=== PATIENT | female | born 1960 | race Caucasian/White ===

== ENCOUNTER 2020-02-25 17:37 | Outpatient (CLI) | payer OTHER, SELFPAY ==
[2020-02-25 17:55] LABS: Add Urine Microscopic? YES; Appearance Urine Clear (Clear); Bilirubin Urine Negative (Negative); Blood Urine Negative (Negative); Color Urine Yellow (Yellow); Glucose Urine UA Negative (Negative); Ketones Urine Negative (Negative); Leukocyte Esterase Ur 1+ LEU/UL (NEGATIVE); Mucus Urine Rare /lpf; Nitrate Urine Negative (Negative); Protein Urine Negative (Negative); RBC Urine 0-2 /hpf (0-2); Specific Grav Ur 1.017 (1.001-1.035); Squamous Epithelial Cell Urine Many /hpf (Few); Urobilinogen Urine Negative mg/dL (<2.0)
== END 2020-02-25 17:38 | disposition home or self-care (01) ==
LOC: ANHLAB 17:39
PROVIDERS: Visit Provider Physician Assistant
DX: N39.0 Urinary tract infection, site not specified (principal)
CPT/HCPCS: 81001; 87086; 87088

== ENCOUNTER 2020-03-04 15:11 | Outpatient (CLI) | payer OTHER, SELFPAY ==
--- NOTE | ~2020-03-04 | CT_ITS ---
EXAMINATION: CT abdomen pelvis wo con EXAM DATE: 03/04/2020 15:33 INDICATION: Left-sided abdominal pain. TECHNIQUE: Spiral CT of the abdomen and pelvis was performed without contrast. Axial, coronal and sag ittal images were reviewed. The dose-length product (DLP) for this examination was 1128.35 mGy-cm. The exposure was tailored according to patient size (auto mA exposure control), and iterative reconst ruction (ASIR) was used as additional dose reduction technique. There is no prior study for comparis on. FINDINGS: There are splenic granulomata. There is no nephrolithiasis or hydronephrosis. The uterus is unremarkable. The bladder is unremarkable. The liver, adrenal glands and pancreas are unremarka ble. There are cholecystectomy clips. There is no retroperitoneal or pelvic lymphadenopathy. The appendix is normal. The stomach and small bowel are unremarkable. There is expected amount of c olonic stool. No free intraperitoneal gas. The heart is normal in size. There are no pericardial or pleural effusions. The lung bases are unremarkable. The bones are unremarkable. IMPRESSION: 1. No acute intra-abdominal findings. Reviewed, dictated and finalized at location A.
== END 2020-03-04 15:12 | disposition home or self-care (01) ==
PROVIDERS: Visit Provider Physician Assistant
DX: R10.9 Unspecified abdominal pain (principal)
CPT/HCPCS: 74176

== ENCOUNTER → 2020-10-10 00:24 | Outpatient (CLI) | payer OTHER, SELFPAY ==
[2020-10-10 17:47] LABS: SARS-CoV-2 RNA PCR Negative
== END ==
PROVIDERS: PCP Family Medicine; Visit Provider Internal Medicine Gastroenterology
DX: Z01.812 Encounter for preprocedural laboratory examination (principal); Z20.822 Contact with and (suspected) exposure to COVID-19
CPT/HCPCS: C9803; U0003; U0005

== ENCOUNTER 2020-10-13 00:52 | Day surgery (SDC) | payer OTHER, SELFPAY ==
[2020-10-03 09:36] VITALS: BMI 39.7
[2020-10-13 08:59] VITALS: BP 132/89; PULSE 75; RESP 20; TEMP 37; O2SAT 99
[2020-10-13] MEDS: LACTATED RINGERS 1,000 ML 150 ML IV CONT (09:11)
--- NOTE | 2020-10-13 09:20 | WPDANESEPPF ---
Anes - Initial Pre Proc Eval Procedure: Operation Date: 10/13/20 10:15 Proposed Procedures p Esophagogastroduodenoscopy & Screening Colonoscopy - Deng Ly MD Date/Time: 10/13/20 09:20 Surgeon: Deng Ly MD Pre Op Diagnosis: GERD, Neoplasm Screening Patient Data Age: 60 Gender: F Height: 5 ft 4 in Weight: 105.3 kg Last Vital Signs Temp 98.6 F 10/13/20 08:59 Pulse 75 10/13/20 08:59 Resp 20 10/13/20 08:59 BP 132/89 10/13/20 08:59 Pulse Ox 99 10/13/20 08:59 Allergies Allergy/AdvReac Type Severity Reaction Status Date / Time No Known Allergies Allergy Verified 10/13/20 08:57 Home Medications Medication Instructions Recorded Confirmed Type azelastine-fluticasone 137 mcg-50 1 spray NASAL BID 05/07/20 10/03/20 History mcg/spray nasal spray montelukast 10 mg tablet 10 mg PO DAILY #30 tablet 08/25/20 10/03/20 Rx albuterol sulfate 90 mcg/actuation 1 puff INHALATION Q4H PRN 09/02/20 10/03/20 History aerosol inhaler Lactobacill 46-B.animal-inulin 1 cap PO DAILY 10/03/20 10/03/20 History [Probiotic-10 (with inulin)] calcium carbonate-vitamin D3 2 tablet PO DAILY 10/03/20 10/03/20 History [Calcium with Vitamin D] cholecalciferol (vitamin D3) 100 mcg PO DAILY 10/03/20 10/03/20 History [Vitamin D3] cyanocobalamin (vitamin B-12) 1,000 mcg PO DAILY 10/03/20 10/03/20 History [Vitamin B-12] fexofenadine [Kat] 180 mg PO DAILY 10/03/20 10/03/20 History hydrochlorothiazide 25 mg PO DAILY 10/03/20 10/03/20 History obvifpns-ejj-ovfd-FA-lutein 1 tablet PO DAILY 10/03/20 10/03/20 History [Centrum Silver Women] potassium 99 mg PO DAILY 10/03/20 10/03/20 History rabeprazole 20 mg PO BID 10/03/20 10/03/20 History Patient hx anesthesia problems: none Family hx anesthesia problems: none [facility] Past Medical History Medical History Allergic rhinitis Chronic rhinosinusitis Elevated liver enzymes Erythrocytosis GERD (gastroesophageal reflux disease) History of blood transfusion 2010 History of nephrolithotomy with removal of calculi 02/28 HTN (hypertension) IBS (irritable bowel syndrome) Normal colonoscopy 2005, 2010 Osteoarthritis Seasonal asthma Vaginal delivery 07/06/80, , full term, female, 8#8 09/14/84, , full term, female, 8# Surgical History Surgical History History of carpal tunnel surgery 2005 lt hand History of cholecystectomy 2003 History of endoscopy 2000, 2004 History of sinus surgery 07/26 cauterized sinus, 2001 History of surgical removal of ganglion cyst 1985 right hand Family History Family History Father Diabetes mellitus Hypertension Mother Diabetes mellitus Hypertension Sibling Diabetes mellitus Grandparent History of blood clots grandfather Diabetes mellitus grandmother Other Breast cancer aunt Social History Social History (Updated 09/02/20 @ 14:04 by Debi Caro) Smoking status: Never smoker Alcohol intake: current Drinks per week: 1 Alcohol use details: BEER/WINE Substance use: never Substance use type: does not use Living arrangements: with family Gender identity (if verbalized by the patient): Female Spiritual care concerns: No Anes - Eval Final PreProcedure Day of Procedure 10/13/20 09:20 Patient weight: morbidly obese Heart: regular rate and rhythm Lungs: clear to auscultation Airway: Mallampati scale class II Neurological: alert and oriented Last oral intake: >/= 8 hours ASA classification: III Emergent: no Anesthetic plan: proceed Anesthesia type and monitoring: general GIVS and standard monitoring Informed Consent: The patient's anesthetic plan and its attendant risks and benefits were discussed with the patient/family/POADede Silveira
--- NOTE | 2020-10-13 09:56 | PM.HPGS ---
History of Present Illness History of Present Illness Consent: Risks, benefits, and alternatives have been discussed and questions answered. Patient agrees to proceed with procedure. Chief complaint: GERD, Neoplasm Screening Narrative: Kia Hernández is a 60 year old female with chronic and persistent gastroesophageal reflux disease. 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 She is due for screening colonoscopy [facility] Past Medical History Medical History (Updated 10/13/20 @ 10:02 by Deng Ly MD) Allergic rhinitis Chronic rhinosinusitis Elevated liver enzymes Erythrocytosis GERD (gastroesophageal reflux disease) History of blood transfusion 2010 History of nephrolithotomy with removal of calculi 02/28 HTN (hypertension) IBS (irritable bowel syndrome) Normal colonoscopy 2005, 2010 Osteoarthritis Seasonal asthma Vaginal delivery 07/06/80, , full term, female, 8#8 09/14/84, , full term, female, 8# Surgical History Surgical History History of carpal tunnel surgery 2005 lt hand History of cholecystectomy 2003 History of endoscopy 2004 History of sinus surgery 07/26 cauterized sinus, 2001 History of surgical removal of ganglion cyst 1985 right hand Family History Family History Father Diabetes mellitus Hypertension Mother Diabetes mellitus Hypertension Sibling Diabetes mellitus Grandparent History of blood clots grandfather Diabetes mellitus grandmother Other Breast cancer aunt Social History Social History Smoking status: Never smoker Alcohol intake: current Drinks per week: 1 Alcohol use details: BEER/WINE Substance use: never Substance use type: does not use Living arrangements: with family Gender identity (if verbalized by the patient): Female Spiritual care concerns: No Meds Home Medications and Allergies Home Medications Medication Instructions Recorded Confirmed Type azelastine-fluticasone 137 mcg-50 1 spray NASAL BID 05/07/20 10/03/20 History mcg/spray nasal spray montelukast 10 mg tablet 10 mg PO DAILY #30 tablet 08/25/20 10/03/20 Rx albuterol sulfate 90 mcg/actuation 1 puff INHALATION Q4H PRN 09/02/20 10/03/20 History aerosol inhaler Lactobacill 46-B.animal-inulin 1 cap PO DAILY 10/03/20 10/03/20 History [Probiotic-10 (with inulin)] calcium carbonate-vitamin D3 2 tablet PO DAILY 10/03/20 10/03/20 History [Calcium with Vitamin D] cholecalciferol (vitamin D3) 100 mcg PO DAILY 10/03/20 10/03/20 History [Vitamin D3] cyanocobalamin (vitamin B-12) 1,000 mcg PO DAILY 10/03/20 10/03/20 History [Vitamin B-12] fexofenadine [Kat] 180 mg PO DAILY 10/03/20 10/03/20 History hydrochlorothiazide 25 mg PO DAILY 10/03/20 10/03/20 History nzcbgrkn-kht-wroa-FA-lutein 1 tablet PO DAILY 10/03/20 10/03/20 History [Centrum Silver Women] potassium 99 mg PO DAILY 10/03/20 10/03/20 History rabeprazole 20 mg PO BID 10/03/20 10/03/20 History Allergies Allergy/AdvReac Type Severity Reaction Status Date / Time No Known Allergies Allergy Verified 10/13/20 08:57 Vital Signs Vital Signs - 24 hr 10/13/20 08:59 Temperature 37.0 C Pulse Rate 75 Respiratory Rate 20 Blood Pressure 132/89 Pulse Oximetry 99 Exam Resp: Auscultation: clear to auscultation bilaterally Cardio: Rate: regular rate Rhythm: regular rhythm GI: GI Palp: Yes Soft to palpation and No Tenderness to palpation present (GI) Assessment and Plan Assessment and plan (1) GERD (gastroesophageal reflux disease): Code(s): K21.9 - Gastro-esophageal reflux disease without esophagitis Status: Acute Assessment and Plan: EGD with possible biopsy or dilatation or cautery. (2) Colon c
[2020-10-13 10:44] VITALS: BP 108/62; PULSE 70; RESP 30; O2SAT 100
[2020-10-13 10:54] VITALS: BP 120/73; PULSE 64; RESP 17; O2SAT 99
[2020-10-13 11:04] VITALS: BP 125/76; PULSE 61; RESP 17; O2SAT 99
== END 2020-10-13 11:15 | disposition home or self-care (01) ==
PROVIDERS: PCP Family Medicine; Visit Provider Internal Medicine Gastroenterology
PROC: 0DJ08ZZ Inspection of Upper Intestinal Tract, Via Natural or Artificial Opening Endoscopic (ICD-10-PCS; CPT 43235; principal; 2020-10-13 10:15)
DX: Z12.11 Encounter for screening for malignant neoplasm of colon (principal); K21.9 Gastro-esophageal reflux disease without esophagitis; I10 Essential (primary) hypertension; K58.9 Irritable bowel syndrome, unspecified; M19.90 Unspecified osteoarthritis, unspecified site; E66.01 Morbid (severe) obesity due to excess calories; Z68.39 Body mass index [BMI] 39.0-39.9, adult
CPT/HCPCS: 45378; 43239; 88305; C9803; J2001; J2704; J7120; U0003; U0005

== ENCOUNTER → 2021-04-09 11:08 | Outpatient (CLI) | payer OTHER, SELFPAY ==
--- NOTE | ~2021-04-09 | XR_ITS ---
XR finger 2nd LT min 2V DATE: 04/09/2021 11:31 INDICATION: Stiffness TECHNIQUE: 4 views COMPARISON: None FINDINGS: There is joint space narrowing and spurring at the proximal interphalangeal and to a greate r extent distal interphalangeal joint and small degenerative ossicle at the distal interphalangeal allen int, consistent with osteoarthritis. No fracture, dislocation, periosteal reaction or bone destruction. IMPRESSION: Osteoarthritis Reviewed, dictated and finalized at location A. IMPRESSION: Osteoarthritis
== END ==
PROVIDERS: PCP Family Medicine; Visit Provider Physician Assistant
DX: M19.042 Primary osteoarthritis, left hand (principal)
CPT/HCPCS: 73140

== ENCOUNTER 2021-05-03 10:32 | Emergency (ER) | payer OTHER, SELFPAY ==
[2021-05-03 10:37] VITALS: BP 142/71; PULSE 74; RESP 16; TEMP 36.8; O2SAT 100
--- NOTE | 2021-05-03 10:39 | ED.SKABFB ---
HPI - Skin/Abscess/Foreign Bdy General Chief complaint: Skin/Abscess/Foreign Body Stated complaint: rash Time Seen by Provider: 05/03/21 10:39 Source: patient and RN notes reviewed Mode of arrival: ambulatory Limitations: no limitations History of Present Illness HPI narrative: 60-year-old female presents to the [facility] with complaints of a rash to the bilateral lower arms and right lateral neck. States that she was clearing brush and not sure what was in it. Has been taking Benadryl every 6 hours and applying Benadryl cream with little relief. Denies any new creams or ointments lotions detergents. No new foods MD complaint: rash Related Data Home Medications Medication Instructions Recorded Confirmed azelastine-fluticasone 137 mcg-50 1 spray NASAL BID 05/07/20 05/03/21 mcg/spray nasal spray Centrum Silver Women 1 tablet PO DAILY 10/03/20 05/03/21 Probiotic-10 (with inulin) 1 cap PO DAILY 10/03/20 05/03/21 calcium carbonate-vitamin D3 2 tablet PO DAILY 10/03/20 05/03/21 [Calcium with Vitamin D] cyanocobalamin (vitamin B-12) 1,000 mcg PO DAILY 10/03/20 05/03/21 [Vitamin B-12] fexofenadine 180 mg PO DAILY 10/03/20 05/03/21 acetaminophen [Tylenol Arthritis] 650 mg PO Q12H PRN 05/03/21 05/03/21 glucos sul 9RRg-vkj-qbtno-C-Mn 1 cap PO DAILY 05/03/21 05/03/21 [Glucosamine Chondroitin] hydrochlorothiazide 25 mg PO DAILY 05/03/21 05/03/21 montelukast 10 mg PO DAILY 05/03/21 05/03/21 Allergies Allergy/AdvReac Type Severity Reaction Status Date / Time No Known Allergies Allergy Verified 05/03/21 10:48 Review of Systems Review of Systems: All systems reviewed & are unremarkable except as noted in HPI and below Constitutional: Constitutional: Reports no additional constitutional complaints, Denies chills and Denies fever(s) Eyes: Eyes: Reports no additional eye complaints ENT: Reports system reviewed and no additional complaints, except as documented Cardiovascular: Cardiovascular: Reports no additional cardiovascular complaints Respiratory: Respiratory: Reports no additional respiratory complaints Gastrointestinal: Gastrointestinal: Reports no additional gastrointestinal complaints Musculoskeletal: Musculoskeletal: Reports no additional musculoskeletal complaints Integumentary/Breasts: Skin/Breast: Reports as per HPI and Reports rash (Bilateral lower arms, above the neckline of shirt, right side of neck) Neurologic: Reports system reviewed and no additional complaints, except as documented Psychiatric: Psychiatric: Reports no additional psychiatric complaints Endocrine: Endocrine: Reports no additional endocrine complaints Allergic/Immunologic: Allergic/Immunologic: Reports no additional allergic/immunologic complaints, Denies lip swelling, Denies throat swelling, Denies tongue swelling and Denies wheezing PMFSH Past Medical History Medical History (Updated 05/03/21 @ 10:48 by Mari Wolfe) Allergic rhinitis Chronic rhinosinusitis Elevated liver enzymes Erythrocytosis GERD (gastroesophageal reflux disease) History of blood transfusion 2010 History of nephrolithotomy with removal of calculi 02/28 HTN (hypertension) IBS (irritable bowel syndrome) Normal colonoscopy 2010 Osteoarthritis Seasonal asthma Vaginal delivery 07/06/80, , full term, female, 8#8 09/14/84, , full term, female, 8# Surgical History Surgical History History of carpal tunnel surgery 2005 lt hand History of cholecystectomy 2003 History of endoscopy 2004 History of sinus surgery 07/26 cauterized sinus, 2001 History of surgical removal of ganglion cyst 1985 right hand Family History Family History Father Diabetes mellitus Hypertension Mother Diabetes mellitus Hypertension Sibling Diabetes mellitus Grandparent History of blood clots grandfather Diabetes kylah
== END 2021-05-03 10:50 | disposition home or self-care (01) ==
PROVIDERS: Emergency Provider Nurse Practitioner; PCP Family Medicine
DX: L25.9 Unspecified contact dermatitis, unspecified cause (principal); I10 Essential (primary) hypertension
CPT/HCPCS: 99213; G0463

== ENCOUNTER 2021-10-26 11:22 | Emergency (ER) | payer OTHER, SELFPAY ==
[2021-10-26 11:35] VITALS: BP 137/78; PULSE 86; RESP 20; TEMP 37.2; O2SAT 99
--- NOTE | 2021-10-26 11:51 | ED.URI ---
HPI - URI/Sore Throat General Chief Complaint: Upper Respiratory Infection Stated Complaint: allergies, ear pain, congestion Time Seen by Provider: 10/26/21 11:51 Source: patient, family, RN notes reviewed and old records reviewed Mode of arrival: ambulatory Limitations: no limitations History of Present Illness HPI Narrative: 61-year-old female presents to the [facility] with complaints of seasonal allergies. Patient reports being allergic to ragweed, trees and trees and grass. States she takes zaly-hjf-xageikj products such as Kat, Flonase daily. Has prescriptions for Singulair. Reports taking them daily. Reports sinus congestion and pressure MD elicited complaint: nasal congestion and sinus pain Related Data Home Medications Medication Instructions Recorded Confirmed Centrum Silver Women 1 tablet PO DAILY 10/03/20 10/26/21 Probiotic-10 (with inulin) 1 cap PO DAILY 10/03/20 10/26/21 calcium carbonate-vitamin D3 2 tablet PO DAILY 10/03/20 10/26/21 [Calcium with Vitamin D] glucos sul 3PVo-pmf-zeupy-C-Mn 1 cap PO DAILY 05/03/21 10/26/21 [Glucosamine Chondroitin] biotin 1 mg capsule 1 mg PO DAILY 05/12/21 10/26/21 cholecalciferol (vitamin D3) 25 25 mcg PO DAILY 05/12/21 10/26/21 mcg (1,000 unit) capsule fexofenadine 180 mg tablet 180 mg PO DAILY 05/12/21 10/26/21 fluticasone propionate 50 2 spray INTRANASAL DAILY 05/12/21 10/26/21 mcg/actuation nasal spray,suspension magnesium 200 mg tablet 200 mg PO DAILY 05/12/21 10/26/21 acetaminophen [Tylenol Arthritis] 650 mg PO Q12H 10/26/21 10/26/21 montelukast 10 mg PO DAILY 10/26/21 10/26/21 potassium chloride [K+ Potassium] 20 meq PO DAILY 10/26/21 10/26/21 Allergies Allergy/AdvReac Type Severity Reaction Status Date / Time No Known Allergies Allergy Verified 10/26/21 11:46 Review of Systems Review of Systems: All systems reviewed & are unremarkable except as noted in HPI and below Constitutional: Constitutional: Reports no additional constitutional complaints, Denies chills, Denies fever(s) and Denies headache(s) Eyes: Eyes: Reports no additional eye complaints ENT: Reports as per HPI, Denies vertigo, Denies dizziness, Denies headache(s), Reports nasal congestion and Denies sore throat Comments: Bilateral ear pressure Cardiovascular: Cardiovascular: Reports no additional cardiovascular complaints, Denies chest pain, Denies syncope, Denies rapid heart rate and Denies dyspnea Respiratory: Respiratory: Reports no additional respiratory complaints, Denies cough, Denies dyspnea and Denies wheezing Gastrointestinal: Gastrointestinal: Reports no additional gastrointestinal complaints, Denies abdominal pain, Denies diarrhea, Denies nausea and Denies vomiting Musculoskeletal: Musculoskeletal: Reports no additional musculoskeletal complaints and Denies numbness Integumentary/Breasts: Skin/Breast: Reports system reviewed and no additional complaints, except as docu Neurologic: Reports system reviewed and no additional complaints, except as documented, Denies vertigo, Denies dizziness, Denies syncope, Denies headache(s), Denies focal weakness and Denies numbness Psychiatric: Psychiatric: Reports no additional psychiatric complaints Allergic/Immunologic: Allergic/Immunologic: Reports no additional allergic/immunologic complaints and Denies wheezing PMFSH Past Medical History Medical History Allergic rhinitis Chronic rhinosinusitis Elevated liver enzymes Erythrocytosis GERD (gastroesophageal reflux disease) History of blood transfusion 2011 History of nephrolithotomy with removal of calculi 02/28 HTN (hypertension) IBS (irritable bowel syndrome) Normal colonoscopy 2005, 2010 Osteoarthritis Seasonal asthma Vaginal delivery x2 Surgical History Surgical History History of carpal tunnel surgery 2006 lt hand History of cholecystectomy 2004 Hist
== END 2021-10-26 12:05 | disposition home or self-care (01) ==
PROVIDERS: Emergency Provider Nurse Practitioner; PCP Family Medicine
DX: H65.03 Acute serous otitis media, bilateral (principal); J30.2 Other seasonal allergic rhinitis; K21.9 Gastro-esophageal reflux disease without esophagitis; I10 Essential (primary) hypertension; M19.90 Unspecified osteoarthritis, unspecified site; J45.909 Unspecified asthma, uncomplicated
CPT/HCPCS: 99213; G0463

== ENCOUNTER 2022-07-02 12:26 | Emergency (ER) | payer OTHER, SELFPAY ==
[2022-07-02 12:33] VITALS: BP 141/73; PULSE 91; RESP 18; TEMP 36.7; O2SAT 98
--- NOTE | 2022-07-02 12:50 | ED.URI ---
HPI - URI/Sore Throat General Chief Complaint: Upper Respiratory Infection Stated Complaint: drainage ears clogged dizzy Time Seen by Provider: 07/02/22 12:39 Source: patient Mode of arrival: ambulatory Limitations: no limitations History of Present Illness HPI Narrative: Patient presents today with a one-week history of nasal congestion, postnasal drip, sore throat, cough with her left ear clogging and dizziness since yesterday. States symptoms have been worsening since yesterday. Denies shortness of breath. She has been taking Benadryl, [place] region, using a sinus rinse. History of 3 sinus surgeries. Related Data Home Medications Medication Instructions Recorded Confirmed Lactobacillus no.46-B. 1 cap PO DAILY 10/03/20 07/02/22 animalis-inulin 10 billion cell-100 mg capsule (Probiotic-10 (with inulin)) calcium carbonate 600 mg-vitamin 2 tablet PO DAILY 10/03/20 07/02/22 D3 10 mcg (400 unit) tablet (Calcium with Vitamin D) glucosamine sulf dipot 1 cap PO DAILY 05/03/21 07/02/22 chlr,msm,chond 550 mg-C 30 mg-mirela 1 mg capsule (Glucosamine Chondroitin) cholecalciferol (vitamin D3) 25 25 mcg PO DAILY 05/12/21 07/02/22 mcg (1,000 unit) capsule fluticasone propionate 50 2 spray intranasal DAILY 05/12/21 07/02/22 mcg/actuation nasal spray,suspension magnesium 200 mg tablet 200 mg PO DAILY 05/12/21 07/02/22 potassium chloride 20 mEq oral 20 meq PO DAILY 10/26/21 07/02/22 packet albuterol sulfate 90 mcg/actuation 2 puff inhalation QID 07/02/22 07/02/22 aerosol inhaler (ProAir HFA) Allergies Allergy/AdvReac Type Severity Reaction Status Date / Time No Known Allergies Allergy Verified 07/02/22 12:41 Review of Systems Review of Systems: CONSTITUTIONAL: Denies body aches, fever, chills, or sweats. EYES: Denies visual changes, redness, or discharge. ENT: Denies rhinorrhea. + congestion, postnasal drip, sore throat, left ear clogging CARDIOVASCULAR: Denies chest pain, palpitations, or edema. RESPIRATORY: Denies dyspnea.+ cough GASTROINTESTINAL: Denies abdominal pain, nausea, vomiting, or diarrhea. GENITOURINARY: Denies dysuria or hematuria. SKIN: Denies rash, itching, or wounds. MUSCULOSKELETAL: Denies back pain, joint pain, or myalgia. NEUROLOGIC: Denies headache, numbness, tingling, or weakness.+ dizziness PSYCH: Denies depression or anxiety. [facility] Past Medical History Medical History Allergic rhinitis Chronic rhinosinusitis Elevated liver enzymes Erythrocytosis GERD (gastroesophageal reflux disease) History of blood transfusion 2011 History of nephrolithotomy with removal of calculi 02/28 HTN (hypertension) IBS (irritable bowel syndrome) Normal colonoscopy 2005, 2010 Osteoarthritis Seasonal asthma Vaginal delivery x2 Surgical History Surgical History History of carpal tunnel surgery 2005 lt hand History of cholecystectomy 2003 History of endoscopy 2005, 2011, 2020 History of sinus surgery 06/2012; 07/26, cauterized sinus; 2001; 10/2018 History of surgical removal of ganglion cyst x2, right hand Family History Family History Father Diabetes mellitus Hypertension Mother Diabetes mellitus Hypertension Sibling Diabetes mellitus Grandparent History of blood clots grandfather Diabetes mellitus grandmother Other Breast cancer aunt Social History Social History Social History: Smoking status: Never smoker Second hand tobacco smoke exposure: No Alcohol intake: former Substance use: never Substance use type: does not use Gender identity (if verbalized by the patient): Female Sexual Orientation (if Verbalized by the Patient): Straight or Heterosexual Spiritual care
--- NOTE | 2022-07-02 13:52 | ED.URI ---
HPI - URI/Sore Throat General Chief Complaint: Upper Respiratory Infection Stated Complaint: drainage ears clogged dizzy Time Seen by Provider: 07/02/22 12:39 Source: patient Mode of arrival: ambulatory Limitations: no limitations Related Data Home Medications Medication Instructions Recorded Confirmed Lactobacillus no.46-B. 1 cap PO DAILY 10/03/20 07/02/22 animalis-inulin 10 billion cell-100 mg capsule (Probiotic-10 (with inulin)) calcium carbonate 600 mg-vitamin 2 tablet PO DAILY 10/03/20 07/02/22 D3 10 mcg (400 unit) tablet (Calcium with Vitamin D) glucosamine sulf dipot 1 cap PO DAILY 05/03/21 07/02/22 chlr,msm,chond 550 mg-C 30 mg-mirela 1 mg capsule (Glucosamine Chondroitin) cholecalciferol (vitamin D3) 25 25 mcg PO DAILY 05/12/21 07/02/22 mcg (1,000 unit) capsule fluticasone propionate 50 2 spray intranasal DAILY 05/12/21 07/02/22 mcg/actuation nasal spray,suspension magnesium 200 mg tablet 200 mg PO DAILY 05/12/21 07/02/22 potassium chloride 20 mEq oral 20 meq PO DAILY 10/26/21 07/02/22 packet albuterol sulfate 90 mcg/actuation 2 puff inhalation QID 07/02/22 07/02/22 aerosol inhaler (ProAir HFA) Allergies Allergy/AdvReac Type Severity Reaction Status Date / Time No Known Allergies Allergy Verified 07/02/22 12:41 PMFSH Past Medical History Medical History Allergic rhinitis Chronic rhinosinusitis Elevated liver enzymes Erythrocytosis GERD (gastroesophageal reflux disease) History of blood transfusion 2011 History of nephrolithotomy with removal of calculi 02/28 HTN (hypertension) IBS (irritable bowel syndrome) Normal colonoscopy 2005, 2010 Osteoarthritis Seasonal asthma Vaginal delivery x2 Surgical History Surgical History History of carpal tunnel surgery 2006 lt hand History of cholecystectomy 2004 History of endoscopy 2005, 2011, 2020 History of sinus surgery 06/2012; 07/26, cauterized sinus; 2001; 10/2018 History of surgical removal of ganglion cyst x2, right hand Family History Family History Father Diabetes mellitus Hypertension Mother Diabetes mellitus Hypertension Sibling Diabetes mellitus Grandparent History of blood clots grandfather Diabetes mellitus grandmother Other Breast cancer aunt Social History Social History Social History: Smoking status: Never smoker Second hand tobacco smoke exposure: No Alcohol intake: former Substance use: never Substance use type: does not use Gender identity (if verbalized by the patient): Female Sexual Orientation (if Verbalized by the Patient): Straight or Heterosexual Spiritual care concerns: No Course Vital Signs Vital signs: Vital Signs Temperature 98.1 F 07/02/22 12:33 Pulse Rate 91 07/02/22 12:33 Respiratory Rate 18 07/02/22 12:33 Blood Pressure 141/73 H 07/02/22 12:33 Pulse Oximetry 98 07/02/22 12:33 Oxygen Delivery Room Air 07/02/22 12:33 Temperature 98.1 F 07/02/22 12:33 Pulse Rate 91 07/02/22 12:33 Respiratory Rate 18 07/02/22 12:33 Blood Pressure 141/73 H 07/02/22 12:33 Pulse Oximetry 98 07/02/22 12:33 Oxygen Delivery Room Air 07/02/22 12:33 Discharge Plan Discharge Clinical Impression: Acute bacterial sinusitis, Acute left otitis media Patient Disposition: Home, Self-Care Condition: Stable Instructions: Antibiotic Form, Sinusitis (ED), Ear Infection (GEN) Additional Instructions: Please take the Augmentin as prescribed until gone. Continue the jqwx-zhm-renamli medication you have been taking Advil as well. Follow-up with your doctor next week if symptoms are not improving. Your blood pressure was elevated above 120/80 to
== END 2022-07-02 12:55 | disposition home or self-care (01) ==
PROVIDERS: Emergency Provider Nurse Practitioner; PCP Family Medicine
DX: J01.90 Acute sinusitis, unspecified (principal); H66.92 Otitis media, unspecified, left ear; K21.9 Gastro-esophageal reflux disease without esophagitis; I10 Essential (primary) hypertension; M19.90 Unspecified osteoarthritis, unspecified site
CPT/HCPCS: 99213; G0463

== ENCOUNTER 2022-07-15 09:15 | Outpatient (CLI) | payer OTHER, SELFPAY ==
--- NOTE | ~2022-07-15 | DEXA_ITS ---
Bone Density Report Name: JULIETA PERDOMO Age: 61 Sex: Female Ethnicity: White Date of : 1960 Indication: postmenopausal; screening for osteoporosis; height loss; asthma or emphysema; rheumatoid arthritis; Referring Provider: SLADE KENDALL Study: Bone densitometry was performed. Exam Date: July 15, 2022 Accession number: [id number] Bone Density: Region BMD T-score Z-score Classification AP Spine(L1-L4) 1.026 -0.2 1.2 Normal Femoral Neck (Left) 0.926 0.7 2.0 Normal Total Hip (Left) 1.098 1.3 2.2 Normal Femoral Neck (Right) 0.859 0.1 1.4 Normal Total Hip (Right) 1.047 0.9 1.8 Normal Total Hip Mean 1.072 1.1 2.0 Normal World Health Organization criteria for BMD impression classify patients as: Normal (T-score at or above -1.0), Osteopenia (T-score between -1.0 and -2.5), or Osteoporosis (T-score at or below -2.5). 10-year Fracture Risk: FRAX not reported because: All T-scores for Spine Total, Hip Total, Femoral Neck at or above -1.0 Clinical Information Provided by Patient: Has rheumatoid arthritis Has used the following medications: Vitamin D, Calcium Has the following medical conditions: Asthma or Emphysema Patient maximum height was 64.75 Menopause Age: 55 No regular weight bearing exercise Onset of menses at age 15 Number of children 2 Impression: The patient has normal bone mass. Discussion: BONE DENSITY IS ABOVE THE MINIMUM DESIRABLE LEVEL AT ALL SKELETAL SITES TESTED. This patient?s bone mineral density is above the minimum desirable level (T-score -1.0 or better) at all sites measured. The patient should follow a healthful lifestyle (good nutrition with adequate calcium and vitamin D, and appropriate weight-bearing exercise). Follow-Up: Consider repeating this study in 5 years or sooner if there is some new clinical indication. Reported by: [facility] on 07/15/2022 9:43:00 AM. Reviewed, dictated and finalized at location ADede KIRAN
== END 2022-07-15 09:16 | disposition home or self-care (01) ==
PROVIDERS: PCP Family Medicine; Visit Provider Obstetrics & Gynecology
DX: R29.890 Loss of height (principal)
CPT/HCPCS: 77080

== ENCOUNTER 2023-08-16 10:07 | Outpatient (CLI) | payer OTHER, SELFPAY ==
[2023-08-16 11:57] LABS: Influenza A QL RT-PCR Negative (Negative); Influenza B QL RT-PCR Negative (Negative); RSV RNA, RT-PCR Negative (Negative); SARS-CoV-2 RNA PCR Negative (Negative)
== END 2023-08-16 10:08 | disposition home or self-care (01) ==
LOC: ANHLAB 10:09
PROVIDERS: PCP Family Medicine; Visit Provider Physician Assistant
DX: R05.9 Cough, unspecified (principal); Z20.822 Contact with and (suspected) exposure to COVID-19
CPT/HCPCS: 87637

== ENCOUNTER 2023-10-13 11:55 | Emergency (ER) | payer OTHER, SELFPAY ==
[2023-10-13 12:00] VITALS: BP 131/104; PULSE 80; RESP 20; TEMP 36.5; O2SAT 100
--- NOTE | 2023-10-13 12:38 | ED.URI ---
HPI - URI/Sore Throat General Chief Complaint: Upper Respiratory Infection Stated Complaint: cough/fever/throat/fever Time Seen by Provider: 10/13/23 12:37 Source: patient Mode of arrival: ambulatory Limitations: no limitations History of Present Illness HPI Narrative: 63-year-old female presents to [facility] with complaint of headache, sore throat, cough, congestion and bilateral ear pain x 5 days. Patient endorses that she arrived home from a cruise on Tuesday. Your patient here tonight with Mucinex twice a day, he had felt cold and Sinus, ibuprofen, and cough drops with some relief. Patient denies allergies. The patient endorses history of hypertension, GERD, and uterine ablation. Patient denies any other pertinent past medical history. Patient able to tolerate fluids by mouth. Related Data Home Medications Medication Instructions Recorded Confirmed Lactobacillus no.46-B. 1 cap PO DAILY 10/03/20 10/13/23 animalis-inulin 10 billion cell-100 mg capsule (Probiotic-10 (with inulin)) calcium carbonate 600 mg-vitamin 2 tablet PO DAILY 10/03/20 10/13/23 D3 10 mcg (400 unit) tablet (Calcium with Vitamin D) glucosamine sulf dipot 1 cap PO DAILY 05/03/21 10/13/23 chlr,msm,chond 550 mg-C 30 mg-mirela 1 mg capsule (Glucosamine Chondroitin) cholecalciferol (vitamin D3) 25 25 mcg PO DAILY 05/12/21 10/13/23 mcg (1,000 unit) capsule fluticasone propionate 50 2 spray intranasal DAILY 05/12/21 10/13/23 mcg/actuation nasal spray,suspension albuterol sulfate 90 mcg/actuation 2 puff inhalation QID 07/02/22 10/13/23 aerosol inhaler (ProAir HFA) blntbqsq-mjvn-hmpz 8 mg-folic 400 1 tablet PO DAILY 10/13/23 10/13/23 mcg-K 50 mcg-lutein 300 mcg tablet (Centrum Silver Women) trazodone 50 mg tablet 50 mg PO QHS 10/13/23 10/13/23 Allergies Allergy/AdvReac Type Severity Reaction Status Date / Time No Known Allergies Allergy Verified 10/13/23 12:29 Review of Systems Review of Systems: All systems reviewed & are unremarkable except as noted in HPI and below Constitutional: Constitutional: Reports no additional constitutional complaints and Reports headache(s) Eyes: Eyes: Reports no additional eye complaints ENT: Reports system reviewed and no additional complaints, except as documented, Reports headache(s), Reports nasal congestion and Reports sore throat Cardiovascular: Cardiovascular: Reports no additional cardiovascular complaints, Denies chest pain and Denies dyspnea Respiratory: Respiratory: Reports cough and Denies dyspnea Musculoskeletal: Musculoskeletal: Reports no additional musculoskeletal complaints Neurologic: Reports system reviewed and no additional complaints, except as documented Psychiatric: Psychiatric: Reports no additional psychiatric complaints PMFSH Past Medical History Medical History Allergic rhinitis BMI greater than 40 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 Elevated liver enzymes Erythrocytosis Essential hypertension GERD (gastroesophageal reflux disease) History of blood transfusion 2011 History of nephrolithotomy with removal of calculi 02/28 HTN (hypertension) IBS (irritable bowel syndrome) Insomnia Left knee DJD Normal colonoscopy 2005, 2010 Osteoarthritis Primary osteoarthritis of right knee Seasonal asthma Vaginal delivery x2 Surgical History Surgical History History of carpal tunnel surgery 2005 lt hand History of cholecystectomy 2004 History of endoscopy 2005, 2011, 2020 History of sinus surgery 06/2012; 07/26, cauterized sinus; 2001; 10/2018 History of surgical removal of ganglion cyst x2, right hand Family History Family History Father Diabetes mellitus Hypertension Mother Diabetes mellitus Hypertension Sibling Diabetes mellit
== END 2023-10-13 12:45 | disposition home or self-care (01) ==
PROVIDERS: Nurse Practitioner; Emergency Provider Nurse Practitioner Family; PCP Family Medicine
DX: J06.9 Acute upper respiratory infection, unspecified (principal); Z20.822 Contact with and (suspected) exposure to COVID-19; I10 Essential (primary) hypertension; K21.9 Gastro-esophageal reflux disease without esophagitis; M17.0 Bilateral primary osteoarthritis of knee
CPT/HCPCS: 87081; 87426; 87804; 87880; 99213; G0463

== ENCOUNTER 2023-10-31 09:40 | Outpatient (CLI) | payer OTHER, SELFPAY ==
--- NOTE | ~2023-10-31 | XR_ITS ---
Clinical Indication: Cough PA and lateral views of the chest: Comparison: None Findings: The lungs are clear, without evidence of focal consolidation or pleural effusion. Cardiome diastinal silhouette is within normal limits. Bones and soft tissues are unremarkable. Impression: Normal chest. Reviewed, dictated and finalized at location . Impression: Normal chest.
== END 2023-10-31 09:41 ==
PROVIDERS: PCP Family Medicine; Visit Provider Family Medicine
DX: R05.9 Cough, unspecified (principal)
CPT/HCPCS: 71046

== ENCOUNTER 2023-11-18 10:04 | Outpatient (CLI) | payer OTHER, SELFPAY ==
--- NOTE | 2023-11-18 13:27 | WPDPFTINT ---
PFT Procedure Performed PFT Procedure Performed Spirometry with Pre/Post Bronchodilator Plethysmography (Lung Vol) Diffusing Cap (DLCO) Flow Vol Loop PFT Interpretation This is a pulmonary function test with pre and post-bronchodilator spirometry, plethysmography and diffusing capacity. The test was performed and results interpreted in accordance with the 2019 and 2005 ATS/ERS Task Force guidelines respectively using the Global Lung Function Initiative-2012 reference equations. Patient demonstrated good effort and cooperation. Reproducibility criteria were met. The quality of the pre bronchodilator spirometry maneuver was Grade B and post bronchodilator spirometry maneuver was Grade A. Findings: Spirometry: The contour the inspiratory and expiratory flow tracing are normal. The pre bronchodilator FVC is 3.40 L, 108% predicted. The pre bronchodilator FEV1 is 2.72 L, 109% predicted. The pre bronchodilator FEV1: FVC ratio is 80%. The post bronchodilator FVC is 3.58 L, representing a 5% increase. The post bronchodilator FEV1 is 2.88 L, representing a 6% increase. The post bronchodilator FEV1: FVC ratio was 80%. Plethysmography: The total lung capacity is 6.05 L, 119% predicted. The functional residual capacity is 3.79 L, 132% predicted. The residual volume is 2.58 L, 128% predicted. Diffusing capacity: The diffusing capacity unadjusted for hemoglobin and carboxyhemoglobin is 22.4, 104% predicted. The diffusing capacity adjusted for alveolar volume is 4.67, 105% predicted. Impression: The spirometry is normal without evidence of an obstructive abnormality. There is no significant improvement after inhaling a single dose of albuterol. The lung volumes are normal. The diffusing capacity is normal. There are no prior studies for comparison
== END 2023-11-18 10:05 | disposition home or self-care (01) ==
LOC: ANHPFT 10:05
PROVIDERS: PCP Family Medicine; Visit Provider Physician Assistant Medical
DX: R05.9 Cough, unspecified (principal); R06.02 Shortness of breath
CPT/HCPCS: 94060; 94726; 94729

== ENCOUNTER 2024-03-23 10:26 | Outpatient (CLI) | payer OTHER, SELFPAY ==
[2024-03-23 10:47] LABS: Add Urine Microscopic? NO; Appearance Urine Clear (Clear); Bilirubin Urine Negative (Negative); Blood Urine Negative (Negative); Color Urine Yellow (Yellow); Glucose Urine UA Negative (Negative); Ketones Urine Negative (Negative); Leukocyte Esterase Ur Negative LEU/UL (Negative); Nitrate Urine Negative (Negative); Protein Urine Negative (Negative); Specific Grav Ur 1.018 (1.001-1.035); Urobilinogen Urine 0.2 mg/dL (<2.0)
[2024-03-23 11:10] LABS: Basophils Percent Auto 0.7 % (0.2-1.2); Eosinophils Absolute Auto 0.2 K/mm3 (0-0.3); Hematocrit 37.9 % (37.0-47.0); Hemoglobin 11.6 g/dL (12.0-15.0); Immature Granulocyte Absolute 0.02 K/mm3 (0.00-0.031); Immature Granulocyte Percent A 0.3 % (0-0.5); Lymphocytes Absolute Auto 1.63 K/mm3 (0.9-3.2); Lymphocytes Percent Auto 28.5 % (18.3-44.2); Mean Corpuscular HGB Conc 30.6 g/dl (32-36); Mean Corpuscular Hemoglobin 24.4 pg (26-34); Mean Corpuscular Volume 79.8 fl (80-100); Mean Platelet Volume 9.9 fl (7.4-10.4); Monocytes Absolute Auto 0.5 K/mm3 (0.1-0.6); Monocytes Percent Auto 8.4 % (2.6-8.5); Neutrophils Absolute Auto 3.4 K/mm3 (1.3-6.7); Neutrophils Percent Auto 59.1 % (45.5-73.1); Platelet Count Result 316 k/mm3 (150-375); Red Blood Count 4.75 M/mm3 (4.2-5.4); Red Cell Distribution Width 14.8 % (11.5-14.5); White Blood Count 5.7 K/mm3 (4.5-10.0)
[2024-03-23 11:36] LABS: Anion Gap 10 mmol/L (4-12); Blood Urea Nitrogen 15 mg/dL (7-17); Calcium 9.5 mg/dL (8.4-10.2); Carbon Dioxide 31 mmol/L (22-30); Chloride 99 mmol/L (98-107); Estimated Glomerular Filt Rate > 60; Glucose 105 mg/dL (65-110); Potassium 3.6 mmol/L (3.4-5.0); Sodium 140 mmol/L (137-145)
--- NOTE | 2024-03-23 11:52 | ECG_ITS ---
Test Date: 2024-03-23 12:06:37 Measurements Intervals [place] Rate: 57 P: 25 WI: 165 QRS: -53 QRSD: 129 T: 17 QT: 429 QTc: 418 Interpretive Statements SINUS BRADYCARDIA LEFT ANTERIOR FASCICULAR BLOCK [QRS AXIS <= -45, QR IN I, RS IN II] POSSIBLE LEFT VENTRICULAR HYPERTROPHY [VOLTAGE CRITERIA PLUS LAE OR QRS WIDENING] ABNORMAL ELECTROCARDIOGRAM No previous ECG available for comparison Electronically Signed On 03-23-2024 15:05:43 CDT by Jeremiah Art M.D.
== END 2024-03-23 10:27 | disposition home or self-care (01) ==
LOC: ANHLAB 10:29
PROVIDERS: PCP Family Medicine; Visit Provider Nurse Practitioner Family
DX: R74.8 Abnormal levels of other serum enzymes (principal); R71.8 Other abnormality of red blood cells; R53.83 Other fatigue; I10 Essential (primary) hypertension; R00.1 Bradycardia, unspecified; I44.4 Left anterior fascicular block; R94.31 Abnormal electrocardiogram [ECG] [EKG]
CPT/HCPCS: 36415; 80048; 81003; 85025; 93005

== ENCOUNTER 2024-05-10 11:43 | Outpatient (CLI) | payer OTHER, SELFPAY ==
[2024-05-10 14:13] LABS: Partial Thromboplastin Time 27.5 Seconds (22.3-36.8)
[2024-05-10 14:15] LABS: Urine Cotinine NEGATIVE
[2024-05-10 14:39] LABS: Hemoglobin A1C 5.9 % (<5.7)
[2024-05-10 15:49] LABS: MRSA (PCR) NOT DETECTED (NOT DETECTE)
== END 2024-05-10 11:44 | disposition home or self-care (01) ==
LOC: ANHSURGERY 11:50
PROVIDERS: PCP Family Medicine; Visit Provider Orthopaedic Surgery
DX: Z01.812 Encounter for preprocedural laboratory examination (principal); M17.11 Unilateral primary osteoarthritis, right knee
CPT/HCPCS: 80307; 83036; 85610; 85730; 86850; 86900; 86901; 87641

== ENCOUNTER 2024-05-23 01:45 | Day surgery (SDC) | payer OTHER, SELFPAY ==
[2024-05-10 11:55] VITALS: BMI 39.2
--- NOTE | 2024-05-10 12:24 | PC.NURSE ---
Report to the Outpatient Waiting Room, entrance under the green pavilion located off [facility], at time _8:30 AM on date 05/23/24 . Planned Procedure Time: _10:30 AM .? Time changes happen often and if your time is changed the preop area will call you the afternoon before. - You and your visitor will be asked to self-screen and do not enter if you have any COVID symptoms. Please call surgeon if you need to reschedule. - A mask is optional within the hospital at this time. Patients may have clear liquids (water, carbonated beverages, clear teas, apple juice) until 3 hours prior to surgery( 7:30 AM) with a maximum of 20 ounces. - No food from midnight until time of surgery and no smoking - Infants may have breast milk until 4 hours before surgery, formula 6 hours prior to surgery. - Children will be allowed to drink immediately following surgery.? If applicable, please bring a bottle or sippy cup to assist with drinking. Juice, water, soda, and popsicles are readily available.? For infants on formula, please bring formula the day of surgery.? Pacifiers are allowed. Take only the following medications with a SIP of water on the morning of surgery: __INHALER IF NEEDED DO NOT STOP ANY OF YOUR OTHER PRESCRIPTION MEDICATIONS PRIOR TO SURGERY EXCEPT THE FOLLOWING Medications to discontinue per physician __PT STATES HOLD ALL VITAMINS AND SUPPLEMENTS 7 DAYS PRE OP PER DR SHELDON LAST DOSE __05/15/24 Please no make-up, nail kittitian, hairspray, perfume, deodorant, or body powder the day of surgery.? No jewelry (including any body piercings) or valuables the day of surgery, leave them at home.? Please take a shower or bath the night before, or the morning of, surgery with an antibacterial soap.? Wear comfortable, loose fitting clothing.? Children are encouraged to wear pajamas. - Jewelry must be removed prior to entering the operating room.? Rings and piercings that are not removed may be cut off. - The hospital will not accept responsibility for valuables.? - Please leave all valuables, including medications, at home the day of surgery. If you are going home after surgery, a licensed local company truck driver must drive you home.? - NO public transportation without another adult if you receive anesthesia. - We recommend that an adult stay with you for 24 hours following discharge. - We also recommend that you do not drive, make important decision, drink alcoholic beverages, or take any drugs that were not prescribed by your health care provider for at least 24 hours after your discharge time. For Pediatric surgeries, we recommend two adults accompany the child home. Follow any additional instructions given to you from your surgeon. VERBAL AND WRITTEN instructions given to __PATIENT and asked if any additional questions and then verbalized understanding. Patient advised to call surgeon office or pre surgery nurse liaison [phone] if any additional questions.
[2024-05-10 12:37] VITALS: BP 126/78; PULSE 75; RESP 18; TEMP 37.4; O2SAT 98
--- NOTE | 2024-05-22 17:35 | WPDANESEPPF ---
Anes - Initial Pre Proc Eval Procedure: Operation Date: 05/23/24 10:30 Proposed Procedures p Right Total Knee Arthroplasty - Rios Sam MD Date/Time: 05/22/24 17:35 Surgeon: Rios Sam MD Pre Op Diagnosis: right knee oa Patient Data Age: 63 Gender: F Height: 1.63 m Weight: 103.8 kg Last Vital Signs Temp 37.4 C 05/10/24 12:37 Pulse 75 05/10/24 12:37 Resp 18 05/10/24 12:37 BP 126/78 05/10/24 12:37 Pulse Ox 98 05/10/24 12:37 O2 Del Method Room Air 05/10/24 12:37 Allergies Allergy/AdvReac Type Severity Reaction Status Date / Time No Known Allergies Allergy Verified 05/23/24 09:34 Home Medications Medication Instructions Recorded Confirmed Type Lactobacillus no.46-B. 1 cap PO DAILY 10/03/20 05/23/24 History animalis-inulin 10 billion cell-100 mg capsule (Probiotic-10 (with inulin)) calcium 600 mg (as 2 tablet PO DAILY 10/03/20 05/23/24 History carbonate)-vitamin D3 10 mcg (400 unit) tablet (Calcium with Vitamin D) glucosamine sulf dipot 1 cap PO DAILY 05/03/21 05/23/24 History chlr,msm,chond 550 mg-C 30 mg-mirela 1 mg capsule (Glucosamine Chondroitin) cholecalciferol (vitamin D3) 25 25 mcg PO DAILY 05/12/21 05/23/24 History mcg (1,000 unit) capsule fluticasone propionate 50 2 spray intranasal DAILY 05/12/21 05/23/24 History mcg/actuation nasal spray,suspension meclizine 25 mg chewable tablet 12.5 mg PO TID PRN motion sickness 11/26/21 05/23/24 Rx #30 tabs dbgngrhb-yfmu-hasf 8 mg-folic 400 1 tablet PO DAILY 10/13/23 05/23/24 History mcg-K 50 mcg-lutein 300 mcg tablet (Centrum Silver Women) albuterol sulfate 90 mcg/actuation See Rx Instructions .Route 11/30/23 05/23/24 Rx aerosol inhaler .COMPLEX #8.5 ea montelukast 10 mg tablet 10 mg PO DAILY #90 tabs 02/20/24 05/23/24 Rx hydrochlorothiazide 25 mg tablet 25 mg PO DAILY #90 tabs 02/23/24 05/23/24 Rx trazodone 50 mg tablet See Rx Instructions .Route 02/23/24 05/23/24 Rx .COMPLEX #90 tabs rabeprazole 20 mg tablet,delayed 20 mg PO BID #180 tabs 04/17/24 05/23/24 Rx release terbinafine HCl 250 mg tablet 250 mg PO DAILY #30 tabs 05/08/24 05/23/24 Rx acetaminophen 650 mg 1,300 mg PO Q12H PRN Pain 05/10/24 05/23/24 History tablet,extended release fexofenadine 180 mg tablet 180 mg PO DAILY 05/10/24 05/23/24 History (Kat Allergy) omega-3 fatty acids 1,000 mg PO DAILY 05/10/24 05/23/24 History Patient hx anesthesia problems: none Family hx anesthesia problems: none Results Review: All pre-operative results and documents have been reviewed as part of the pre-operative evaluation. 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 Elevated liver enzymes Erythrocytosis Essential hypertension GERD (gastroesophageal reflux disease) History of blood transfusion 2011 History of nephrolithotomy with removal of calculi 02/28 HTN (hypertension) IBS (irritable bowel syndrome) Insomnia Left knee DJD Normal colonoscopy 2005, 2010 Osteoarthritis Primary osteoarthritis of right knee Seasonal asthma Vaginal delivery x2 Surgical History Surgical History History of carpal tunnel surgery 2005 lt hand History of cholecystectomy 2004 History of endoscopy 2005, 2011, 2020 History of sinus surgery 06/2012; 07/26, cauterized sinus; 2001; 10/2018 History of surgical removal of ganglion cyst x2, right hand Family History Family History Father Diabetes mellitus Hypertension Mother Diabetes mellitus Hypertension Sibling Diabetes mellitus Grandparent History of blood clots grandfather Diabetes mellitus grandmother Other Breast cancer aunt Social His
[2024-05-23] VITALS (15 sets, daily range): BP systolic 114–140; BP diastolic 52–78; PULSE 64–82; RESP 12–20; TEMP 36.1–37.2; O2SAT 86–100
--- NOTE | ~2024-05-23 | XR_ITS ---
EXAMINATION: [id number] DATE: 05/23/2024 13:37 CDT INDICATION: Right total knee arthroplasty TECHNIQUE: 2 views right knee FINDINGS: There is a right total knee arthroplasty in expected position. Subcutaneous gas with fluid and air in the joint and overlying skin malcolm are consistent with recent surgery. No evidence of p eriprosthetic fracture. IMPRESSION: 1. Recent right total knee arthroplasty. Reviewed, dictated and finalized at location B.
--- NOTE | 2024-05-23 07:21 | WPDHPUPDATE1 ---
History and Physical Update Update Date/Time: 05/23/24 07:21 History and Physical has been reviewed, including an updated exam of the patient. There are NO changes in the patient's condition. Risks, benefits, and alternatives have been discussed and questions answered. Patient agrees to proceed with procedure.
[2024-05-23] MEDS: ACETAMINOPHEN 500 MG TABLET 1000 MG PO (08:58)
[2024-05-23] MEDS: TRANEXAMIC ACID 1,000MG/ISO100 1,000 MG/100 ML BAG 200 MG IVPB (09:11)
[2024-05-23] MEDS: LACTATED RINGERS 1,000 ML 30 ML IV CONT ×2 (09:11→13:21)
--- NOTE | 2024-05-23 09:35 | P.PNAN_ITS ---
Anes - Eval Final PreProcedure Day of Procedure 05/23/24 09:35 Patient weight: obese Heart: regular rate and rhythm Lungs: clear to auscultation Airway: Mallampati scale class II Neurological: alert and oriented Last oral intake: >/= 8 hours ASA classification: III Emergent: no Anesthetic plan: proceed Anesthesia type and monitoring: general LMA and standard monitoring Results Review: All pre-operative results and documents have been reviewed as part of the pre- operative evaluation. Informed Consent: The patient's anesthetic plan and its attendant risks and benefits were discussed with the patient/family/POA. Questions were solicited and answers provided to the satisfaction of the patient/family/POA.
--- NOTE | 2024-05-23 10:35 | WPDANESPNB ---
Anes - Peripheral Nerve Block Date/Time: 05/23/24 10:35 I have discussed with the patient/family/POA the placement of a peripheral nerve block for post-operative pain management, including associated risks, benefits, complications, and side effects. Alternative methods of post-operative analgesia were detailed. Questions were solicited and answers provided to the satisfaction of the patient/family/POA. Time-Out: A pre-procedural Time-Out was completed immediately before starting the procedure and confirmed: Patient Identification, Site, Procedure, Patient Position and the Availability of Requisite Equipment. Clinical Indications: Acute post-operative pain management requested by the operative surgeon. Nerve Block Insertion Note Anes-nerve block: adductor canal right Patient position: supine Skin prep: chlorhexidine Needle: 22 gauge, stimulating, insulated echogenic needle. Needle length: 80 mm Technique: ultrasound Injectate: bupivacaine 0.5% with epi 5 mcg/ml (25cc no epi) Observations: tolerated well Complications: none Procedure start time:: 1029 Procedure end time:: 1032
[2024-05-23] MEDS: ceFAZolin 2 GM/D5W 50 ML 2 GM/50 ML BAG IVPB ×2 (10:48→17:04)
[2024-05-23] MEDS: SODIUM CHLORIDE 0.9% IV 37.7 ML, MORPHINE SULFATE INJ (*CRX) 2 MG, ROPivacaine HCL 1% 2... INFILTRATE (11:17)
[2024-05-23] MEDS: TRANEXAMIC ACID 1,000 MG/10 ML AMPUL 1000 MG IV PUSH (12:23)
--- NOTE | 2024-05-23 13:30 | W.PM.PROC2 ---
Procedure Note - Detailed Date of Procedure 05/23/24 Pre-op Diagnosis right knee oa Post-op Diagnosis Same Procedure Performed R TKA Surgeon Rios Sam MD Anesthesia General Description of Procedure THE RIGHT KNEE WAS PREPPED AND DRAPED IN THE STERILE FASHION. THERE WAS A 10 DEGREE FLEXION CONTRACTURE. A MIDLINE SKIN INCISION WAS MADE. A MEDIAL PARAPATELLAR ARTHROTOMY WAS MADE. THE PATELLA WAS EVERTED. THERE WAS TRICOMPARTMENT DJD. THERE WAS MINIMAL PATELLA DJD. AN INTRAMEDULLARY MARY WAS PLACED IN THE FEMUR. A DISTAL FEMORAL CUT WAS MADE IN 5 DEGREES OF VALGUS REMOVING APPROXIMATELY 9 MM OF BONE FROM THE DISTAL FEMUR. THE FEMUR WAS SIZED TO 62.5. A 62.5 FEMORAL CUTTING BLOCK WAS PLACED IN 3 DEGREES OF EXTERNAL ROTATION AND IN ALIGNMENT WITH CHANI'S LINE AND THE TRANSEPICONDYLAR AXIS. ANTERIOR POSTERIOR AND CHAMFER CUTS WERE MADE. THE CUTS WERE EXCELLENT. NEXT AN INTRAMEDULLARY CUTTING GUIDE WAS PLACED IN THE TIBIA. A TRANS TIBIAL CUT WAS MADE ALONG THE LONG AXIS OF THE TIBIA. APPROXIMATELY 10 MM OF BONE WAS REMOVED FROM THE HIGH SIDE OF THE TIBIA. THE TIBIA WAS THEN PLANED TO A SMOOTH SURFACE. POSTERIOR FEMORAL OSTEOPHYTES WERE REMOVED FROM THE FEMORAL CONDYLES. A 67 TIBIAL TRIAL WAS PLACED IN ALIGNMENT WITH THE 1/3 MEDIAL ASPECT OF THE TIBIAL TUBERCLE. THEN A 62.5 FEMORAL TRIAL COMPONENT WAS PLACED. BOTH HAD EXCELLENT FITS. EVENTUALLY A 10 MM CR POLYETHYLENE TRIAL COMPONENT WAS PLACED. THE KNEE WAS TAKEN THROUGH A RANGE OF MOTION. THE KNEE CAME OUT TO FULL EXTENSION. THERE WAS NO ABNORMAL TILT TO THE PATELLA. THERE WAS GOOD A/P AND VARUS/VALGUS STABILITY. THERE WAS NO EXCESSIVE ROLL BACK WITH FLEXION. THE TRIAL COMPONENTS WERE REMOVED. THEN A 62.5 FEMORAL COMPONENT AND 67 TIBIAL COMPONENT WITH A 10 CR POLYETHYLENE COMPONENT WERE CEMENTED INTO PLACE. ONCE THE CEMENT WAS HARD THE KNEE WAS TAKEN THROUGH A ROM AGAIN AND FOUND TO BE STABLE WITH NO PATELLA TILT NO EXCESSIVE ROLL BACK WITH FLEXION AND GOOD STABILITY WITH COMPLETE AND FULL EXTENSION. THE KNEE WAS IRRIGATED WITH STERILE BETADINE AND WATER FOR ABOUT 3 MINUTES. THE BLEEDERS WERE CAUTERIZED. THE ARTHROTOMY WAS REPAIRED WITH NUMBER 1 VICRYL. THE SUB CUTANEOUS LAYER WITH 2-0 VICRYL AND THE SKIN WITH HAYDER. THE WOUND WAS WASHED AND A STERILE DRESSING WAS APPLIED. PATIENT WAS EXTUBATED. Estimated Blood Loss -150.0 Pathology None sent Complications No immediate complications Condition Stable Disposition PACU
[2024-05-23] MEDS: fentaNYL CITRATE INJ (*CRX) 100 MCG/2 ML VIAL 25 MCG IV PUSH ×8 (13:34→14:35)
--- NOTE | 2024-05-23 15:11 | ADMGEN ---
This patient, Kia Hernández, was admitted to 3 [facility] Surg Room 320-01. Patient/family oriented to hospital policies and general routines including ID bracelet, bed and alarms, visiting hours, pain management, procedures, bathroom and other care routines, personal items, smoking policy, room service/diet, and visiting hours. Information on how to activate the Rapid Response Team has been discussed. Patient/Family are encouraged to report perceived risks to care and to ask questions if they do not understand what they are told or what they should do.
[2024-05-23] MEDS: SODIUM CHLORIDE 0.9% IV 1,000 ML 125 ML IV CONT (15:32)
[2024-05-23] MEDS: KETOROLAC 15 MG/ML VIAL (*BKC) IV PUSH (17:04)
[2024-05-23] MEDS: SENNA/DOCUSATE SODIUM TABLET 2 TAB PO (17:05)
[2024-05-23] MEDS: ASPIRIN 325 MG ENTERIC TABLET PO (20:51)
[2024-05-23] MEDS: PANTOPRAZOLE 40 MG TABLET PO (20:51)
[2024-05-23] MEDS: FAMOTIDINE 20 MG TABLET PO (20:51)
[2024-05-24 00:25] VITALS: BP 138/60; PULSE 64; RESP 12; TEMP 36.9; O2SAT 96
[2024-05-24] MEDS: ceFAZolin 2 GM/D5W 50 ML 2 GM/50 ML BAG IVPB ×2 (00:26→08:55)
[2024-05-24] MEDS: KETOROLAC 15 MG/ML VIAL (*BKC) IV PUSH ×3 (00:26→12:25)
[2024-05-24 04:49] VITALS: BP 102/57; PULSE 72; RESP 12; TEMP 36.8; O2SAT 97
[2024-05-24 06:29] LABS: Basophils Percent Auto 0.1 % (0.2-1.2); Hematocrit 29.5 % (37.0-47.0); Immature Granulocyte Absolute 0.05 K/mm3 (0.00-0.031); Immature Granulocyte Percent A 0.5 % (0-0.5); Lymphocytes Percent Auto 10.4 % (18.3-44.2); Mean Corpuscular HGB Conc 30.5 g/dl (32-36); Mean Corpuscular Volume 75.4 fl (80-100); Mean Platelet Volume 9.7 fl (7.4-10.4); Monocytes Absolute Auto 0.6 K/mm3 (0.1-0.6); Monocytes Percent Auto 5.9 % (2.6-8.5); Neutrophils Absolute Auto 8.8 K/mm3 (1.3-6.7); Neutrophils Percent Auto 83.1 % (45.5-73.1); Platelet Count Result 241 k/mm3 (150-375); Red Blood Count 3.91 M/mm3 (4.2-5.4); Red Cell Distribution Width 16.1 % (11.5-14.5); White Blood Count 10.6 K/mm3 (4.5-10.0)
[2024-05-24 06:37] LABS: Anion Gap 4 mmol/L (4-12); Blood Urea Nitrogen 15 mg/dL (7-17); Calcium 8.3 mg/dL (8.4-10.2); Carbon Dioxide 28 mmol/L (22-30); Chloride 105 mmol/L (98-107); Estimated CRCL calculation 68 ml/min; Estimated Glomerular Filt Rate > 60; Glucose 103 mg/dL (65-110); Potassium 3.7 mmol/L (3.4-5.0); Sodium 137 mmol/L (137-145)
[2024-05-24 08:49] VITALS: BP 108/64; PULSE 83; RESP 18; TEMP 35.8; O2SAT 98
[2024-05-24] MEDS: SENNA/DOCUSATE SODIUM TABLET 2 TAB PO (08:55)
[2024-05-24] MEDS: PANTOPRAZOLE 40 MG TABLET PO (08:56)
[2024-05-24] MEDS: hydroCHLOROthiazide 25 MG TABLET PO (08:56)
[2024-05-24] MEDS: MONTELUKAST SODIUM 10 MG TABLET PO (08:56)
[2024-05-24] MEDS: ASPIRIN 325 MG ENTERIC TABLET PO (08:56)
[2024-05-24] MEDS: CHOLECALCIFEROL 1,000 UNITS TABLET 1000 UNITS PO (08:56)
[2024-05-24] MEDS: FAMOTIDINE 20 MG TABLET PO (08:56)
[2024-05-24] MEDS: polyethylene glycoL 3350 17 GM POWD.PACK PO (08:56)
--- NOTE | 2024-05-24 10:36 | PM.PNORT ---
Progress Note: A&P Assessment and Plan (1) S/P total knee arthroplasty: Qualifiers: Laterality: right Qualified Code(s): Z96.651 - Presence of right artificial knee joint Code(s): Z96.659 - Presence of unspecified artificial knee joint Status: Acute Assessment and Plan: POD #1 : Right TKA Continue PT/OT. WBAT. Walker. HIGH FALL RISK. Continue pain control. Ice Knee. Protect skin. DVT prophylaxis with Aspirin. SCDs. Incentive Spirometry Use reviewed. Monitor Dressing. Change prior to discharge. Bowel Regimen. Dispo: Home with Home Health pending progress with PT/OT Plan Reviewed history, exam, radiographs and current labs with attending MD and covering surgeon, Dr. Sam, who agrees with current plan as indicated above. No further recommendations from Dr. Sam at this time. Subjective Subjective Date/Time Seen: 05/24/24 10:36 Post Op day: 1 Interval history: POD #1: Right TKA Patient doing well. Pain very well controlled. Hopeful for d/c home today after performing stair climbing with PT/OT. Review of Systems Review of Systems: All systems reviewed & are unremarkable except as noted in HPI and below Constitutional: Constitutional: Denies fever(s) and Denies headache(s) ENT: Denies headache(s) Cardiovascular: Cardiovascular: Denies chest pain, Denies diaphoresis, Denies palpitations and Denies dyspnea Respiratory: Respiratory: Denies dyspnea Gastrointestinal: Gastrointestinal: Denies abdominal pain, Denies constipation, Denies nausea and Denies vomiting Genitourinary: Genitourinary: Reports nocturia and Denies dysuria Musculoskeletal: Musculoskeletal: Reports arthralgias (Right Knee ) and Reports joint swelling (Right Knee ) Neurologic: Denies headache(s) Endocrine: Endocrine: Denies palpitations Exam Const: General: comfortable and no acute distress Resp: Effort & Inspection: normal respiratory effort Cardio: Rate: regular rate Rhythm: regular rhythm GI: GI Palp: Yes Soft to palpation, No Tenderness to palpation present (GI) and No Guarding due to palpation present (GI) Skin: General skin exam: wounds noted Wounds: wounds noted Other: Incision c/d/i. No surrounding redness/warmth. No hematoma. Mild ecchymosis. No wound dehiscence Neuro: Cognition (Neuro): normal cognition Other: NV intact aside from block. Moves toes. Sensation intact to light touch. +ankle dorsiflexion/plantarflexion. Extrem: Right lower extremity: normal to inspection, knee Details: tenderness (diffuse, mild ) Location: of the patella, swelling (diffuse, consistent with surgical intervention ), abnormal ROM Details: pain with active ROM during, pain with passive ROM during and with range as follows (limited due to recent surgical intervention ); able to extend lower leg actively and ecchymosis (mild ), lower leg (Negative Cindy's Sign ) Details: normal to inspection; no erythema and no tenderness, ankle (+ankle dorsiflexion/plantarflexion ) Details: normal to inspection, no edema and normal ROM; no tenderness, no swelling and no ecchymosis and foot Details: normal capillary refill, normal to inspection, vascular exam Details: dorsalis pedis pulse present and motor-sensory exam Details: light-touch normal; no tenderness Left lower extremity: normal to inspection Psych: Mental Status: mental status grossly normal Objective Data Vital Signs Vital Signs: Vital Signs - 24 hr 05/23/24 13:21 05/23/24 13:50 05/23/24 13:58 Temperature 37.2 C Pulse Rate 82 71 Respiratory Rate 15 16 Blood Pressure 140/70 133/78 Pulse Oximetry 100 100 86 L Oxygen Delivery Simple Face Mask Simple Face Mask Nasal Cannula Oxygen Flow Rate 6 6 2 05/23/24 14:10 05/23/24 14:25 05/23/24 14:40 Temperature 36.8 C Pulse Rate 72 68 73 Respiratory Rate 16 14 14 Blood Pressure 128/60 128/62 116/64 Pulse Oximetry 100 100 100 Oxygen Delivery Nasal Cannula Nasal Cannula Nasal Cannula O
--- NOTE | 2024-05-24 12:26 | PM.DS ---
DS: Admitting Diagnosis Discharge Date 05/24/2024 Admitting Diagnosis Right Knee DJD DS: Discharge Diagnosis Discharge Diagnosis (1) S/P total knee arthroplasty: Qualifiers: Laterality: right Qualified Code(s): Z96.651 - Presence of right artificial knee joint Code(s): Z96.659 - Presence of unspecified artificial knee joint Status: Acute Assessment and Plan: POD #1 : Right TKA Continue PT/OT. WBAT. Walker. HIGH FALL RISK. Continue pain control. Ice Knee. Protect skin. DVT prophylaxis with Aspirin. SCDs. Incentive Spirometry Use reviewed. Monitor Dressing. Change prior to discharge. Bowel Regimen. Dispo: Home with Home Health pending progress with PT/OT Plan Reviewed history, exam, radiographs and current labs with attending MD and covering surgeon, Dr. Sam, who agrees with current plan as indicated above. No further recommendations from Dr. Sam at this time. DS: Summary Hospital Course Reason for hospitalization: Right TKA Hospital Course: 63 year old female admitted s/p Right TKA for postoperative medical management, pain control and mobilization with PT/OT. Patient progressed well with PT/OT. Pain and vitals remained stable throughout. The patient has been cleared to be discharged home with home health at this time. All discharge care instructions reviewed at depth. New medications reviewed. Follow up planned for 3 weeks in the outpatient orthopedic clinic with Dr. Sam. Dr. Sam in agreement with safe discharge at this time. Status at Discharge Functional status at discharge: uses cane/walker Overall status at discharge: patient is progressing back to baseline Time Spent with Patient Time attestation: Total time spent providing and/or coordinating discharge services: Exam Const: General: comfortable and no acute distress Resp: Effort & Inspection: normal respiratory effort Cardio: Rate: regular rate Rhythm: regular rhythm Skin: General skin exam: wounds noted Wounds: wounds noted Other: Incision c/d/i. No surrounding redness/warmth. No hematoma. Mild ecchymosis. No wound dehiscence Neuro: Cognition (Neuro): normal cognition Other: NV intact aside from block. Moves toes. Sensation intact to light touch. +ankle dorsiflexion/plantarflexion. Extrem: Right lower extremity: normal to inspection, knee Details: tenderness (diffuse, mild ) Location: of the patella, swelling (diffuse, consistent with surgical intervention ), abnormal ROM Details: pain with active ROM during, pain with passive ROM during and with range as follows (limited due to recent surgical intervention ); able to extend lower leg actively and ecchymosis (mild ), lower leg (Negative Cindy's Sign ) Details: normal to inspection; no erythema and no tenderness, ankle (+ankle dorsiflexion/plantarflexion ) Details: normal to inspection, no edema and normal ROM; no tenderness, no swelling and no ecchymosis and foot Details: normal capillary refill, normal to inspection, vascular exam Details: dorsalis pedis pulse present and motor-sensory exam Details: light-touch normal; no tenderness Left lower extremity: normal to inspection Psych: Mental Status: mental status grossly normal DS: Data Data Completed and Pending Labs on day of discharge: Labs from last 24 hours 05/24/24 06:12 WBC 10.6 H RBC 3.91 L Hgb 9.0 L Hct 29.5 L MCV 75.4 L MCH 23.0 L MCHC 30.5 L RDW 16.1 H Plt Count 241 MPV 9.7 Immature Gran % (Auto) 0.5 Neut % (Auto) 83.1 H Lymph % (Auto) 10.4 L [place] % (Auto) 5.9 Eos % (Auto) 0.0 Baso % (Auto) 0.1 L Lymph # (Auto) 1.10 [place] # (Auto) 0.6 Eos # (Auto) 0.0 Baso # (Auto) 0.0 Abs Immat Gran (auto) 0.05 H Absolute Neuts (auto) 8.8 H Absolute Nucleated RBC 0.000 Nucleated RBC % 0.0 Sodium 137 Potassium 3.7 Chloride 105 Carbon Dioxide 28 Anion Gap 4 BUN 15 Creatinine 0.90 Estim Creat Clear Calc 68 Estimated GFR > 60 Glucose
[2024-05-24] MEDS: oxyCODONE/ACETAMINOPHEN (*CRX) 5-325 MG TABLET 1 TABLET PO (12:30)
[2024-05-24 12:49] VITALS: BP 108/51; PULSE 94; RESP 20; TEMP 36.4; O2SAT 98
== END 2024-05-24 14:40 | disposition home health service (06) ==
LOC: ANHSURGERY 08:19 → ANH3MEDSUR 14:19
PROVIDERS: PCP Family Medicine; Visit Provider Orthopaedic Surgery
PROC: (CPT 27447; principal; 2024-05-23 10:30)
DX: M17.11 Unilateral primary osteoarthritis, right knee (principal); M25.761 Osteophyte, right knee; G89.18 Other acute postprocedural pain; I10 Essential (primary) hypertension; K21.9 Gastro-esophageal reflux disease without esophagitis; K58.9 Irritable bowel syndrome, unspecified; J32.9 Chronic sinusitis, unspecified; E66.9 Obesity, unspecified; Z68.39 Body mass index [BMI] 39.0-39.9, adult; Z79.51 Long term (current) use of inhaled steroids; Z98.890 Other specified postprocedural states; Z90.49 Acquired absence of other specified parts of digestive tract; Z80.3 Family history of malignant neoplasm of breast
CPT/HCPCS: 64447; 27447; 36415; 73560; 80048; 80307; 83036; 85025; 85610; 85730; 86850; 86900; 86901; 87641; 97110; 97116; 97161; 97165; A9270; C1713; C1776; J0171; J0690; J1100; J1885; J2003; J2250; J2270; J2405; J2704; J2795; J3010; J3370; J7030; J7120

== ENCOUNTER 2024-06-26 14:11 | Outpatient (RCR) | payer OTHER, SELFPAY ==
--- NOTE | 2024-06-26 15:29 | OPREHPOC ---
Outpatient Therapy Plan of Care This is a Multidisciplinary Plan of Care that may contain components documented by all disciplines (PT, OT, and ST.) PT Problem 1 PT Problem #1 Knowledge Deficit PT Goal 1 Goal / Goal Update 1. independent and compliant with HEP Target Visit 6 PT Problem 2 PT Problem #2 Pain PT Goal 1 Goal / Goal Update 1. return to pain free walking and functional activities Target Visit 12 PT Problem 3 PT Problem #3 Impaired Range of Motion PT Goal 1 Goal / Goal Update 1. 0-120 degrees active R knee mobility Target Visit 12 PT Problem 4 PT Problem #4 Impaired Strength PT Goal 1 Goal / Goal Update 1. improve R knee strength to 5/5 2. improve R ankle DF to 5/5 Target Visit 12 PT Problem 5 PT Problem #5 Impaired Functional Mobil PT Goal 1 Goal / Goal Update 1. patient to ambulate with normal gait mechanics and no AD. 2. patient to ambulate up and down steps with reciprocal mechanics with 1 hand rail assist 3. LEFS to display less than 35% functional deficits 4. patient to ambulate 1000ft in 6 minutes without AD. Target Visit 12
--- NOTE | 2024-06-26 15:30 | PTOPEVAL1 ---
Assessment and note entered by JT File, PT Evaluation Information Assessment Status Evaluation Diagnosis R TKA ICD-10 Condition Codes (PT) Z47.89,Z47.1 Onset 05/23/24 Subjective Information patient reports she has TKA of the R knee on 05/23. she reports it was bone on bone prior to surgery. she reports prior to surgery she was surviving on shots. she reports she was not having to use a cane or walker prior to surgery, but still is using both since surgery. she reports she did some home health PT after surgery. she reports she does live alone at home. she reports she has steps to the basement, but she has not used them since surgery. patient reports she did have a CPM after surgery for 3 weeks. she reports she has been compliant with HEP exercises at home since her home health PT ended. Reported Pain Level Pain Score 2: Self Report Assessment PT Clinical Summary mrs. haywood is a 63 yo woman who presents to skilled PT services for evaluation and treatment following R TKA. she presents today with decreased rom, weakness, pain, and abnormal gait mechanics. she is also still using an AD to ambulate, and has not gotten back to ambulating her stairs in the home. she would benefit from continued skilled PT to address her objective/functional deficits and progress towards a return to these objective/ functional activities to improve her quality of life. Plan of Care Interventions Electrical Stimulation,Gait Training,Hot Pack/Cold Pack,Manual Therapy,Neuro Re-education,Patient/ Caregiver Educati,Therapeutic Activities, Therapeutic Exercise PT Services Indicated Yes Treatment Frequency and 2x weekly for 12 visits Duration These treatments will address the objective and functional deficits as defined above. The patient will be advanced safely and appropriately in order for the patient to progress towards his/her prior level of function. Additional exercises will be introduced and as well as a comprehensive home exercise program upon discharge, if needed, ?to ensure carryover of functional gains achieved in the clinic. This treatment plan has been reviewed and agreement upon by the patient.
--- NOTE | 2024-07-31 08:28 | OPREHPOC ---
Outpatient Therapy Plan of Care This is a Multidisciplinary Plan of Care that may contain components documented by all disciplines (PT, OT, and ST.) PT Problem 1 PT Problem #1 Knowledge Deficit PT Goal 1 Goal / Goal Update 1. independent and compliant with HEP Target Visit 6 Progress Met PT Problem 2 PT Problem #2 Pain PT Goal 1 Goal / Goal Update 1. return to pain free walking and functional activities Target Visit 12 Progress Partially Met PT Goal 2 Goal / Goal Update continue PT Problem 3 PT Problem #3 Impaired Range of Motion PT Goal 1 Goal / Goal Update 1. 0-120 degrees active R knee mobility Target Visit 12 Progress Partially Met PT Goal 2 Goal / Goal Update continue PT Problem 4 PT Problem #4 Impaired Strength PT Goal 1 Goal / Goal Update 1. improve R knee strength to 5/5 2. improve R ankle DF to 5/5 Target Visit 12 Progress Partially Met PT Goal 2 Goal / Goal Update continue PT Problem 5 PT Problem #5 Impaired Functional Mobility PT Goal 1 Goal / Goal Update 1. patient to ambulate with normal gait mechanics and no AD. -met 2. patient to ambulate up and down steps with reciprocal mechanics with 1 hand rail assist -met 3. LEFS to display less than 35% functional deficits -not tested 4. patient to ambulate 1000ft in 6 minutes without AD. -met Target Visit 12 Progress Partially Met PT Goal 2 Goal / Goal Update continue
--- NOTE | 2024-07-31 08:28 | PTOPPROG ---
Assessment and note entered by Berta Elaine, PT Evaluation Information Assessment Status Progress Diagnosis R TKA ICD-10 Condition Codes (PT) Encounter for other orthopedic aftercare Z47.89, Aftercare following joint replacement surgery Z47. 1 Onset 05/23/24 Subjective Information Kia Hernández reports that her right knee is getting better overall. She is only using her cane when she is out in public around a lot of people. She is able to take stairs reciprocally for about half the flight of stairs into her basement. She reports pain is no greater than 3/10 and her biggest complaint is stiffness in the right knee. Assessment PT Clinical Summary Kia Hernández has completed 10 skilled PT visits following a right total knee replacement. She is reporting improved mobility and is able to navigate stairs reciprocally for a half a flight. She objectively demonstrates improved right knee AROM demonstrating 0-1_ degrees today. She is also demonstrating improved strength and improved gait . She is progressing toward her goals well. She will benefit from skilled PT for 2 additional visits. Plan of Care Interventions Intermittent Compression Pump,Manual Therapy, Patient/Caregiver Education,Therapeutic Exercise PT Services Indicated Yes Treatment Frequency and Continue skilled PT 2 times per original POC Duration These treatments will address the objective and functional deficits as defined above. The patient will be advanced safely and appropriately in order for the patient to progress towards his/her prior level of function. Additional exercises will be introduced and as well as a comprehensive home exercise program upon discharge, if needed, ?to ensure carryover of functional gains achieved in the clinic. This treatment plan has been reviewed and agreement upon by the patient.
--- NOTE | 2024-07-31 08:29 | PTOPPROG ---
Assessment and note entered by Berta Elaine, PT Evaluation Information Assessment Status Progress Diagnosis R TKA ICD-10 Condition Codes (PT) Encounter for other orthopedic aftercare Z47.89, Aftercare following joint replacement surgery Z47. 1 Onset 05/23/24 Subjective Information Kia Hernández reports that her right knee is getting better overall. She is only using her cane when she is out in public around a lot of people. She is able to take stairs reciprocally for about half the flight of stairs into her basement. She reports pain is no greater than 3/10 and her biggest complaint is stiffness in the right knee. Assessment PT Clinical Summary Kia Hernández has completed 10 skilled PT visits following a right total knee replacement. She is reporting improved mobility and is able to navigate stairs reciprocally for a half a flight. She objectively demonstrates improved right knee AROM demonstrating 0-118 degrees today. She is also demonstrating improved strength and improved gait. She is progressing toward her goals well. She will benefit from skilled PT for 2 additional visits. Plan of Care Interventions Intermittent Compression Pump,Manual Therapy, Patient/Caregiver Education,Therapeutic Exercise PT Services Indicated Yes Treatment Frequency and Continue skilled PT 2 times per original POC Duration These treatments will address the objective and functional deficits as defined above. The patient will be advanced safely and appropriately in order for the patient to progress towards his/her prior level of function. Additional exercises will be introduced and as well as a comprehensive home exercise program upon discharge, if needed, ?to ensure carryover of functional gains achieved in the clinic. This treatment plan has been reviewed and agreement upon by the patient.
--- NOTE | 2024-08-17 08:59 | OPREHPOC ---
Outpatient Therapy Plan of Care This is a Multidisciplinary Plan of Care that may contain components documented by all disciplines (PT, OT, and ST.) PT Problem 1 PT Problem #1 Knowledge Deficit PT Goal 1 Goal / Goal Update 1. independent and compliant with HEP Target Visit 6 Progress Met PT Problem 2 PT Problem #2 Pain PT Goal 1 Goal / Goal Update 1. return to pain free walking and functional activities Target Visit 12 Progress Met PT Goal 2 Goal / Goal Update . PT Problem 3 PT Problem #3 Impaired Range of Motion PT Goal 1 Goal / Goal Update 1. 0-120 degrees active R knee mobility Target Visit 12 Progress Met PT Goal 2 Goal / Goal Update . PT Problem 4 PT Problem #4 Impaired Strength PT Goal 1 Goal / Goal Update 1. improve R knee strength to 5/5 2. improve R ankle DF to 5/5 Target Visit 12 Progress Met PT Goal 2 Goal / Goal Update . PT Problem 5 PT Problem #5 Impaired Functional Mobility PT Goal 1 Goal / Goal Update 1. patient to ambulate with normal gait mechanics and no AD. -met 2. patient to ambulate up and down steps with reciprocal mechanics with 1 hand rail assist -met 3. LEFS to display less than 35% functional deficits -met 4. patient to ambulate 1000ft in 6 minutes without AD. -met Target Visit 12 Progress Met PT Goal 2 Goal / Goal Update .
--- NOTE | 2024-08-17 08:59 | PTOPDC ---
Assessment and note entered by JT File, PT Evaluation Information Assessment Status Discharge Diagnosis R TKA ICD-10 Condition Codes (PT) Encounter for other orthopedic aftercare Z47.89, Aftercare following joint replacement surgery Z47. 1 Onset 05/23/24 Subjective Information patient reports her the new knee feels good overall. she reports she does still take stairs slowly, but overall she is improved. she reports she is using no AD for any ambulation. she returns to the surgeon on 09/24/24 for follow. Reported Pain Level Pain Score 0: Self Report Pain Score 0: Self Report Assessment PT Clinical Summary mrs. haywood is a 63 yo woman who presents to skilled PT for her 12th skilled therapy visit s/p R TKA. she presents today having met all goals for skilled PT. she is ready to DC skilled PT, and will continue with an independent HEP at home. Plan of Care PT Services Indicated Yes
== END 2024-08-17 09:22 | disposition home or self-care (01) ==
LOC: CHSPT 14:11
PROVIDERS: Visit Provider Orthopaedic Surgery
DX: Z47.1 Aftercare following joint replacement surgery (principal); Z96.651 Presence of right artificial knee joint
CPT/HCPCS: 97016; 97110; 97140; 97161; 97750

== ENCOUNTER 2024-08-05 15:13 | Emergency (ER) | payer OTHER, SELFPAY ==
[2024-08-05 15:29] VITALS: BP 110/60; PULSE 76; RESP 20; TEMP 37.1; O2SAT 99
--- NOTE | 2024-08-05 15:35 | ED.URI ---
HPI - URI/Sore Throat General Chief Complaint: Upper Respiratory Infection Stated Complaint: Sore Throat/Congestion History of Present Illness HPI Narrative: Patient presents with sore throat nasal congestion and runny nose. Patient denies any trouble swallowing no fever no body aches. Patient states she has problems with her sinuses and does daily sinus rinses and is taking Coricidin [id number]-[id number] for her symptoms for the past 3 days. No cough no shortness of breath no chest pain. Related Data Home Medications ?Medication ?Instructions ?Recorded ?Confirmed ?Last Taken ?Type Lactobacillus no.46-B. 1 cap PO DAILY 10/03/20 06/21/24 05/19/24 History animalis-inulin 10 billion cell-100 mg capsule (Probiotic-10 (with inulin)) calcium 600 mg (as 2 tablet PO DAILY 10/03/20 06/21/24 05/19/24 History carbonate)-vitamin D3 10 mcg (400 unit) tablet (Calcium with Vitamin D) glucosamine sulf dipot 1 cap PO DAILY 05/03/21 06/21/24 05/19/24 History chlr,msm,chond 550 mg-C 30 mg-mirela 1 mg capsule (Glucosamine Chondroitin) cholecalciferol (vitamin D3) 25 25 mcg PO DAILY 05/12/21 06/21/24 05/19/24 History mcg (1,000 unit) capsule kevwhoxq-prkj-diid 8 mg-folic 400 1 tablet PO DAILY 10/13/23 06/21/24 05/19/24 History mcg-K 50 mcg-lutein 300 mcg tablet (Centrum Silver Women) acetaminophen 650 mg 1,300 mg PO Q12H PRN Pain 05/10/24 06/21/24 05/21/24 History tablet,extended release fexofenadine 180 mg tablet 180 mg PO DAILY 05/10/24 06/21/24 05/22/24 History (Kat Allergy) omega-3 fatty acids 1,000 mg PO DAILY 05/10/24 06/21/24 05/19/24 History Allergies Allergy/AdvReac Type Severity Reaction Status Date / Time No Known Allergies Allergy Verified 07/25/24 11:19 Review of Systems Review of Systems: CONSTITUTIONAL: Denies chills, or sweats. Reports fever and generalized body aches EYES: Denies visual changes, redness, or discharge. ENT: Denies otalgia. Reports nasal congestion runny nose and sore throat CARDIOVASCULAR: Denies chest pain, palpitations, or edema. RESPIRATORY: Denies dyspnea. Reports occasional cough GASTROINTESTINAL: Denies abdominal pain, nausea, vomiting, or diarrhea. GENITOURINARY: Denies dysuria or hematuria. SKIN: Denies rash or itching. MUSCULOSKELETAL: Denies back pain, joint pain, or myalgia. Reports generalized body aches NEUROLOGIC: Denies headache, numbness, or weakness. PSYCHIATRIC: Denies anxiety or depression. [facility] Past Medical History Medical History Insomnia BMI greater than 40 Degenerative joint disease of knee Left knee DJD Seasonal asthma IBS (irritable bowel syndrome) Vaginal delivery x2 Normal colonoscopy 2005, 2010 History of blood transfusion 2011 History of nephrolithotomy with removal of calculi 02/28 Chronic rhinosinusitis Essential hypertension Primary osteoarthritis of right knee Erythrocytosis Elevated liver enzymes Allergic rhinitis Osteoarthritis HTN (hypertension) GERD (gastroesophageal reflux disease) Surgical History Surgical History S/P total knee arthroplasty RT TKA 05/23/24- Dr. Sam History of endoscopy 2005, 2011, 2020 History of surgical removal of ganglion cyst x2, right hand History of cholecystectomy 2004 History of carpal tunnel surgery 2006 lt hand History of sinus surgery 06/2012; 07/26, cauterized sinus; 2001; 10/2018 Family History Family History Father Diabetes mellitus Hypertension Mother Diabetes mellitus Hypertension Sibling Diabetes mellitus Grandparent History of blood clots grandfather Diabetes mellitus grandmother Other Breast cancer aunt Social History Social History Social History: Smoking status: Never smoker Second hand tobacco smoke exposure: No Additional smoking assessment comments: DENIES ANY FORM OF TOBACCO USE Alcohol intake: current Drinks per week: 1 Substance use: never Substance use type: does not use Do You Feel Safe in your Home?: Yes Lack of Transportation: No Lack of Food: Never True Current Housing: I Have Housing Concerned About Future Housing: No Difficulty Paying Gas/Electric Bills: No Difficulty Paying for Meds: No Currently Unemployed: No Education: Associate Degree Difficulty w/ Childcare or Family Care: No Living arrangements: alone Occupation/Education: retired Gender identity (if verbalized by the patient): Female Sexual Orientation (if Verbalized by the Patient): Straight or Heterosexual Spiritual care concerns: No Comments At time of signature, agree with nursing past medical, surgical, social and family history. There is no relevant family history pertinent to the presenting complaint Exam Narrative: GENERAL: Well-appearing, well-nourished, and in no acute distress. HEAD: Normocephalic, atraumatic. EYES: PERRLA and EOMI. ENT: Nares clear, no rhinorrhea or epistaxis. Mucous membranes moist. NECK: Supple. CHEST: Clear to auscultation. No respiratory distress. HEART: Regular rate and rhythm. No murmur heard. Normal peripheral pulses. ABDOMEN: Soft, nontender, nondistended, normal active bowel sounds. EXTREMITIES: Normal range of motion. No edema. SKIN: Warm, dry, no rash. NEURO: No focal deficits. Alert and oriented x3. [place] Coma Scale Eye Opening: Spontaneous 4 [place] Coma Scale Motor: Obeys Commands 6 [place] Coma Scale Verbal: Oriented 5 [place] Coma Scale Total 15 Course Course Level of Care: Express Care Visit Vital Signs Vital signs: Vital Signs Temperature 37.1 C 08/05/24 15:29 Pulse Rate 76 08/05/24 15:29 Respiratory Rate 20 08/05/24 15:29 Blood Pressure 110/60 08/05/24 15:29 Pulse Oximetry 99 08/05/24 15:29 Oxygen Delivery Room Air 08/05/24 15:29 Temperature 37.1 C 08/05/24 15:29 Pulse Rate 76 08/05/24 15:29 Respiratory Rate 20 08/05/24 15:29 Blood Pressure 110/60 08/05/24 15:29 Pulse Oximetry 99 08/05/24 15:29 Oxygen Delivery Room Air 08/05/24 15:29 Discharge Plan Discharge Clinical Impression: Viral infection, Acute sinusitis Patient Disposition: Home, Self-Care Condition: Stable Additional Instructions: congestion - flonase am and pm for chronic sinus congestion or prolonged symptoms of sinusitis (takes several days to work). one to three times a day of irrigation of sinus with saline spray, ocean nasal spray or marty pot. fluids. if you don't have hypertension-afrin nasal spray with a 3 day limit for immediate relief of sinus congestion. for runny nose: do over the counter antihistamine (claritin, benadryl, zyrtec) for sneezing, runny nose. allergies. sudafed or decongestant can also be used, unless you have elevated blood pressure, nursing or . pineapple juice to help thin mucus pain and discomfort: over the counter treatment for pain - tylenol - with a max of 3 grams a day, not to take more than 3-4 days at this dose. discussed aleve - 1-2 am and pm with food. also not to take more than a few days if not improving. patient understands not to take ibuprofen or aleve without food. patient understands ibuprofen max is 4 pills 3 times a day, also not to take this amount for more than a few days if not improving. rest. -If you have any worsening of symptoms or any other concerns please go to the ED immediately. throat pain- gargling with salt water, throat losengers or chloraseptic spray may help with throat pain. if older than 2 years, cough- can try honey for cough if older than one year. mucinex, nyquil, dayquil, robitussin and other otc cold/cough medications can all be used in teenagers and adults with caution. do not mix or use multiple therapies without discussing with your doctor or pharmacy. steam from shower twice daily or cool mist humidifier. pineapple juice to help thin mucus eat yogurt 1-2 times daily or consider probiotics if on antibiotics. -If you have any worsening of symptoms or any other concerns please go to the ED immediately. Patient Language: New Zealander Prescriptions: No Action Glucosamine Chondroitin 550-30-1 mg Capsule 1 cap PO DAILY Centrum Silver Women 8 mg iron-400 mcg-50 mcg Tablet 1 tablet PO DAILY meclizine 25 mg tablet,chewable 12.5 mg PO TID PRN (Reason: motion sickness) Qty: 30 0RF terbinafine HCl 250 mg tablet 250 mg PO DAILY Qty: 30 2RF Patient Comments: WILL START AFTER RTKA cholecalciferol (vitamin D3) 25 mcg (1,000 unit) capsule 25 mcg PO DAILY Patient Comments: actual dose unknown calcium carbonate-vitamin D3 [Calcium with Vitamin D] 600 mg(1,500mg) -400 unit Tablet 2 tablet PO DAILY Probiotic-10 (with inulin) 10 billion cell -100 mg Capsule 1 cap PO DAILY fexofenadine [Kat Allergy] 180 mg Tablet 180 mg PO DAILY acetaminophen 650 mg Tablet Extended Release 1,300 mg PO Q12H PRN (Reason: Pain) omega-3 fatty acids Capsule 1,000 mg PO DAILY aspirin 325 mg Tablet,Delayed Release (Dr/Ec) 325 mg PO Q12HR 28 Days Qty: 56 0RF albuterol sulfate 90 mcg/actuation HFA aerosol inhaler See Rx Instructions .ROUTE .COMPLEX Qty: 8.5 2RF Dose Instruction: INHALE 1 PUFF BY MOUTH EVERY 4 HOURS NEEDED FOR SHORTNESS OF BREATH Rx Instructions: INHALE 1 PUFF BY MOUTH EVERY 4 HOURS NEEDED FOR SHORTNESS OF BREATH montelukast 10 mg tablet 10 mg PO DAILY Qty: 90 2RF hydrochlorothiazide 25 mg tablet 25 mg PO DAILY Qty: 90 2RF trazodone 50 mg tablet See Rx Instructions .ROUTE .COMPLEX Qty: 90 2RF Dose Instruction: 1 TABLET ORALLY EVERY DAY AT BEDTIME NEEDED FOR INSOMNIA Rx Instructions: 1 TABLET ORALLY EVERY DAY AT BEDTIME NEEDED FOR INSOMNIA rabeprazole 20 mg tablet,delayed release (DR/EC) 20 mg PO BID Qty: 180 2RF Rx Instructions: TAKE ONE TABLET BY MOUTH TWICE A DAY oxycodone-acetaminophen [Percocet] 5-325 mg tablet 1 tablet PO Q8H PRN (Reason: pain) Qty: 40 0RF Follow-up/Referrals: Alejandro Lema MD [Primary Care Provider] -
[2024-08-05 15:39] LABS: EDSTREPNEGPOS1 Negative (Negative)
--- OUTSIDE RECORDS SUMMARY | 2024-08-12 23:43 | XMS_ITS | Clinical Summary ---
Author Organization [facility] Care Team Providers Care Procedures Rn Name Role Phone Gallito Edwards MD Primary Care Provider [phone] Allergies No known active allergies Medications fluticasone 50 MCG/ACT NA SUSP 1-2 Sprays by Nasal route daily. Use in each nostril as directed. Active RABEprazole (ACIPHEX) 20 MG PO TBEC Take by mouth. Active diphenhydrAMINE (BENADRYL) 25 MG PO TABS Take by mouth. Active fexofenadine (TRACI ALLERGY) 60 MG PO TABS Take by mouth. 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 Not on file Not on file Not on file Last Filed Vital Signs Vital Sign Reading Time Taken Comments Blood Pressure 130/86 03/16/2017 8:36 AM CDT Pulse 88 03/16/2017 8:36 AM CDT Temperature - - Respiratory Rate 18 03/16/2017 8:36 AM CDT Oxygen Saturation 97% 03/16/2017 8:36 AM CDT Inhaled Oxygen Concentration - - Weight 98 kg (216 lb) 03/16/2017 8:36 AM CDT Height 162.6 cm (5' 4 ) 03/16/2017 8:36 AM CDT Body Mass Index 37.08 03/16/2017 8:36 AM CDT Plan of Treatment Health Maintenance Due Date Last Done Comments Hepatitis C Virus (HCV) Screening 1962 TdaP Immunization 1962 Pap Smear 1983 Cervical Cancer Screening (CCS) 1992 HPV/Cotest 1992 Colonoscopy 2007 Colorectal Cancer Screening 2007 Cologuard 2012 Immunochemical Fecal Occult Blood 2012 Mammogram 2012 Zoster Immunization (1 of 2) 2012 SARS-COV-2 Immunization ( season) 2023 Influenza Immunization ([place] Ended) 2024 Hepatitis B Immunization Aged Out No longer eligible based on patient's age to complete this topic Meningococcal Immunization (ACWY) Aged Out No longer eligible based on patient's age to complete this topic Pneumococcal Immunization Combined Aged Out No longer eligible based on patient's age to complete this topic Rotavirus Immunization Aged Out No lo nger eligible based on patient's age to complete this topic Care Teams Procedures Rn Relationship Specialty Start Date End Date Gallito Edwards MD [address] [place] [address] PCP - General Internal Medicine 09/29/15
--- OUTSIDE RECORDS SUMMARY | 2024-08-12 23:44 | XMS_ITS | Encounter Summary ---
Author Organization [facility] Healthcare Address [address] [place] [address] Care Team Providers Care Hotel Services Sales Representative Name Role Phone Alejandro Lema MD Primary Care Provider Encounter Details Date Type Department Care Team (Latest Contact Info) Description 07/22/2021 10:22 AM THREAD WEAVER - 07/22/2021 11:59 PM THREAD WEAVER Hospital Encounter [facility] [address] [place] [id number] Discharge Disposition: Discharge to home or self care Social History Tobacco Use Types Packs/Day Years Used Date Smoking Tobacco: Never Alcohol Use Standard Drinks/Week Comments Yes 0 (1 standard drink = 0.6 oz pur e alcohol) Comments No Sex and Gender Information Value Date Recorded Sex Assigned at Not on file Legal Sex Female 12:25 AM THREAD WEAVER Gender Identity Not on file Sexual Orientation Not on file documented as of this encounter Medications at Time of Discharge b complex vitamins (B COMPLEX-VITAMIN B12) tablet once daily 0 12/06/2011 diclofenac sodium (VOLTAREN) 1 % gel apply (2G) by topical route 4 times every day to bilateral knees as needed. 1 Tube 5 02/26/2016 dicyclomine (BENTYL) 10 mg capsule TAKE ONE CAPSULE BY MOUTH FOUR TIMES A DAY NEEDED 60 1 09/08/2012 fexofenadine (TRACI) 180 mg tablet take 1 tablet (180MG) by ORAL route every day 60 1 06/16/2010 hydroCHLOROthiaz wing (HYDRODIURIL) 25 mg tablet take 1 tablet by mouth once daily 30 0 09/16/2014 montelukast (SINGULAIR) 10 mg tablet 05/26/2021 vimxczug-ynlg-pi n-folic acid (ONE DAILY FOR WOMEN) 18-0.4 mg tablet once dailyt 0 12/06/[address] (ACIPHEX) 20 mg EC tablet take 1 tablet by mouth two times a day 60 tablet 04/04/2017 traMADol (ULTRAM) 50 mg tablet take 1 tablet by ORAL route every 4 - 6 hours as needed 0 0 10/24/2014 amoxicillin (amoxicillin) 500 mg tablet/capsule take 1 capsule by oral route every 12 hours 30 1 12/27/2016 3 ciprofloxacin (CIPRO) 250 mg tablet take 1 tablet by oral route every 12 hours 0 10/08/2016 3 hydroCHLOROthiaz wing (HYDRODIURIL) 25 mg tablet take 1 tablet by mouth once daily 30 0 09/16/2014 3 hydroCHLOROthiaz wing (HYDRODIURIL) 25 mg tablet TAKE ONE TABLET BY MOUTH ONE TIME DAILY 30 tablet 05/17/2017 2 predniSONE (DELTASONE) 20 mg tablet take 1 tablet by ORAL route 2 times every day 0 0 10/24/2014 3 documented as of this encounter Discharge Disposition Disposition Code Departure Means Destination Discharge to home or self care documented in this encounter Plan of Treatment Not on file documented as of this encounter Procedures Procedure Name Priority Date/Time Associated Diagnosis Comments BREAST IMAGING OUTSIDE CONSULT Routine 07/22/2021 10:22 AM THREAD WEAVER documented in this encounter Results * Breast Imaging Outside Consult (07/22/2021 10:22 AM THREAD WEAVER) Anatomical Region Laterality Modality Breast N/A Mammography 07/22/2021 10:5 3 AM THREAD WEAVER Impressions 07/22/2021 11:04 AM THREAD WEAVER 1. ??No suspicious mammographic findings within the right breast. 2. ??Well-circumscribed oval 5 mm mass in the left outer breast 3 o'clock position anterior depth. ??This may represent either a lymph node or possibly a cyst, however recommend a repeat diagnostic left breast ultrasound for further evaluation. RECOMMENDATION: Additional imaging - ultrasound evaluation. NOTE: The findings, conclusions and recommendations within this report do not replace the initial findings, conclusions and recommendations made at the facility where the study was performed based upon the imaging and clinical condition at that time. ??Review of the prior report and correlation with the clinical history are necessary. The provided images may or may not represent the [place] source data set and thus may contain changes which may lower the sensitivity of the second opinion interpretation. Dictated by: Teddy Cohn The radiology attending physician has personally reviewed this study, and had reviewed and/or edited this written report and agrees with it. Electronically signed by: Lily Galaviz M.D. Narrative 07/22/2021 11:04 AM THREAD WEAVER EXAMINATION: REVIEW AND INTERPRETATION OF OUTSIDE IMAGING FACILITY PERFORMING OUTSIDE IMAGING: [facility] EXAM(S) REVIEWED: 1. ??BILATERAL SCREENING MAMMOGRAM WITH TOMOSYNTHESIS, 8 images, 05/04/2021 2. ??LEFT UNILATERAL DIAGNOSTIC MAMMOGRAM WITH TOMOSYNTHESIS, 6 images, 06/02/2021 DATE OF INTERPRETATION: 07/22/2021 PHYSICIAN REQUESTING REVIEW: Dyana Elliott NP, who is seeing the patient in the Breast Surgery Clinic. HISTORY: 60-year-old female patient with screening detected focal asymmetry in the left inner breast at anterior depth at approximately 3:00 there are screening mammogram dated 05/04/2021. ??Subsequent diagnostic evaluation by report demonstrates a likely complicated cyst in the left breast for which the patient was given a BI-RADS 3 designation. ??Patient presents for further evaluation. COMPARISON: Multiple prior screening mammograms, most recently 04/29/2020 BREAST PARENCHYMAL COMPOSITION: There are scattered areas of fibroglandular density. FINDINGS: Screening mammogram 05/04/2021: There are no suspicious mammographic findings within the right breast. ??There is a focal asymmetry in the left breast at 3 o'clock position anterior depth. Diagnostic mammogram 06/02/2021: There is a well-circumscribed, oval 5 mm mass within the left outer breast at the 3 o'clock position anterior depth. By report, this corresponds to a well-circumscribed 5 x 4 x 2 mm oval, circumscribed lesion within the left breast 3 o'clock position without internal vascularity. Procedure Note Lily Galaviz MD - 07/22/2021 EXAMINATION: REVIEW AND INTERPRETATION OF OUTSIDE IMAGING FACILITY PERFORMING OUTSIDE IMAGING: [facility] EXAM(S) REVIEWED: 1. BILATERAL SCREENING MAMMOGRAM WITH TOMOSYNTHESIS, 8 images, 05/04/2021 2. LEFT UNILATERAL DIAGNOSTIC MAMMOGRAM WITH TOMOSYNTHESIS, 6 images, 06/02/2021 DATE OF INTERPRETATION: 07/22/2021 PHYSICIAN REQUESTING REVIEW: Dyana Elliott NP, who is seeing the patient in the Breast Surgery Clinic. HISTORY: 60-year-old female patient with screening detected focal asymmetry in the left inner breast at anterior depth at approximately 3:00 there are screening mammogram dated 05/04/2021. Subsequent diagnostic evaluation by report demonstrates a likely complicated cyst in the left breast for which the patient was given a BI-RADS 3 designation. Patient presents for further evaluation. COMPARISON: Multiple prior screening mammograms, most recently 04/29/2020 BREAST PARENCHYMAL COMPOSITION: There are scattered areas of fibroglandular density. FINDINGS: Screening mammogram 05/04/2021: There are no suspicious mammographic findings within the right breast. There is a focal asymmetry in the left breast at 3 o'clock position anterior depth. Diagnostic mammogram 06/02/2021: There is a well-circumscribed, oval 5 mm mass within the left outer breast at the 3 o'clock position anterior depth. By report, this corresponds to a well-circumscribed 5 x 4 x 2 mm oval, circumscribed lesion within the left breast 3 o'clock position without internal vascularity. IMPRESSION: 1. No suspicious mammographic findings within the right breast. 2. Well-circumscribed oval 5 mm mass in the left outer breast 3 o'clock position anterior depth. This may represent either a lymph node or possibly a cyst, however recommend a repeat diagnostic left breast ultrasound for further evaluation. RECOMMENDATION: Additional imaging - ultrasound evaluation. NOTE: The findings, conclusions and recommendations within this report do not replace the initial findings, conclusions and recommendations made at the facility where the study was performed based upon the imaging and clinical condition at that time. Review of the prior report and correlation with the clinical history are necessary. The provided images may or may not represent the [place] source data set and thus may contain changes which may lower the sensitivity of the second opinion interpretation. Dictated by: Teddy Cohn The radiology attending physician has personally reviewed this study, and had reviewed and/or edited this written report and agrees with it. Electronically signed by: Lily Galaviz M.D. Dyana Elliott CORE DRILL OPERATOR IMG MAMMO PROCEDURES Fin al Result documented in this encounter Visit Diagnoses Not on filedocumented in this encounter Care Teams Hotel Services Sales Representative Relationship Specialty Start Date End Date Alejandro Lema MD [address] [facility] [address] [facility] [address] [place] [address] PCP - General 10/19/17 01/19/22 documented as of this encounter
--- OUTSIDE RECORDS SUMMARY | 2024-08-12 23:44 | XMS_ITS | Encounter Summary ---
Author Organization [facility] Healthcare Address [address] [place] [address] Care Team Providers Care Background Check Coordinator Name Role Phone Gallito Edwards Primary Care Provider Unavailabl e Encounter Details Date Type Department Care Team (Late st Contact Info) Description 04/14/2017 8:35 AM CDT - 04/14/2017 11:59 PM CDT Hospital Encounter [facility] OP INTERIM Pb León MD [address] [facility] [address] [address] Discharge Disposition: Discharge to home or self care Social History Tobacco Use Types Packs/Day Years Used Date Smoking Tobacco: Never Alcohol Use Standard Drinks/Week Comments Yes 0 (1 standard drink = 0.6 oz pur e alcohol) Comments Unknown Sex and Gender Information Value Date Recorded Sex Assigned at Not on file 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 Gender Identity Not on file Sexual Orientation [...] by mouth once daily 30 0 09/16/2014 yfdxrniw-qiun-vi n-folic acid (ONE DAILY FOR WOMEN) 18-0.4 [...] 1 tablet by mouth once daily 30 tablet 03/21/2017 7 predniSONE (DELTASONE) 20 mg tablet take 1 tablet by ORAL route 2 times every day 0 0 10/24/2014 3 documented as of this encounter Discharge Disposition Disposition Code Departure Means Destination Discharge to home or self care documented in this encounter Plan of Treatment Not on file documented as of this encounter Procedures Procedure Name Priority Date/Time Associated Diagnosis Comments US KIDNEY COMPLETE Routine 04/14/2017 2: 18 PM CDT XR ABDOMEN AP 1V Routine 04/14/2017 1:57 PM CDT documented in this encounter Results * US Kidney Complete (04/14/2017 2:18 PM CDT) Anatomical Region Laterality Modality Kidney N/A Ultrasound 04/14/2017 2:18 PM CDT Narrative 04/14/2017 2:18 PM CDT US Kidney(s) [id number] ??Acc#: ??[id number] DATE OF EXAM: ??Apr 14 2017 ?? US Kidney(s) 22242 HISTORY: URETERAL STONE. ??Status post left ureteral calculus extraction. COMPARISON: None available. FINDINGS: The right and left kidneys measure 11.9 and 10.1 cm in long axis, respectively. ??There is normal cortical thickness and echogenicity with no evidence of mass or hydronephrosis. The urinary bladder is normal. IMPRESSION: ??NORMAL RENAL ULTRASOUND Electronically signed by: Jose De Leon M.D. Interpreting Physician: ??DR JV ABDULLAHI M.D. ??Read on: ??Apr 14 2017 10:21A Transcribed by: ??PSC ??On: Apr 14 2017 10:19A Approved Electronically by: ??BRADLY Boykin, DR CARIAS ??on: ??Apr 14 2017 10:19A Ordering DR: DR PB LEÓN Attending DR: DR PB LEÓN Attending: ??DR PB LEÓN Requesting: ??DR PB LEÓN Requesting Fax: ??[phone] Attending Fax: ??[phone] Attending ID: ??[id number] Requesting ID: ??[id number] Report To 1 ID: ??[id number] Report To 1 Name: ??DR PB LEÓN Report To 1 FAX: ??[phone] NextGen Order #: ?? Procedure Note Miscellaneous, Not In File / Provider, MD Alban - 04/22/2017 US Kidney(s) 65915 Acc#: [id number] DATE OF EXAM: Apr 14 2017 Kidney(s) 20855 HISTORY: URETERAL STONE. Status post left ureteral calculus extraction. COMPARISON: None available. FINDINGS: The right and left kidneys measure 11.9 and 10.1 cm in long axis, respectively. There is normal cortical thickness and echogenicity with no evidence of mass or hydronephrosis. The urinary bladder is normal. IMPRESSION: NORMAL RENAL ULTRASOUND Electronically signed by: Jose De Leon M.D. Interpreting Physician: DR JV ABDULLAHI M.D. Read on: Apr 14 2017 10:21A Transcribed by: PSC On: Apr 14 2017 10:19A Approved Electronically by: DR JV ABDULLAHI M.D. on: Apr 14 2017 10:19A Ordering DR: DR PB LEÓN Attending DR: DR PB LEÓN Attending: DR PB LEÓN Requesting: DR PB LEÓN Requesting Attending Attending ID: [id number] Requesting ID: [id number] Report To 1 ID: [id number] Report To 1 Name: DR PB LEÓN Report To 1 FAX: [phone] NextGen Order #: us Pb León MD IMG US PROCEDURES Maria Eugenia l Result * XR Abdomen AP 1V (04/14/2017 1:57 PM CDT) Anatomical Region Laterality Modality Body N/A Radiographic Kourtney ging 04/14/2017 1:57 PM CDT Narrative 04/14/2017 1:57 PM CDT XR KUB ?[id number] ??Acc#: ??[id number] DATE OF EXAM: ??Apr 14 2017 ?? XR KUB ?[id number] HISTORY: URETERAL STONE. ??Ureteral stone extraction. ??Follow-up exam. COMPARISON: 03/02/2017 FINDINGS: 1 views of the abdomen demonstrates a normal bowel gas pattern. ??The previously documented distal left ureteral calculus is no longer present. ??Pelvic phleboliths are present which are unchanged. ??No new calcifications are present. IMPRESSION:H ??NNORMAL BOWEL GAS PATTERN. Electronically signed by: Jose De Leon M.D. Interpreting Physician: ??DR JV ABDULLAHI M.D. ??Read on: ??Apr 14 2017 ?? 9:06A Transcribed by: ??PSC ??On: Apr 14 2017 ??9:04A Approved Electronically by: ??BRADLY Boykin, DR CARIAS ??on: ??Apr 14 2017 ?? 9:04A Ordering DR: DR PB LEÓN Attending DR: DR PB LEÓN Attending: ??DR PB LEÓN Requesting: ??DR PB LEÓN Requesting Fax: ??[phone] Attending Fax: ??[phone] Attending ID: ??[id number] Requesting ID: ??[id number] Report To 1 ID: ??[id number] Report To 1 Name: ??DR PB LEÓN Report To 1 FAX: ??[phone] NextGen Order #: ?? Procedure Note Miscellaneous, Not In File / Provider, MD Alban - 04/16/2017 XR KUB [id number] Acc#: [id number] DATE OF EXAM: Apr 14 2017 XR KUB 18659 HISTORY: URETERAL STONE. Ureteral stone extraction. Follow-up exam. COMPARISON: 03/02/2017 FINDINGS: 1 views of the abdomen demonstrates a normal bowel gas pattern. The previously documented distal left ureteral calculus is no longer present. Pelvic phleboliths are present which are unchanged. No new calcifications are present. IMPRESSION:H NNORMAL BOWEL GAS PATTERN. Electronically signed by: Jose De Leon M.D. Interpreting Physician: DR JV ABDULLAHI M.D. Read on: Apr 14 2017 9:06A Transcribed by: [facility] On: Apr 14 2017 9:04A Approved Electronically by: BRADLY Boykin, DR CARIAS on: Apr 14 2017 9:04A Ordering DR: DR PB LEÓN Attending DR: DR PB LEÓN Attending: DR PB LEÓN Requesting: DR PB LEÓN Requesting Attending Attending ID: [id number] Requesting ID: [id number] Report To 1 ID: [id number] Report To 1 Name: DR PB LEÓN Report To 1 FAX: [phone] NextGen Order #: Pb León MD IMG XR PROCEDURES Maria Eugenia l Result documented in this encounter Visit Diagnoses Not on filedocumented in this encounter Care Teams Background Check Coordinator Relationship Specialty Start Date End Date Gallito Edwards PCP - General 11/12/16 10/18/17 documented as of this encounter
--- OUTSIDE RECORDS SUMMARY | 2024-08-12 23:44 | XMS_ITS | Encounter Summary ---
Author Organization [facility] Address [address] [place] [address] Phone Care Team Providers Care Rail Assembler Name Role Phone Alejandro Lema MD Primary Care Provider Encounter Details Date Type Department Care Team (Late st Contact Info) Description 06/23/2021 Telephone [facility] 5th [place] [address] [place] [address] Cindy Schwab RMA Social History Tobacco Use Types Packs/Day Years Used Date Smoking Tobacco: Never Alcohol Use Standard Drinks/Week Comments Yes 0 (1 standard drink = 0.6 oz pur e alcohol) Comments No Sex and Gender Information Value Date Recorded Sex Assigned at Not on file 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 Gender Identity Not on file Sexual Orientation Not on file documented as of this encounter Miscellaneous Notes * Telephone Encounter - Cindy Schwab RMA - 06/23/2021 12:49 PM FINE GRADER We received a referral on the pt and I called to get her registered and lmom GRADER documented in this encounter Plan of Treatment Not on file documented as of this encounter Visit Diagnoses Not on filedocumented in this encounter Care Teams Rail Assembler Relationship Specialty Start Date End Date Alejandro Lema MD [address] [facility] [address] [place] [address] PCP - General 10/19/17 01/19/22 documented as of this encounter
--- OUTSIDE RECORDS SUMMARY | 2024-08-12 23:44 | XMS_ITS | Encounter Summary ---
Author Organization [facility] Healthcare Address [address] [place] [address] Care Team Providers Care Sales Ambassador Name Role Phone Gallito Edwards Primary Care Provider Unavailmadelin e Encounter Details Date Type Department Care Team (Latest Contact Info) Description 02/18/2017 10:07 AM CDT - 02/18/2017 11:59 PM T Hospital Encounter [facility] OP INTERIM [phone] Yrn Mosley MD [address] [place] [address] Nilsa Wise NP [address] [facility] [address] [place] [address] Discharge Disposition: Discharge to home or self care Social History Tobacco Use Types Packs/Day Years Used Date Smoking Tobacco: Never Alcohol Use Standard Drinks/Week Comments Yes 0 (1 standard drink = 0.6 oz pur e alcohol) Comments Unknown Sex and Gender Information Value Date Recorded Sex Assigned at Not on file 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 Gender Identity Not on file Sexual Orientation [...] by mouth once daily 30 0 09/16/2014 fyhyhvph-begf-oz n-folic acid (ONE DAILY FOR WOMEN) 18-0.4 mg tablet once dailyt 0 12/06/2011 traMADol (ULTRAM) 50 mg tablet take 1 [...] tablet by mouth once daily 30 tablet 02/18/2017 7 predniSONE (DELTASONE) 20 mg tablet take 1 tablet by ORAL route 2 times every day 0 0 10/24/[address] (ACIPHEX) 20 mg EC tablet TAKE ONE TABLET BY MOUTH TWO TIMES A DAY 60 tablet 02/18/2017 7 documented as of this encounter Discharge Disposition Disposition Code Departure Means Destination Discharge to home or self care documented in this encounter Plan of Treatment Not on file documented as of this encounter Procedures Procedure Name Priority Date/Time Associated Diagnosis Comments APTT Routine 02/18/2017 10:23 AM CDT PROTIME-INR Routine 02/18/2017 10:23 AM CDT EGFR Routine 02/18/2017 10:23 AM CDT DIFFERENTIAL AUTO Routine 02/18/2017 10: 23 AM CDT CBC WITH AUTO DIFFERENTIAL Routine 02/18/2017 10:23 AM CDT HCG, BLOOD, QUANTITATIVE Routine 02/18/2017 10:23 AM CDT TSH Routine 02/18/2017 10:23 AM CDT HEMOGLOBIN A1C Routine 02/18/2017 10:23 AM CDT LIPID PANEL Routine 02/18/2017 10:23 AM CDT COMPREHENSIVE METABOLIC PANEL Routine 02/18/2017 10:23 AM CDT DISCHARGE LABORATORY CUMULATIVE REPORT 02/18/2017 12:00 AM CDT documented in this encounter Results * aPTT (02/18/2017 10:23 AM CDT) aPTT 29.3 24.0 - 36.1 sec ELISSA STANLEY Comment: Interpretive Data Heparin Therapeutic Range aPTT: ??60 - 100 seconds. Current interpretive data was last revised on 2014. Blood specimen (specimen) 02/18/2017 10:23 AM CDT 02/18/2017 12:14 PM CDT us Nilsa Wise HELIARC WELDER LAB BLOOD ORDERABLES Final Result Performing Organization Address City/State/[facility] Co de Phone Number [facility] [address] [facility]. Department of Laboratories [place], [place] [id number] * Protime-INR (02/18/2017 10:23 AM CDT) PT 13.0 11.5 - 14.0 sec ELISSA STANLEY INR 1.0 0.9 - 1.1 ELISSA STANLEY Comment: Interpretive Data ORTHOPEDIC Total Hip and Knee Arthroplasty ?1.8 to 2.6 Hip Fracture ? 1.8 to 2.6 CARDIOLOGY Atrial Fibrillation ?2.0 to 3.0 Cardiomyopathy ? 2.0 to 3.0 Myocardial Infarction ?2.0 to 3.0 Bioprosthetic Heart Valve ?2.0 to 3.0 Mechanical Valve Replacement ? 2.[address] [place] Mechanical Aortic Valve ? 2.0 to 3.0 TREATMENT OF VENOUS THRMBOSIS Deep Vein Thrombosis ? 2.0 to 3.0 Pulmonary Embolism ? 2.0 to 3.0 Current interpretive data was last revised on 2014. Blood specimen (specimen) 02/18/2017 10:23 AM CDT 02/18/2017 12:14 PM CDT Nilsa Wise NP LAB BLOOD ORDERABLES Final Result Performing Organization Address [facility] de Phone Number [facility] [address] [address] [facility] [place] [address] * Hemoglobin A1c (02/18/2017 10:23 AM CDT) Hgb A1C 5.7 4.0 - 6.0 % ELISSA STANLEY Comment:Testing performed by : [facility], [facility] [place]., [address] Blood specimen (specimen) 02/18/2017 10:23 AM CDT 02/18/2017 1:34 PM CDT Nilsa Wise NP LAB BLOOD ORDERABLES Final Result Performing Organization Address [facility] de Phone Number [facility] [address] [address] [employer] [address] [facility] [email or web address] [place], [place] [id number] * eGFR (02/18/2017 10:23 AM CDT) eGFR >60 mL/min/1.7 3 m2 ELISSA STANLEY Comment: Interpretive Data Reference Interval Normal ?>/= 90 mL/min/1.73m2 Mildly decreased* ? 60 - 89 mL/min/1.73m2 Mildly to moderately decreased ?45 - 59 mL/min/1.73m2 Moderately to severely decreased ??30 - 44 mL/min/1.73m2 Severely decreased ?15 - 29 mL/min/1.73m2 Kidney Failure ?< 15 ??mL/min/1.73m2 *Relative to young adult level If -Citizen Of The [place] multiply value by 1.16. Estimated glomerular filtration rate is determined by the CKD-EPI equation recommended by the National Kidney Foundation (KDIGO 2012 Clinical Practice Guideline for the Evaluation and Management of Chronic Kidney Disease. Kidney Intnl Suppl Aug 2012;3:1). The CKD-EPI equation should not be used for patients with unstable renal function and has not been validated in children and those over 70. Current interpretive data was last reviewed 2016. Blood specimen (specimen) 02/18/2017 10:23 AM CDT 02/18/2017 12:16 PM CDT us Nilsa Wise NP LAB BLOOD ORDERABLES Final Result ELISSA [facility] [address] [facility]. Department of [email or web address] [address] * Lipid panel (02/18/2017 10:23 AM CDT) Cholesterol 181 30 - 200 mg/dL ELISSA STANLEY Comment: Interpretive Data Desirable: ?<200 mg/dL Borderline high: ??200-239 mg/dL High: ? >240 mg/dL Literature Reference: National Cholesterol Education Program (NCEP) Expert Panel on Detection, Evaluation, and Treatment of High Blood Cholesterol in Adults (Adult Treatment Panel III). ?? Circulation 2004; 110:227. Current interpretive data was last reviewed on 05/14/2015. Triglycerides 91 0 - 150 mg/dL ELISSA STANLEY Comment: Interpretive Data. Desirable: ? <150 mg/dL Borderline High: ??150 - 199 mg/dL High: ?>200 mg/dL Literature Reference: See Cholesterol interpretive data Current interpretive data last reviewed on 05/14/15. HDL 57 40 - 60 mg/dL ELISSA STANLEY Comment: Interpretive Data. < 40 mg/dL - Low, A major risk factor for heart disease. > 60 mg/dL - High, ??Considered protective of heart disease. Literature Reference: See Cholesterol interpretive data Current interpretive data last reviewed on 05/14/2015. LDL, calculated 106 10 - 129 mg/dL ELISSA STANLEY Comment: Interpretive Data. Optimal: ? < 100 mg/dL Near Optimal: ?100 - 129 mg/dL Borderline High: ?? 130 - 159 mg/dL High: ?> 160 mg/dL Literature Reference: See Cholesterol interpretive data . Current interpretive data was last reviewed on 05/14/2015. Blood specimen (specimen) 02/18/2017 10:23 AM CDT 02/18/2017 12:16 PM CDT us Nilsa Wise NP LAB BLOOD ORDERABLES Final Result [facility]CT[facility] [address] [facility]. Department of [email or web address] [address] * Comprehensive metabolic panel (02/18/2017 10:23 AM CDT) Sodium 141 135 - 145 mmol/L [facility] Potassium, pl 3.5 3.3 - 4.9 mmol/L [facility] CO2 27 20 - 32 mmol/L [facility] BUN 20 8 - 25 mg/dL [facility] Glucose 85 70 - 199 mg/dL [facility] Comment: Interpretive data. Glucose is assumed to be non-fasting. Fasting Glucose reference ranges are: ?? 0 days-1 month = 40-100mg/dL ?? 1 month-150 years = 70-99mg/dL Current interpretive data last reviewed 2015 Creatinine 0.8 0.6 - 1.1 mg/dL [facility] Calcium 9.8 8.5 - 10.3 mg/dL [facility] Chloride 99 97 - 110 mmol/L [facility] Albumin 4.7 3.5 - 5.0 g/dL [facility] AST 25 10 - 45 Units/L [facility] ALT 20 7 - 45 Units/L [facility] Alk phos 97 40 - 130 Units/L [facility] Bilirubin, total 0.3 0.1 - 1.2 mg/dL [facility] Protein, pl 8.0 6.6 - 8.5 g/dL [facility] Anion gap 15.0 2.0 - 15.0 mmol/L [facility] Blood specimen (specimen) 02/18/2017 10:23 AM CDT 02/18/2017 12:16 PM CDT Nilsa Wise NP LAB BLOOD ORDERABLES Final Result Performing Organization Address [facility] Co de Phone Number [facility] [address] [facility] Department [place] [address] * TSH (02/18/2017 10:23 AM CDT) Thyroid Stimulating Hormone 1.59 0.30 - 4.20 mcUnits/mL [facility] Blood specimen (specimen) 02/18/2017 10:23 AM CDT 02/18/2017 12:16 PM CDT Nilsa Wise NP LAB BLOOD ORDERABLES Edited Result - Final ELISSA STANLEY [address] [facility] [place] [address] * hCG, blood, quantitative (02/18/2017 10:23 AM CDT) hCG, quant <5 IUnits/L ELISSA STANLEY Comment: Interpretive data Reference values: Males: <5.0 IUnits/L Females pre-menopausal non-: <5.0 IUnits/L Females post-menopausal: <=8.1 IUnits/L Females Weeks Gestation with Approximate hCG (IUnits/L): 3-4 weeks: ?9-130 4-5 weeks: ?75-2,600 5-6 weeks: ?850-20,800 6-7 weeks: ?4,000-100,200 7-12 weeks: ?? 11,500-289,000 12-16 weeks: ??18,300-137,000 16-29 weeks: ??1,400-53,000 29-41 weeks: ??940-60,000 Current Interpretive Data last reviewed on 05/14/15. Blood specimen (specimen) 02/18/2017 10:23 AM CDT 02/18/2017 12:16 PM CDT Nilsa Wise HELIARC WELDER LAB BLOOD ORDERABLES Edited Result - Final Performing Organization Address [facility] Co de Phone Number ELISSA STANLEY [address] [facility] Department of [email or web address] [address] * Differential, auto (02/18/2017 10:23 AM CDT) Neutrophil pct 67.3 % [facility] Imm gran pct 0.2 % [facility] Lymphocyte pct 21.7 % [facility] Monocyte pct 5.9 % [facility] Eosinophil pct 4.5 % [facility] Basophil pct 0.4 % [facility] Neutrophil abs 3.42 1.70 - 6.50 K/cumm [facility] Imm gran abs 0.01 0.00 - 0.10 K/cumm [facility] Lymphocyte abs 1.10 0.80 - 3.30 K/cumm [facility] Monocyte abs 0.30 0.20 - 0.80 K/cumm [facility] Eosinophil abs 0.23 0.00 - 0.50 K/cumm [facility] Basophil abs 0.02 0.00 - 0.10 K/cumm [facility] Blood specimen (specimen) 02/18/2017 10:23 AM CDT 02/18/2017 12:16 PM CDT us Nilsa Wise NP LAB BLOOD ORDERABLES Final Result ELISSA SUBRAMANIAN [address] [facility]. Department [place] [address] * (ABNORMAL) CBC with auto differential (02/18/2017 10:23 AM CDT) WBC 5.08 3.80 - 9.90 K/cumm [facility] RBC 5.36(H) 3.90 - 5.20 M/cumm [facility] Hgb 13.1 11.9 - 15.5 g/dL [facility] Hct 41.8 35.6 - 45.5 % [facility] MCV 78.0(L) 81.3 - 96.4 fL [facility] MCH 24.4(L) 27.1 - 33.3 pg [facility] MCHC 31.3(L) 32.3 - 35.7 g/dL [facility] RDW CV 15.9(H) 11.1 - 14.9 % [facility] RDW SD 45.1 35.7 - 48.1 fL [facility] Plt 261 150 - 440 K/cumm [facility] MPV 10.4 9.1 - 12.3 fL [facility] NRBC 0.0 0.0 - 0.2 % [facility] NRBC abs 0.00 0.00 - 0.01 K/cumm [facility] Blood specimen (specimen) 02/18/2017 10:23 AM CDT 02/18/2017 12:16 PM CDT us Nilsa Wise NP LAB BLOOD ORDERABLES Final Result ELISSA [facility] [address] [facility]. Department [place] [address] * DISCHARGE LABORATORY CUMULATIVE REPORT (02/18/2017 12:00 AM CDT) Narrative 02/18/2017 12:00 AM CDT Ordered by an unspecified provider. us Historical Provider LAB BLOOD ORDERABLES Maria Eugenia l Result documented in this encounter Visit Diagnoses Not on filedocumented in this encounter Care Teams Sales Ambassador Relationship Specialty Start Date End Date Gallito Edwards PCP - General 11/12/16 10/18/17 documented as of this encounter
--- OUTSIDE RECORDS SUMMARY | 2024-08-12 23:44 | XMS_ITS | Encounter Summary ---
Author Organization [facility] Address [address] [place] [address] Phone Care Team Providers Care Coding Compliance Specialist Name Role Phone Heath Montano MD Unavailable [phone] Heath Montano MD Unavailable [phone] Heath Montnao MD Primary Care Provider [phone] Encounter Details Date Type Department Care Team (Late st Contact Info) Description 07/16/2024 Telephone [facility] Surgery [address] [facility] [address] [place] [address] Roseanne Foster, CHRIS [address] [facility] [address] [place], [place] [id number] Social History Tobacco Use Types Packs/Day Years Used Date Smoking Tobacco: Never Alcohol Use Standard Drinks/Week Comments Yes 0 (1 standard drink = 0.6 oz pur e alcohol) Comments No Sex and Gender Information Value Date Recorded Sex Assigned at Not on file 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 Reason for call?: Patient needs appointment, mamm and US rescheduled. Who is the caller: Patient What is the best number for them to contact for a call back: [phone] HBOARD STUFFER documented in this encounter Plan of Treatment Not on file documented as of this encounter Visit Diagnoses Not on filedocumented in this encounter Care Teams Coding Compliance Specialist Relationship Specialty Start Date End Date Heath Montano MD [address] [facility] [address] [place] [address] PCP - General Obstetrics and Gynecology 07/12/23 Heath Montano MD [address] [facility] [address] [address] Referring Physician Obstetrics and Gynecology 01/20/22 Heath Montano MD [address] [facility] [address] [address] Referring Physician Obstetrics and Gynecology 05/17/22 documented as of this encounter
--- OUTSIDE RECORDS SUMMARY | 2024-08-12 23:44 | XMS_ITS | Encounter Summary ---
Author Organization [facility] Healthcare Address [address] [place] [address] Care Team Providers Care Animal Health Technician Name Role Phone Gallito Edwards Primary Care Provider Unavailabl e Encounter Details Date Type Department Care Team (Latest Contact Info) Description 03/01/2017 9:54 AM CDT - 03/02/2017 5:30 PM CDT Hospital Encounter [facility] [address] [place] [address] Darlin Casiano MD 1 [facility] [address] [address] Discharge Disposition: Discharge to home or self care Social History Tobacco Use Types Packs/Day Years Used Date Smoking Tobacco: Never Alcohol Use Standard Drinks/Week Comments Yes 0 (1 standard drink = 0.6 oz pur e alcohol) Comments Unknown Sex and Gender Information Value Date Recorded Sex Assigned at Not on file Legal Sex Female 12:25 AM [employer] Gender Identity Not on file Sexual Orientation Not on file documented as of this encounter Last Filed Vital Signs Vital Sign Reading Time Taken Comments Blood Pressure 110/64 03/02/2017 3:00 PM CDT Pulse 61 03/02/2017 3:00 PM CDT Temperature - - Respiratory Rate - - Oxygen Saturation - - Inhaled Oxygen Concentration - - Weight 99.3 kg (218 lb 14.7 oz) 03/01/2017 1:56 PM CDT Height 162.6 cm (5' 4.02 ) 03/01/2017 1:56 PM CD T Body Mass Index 37.56 03/01/2017 1:56 PM CDT documented in this encounter Medications at Time of Discharge b complex vitamins (B COMPLEX-VITAMIN B12) tablet once daily 0 12/06/2011 diclofenac sodium (VOLTAREN) 1 % gel apply (2G) by topical route 4 times every day to bilateral knees as needed. 1 Tube 5 02/26/2016 dicyclomine (BENTYL) 10 mg capsule TAKE ONE CAPSULE BY MOUTH FOUR TIMES A DAY NEEDED 60 1 09/08/2012 fexofenadine (KAT) 180 mg tablet take 1 tablet (180MG) by ORAL route every day 60 1 06/16/2010 hydroCHLOROthiaz wing (HYDRODIURIL) 25 mg tablet take 1 tablet by mouth once daily 30 0 09/16/2014 nitrzoxp-orxd-vn n-folic acid (ONE DAILY FOR WOMEN) 18-0.4 [...] or self care documented in this encounter H&P Notes * Miscellaneous, Not In File - 03/01/2017 5:00 AM CDT HISTORY AND PHYSICAL Patient: KIA HERNÁNDEZ Account: [id number] Room No: G643-01 : 1960 Patient Type: [facility] Attend.: Darlin Casiano M.D. Admit Date: 03/01/2017 Dict.: Nataly Villa M.D. Disch. Date: 03/02/2017 SHORT-STAY SUMMARY PRIMARY CARE PHYSICIAN Dr. Gallito Edwards CHIEF COMPLAINT This is a very pleasant 56-year-old female who presented to hospital emergency room with severe abdominal pain going on for 1 day. HISTORY OF PRESENT ILLNESS Patient presented to our ED yesterday at 10:00 with severe abdominal pain localized left abdominal area, intensity of 10/10, sharp, annoying, radiating to the whole left side of the abdomen. Alleviate symptoms: Pain medication. Associated symptoms: Some nausea without emesis. OTHER REVIEW OF SYSTEMS Denies having any neurological focal weakness, paresthesias, double vision, headache, acute skin changes. Denies any shortness of breath, cough, sputum, chest pain, palpitation. Denies any dysuria or hematuria. Denies any endocrine changes. No constitutional changes. PAST MEDICAL HISTORY 1. Hypertension. 2. GERD. 3. Chronic sinus allergies. 4. Status post cholecystectomy. SOCIAL HISTORY Patient is not a smoker. Denies any alcohol intake. She works for [employer]. FAMILY HISTORY Mother had gallstone when she was young. ALLERGIES None. MEDICATION 1. AcipHex daily. 2. Aleve p.r.n. 3. Kat 2 times a day. 4. Flonase inhalation 2 times a day. 5. Mucinex 2 times a day p.r.n. 6. Gardiner' Colon 1 capsule daily. 7. Biotin daily. 8. Vitamin B12 500 mcg daily. 9. Hydrochlorothiazide 25 mg daily. 10. Viactiv Calcium with vitamin D daily. 11. Women's Vitafusion daily. PHYSICAL EXAMINATION Patient is back from her procedure. She had a cystoscopy and stent placement in left ureter. She is feeling much better, had minimum pain. She tolerated her diet. Blood pressure 110/64, pulse 61, respiration 18, temperature 36.7, oxygen saturation 98% on room air. She does not have significant pallor, icterus, or petechia. Oral mucosa is moist. No neck vein elevation. Chest S1, S2 regular, 2/6 systolic murmur at the base and right 2nd intercostal space. Lungs are clear to auscultation bilaterally. Abdomen is soft, nontender. Bowel sounds are positive. Extremities no edema. Pulses are present. Neuro examination nonfocal. Abdominal examination is benign. Abdomen is soft. Left flank pain is minimum on deep palpation. ASSESSMENT AND PLAN 1. Renal colic. This is secondary to left-sided stone. Imaging yesterday with abdominal and pelvic CT showing obstructive uropathy on the left with 5.5 mm calculus at the left ureterovesical junction and also there was chest x-ray done showing no active disease. KUB this morning showing left urinary tract stone extraction. Procedure: Cystoscopy and stone extraction with left ureteral stent placement per Dr. Caro. Consult: Dr. Caro, Urology. 2. Hypertension. Patient's blood pressure is actually low. This is related to pain medications and anesthesia. Will continue her home medication. 3. Patient is admitted as an observation. ADMISSION DIAGNOSES 1. Renal colic. 2. Obstructing left ureteral stone. 3. Status post cystoscopy and stone extraction and stent placement in left ureter. 4. Hypertension. ESTIMATED LENGTH OF STAY To be less than 2 midnights. Patient is being discharged home now after procedure. Recommendations will be see Dr. Caro in a week in the office. Continue ciprofloxacin for 3 days and also Percocet 5/325 mg p.o. every 4-6 hours for pain. All these instructions given. Prescription provided by Dr. Caro and no changes will be of her home medications. She will continue all of them. Electronically Authenticated and Edited by: Nataly Villa MD On 03/03/2017 08:16 AM CDT Ashutosh Reich/libia TD: 03/02/2017 18:02 CC: Gallito Edwards MD documented in this encounter Consult Notes * Miscellaneous, Not In File - 03/02/2017 5:00 AM CDT CONSULTATION REPORT Patient: KIA HERNÁNDEZ Service Date: 03/02/2017 Account: [id number] Room No: G643-01 : 1960 Patient Type: SDS Attend.: Darlin Casiano M.D. Admit Date: 03/01/2017 Consult: Pb Caro M.D. Disch. Date: 03/02/2017 CONSULTING PHYSICIAN Pb Caro MD REASON FOR CONSULTATION Left ureteral stone and severe flank pain. REFERRING DOCTOR Dr. Darlin Casiano. HISTORY OF PRESENT ILLNESS Ms. Hernández is a pleasant 56-year-old female who has no prior history of stones. She developed sudden onset of left flank pain associated with chills, nausea, vomiting. No fevers. No gross hematuria, dysuria, or voiding complaints. She presented to emergency room. Pain could not be controlled, and she was admitted. A CT scan showed a 5.5 mm left distal ureteral stone essentially at the UVJ with proximal hydronephrosis. No other stones seen. I did not see any solid-appearing renal masses. I personally reviewed the images and report of the CT stone study. She has not seen the stone pass. Overall her pain is now controlled with pain medication. PAST MEDICAL HISTORY GERD, allergic rhinitis, hypertension, irritable bowel syndrome. PAST SURGICAL HISTORY Sinus surgery, carpal tunnel release. SOCIAL HISTORY No smoking, alcohol abuse, or drug abuse. HOME MEDICATIONS 1. AcipHex. 2. Aleve. 3. Kat. 4. Biotin. 5. Vitamin B12. 6. Flonase. 7. Hydrochlorothiazide. 8. Mucinex. 9. Tripsidea. 10. Viactiv. 11. Calcium plus D. 12. Woman's Vitafusion. ALLERGIES No known drug allergies. FAMILY HISTORY Mother with stones. REVIEW OF SYSTEMS No fevers, current chills, vision changes, heat or cold intolerance, chest pain, shortness of breath, edema, cough. No current vomiting, no diarrhea or constipation. No voiding complaints, gross hematuria, dysuria. No rashes, headaches, weakness. No muscle weakness. She does have left flank pain, left abdominal pain, nausea. PHYSICAL EXAM Vitals: Temperature 99, pulse 67, respirations 20, blood pressure 116/76, satting 100% on room air. General: No acute distress. Head: Atraumatic, normocephalic. HEENT: No scleral icterus. Mucous membranes moist. Neck: Supple. Cardiovascular: Regular rate and rhythm. Pulmonary: Nonlabored breathing. Abdomen: Soft, nontender, nondistended. No flank pain. Skin: No rashes. Lower Extremities: No edema bilaterally. Extremities: Moves all. Neurological: Awake, oriented x3. Psychiatric: Normal mood, affect. [facility] Creatinine 0.89, white blood cell count 5.7, hemoglobin 10.5. CT abdomen and pelvis with IV contrast. I personally reviewed the images and report, findings per HPI. ASSESSMENT AND PLAN Ms. Hernández is a pleasant 56-year-old female who has no prior history of stones who has a symptomatic left UVJ stone. She has not seen this pass. Currently comfortable. We did discuss treatment with her, risks, and benefits. Plan for ureteroscopy to treat her left stone or insure that it has passed. The treatment, alternatives, risks, and benefits were discussed. Questions answered to satisfaction. Informed consent obtained. We will plan to take in the near future. Thank you for involving me in the care of this pleasant patient. Electronically Authenticated by: Pb Caro MD On 03/07/2017 07:54 AM CDT Pb Caro M.D. [facility] TD: 03/02/2017 22:50 documented in this encounter Miscellaneous Notes * Op Note - Provider, MD Alban - 03/02/2017 12:00 AM CDT OPERATIVE REPORT Patient: KIA HERNÁNDEZ Service Date: 03/02/2017 Account: [id number] Room No: G643-01 : 1960 Patient Type: SDS Attend.: Darlin Casiano M.D. Admit Date: 03/01/2017 Surg.: Pb Caro M.D. Disch. Date: 03/02/2017 SURGEON Pb Gordo, M.D. PREOPERATIVE DIAGNOSIS Left ureteral stone. POSTOPERATIVE DIAGNOSIS No stone found. PROCEDURE Cystoscopy left ureteroscopy with semi-rigid scope. ANESTHESIA General. COMPLICATIONS None. ESTIMATED BLOOD LOSS Less than 5 mL. SPECIMEN None. INDICATIONS Ms. Hernández is a pleasant female patient who is admitted with intractable pain. The pain was eventually was able to be controlled with pain medicine however she has not seen a stone pass and displaced in her urine. After discussion of treatment, including risks and benefits, she has agreed to the above-mentioned procedure. Informed consent obtained. Questions answered to satisfaction. Patient amenable to proceed as planned. DESCRIPTION OF PROCEDURE Patient was brought back to the operating theater and placed in supine position. SCDs were put in place. She was given preoperative antibiotics and general anesthesia commenced. She was placed in dorsal lithotomy position, prepped and draped in a standard fashion. Timeout was performed. The left ureteral orifice was then noted and cannulated with a Sensor wire. The distal ureter was dilated coaxial dilator and I introduced the semi-rigid ureteroscope alongside the Sensor wire and went all the way to the ureteropelvic junction. There was no stone seen. There was an area in the distal ureter that appeared to be slightly inflamed consistent with a previous stone. I decided to not leave a ureteral stent. The wire was removed. The procedure was complete. The patient was awakened from anesthesia and transferred to recovery in stable condition. PLAN She is going to be discharged, provided a script for Percocet and 3 days of antibiotic. She will follow up as an outpatient in 6 weeks with a renal ultrasound and KUB. Thank you for involving me in the care of this pleasant patient. Electronically Authenticated by: Pb Caro MD On 03/07/2017 07:54 AM CDT Pb Caro M.D. [facility]/libia TD: 03/03/2017 06:11 documented in this encounter Plan of Treatment Not on file documented as of this encounter Procedures Procedure Name Priority Date/Time Associated Diagnosis Comments XR ABDOMEN AP 1V Routine 03/02/2017 7:31 PM CDT EGFR Routine 03/02/2017 5:54 AM CDT DIFFERENTIAL AUTO Routine 03/02/2017 5:5 4 AM CDT CBC WITH AUTO DIFFERENTIAL Routine 03/02/2017 5:54 AM CDT MANUAL DIFFERENTIAL Routine 03/02/2017 5 :54 AM CDT RENAL FUNCTION PANEL Routine 03/02/2017 5:54 AM CDT DISCHARGE LABORATORY CUMULATIVE REPORT 03/02/2017 12:[address] ABDOMEN PELVIS W CONTRAST Routine 03/01/2017 5:07 PM CDT XR CHEST PA LATERAL 2 VIEWS Routine 03/01/2017 4:05 PM CDT URINALYSIS AND REFLEX TO MICROSCOPIC AND CULTURE STAT 03/01/2017 11:54 AM CDT EGFR STAT 03/01/2017 10:40 AM CDT DIFFERENTIAL AUTO STAT 03/01/2017 10: 40 AM CDT CBC WITH AUTO DIFFERENTIAL STAT 03/01/2017 10:40 AM CDT MAGNESIUM STAT 03/01/2017 10:40 AM CDT LIPASE STAT 03/01/2017 10:40 AM CDT AMYLASE STAT 03/01/2017 10:40 AM CDT COMPREHENSIVE METABOLIC PANEL STAT 03/01/2017 10:40 AM CDT documented in this encounter Results * XR Abdomen AP 1V (03/02/2017 7:31 PM CDT) Anatomical Region Laterality Modality Body N/A Radiographic Kourtney ging 03/02/2017 7:31 PM CDT Narrative 03/02/2017 7:31 PM CDT XR KUB ?[id number] ??Acc#: ??[id number] DATE OF EXAM: ??Mar 02 2017 ?? XR KUB ?[id number] HISTORY: CYSTO. ??Left renal calculus. ??Recently passed stone. COMPARISON: None available. FINDINGS: 10 fluoroscopic spot images are submitted from the operating room. ??This demonstrates placement of guidewire and stone extraction of the left renal system. ??No additional findings are noted. ??No obvious calcifications are demonstrated on the submitted radiographs. 16 seconds fluoroscopy time was recorded. IMPRESSION:H ??NLEFT URINARY TRACT STONE EXTRACTION. Electronically signed by: Jose De Leon M.D. Interpreting Physician: ??DR JV ABDULLAHI M.D. ??Read on: ??Mar 02 2017 ?? 3:01P Transcribed by: ??PSC ??On: Mar 02 2017 ??2:59P Approved Electronically by: ??BRADLY Boykin, DR CARIAS ??on: ??Mar 02 2017 ?? 2:59P Ordering DR: DR PB CARO Attending DR: DR DARLIN CASIANO Attending: ??DR DARLIN CASIANO Requesting: ??DR PB CARO Requesting Fax: ??[phone] Attending Fax: ??-- Attending ID: ??[id number] Requesting ID: ??[id number] Report To 1 ID: ??[id number] Report To 1 Name: ??DR DARLIN CASIANO Report To 1 FAX: ??-- NextGen Order #: ?? Procedure Note Miscellaneous, Not In File / Provider, MD Alban - 03/02/2017 XR KUB [id number] Acc#: [id number] DATE OF EXAM: Mar 02 2017 XR KUB [id number] HISTORY: CYSTO. Left renal calculus. Recently passed stone. COMPARISON: None available. FINDINGS: 10 fluoroscopic spot images are submitted from the operating room. This demonstrates placement of guidewire and stone extraction of the left renal system. No additional findings are noted. No obvious calcifications are demonstrated on the submitted radiographs. 16 seconds fluoroscopy time was recorded. IMPRESSION:H NLEFT URINARY TRACT STONE EXTRACTION. Electronically signed by: Jose De Leon M.D. Interpreting Physician: DR JV ABDULLAHI M.D. Read on: Mar 02 2017 3:01P Transcribed by: [facility] On: Mar 02 2017 2:59P Approved Electronically by: BRADLY Boykin, DR CARIAS on: Mar 02 2017 2:59P Ordering DR: DR PB CARO Attending DR: DR DARLIN CASIANO Attending: DR DARLIN CASIANO Requesting: DR PB CARO Requesting Attending Fax: -- Attending ID: [id number] Requesting ID: [id number] Report To 1 ID: [id number] Report To 1 Name: DR DARLIN CASIANO Report To 1 FAX: -- NextGen Order #: Pb Caro MD IMG XR PROCEDURES Maria Eugenia l Result * (ABNORMAL) Manual Differential (03/02/2017 5:54 AM CDT) Platelet estimate Confirming Auto [facility] Anisocytosis 1+(A) [facility] RBC morphology Present(A) [facility] Blood specimen (specimen) 03/02/2017 5:54 AM CDT 03/02/2017 6:00 AM CDT Jesús Kong MD LAB BLOOD ORDERABLES Final Result [facility] ([place] 1 [facility] Department [place] [address] * (ABNORMAL) CBC with auto differential (03/02/2017 5:54 AM CDT) WBC 5.87 3.80 - 9.80 K/cumm [facility] ([place]) RBC 4.17 3.90 - 5.00 M/cumm [facility] Hgb 10.5(L) 12.1 - 15.1 g/dL [facility] Hct 32.2(L) 36.1 - 44.3 % [facility] MCV 77.2(L) 80.0 - 100.0 fL [facility] MCH 25.2(L) 26.7 - 33.7 pg [facility]) MCHC 32.6(L) 32.7 - 36.0 g/dL [facility]) RDW CV 15.5(H) 11.5 - 14.6 % [facility] Plt 196 140 - 440 K/cumm [facility] MPV 9.8 8.0 - 12.0 fL [facility] NRBC 0.0 0.0 - 0.0 % [facility] ([place] NRBC abs 0.00 0.00 - 0.00 K/cumm [facility]) Blood specimen (specimen) 03/02/2017 5:54 AM CDT 03/02/2017 6:00 AM CDT us Jesús Kong MD LAB BLOOD ORDERABLES Edited Result - Final [facility] 1 [facility] Department [place] [address] * Differential, auto (03/02/2017 5:54 AM CDT) Neutrophil pct 62.8 44.0 - 80.0 % [facility] Imm gran pct 0.3 0.0 - 1.0 % [facility] Lymphocyte pct 26.9 13.0 - 44.0 % [facility] Monocyte pct 8.0 2.0 - 11.0 % [facility] Eosinophil pct 1.5 0.0 - 6.0 % [facility] Basophil pct 0.5 0.0 - 3.0 % [facility] Neutrophil abs 3.68 1.60 - 7.00 K/cumm [facility] Imm gran abs 0.02 0.00 - 0.20 K/cumm [facility] Lymphocyte abs 1.58 0.50 - 4.30 K/cumm [facility] Monocyte abs 0.47 0.10 - 1.00 K/cumm [facility] Eosinophil abs 0.09 0.00 - 0.60 K/cumm [facility] Basophil abs 0.03 0.00 - 0.30 K/cumm [facility] Blood specimen (specimen) 03/02/2017 5:54 AM CDT 03/02/2017 6:00 AM CDT us Jesús Kong MD LAB BLOOD ORDERABLES Final Result [facility] ([place] 1 [facility] Department [place] [address] * eGFR (03/02/2017 5:54 AM CDT) eGFR >60 mL/min/1.7 3 m2 [facility] Comment: Interpretive Data Reference Interval Normal ?>/= 90 mL/min/1.73m2 Mildly decreased* ? 60 - 89 mL/min/1.73m2 Mildly to moderately decreased ?45 - 59 mL/min/1.73m2 Moderately to severely decreased ??30 - 44 mL/min/1.73m2 Severely decreased ?15 - 29 mL/min/1.73m2 Kidney Failure ?< 15 ??mL/min/1.73m2 *Relative to young adult level If -Hong Konger multiply value by 1.16. Estimated glomerular filtration [...] was last reviewed 2016. Blood specimen (specimen) 03/02/2017 5:54 AM CDT 03/02/2017 6:00 AM CDT us Jesús Kong MD LAB BLOOD ORDERABLES Final Result [facility] ([place] 1 [facility] Department [place] [address] * (ABNORMAL) Renal function panel (03/02/2017 5:54 AM CDT) Sodium 142 135 - 145 mmol/L [facility] Potassium 3.7 3.5 - 5.1 mmol/L [facility] Chloride 107 97 - 110 mmol/L [facility]) CO2 25 22 - 32 mmol/L [facility] Anion gap 10 8 - 16 mmol/L [facility]) Glucose 110 70 - 199 mg/dL [facility]) Comment: Interpretive Data Note:The glucose is assumed non fasting Fastin-99 mg/dL Random: ??70-199 mg/dL Either a fasting glucose > 126 mg/dL or a random glucose > 200 mg/dL plus symptoms is diagnostic of diabetes when confirmed on another day. Fasting values > 100 mg/dL but < 125 mg/dL are diagnostic of impaired fasting glucose. Current interpretive data was last revised on 2014. BUN 15.5 8.0 - 25.0 mg/dL [facility] Creatinine 0.89 0.60 - 1.10 mg/dL [facility] BUN/creat ratio 17 10 - 20 [facility] Calcium 8.3(L) 8.6 - 10.2 mg/dL [facility] ([place]) Phosphorus, pl 3.6 2.5 - 4.5 mg/dL [facility]) Albumin 3.1(L) 3.6 - 5.0 g/dL [facility]) Blood specimen (specimen) 03/02/2017 5:54 AM CDT 03/02/2017 6:00 AM CDT Jesús Kong MD LAB BLOOD ORDERABLES Final Result [facility] ([place] 1 [facility] Department [place] [address] * DISCHARGE LABORATORY CUMULATIVE REPORT (03/02/2017 12:00 AM CDT) Narrative 03/02/2017 12:00 AM CDT Ordered by an unspecified provider. Alban Provider LAB BLOOD ORDERABLES Maria Eugenia l Result * CT Abdomen Pelvis W Contrast (03/01/2017 5:07 PM CDT) Anatomical Region Laterality Modality Body N/A Computed Tomogra phy 03/01/2017 5:07 PM CDT Narrative 03/01/2017 5:[address] Abd/Pel W ?[id number] ??Acc#: ??[id number] DATE OF EXAM: ??Mar 01 2017 ?? ADDENDUM #1 CT Abd/Pel W ?[id number] HISTORY: Abdominal Pain. ??Left lower quadrant pain. TECHNIQUE: Helical CT scan of the abdomen and pelvis obtained following intravenous administration of contrast. ??100 ml of Optiray 320. ??Images from lung bases to the ischial tuberosities. ??No oral contrast as requested. COMPARISON: 08/05/2011. FINDINGS: 5.5 mm calculus at the left ureterovesical junction. Prominent dilatation left renal pelvis, and moderate dilatation of infundibular calyces. ??Mild left perinephric fluid and some perinephric stranding. ??Mild left ureteral dilatation. ??A few small and very small hypodense foci within the liver, indeterminate nature due to size, most commonly representing cyst. ??Similar prior study. Prior cholecystectomy. ??No pancreatic mass identified. ??No adrenal mass is evident. ??Calcifications within the spleen represent granulomata. ??Spleen size upper range of normal. ??No small bowel dilatation identified. ??Evaluation of the gastrointestinal tract is limited without oral contrast. ??Nodular focus within the myometrium suggesting fibroid, measuring 14 mm. ??This is at the anterolateral aspect superiorly on the left. ??Small umbilical hernia containing only adipose tissue. ??Small hiatal hernia. ??Underdistention of the transverse and descending to sigmoid colon. ??Change of colitis difficult to exclude. IMPRESSION: 1. ??OBSTRUCTIVE UROPATHY ON THE LEFT, WITH 5.5 MM CALCULUS AT THE LEFT URETEROVESICAL JUNCTION. 2. ??SMALL AND VERY SMALL HYPODENSE FOCI WITHIN THE LIVER, TOO SMALL TO CHARACTERIZE, LIKELY SMALL CYSTS. 3. ??PRIOR CHOLECYSTECTOMY. 4. ??EVIDENCE OF UTERINE FIBROID. Electronically signed by: Brigitte Jessica M.D Edited by: Patricia Reeder ORIGINAL REPORT - ADDENDUM ABOVE CT Abd/Pel W ?[id number] HISTORY: Abdominal Pain. ??Left lower quadrant pain. TECHNIQUE: Helical CT scan down pelvis obtained following intravenous menstruation contrast. ??100 mg of Optiray 320. ??Images from lung bases to the ischial tuberosities. ??No oral contrast as requested. COMPARISON: 08/05/2011. FINDINGS: 5.5 mm calculus at the left ureterovesical junction. Prominent dilatation left renal pelvis, and moderate dilatation of infundibular calyces. ??Mild left perinephric fluid and some perinephric stranding. ??Mild left ureteral dilatation. ??A few small and very small hypodense foci within the liver, indeterminate nature due to size, most commonly representing cyst. ??Similar prior study. Prior cholecystectomy. ??No pancreatic mass identified. ??No adrenal mass is evident. ??Calcifications within spleen represent granulomata. Spleen size upper range of normal. ??No small bowel dilatation identified. ??Evaluation the gastrointestinal tract is limited without oral contrast. ??Nodular focus within the myometrium suggesting fibroid, measuring 14 mm. ??This is at the anterolateral aspect superiorly on the left. ??Small umbilical hernia containing only adipose tissue. ??Small hiatal hernia. ??Underdistention of the transverse and descending to sigmoid colon. ??Change of colitis difficult to exclude. IMPRESSION: 1. ??OBSTRUCTIVE UROPATHY ON THE LEFT, WITH 5.5 MM CALCULUS AT THE LEFT URETEROVESICAL JUNCTION. 2. ??SMALL AND VERY SMALL HYPODENSE FOCI WITHIN THE LIVER, TOO SMALL TO CHARACTERIZE, LIKELY SMALL CYST. 3. ??PRIOR CHOLECYSTECTOMY. 4. ??EVIDENCE OF UTERINE FIBROID. Electronically signed by: Brigitte Jessica M.D Interpreting Physician: ??BRIGITTE JESSICA M.D. ??Read on: ??Mar 01 2017 12:23P Transcribed by: ??PSC ??On: Mar 02 2017 ??6:41P Approved Electronically by: ??ARACELY Boykin, BRIGITTE ??on: ??Mar 02 2017 ??6:41P Ordering DR: DR JESÚS KONG Attending DR: DR DARLIN CASIANO Attending: ??DR DARLIN CASIANO Requesting: ??DR JESÚS KONG Requesting Fax: ??-- Attending Fax: ??-- Attending ID: ??[id number] Requesting ID: ??[id number] Report To 1 ID: ??[id number] Report To 1 Name: ??DR DARLIN CASIANO Report To 1 FAX: ??-- NextGen Order #: ?? Procedure Note Miscellaneous, Not In File / Provider, MD Alban - 03/04/2017 CT Abd/Pel W [id number] Acc#: [id number] DATE OF EXAM: Mar 01 2017 ADDENDUM #1 CT Abd/Pel W [id number] HISTORY: Abdominal Pain. Left lower quadrant pain. TECHNIQUE: Helical CT scan of the abdomen and pelvis obtained following intravenous administration of contrast. 100 ml of Optiray 320. Images from lung bases to the ischial tuberosities. No oral contrast as requested. COMPARISON: 08/05/2011. FINDINGS: 5.5 mm calculus at the left ureterovesical junction. Prominent dilatation left renal pelvis, and moderate dilatation of infundibular calyces. Mild left perinephric fluid and some perinephric stranding. Mild left ureteral dilatation. A few small and very small hypodense foci within the liver, indeterminate nature due to size, most commonly representing cyst. Similar prior study. Prior cholecystectomy. No pancreatic mass identified. No adrenal mass is evident. Calcifications within the spleen represent granulomata. Spleen size upper range of normal. No small bowel dilatation identified. Evaluation of the gastrointestinal tract is limited without oral contrast. Nodular focus within the myometrium suggesting fibroid, measuring 14 mm. This is at the anterolateral aspect superiorly on the left. Small umbilical hernia containing only adipose tissue. Small hiatal hernia. Underdistention of the transverse and descending to sigmoid colon. Change of colitis difficult to exclude. IMPRESSION: 1. OBSTRUCTIVE UROPATHY ON THE LEFT, WITH 5.5 MM CALCULUS AT THE LEFT URETEROVESICAL JUNCTION. 2. SMALL AND VERY SMALL HYPODENSE FOCI WITHIN THE LIVER, TOO SMALL TO CHARACTERIZE, LIKELY SMALL CYSTS. 3. PRIOR CHOLECYSTECTOMY. 4. EVIDENCE OF UTERINE FIBROID. Electronically signed by: Brigitte Jessica M.D Edited by: Patricia Reeder ORIGINAL REPORT - ADDENDUM ABOVE CT Abd/Pel W 82050 HISTORY: Abdominal Pain. Left lower quadrant pain. TECHNIQUE: Helical CT scan down pelvis obtained following intravenous menstruation contrast. 100 mg of Optiray 320. Images from lung bases to the ischial tuberosities. No oral contrast as requested. COMPARISON: 08/05/2011. FINDINGS: 5.5 mm calculus at the left ureterovesical junction. Prominent dilatation left renal pelvis, and moderate dilatation of infundibular calyces. Mild left perinephric fluid and some perinephric stranding. Mild left ureteral dilatation. A few small and very small hypodense foci within the liver, indeterminate nature due to size, most commonly representing cyst. Similar prior study. Prior cholecystectomy. No pancreatic mass identified. No adrenal mass is evident. Calcifications within spleen represent granulomata. Spleen size upper range of normal. No small bowel dilatation identified. Evaluation the gastrointestinal tract is limited without oral contrast. Nodular focus within the myometrium suggesting fibroid, measuring 14 mm. This is at the anterolateral aspect superiorly on the left. Small umbilical hernia containing only adipose tissue. Small hiatal hernia. Underdistention of the transverse and descending to sigmoid colon. Change of colitis difficult to exclude. IMPRESSION: 1. OBSTRUCTIVE UROPATHY ON THE LEFT, WITH 5.5 MM CALCULUS AT THE LEFT URETEROVESICAL JUNCTION. 2. SMALL AND VERY SMALL HYPODENSE FOCI WITHIN THE LIVER, TOO SMALL TO CHARACTERIZE, LIKELY SMALL CYST. 3. PRIOR CHOLECYSTECTOMY. 4. EVIDENCE OF UTERINE FIBROID. Electronically signed by: Brigitte Jessica M.D Interpreting Physician: BRIGITTE JESSICA M.D. Read on: Mar 01 2017 12:23P Transcribed by: PSC On: Mar 02 2017 6:41P Approved Electronically by: BRIGITTE JESSICA M.D. on: Mar 02 2017 6:41P Ordering DR: DR JESÚS KONG Attending DR: DR DARLIN CASIANO Attending: DR DARLIN CASIANO Requesting: DR JESÚS KONG Requesting Fax: -- Attending Fax: -- Attending ID: [id number] Requesting ID: [id number] Report To 1 ID: [id number] Report To 1 Name: DR DARLIN CASIANO Report To 1 FAX: -- NextGen Order #: Jesús Kong MD IMG CT PROCEDURES Final Res ult * XR Chest Pa Lateral 2 Views (03/01/2017 4:05 PM CDT) Anatomical Region Laterality Modality Body, Chest N/A Radiographic Kourtney ging 03/01/2017 4:05 PM CDT Narrative 03/01/2017 4:05 PM CDT XR Chest 2 Views ?[id number] ??Acc#: ??[id number] DATE OF EXAM: ??Mar 01 2017 ?? EXAM: Chest; PA and lateral HISTORY: Pain. COMPARISON: 08/29/2014 FINDINGS: The lungs, pleura, cardiomediastinal silhouette, and bony thorax are normal. IMPRESSION: No acute cardiopulmonary process. Electronically signed by: Noemi Angel M.D. Interpreting Physician: ??NOEMI ANGEL M.D. ??Read on: ??Mar 01 2017 11:05A Transcribed by: ??PSC ??On: Mar 01 2017 11:03A Approved Electronically by: ??NOEMI ANGEL M.D. ??on: ??Mar 01 2017 11:03A Ordering DR: DR JESÚS KONG Attending DR: DR JESÚS KONG Attending: ??DR JESÚS KONG Requesting: ??DR JESÚS KONG Requesting Fax: ??-- Attending Fax: ??-- Attending ID: ??[id number] Requesting ID: ??[id number] Report To 1 ID: ??[id number] Report To 1 Name: ??DR JESÚS KONG Report To 1 FAX: ??-- NextGen Order #: ?? Procedure Note Miscellaneous, Not In File / Provider, Alban, - 03/01/2017 XR Chest 2 Views [id number] Acc#: [id number] DATE OF EXAM: Mar 01 2017 EXAM: Chest; PA and lateral HISTORY: Pain. COMPARISON: 08/29/2014 FINDINGS: The lungs, pleura, cardiomediastinal silhouette, and bony thorax are normal. IMPRESSION: No acute cardiopulmonary process. Electronically signed by: Noemi Angel M.D. Interpreting Physician: NOEMI ANGEL M.D. Read on: Mar 01 2017 11:05A Transcribed by: [facility] On: Mar 01 2017 11:03A Approved Electronically by: NOEMI AGNEL M.D. on: Mar 01 2017 11:03A Ordering DR: DR JESÚS KONG Attending DR: DR JESÚS KONG Attending: DR JESÚS KONG Requesting: DR JESÚS KONG Requesting Fax: -- Attending Fax: -- Attending ID: [id number] Requesting ID: [id number] Report To 1 ID: [id number] Report To 1 Name: DR JESÚS KONG Report To 1 FAX: -- NextGen Order #: Jesús Kong MD IMG XR PROCEDURES Final Res ult * (ABNORMAL) Urinalysis reflex to microscopic and culture (03/01/2017 11:54 AM CDT) Color, ur Yellow Yellow [facility] Clarity, ur Cloudy(A) Clear [facility] ([place]) Specific gravity, ur 1.013 1.003 - 1.030 [facility] Comment:Normal Ranges: 1.003 -1.030 pH, ur 7.5 4.5 - 8.0 [facility] Comment:Normal ranges: 4.5-8 .0 Protein, ur ql Negative Negative mg/dL [facility] ([place]) Glucose, ur ql Negative Negative mg/dL [facility] ([place]) Ketones, ur Trace(A) Negative [facility] ([place]) Bilirubin, ur Negative Negative [facility] ([place]) Blood, ur Negative Negative [facility] ([place]) Urobilinogen, ur 0.2 0.2 - 1.0 EhrUnit/dL [facility] ([place]) Comment:Normal Ranges: 0.2-1 .0 EU/dL Nitrites, ur Negative Negative [facility] ([place]) Leukocyte esterase, ur Negative Negative [facility] ([place]) Urine 03/01/2017 11:5 4 AM CDT 03/01/2017 11:57 AM CDT Jesús Kong MD LAB MICROBIOLOGY - GENERAL ORDERABLES Final Result [facility] Department [place] [address] * eGFR (03/01/2017 10:40 AM CDT) eGFR 59 mL/min/1.7 3 m2 [facility] Comment: Interpretive Data Reference Interval Normal ?>/= 90 mL/min/1.73m2 Mildly decreased* ? 60 - 89 mL/min/1.73m2 Mildly to moderately decreased ?45 - 59 mL/min/1.73m2 Moderately to severely decreased ??30 - 44 mL/min/1.73m2 Severely decreased ?15 - 29 mL/min/1.73m2 Kidney Failure ?< 15 ??mL/min/1.73m2 *Relative to young adult level If -[place]ong Konger multiply value by 1.16. Estimated glomerular filtration [...] was last reviewed 2016. Blood specimen (specimen) 03/01/2017 10:40 AM CDT 03/01/2017 10:47 AM CDT us Jesús Kong MD LAB BLOOD ORDERABLES Final Result [facility] ([place] 1 [facility] Department [place] [address] * (ABNORMAL) Comprehensive metabolic panel (03/01/2017 10:40 AM CDT) Sodium 139 135 - 145 mmol/L [facility] Potassium 3.8 3.5 - 5.1 mmol/L [facility] Chloride 99 97 - 110 mmol/L [facility] CO2 28 22 - 32 mmol/L [facility] Anion gap 12 8 - 16 mmol/L [facility]) Glucose 115 70 - 199 mg/dL [facility] Comment: Interpretive Data Note:The glucose is assumed non fasting Fastin-99 mg/dL Random: ??70-199 mg/dL Either a fasting glucose > 126 mg/dL or a random glucose > 200 mg/dL plus symptoms is diagnostic of diabetes when confirmed on another day. Fasting values > 100 mg/dL but < 125 mg/dL are diagnostic of impaired fasting glucose. Current interpretive data was last revised on 2014. BUN 24.4 8.0 - 25.0 mg/dL [facility] Creatinine 1.07 0.60 - 1.10 mg/dL [facility] ([place]) BUN/creat ratio 23(H) 10 - 20 [facility] Calcium 9.4 8.6 - 10.2 mg/dL [facility] Protein, sr 7.3 6.0 - 8.4 g/dL [facility]) Albumin 4.0 3.6 - 5.0 g/dL [facility]) Alk phos 88 40 - 130 Units/L [facility]) ALT 16 5 - 45 Units/L [facility]) AST 22 10 - 40 Units/L [facility]) Bilirubin, total 0.3 <=1.2 mg/dL [facility]) Blood specimen (specimen) 03/01/2017 10:40 AM CDT 03/01/2017 10:47 AM CDT Jesús Kong MD LAB BLOOD ORDERABLES Final Result [facility] ([place] [place] [address] * Magnesium (03/01/2017 10:40 AM CDT) Magnesium 1.9 1.6 - 2.4 mg/dL [facility]) Blood specimen (specimen) 03/01/2017 10:40 AM CDT 03/01/2017 10:47 AM CDT Jesús Kong MD LAB BLOOD ORDERABLES Final Result Performing Organization Address [facility]/ZIP Co de Phone Number [facility] [place] [address] * Lipase (03/01/2017 10:40 AM CDT) Lipase 25 10 - 70 Units/L [facility]) Blood specimen (specimen) 03/01/2017 10:40 AM CDT 03/01/2017 10:47 AM CDT Jesús Kong MD LAB BLOOD ORDERABLES Final Result Performing Organization Address City/[facility]/ZIP Co de Phone Number [facility] 1 [facility] [place] [address] * Amylase (03/01/2017 10:40 AM CDT) Amylase 43 30 - 100 Units/L [facility]) Blood specimen (specimen) 03/01/2017 10:40 AM CDT 03/01/2017 10:47 AM CDT Jesús Kong MD LAB BLOOD ORDERABLES Final Result [facility] 1 [facility] Department [place] [address] * (ABNORMAL) Differential, auto (03/01/2017 10:40 AM CDT) Neutrophil pct 81.1(H) 44.0 - 80.0 % [facility]) Imm gran pct 0.3 0.0 - 1.0 % [facility]) Lymphocyte pct 11.1(L) 13.0 - 44.0 % [facility]) Monocyte pct 5.9 2.0 - 11.0 % [facility] Eosinophil pct 1.3 0.0 - 6.0 % [facility] Basophil pct 0.3 0.0 - 3.0 % [facility] Neutrophil abs 7.03(H) 1.60 - 7.00 K/cumm [facility]) Imm gran abs 0.03 0.00 - 0.20 K/cumm [facility]) Lymphocyte abs 0.96 0.50 - 4.30 K/cumm [facility]) Monocyte abs 0.51 0.10 - 1.00 K/cumm [facility]) Eosinophil abs 0.11 0.00 - 0.60 K/cumm [facility]) Basophil abs 0.03 0.00 - 0.30 K/cumm [facility]) Blood specimen (specimen) 03/01/2017 10:40 AM CDT 03/01/2017 10:47 AM CDT us Jesús Kong MD LAB BLOOD ORDERABLES Final Result [facility] 1 [facility] [place] [address] * (ABNORMAL) CBC with auto differential (03/01/2017 10:40 AM CDT) WBC 8.67 3.80 - 9.80 K/cumm [facility]) RBC 4.86 3.90 - 5.00 M/cumm [facility]) Hgb 12.2 12.1 - 15.1 g/dL [facility]) Hct 37.2 36.1 - 44.3 % [facility]) MCV 76.5(L) 80.0 - 100.0 fL [facility]) MCH 25.1(L) 26.7 - 33.7 pg [facility]) MCHC 32.8 32.7 - 36.0 g/dL [facility]) RDW CV 15.3(H) 11.5 - 14.6 % [facility] Plt 245 140 - 440 K/cumm [facility] MPV 9.7 8.0 - 12.0 fL [facility] NRBC 0.0 0.0 - 0.0 % [facility] NRBC abs 0.00 0.00 - 0.00 K/cumm [facility]) Blood specimen (specimen) 03/01/2017 10:40 AM CDT 03/01/2017 10:47 AM CDT us Jesús Kong MD LAB BLOOD ORDERABLES Final Result [facility] [place] [address] documented in this encounter Visit Diagnoses Not on filedocumented in this encounter Care Teams Animal Health Technician Relationship Specialty Start Date End Date Gallito Edwards PCP - General 11/12/16 10/18/17 documented as of this encounter
--- OUTSIDE RECORDS SUMMARY | 2024-08-12 23:44 | XMS_ITS | Encounter Summary ---
Author Organization [facility] Healthcare Address [address] [place] [address] Care Team Providers Care Business Test Analyst Name Role Phone Heath Montano MD Unavailable [phone] Heath Montano MD Unavailable [phone] Heath Montano MD Primary Care Provider [phone] Reason for Referral * Diagnostic Imaging (Routine) - Closed Specialty Diagnoses / Procedures Referred By Garett bain Referred To Contact Diagnoses Abnormal mammogram Procedures Diagnostic Mammogram Bilateral W Dyana Garcia NP Phone: tel: fax: [address] [phone] Referral ID Status Reason Start Date Expiration Date Visits Re quested Visits Authorized [id number] Closed 05/24/2022 06/23/2023 1 1 S PICKER Reason for Visit * Diagnostic Imaging (Routine) - Closed Specialty Diagnoses / Procedures Referred By Garett bain Referred To Contact Diagnoses Abnormal mammogram Procedures Diagnostic Mammogram Bilateral W Dyana Garcia NP Phone: tel: fax: [address] [phone] Referral ID Status Reason Start Date Expiration Date Visits Re quested Visits Authorized [id number] Closed 05/24/2022 06/23/2023 1 1 Encounter Details Date Type Department Care Team (Latest Contact Info) Description 07/12/2023 7:53 AM PARTS PICKER - 07/12/2023 11:59 PM PARTS PICKER Hospital Encounter [facility] [address] [place] [address] Abnormal mammogram Discharge Disposition: Discharge to home or self care Social History Tobacco Use Types Packs/Day Years Used Date Smoking Tobacco: Never Alcohol Use Standard Drinks/Week Comments Yes 0 (1 standard drink = 0.6 oz pur e alcohol) Comments No Sex and Gender Information Value Date Recorded Sex Assigned at Not on file Legal Sex Female 12:25 AM PARTS PICKER Gender Identity Not on file Sexual Orientation [...] 09/16/2014 montelukast (SINGULAIR) 10 mg tablet 05/26/2021 zuubcrzn-[id number] n-folic acid (ONE DAILY FOR WOMEN) 18-0.4 mg tablet once dailyt 0 12/06/[address] (ACIPHEX) 20 mg EC tablet take 1 tablet by mouth two times a day 60 tablet 04/04/2017 traMADol (ULTRAM) 50 mg tablet take 1 tablet by ORAL route every 4 - 6 hours as needed 0 0 10/24/2014 documented as of this encounter Discharge Disposition Disposition Code Departure Means Destination Discharge to home or self care documented in this encounter Plan of Treatment Not on file documented as of this encounter Procedures Procedure Name Priority Date/Time Associated Diagnosis Comments DIAGNOSTIC MAMMOGRAM BILATERAL W JULEE Schedule Routine, Read Routine (OP Routine) 07/12/2023 8:41 AM PARTS PICKER Abnormal mammogram documented in this encounter Results * Diagnostic Mammogram Bilateral W Julee (07/12/2023 8:41 AM PARTS PICKER) Anatomical Region Laterality Modality Breast Bilateral Mammography 07/12/2023 9:25 AM PARTS PICKER Impressions 07/12/2023 10:15 AM PARTS PICKER No significant interval change in a probably benign cystic left breast mass. ??No new suspicious mammographic findings in either breast. OVERALL FINAL ASSESSMENT: BI-RADS Category 3: Probably Benign. RECOMMENDATION: Recommend follow-up diagnostic breast imaging in 12 months with left breast ultrasound and bilateral annual mammogram. Dictated by: Corwin Wyatt MD The radiology attending physician has personally reviewed this study, and had reviewed and/or edited this written report and agrees with it. Electronically signed by: Lily Galaviz M.D. Narrative 07/12/2023 10:15 AM PARTS PICKER EXAMINATION: BILATERAL DIGITAL DIAGNOSTIC MAMMOGRAM INCLUDING CAD AND BILATERAL DIGITAL BREAST TOMOSYNTHESIS; LEFT BREAST SONOGRAM HISTORY: 62-year-old woman presenting for 18 month category 3 follow-up of a left breast cystic mass and annual screening examination. COMPARISON: Diagnostic mammogram 05/17/2022, left breast ultrasound 05/17/2022 and 01/20/2022 TECHNIQUE: ?? Full field digital mammographic views of BOTH breasts were performed, including computer aided detection (CAD) and BILATERAL digital breast tomosynthesis (DBT). ??Directed ultrasound evaluation of the LEFT breast was performed. BREAST PARENCHYMAL COMPOSITION: The breasts are almost entirely fatty. MAMMOGRAM FINDINGS: No significant interval change in an oval, circumscribed low-density mass in the anterior left breast at the 3 o'clock position. ??No new or suspicious abnormality in either breast. ?? SONOGRAM FINDINGS: Targeted sonographic evaluation of the left breast was performed at the 3 o'clock position 4 cm from the nipple. ??No significant interval change in an oval, anechoic, circumscribed mass measuring 0.6 x 0.3 x 0.5 cm. ?? Procedure Note Lily Galaviz MD - 07/12/2023 EXAMINATION: BILATERAL DIGITAL DIAGNOSTIC MAMMOGRAM INCLUDING CAD AND BILATERAL DIGITAL BREAST TOMOSYNTHESIS; LEFT BREAST SONOGRAM HISTORY: 62-year-old woman presenting for 18 month category 3 follow-up of a left breast cystic mass and annual screening examination. COMPARISON: Diagnostic mammogram 05/17/2022, left breast ultrasound 05/17/2022 and 01/20/2022 TECHNIQUE: Full field digital mammographic views of BOTH breasts were performed, including computer aided detection (CAD) and BILATERAL digital breast tomosynthesis (DBT). Directed ultrasound evaluation of the LEFT breast was performed. BREAST PARENCHYMAL COMPOSITION: The breasts are almost entirely fatty. MAMMOGRAM FINDINGS: No significant interval change in an oval, circumscribed low-density mass in the anterior left breast at the 3 o'clock position. No new or suspicious abnormality in either breast. SONOGRAM FINDINGS: Targeted sonographic evaluation of the left breast was performed at the 3 o'clock position 4 cm from the nipple. No significant interval change in an oval, anechoic, circumscribed mass measuring 0.6 x 0.3 x 0.5 cm. IMPRESSION: No significant interval change in a probably benign cystic left breast mass. No new suspicious mammographic findings in either breast. OVERALL FINAL ASSESSMENT: BI-RADS Category 3: Probably Benign. RECOMMENDATION: Recommend follow-up diagnostic breast imaging in 12 months with left breast ultrasound and bilateral annual mammogram. Dictated by: Corwin Wyatt MD The radiology attending physician has personally reviewed this study, and had reviewed and/or edited this written report and agrees with it. Electronically signed by: Lily Galaviz M.D. Dyana Elliott PAPER [employer] MACHINE TENDER IMG MAMMO PROCEDURES Fin al Result documented in this encounter Visit Diagnoses Diagnosis Abnormal mammogram Abnormal mammogram, unspecified documented in this encounter Care Teams Business Test Analyst Relationship Specialty Start Date End Date Heath Montano MD [address] [place] [address] PCP - General Obstetrics and Gynecology 07/12/23 Heath Montano MD [address] [place] [address] Referring Physician Obstetrics and Gynecology 01/20/22 Heath Montano MD [address] [facility] [address] [address] Referring Physician Obstetrics and Gynecology 05/17/22 documented as of this encounter
--- OUTSIDE RECORDS SUMMARY | 2024-08-12 23:44 | XMS_ITS | Encounter Summary ---
Author Organization [facility] Address [address] [place] [address] Phone Care Team Providers Care Sculpture Conservator Name Role Phone Alejandro Lema MD Primary Care Provider Heath Montano MD Unavailable Reason for Referral * Diagnostic Imaging (Routine) - Closed Specialty Diagnoses / Procedures Referred By Contac t Referred To Contact Diagnoses Abnormal mammogram Procedures Diagnostic Mammogram Bilateral W Delio Dyana Elliott NP Phone: tel: fax: [address] [phone] Referral ID Status Reason Start Date Expiration Date Visits Re quested Visits Authorized [id number] Closed 01/20/2022 02/19/2023 1 1 Encounter Details Date Type Department Care Team (Late st Contact Info) Description 01/20/2022 Orders Only [facility] Surgery [address] [facility] 5th [place] [address] [place] [address] Dyana Elliott NP [address] [place] [address] Abnormal mammogram (Primary Dx) Social History Tobacco Use Types Packs/Day Years Used Date Smoking Tobacco: Never Alcohol Use Standard Drinks/Week Comments Yes 0 (1 standard drink = 0.6 oz pur e alcohol) Comments No Sex and Gender Information Value Date Recorded Sex Assigned at Not on file Legal Sex Female 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 ??Bilateral annual mammogram and left breast ultrasound are recommended in 12 months. OVERALL FINAL ASSESSMENT: BI-RADS Category 3: Probably Benign. RECOMMENDATION: Recommend follow-up diagnostic breast imaging in ??12 months with bilateral mammograms and left breast ultrasound. Dictated by: Pantera Galaviz The radiology attending physician has personally reviewed this study, and had reviewed and/or edited this written report and agrees with it. Electronically signed by: LOLITA WASHINGTON MD Narrative 05/17/2022 1:31 PM CDT EXAMINATION: BILATERAL DIGITAL DIAGNOSTIC MAMMOGRAM INCLUDING CAD AND BILATERAL DIGITAL BREAST TOMOSYNTHESIS; LEFT BREAST SONOGRAM HISTORY: 61-year-old woman presenting for annual screening examination and six-month category 3 follow-up of a left breast cystic mass. COMPARISON: Multiple prior exams most recently dated 01/20/2022. TECHNIQUE: ?? Full field digital mammographic views of BOTH breasts were performed, including computer aided detection (CAD) and BILATERAL digital breast tomosynthesis (DBT). ??Directed ultrasound evaluation of the LEFT breast was performed. BREAST PARENCHYMAL COMPOSITION: There are scattered areas of fibroglandular density. MAMMOGRAM FINDINGS: Oval circumscribed low-density mass in the anterior left breast at 3:00 is unchanged. ??No new or suspicious abnormality in either breast. ?? SONOGRAM FINDINGS: Targeted sonographic evaluation of the left breast was performed at 3:00, 4 cm from the nipple. ??There is an unchanged oval anechoic circumscribed mass measuring 6 mm x 3 mm x 5 mm, not significantly changed since the prior exam. ??Scattered adjacent mildly ectatic ducts are noted. Procedure Note Lolita Washington MD - 05/17/2022 EXAMINATION: BILATERAL DIGITAL DIAGNOSTIC MAMMOGRAM INCLUDING CAD AND BILATERAL DIGITAL BREAST TOMOSYNTHESIS; LEFT BREAST SONOGRAM HISTORY: 61-year-old woman presenting for annual screening examination and six-month category 3 follow-up of a left breast cystic mass. COMPARISON: Multiple prior exams most recently dated 01/20/2022. TECHNIQUE: Full field digital mammographic views of BOTH breasts were performed, including computer aided detection (CAD) and BILATERAL digital breast tomosynthesis (DBT). Directed ultrasound evaluation of the LEFT breast was performed. BREAST PARENCHYMAL COMPOSITION: There are scattered areas of fibroglandular density. MAMMOGRAM FINDINGS: Oval circumscribed low-density mass in the anterior left breast at 3:00 is unchanged. No new or suspicious abnormality in either breast. SONOGRAM FINDINGS: Targeted sonographic evaluation of the left breast was performed at 3:00, 4 cm from the nipple. There is an unchanged oval anechoic circumscribed mass measuring 6 mm x 3 mm x 5 mm, not significantly changed since the prior exam. Scattered adjacent mildly ectatic ducts are noted. IMPRESSION: Unchanged probably benign cystic left breast mass. Bilateral annual mammogram and left breast ultrasound are recommended in 12 months. OVERALL FINAL ASSESSMENT: BI-RADS Category 3: Probably Benign. RECOMMENDATION: Recommend follow-up diagnostic breast imaging in 12 months with bilateral mammograms and left breast ultrasound. Dictated by: Pantera Galaviz The radiology attending physician has personally reviewed this study, and had reviewed and/or edited this written report and agrees with it. Electronically signed by: LOLITA WASHINGTON MD Dyana Elliott CONTENT CREATION MANAGER IMG MAMMO PROCEDURES Fin al Result documented in this encounter Visit Diagnoses Diagnosis Abnormal mammogram- Primary Abnormal mammogram, unspecified Abnormal mammogram Abnormal mammogram, unspecified documented in this encounter Care Teams Sculpture Conservator Relationship Specialty Start Date End Date Alejandro Lema MD [address] [address] PCP - General Family Medicine 01/20/22 07/11/23 Heath Montano MD [address] [facility] [address] [place] [address] Referring Physician Obstetrics and Gynecology 01/20/22 documented as of this encounter
--- OUTSIDE RECORDS SUMMARY | 2024-08-12 23:44 | XMS_ITS | Encounter Summary ---
Author Organization [facility] Address [address] [place] [address] Care Team Providers Care Link Cutter Name Role Phone Alejandro Lema MD Primary Care Provider Heath Montano MD Unavailable [phone] Heath Montano MD Unavailable [phone] Reason for Referral * Diagnostic Imaging (Routine) - Closed Specialty Diagnoses / Procedures Referred By Garett bain Referred To Contact Diagnoses Abnormal mammogram Procedures Diagnostic Mammogram Bilateral W Dyana Garcia NP Phone: tel: fax: [address] [phone] Referral ID Status Reason Start Date Expiration Date Visits Re quested Visits Authorized [id number] Closed 01/20/2022 02/19/2023 1 1 Reason for Visit * Diagnostic Imaging (Routine) - Closed Specialty Diagnoses / Procedures Referred By Garett bain Referred To Contact Diagnoses Abnormal mammogram Procedures Diagnostic Mammogram Bilateral W Dyana Garcia NP Phone: tel: fax: [address] [phone] Referral ID Status Reason Start Date Expiration Date Visits Re quested Visits Authorized [id number] Closed 01/20/2022 02/19/2023 1 1 Encounter Details Date Type Department Care Team (Latest Contact Info) Description 05/17/2022 9:58 AM CDT - 05/17/2022 11:59 PM CDT Hospital Encounter [facility] [address] [place] [address] Abnormal mammogram Discharge Disposition: Discharge to home or self care Social History Tobacco Use Types Packs/Day Years Used Date Smoking Tobacco: Never Alcohol Use Standard Drinks/Week Comments Yes 0 (1 standard drink = 0.6 oz pur e alcohol) Comments No Sex and Gender Information Value Date Recorded Sex Assigned at Not on file 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 Gender Identity Not on file Sexual Orientation [...] 09/16/2014 montelukast (SINGULAIR) 10 mg tablet 05/26/2021 azyyzkii-qzlb-kx n-folic acid (ONE DAILY FOR WOMEN) 18-0.4 [...] mouth once daily 30 0 09/16/2014 3 predniSONE (DELTASONE) 20 mg tablet take 1 [...] JULEE Schedule Routine, Read Routine (OP Routine) 05/17/2022 10:22 AM CDT Abnormal mammogram documented in this encounter Results * Diagnostic Mammogram Bilateral W Julee (05/17/2022 10:22 AM CDT) Anatomical Region Laterality [...] signed by: LOLITA WASHINGTON MD Dyana Elliott NP IMG MAMMO PROCEDURES Fin al Result documented in this encounter Visit Diagnoses Diagnosis Abnormal mammogram Abnormal mammogram, unspecified documented in this encounter Care Teams Link Cutter Relationship Specialty Start Date End Date Alejandro Lema MD [address] [place] [address] PCP - General Family Medicine 01/20/22 07/11/23 Heath Montano MD [address] [place] [address] Referring Physician Obstetrics and Gynecology 01/20/22 Heath Montano MD [address] [place] [address] Referring Physician Obstetrics and Gynecology 05/17/22 documented as of this encounter
--- OUTSIDE RECORDS SUMMARY | 2024-08-12 23:44 | XMS_ITS | Encounter Summary ---
Author Organization [facility] Address [address] [place] [address] Care Team Providers Care Materials Tech Name Role Phone Alejandro Lema MD Primary Care Provider Reason for Referral * Diagnostic Imaging (Routine) - Closed Specialty Diagnoses / Procedures Referred By Garett bain Referred To Contact Diagnoses Inconclusive mammogram Procedures US Breast Left Limited Bindu Fernandes MD Phone: tel: fax: [address] [phone] Referral ID Status Reason Start Date Expiration Date Visits Re quested Visits Authorized [id number] Closed 05/04/2021 06/03/2022 1 1 Reason for Visit * Diagnostic Imaging (Routine) - Closed Specialty Diagnoses / Procedures Referred By Garett bain Referred To Contact Diagnoses Inconclusive mammogram Procedures US Breast Left Limited Bindu Fernandes MD Phone: tel: fax: [address] [phone] Referral ID Status Reason Start Date Expiration Date Visits Re quested Visits Authorized [id number] Closed 05/04/2021 06/03/2022 1 1 Encounter Details Date Type Department Care Team (Latest Contact Info) Description 06/02/2021 9:50 AM CDT - 06/02/2021 11:59 PM CDT Hospital Encounter [facility] [address] [place] [id number] Bindu Fernandes MD [address] [place] [address] Inconclusive mammogram Discharge Disposition: Discharge to home or self care Social History Tobacco Use Types Packs/Day Years Used Date Smoking Tobacco: Never Alcohol Use Standard Drinks/Week Comments Yes 0 (1 standard drink = 0.6 oz pur e alcohol) Comments No Sex and Gender Information Value Date Recorded Sex Assigned at Not on file 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 Gender Identity Not on file Sexual Orientation [...] 09/16/2014 montelukast (SINGULAIR) 10 mg tablet 05/26/2021 thtivtno-rwco-bg n-folic acid (ONE DAILY FOR WOMEN) 18-0.4 [...] Name Priority Date/Time Associated Diagnosis Comments US BREAST LEFT LIMITED Schedule Routine, Read Routine (OP Routine) 06/02/2021 11:19 AM CDT Inconclusive mammogram documented in this encounter Results * US Breast Left Limited (06/02/2021 11:19 AM CDT) Anatomical Region Laterality Modality Breast Left Ultrasound 06/02/2021 11:3 5 AM CDT Impressions 06/02/2021 11:35 AM CDT The 5 mm mass at the 3 o'clock position in the left breast likely represents a complicated cyst and is probably benign. ??A 6 month follow-up diagnostic left mammogram and ultrasound is recommended to assess for stability. BI-RADS: 3 - Probably benign. I discussed the findings and impression with the patient at the time of the examination. Electronically signed by: Kurt Marques M.D. Narrative 06/02/2021 11:35 AM CDT EXAMINATION: DIAGNOSTIC MAMMOGRAM LEFT W JULEE, US BREAST LEFT LIMITED ORDERING HEALTHCARE PROVIDER: BINDU FERNANDES HISTORY: 60-year-old female recalled from screening mammography for a focal asymmetry in the left breast. COMPARISON: ??Mammography from 05/04/2021, 04/29/2020, 11/20/2018, 11/15/2017, and 11/09/2016. TECHNIQUE: Spot compression CC, spot compression MLO, and ML views of the left breast were obtained with digital technique using breast tomosynthesis with C view. Computer aided detection was utilized. Multiple ultrasound images of the left breast were obtained. FINDINGS: MAMMOGRAPHIC FINDINGS DENSITY: There are scattered fibroglandular elements in the left breast. BREASTS: There is a 5 mm oval, circumscribed, low density mass in the left breast at the 3 o'clock position, anterior depth, corresponding to the focal asymmetry described on screening mammography. ??There are no other suspicious findings in the left breast. ULTRASOUND FINDINGS Targeted ultrasound of the left breast at the 3 o'clock position, 4 cm from the nipple demonstrates a 0.5 x 0.4 x 0.2 cm oval, circumscribed, hypoechoic mass with a parallel orientation, posterior acoustic enhancement, a single thin internal septation, and no evidence of internal blood flow on color Doppler imaging. ??This corresponds to the mass described on mammography. us Bindu Fernandes MD IMG MAMMO PROCEDURES Fin al Result documented in this encounter Visit Diagnoses Diagnosis Inconclusive mammogram documented in this encounter Care Teams Materials Tech Relationship Specialty Start Date End Date Alejandro Lema MD [address] [address] PCP - General 10/19/17 01/19/22 documented as of this encounter
--- OUTSIDE RECORDS SUMMARY | 2024-08-12 23:44 | XMS_ITS | Encounter Summary ---
Author Organization [facility] Healthcare Address [address] [place] [address] Care Team Providers Care Certified Surgical Tech/First Assistant Name Role Phone Gallito Edwards Primary Care Provider Unavailabl e Encounter Details Date Type Department Care Team (Late st Contact Info) Description 03/01/2017 9:29 AM CDT - 03/01/2017 11:59 PM CDT Emergency [facility] Emergency Department [address] [place] [address] Discharge Disposition: Discharge to home or self care Social History Tobacco Use Types Packs/Day Years Used Date Smoking Tobacco: Never Alcohol Use Standard Drinks/Week Comments Yes 0 (1 standard drink = 0.6 oz pur e alcohol) Comments Unknown Sex and Gender Information Value Date Recorded Sex Assigned at Not on file 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
--- OUTSIDE RECORDS SUMMARY | 2024-08-12 23:44 | XMS_ITS | Encounter Summary ---
Author Organization [facility] Healthcare Address [address] [place] [address] Care Team Providers Care Dress Designer Name Role Phone Alejandro Lema MD Primary Care Provider Reason for Referral * Diagnostic Imaging (Routine) - Closed Specialty Diagnoses / Procedures Referred By Garett bain Referred To Contact Diagnoses Inconclusive mammogram Procedures Diagnostic Mammogram Left W Bindu Medina MD Phone: tel: fax: [address] [phone] Referral ID Status Reason Start Date Expiration Date Visits Re quested Visits Authorized [id number] Closed 05/04/2021 06/03/2022 1 1 Reason for Visit * Diagnostic Imaging (Routine) - Closed Specialty Diagnoses / Procedures Referred By Garett bain Referred To Contact Diagnoses Inconclusive mammogram Procedures Diagnostic Mammogram Left W Bindu Medina MD Phone: tel: fax: [address] [phone] Referral ID Status Reason Start Date Expiration Date Visits Re quested Visits Authorized [id number] Closed 05/04/2021 06/03/2022 1 1 Encounter Details Date Type Department Care Team (Latest Contact Info) Description 06/02/2021 9:50 AM CDT - 06/02/2021 11:59 PM CDT Hospital Encounter [facility] [address] [place] [address] Bindu Fernandes MD [address] [place] [id number] Inconclusive mammogram Discharge Disposition: Discharge to home or self care Social History Tobacco Use Types Packs/Day Years Used Date Smoking Tobacco: Never Alcohol Use Standard Drinks/Week Comments Yes 0 (1 standard drink = 0.6 oz pur e alcohol) Comments No Sex and Gender Information Value Date Recorded Sex Assigned at Not on file 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 Gender Identity Not on file Sexual Orientation [...] 09/16/2014 montelukast (SINGULAIR) 10 mg tablet 05/26/2021 jlfbmywc-ugth-re n-folic acid (ONE DAILY FOR WOMEN) 18-0.4 [...] Priority Date/Time Associated Diagnosis Comments DIAGNOSTIC MAMMOGRAM LEFT W DELIO Schedule Routine, Read Routine (OP Routine) 06/02/2021 10:35 AM CDT Inconclusive mammogram documented in this encounter Results * Diagnostic Mammogram Left W Delio (06/02/2021 10:35 AM CDT) Anatomical Region Laterality Modality Breast Left Mammography 06/02/2021 11:3 5 AM CDT Impressions 06/02/2021 [...] AM CDT EXAMINATION: DIAGNOSTIC MAMMOGRAM LEFT W DELIO, US BREAST LEFT LIMITED ORDERING HEALTHCARE PROVIDER: [...] mammogram documented in this encounter Care Teams Dress Designer Relationship Specialty Start Date End Date Alejandro Lema MD [address] [address] PCP - General 10/19/17 01/19/22 documented as of this encounter
--- OUTSIDE RECORDS SUMMARY | 2024-08-12 23:44 | XMS_ITS | Encounter Summary ---
Author Organization [facility] Address [address] [place] [address] Phone Care Team Providers Care Insulation Sprayer Name Role Phone Heath Montano MD Unavailable [phone] Heath Montano MD Unavailable [phone] Heath Montano MD Primary Care Provider [phone] Reason for Referral * Diagnostic Imaging (Routine) - Authorized Specialty Diagnoses / Procedures Referred By Garett bain Referred To Contact Diagnoses Abnormal mammogram Procedures US Breast Left Limited Dyana Elliott NP Phone: tel: fax: [address] [phone] Referral ID Status Reason Start Date Expiration Date V isits Requested Visits Authorized [id number] Authorized 07/12/2023 08/10/2024 1 1 S BLOCK BENDER * Diagnostic Imaging (Routine) - Authorized Specialty Diagnoses / Procedures Referred By Garett bain Referred To Contact Diagnoses Abnormal mammogram Procedures Diagnostic Mammogram Bilateral W Delio Dyana Elliott NP Phone: tel: fax: [address] [phone] Referral ID Status Reason Start Date Expiration Date V isits Requested Visits Authorized [id number] Authorized 07/12/2023 08/10/2024 1 1 S BLOCK BENDER Encounter Details Date Type Department Care Team (Late st Contact Info) Description 07/12/2023 Orders Only [facility] Surgery [address] [facility] 5th [place] [address] [place] [address] Dyana Elliott NP [address] [place] [address] Abnormal mammogram (Primary Dx) Social History Tobacco Use Types Packs/Day Years Used Date Smoking Tobacco: Never Alcohol Use Standard Drinks/Week Comments Yes 0 (1 standard drink = 0.6 oz pur e alcohol) Comments No Sex and Gender Information Value Date Recorded Sex Assigned at Not on file Legal Sex Female 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 Gender Identity Not on file Sexual Orientation Not on file documented as of this encounter Plan of Treatment Scheduled Orders Name Type Priority Associated Diagnoses Orde r Schedule Diagnostic Mammogram Bilateral W Delio Imaging Schedule Routine, Read Routine (OP Routine) Abnormal mammogram Expected: 07/12/2023, Expires: 01/09/2025 Breast Left Limited Imaging Schedule Routine, Read Routine (OP Routine) Abnormal mammogram Expected: 07/12/2023, Expires: 01/09/2025 documented as of this encounter Visit Diagnoses Diagnosis Abnormal mammogram- Primary Abnormal mammogram, unspecified documented in this encounter Care Teams Insulation Sprayer Relationship Specialty Start Date End Date Heath Montano MD [address] [place] [address] PCP - General Obstetrics and Gynecology 07/12/23 Heath Montano MD [address] [place] [address] Referring Physician Obstetrics and Gynecology 01/20/22 Heath Montano MD [address] [address] Referring Physician Obstetrics and Gynecology 05/17/22 documented as of this encounter
--- OUTSIDE RECORDS SUMMARY | 2024-08-12 23:44 | XMS_ITS | Encounter Summary ---
Author Organization [facility] Healthcare Address [address] [place] [address] Care Team Providers Care Head Of Merchandise Buying Name Role Phone Alejandro Lema MD Primary Care Provider Reason for Referral * Diagnostic Imaging (Routine) - Closed Specialty Diagnoses / Procedures Referred By Garett bain Referred To Contact Diagnoses Encounter for screening mammogram for malignant neoplasm of breast Procedures Screening Mammogram Bilateral W Ita Butts NP Phone: tel: fax: [address] [phone] Referral ID Status Reason Start Date Expiration Date Visits Re quested Visits Authorized [id number] Closed 11/10/2018 05/21/2020 1 1 Reason for Visit * Diagnostic Imaging (Routine) - Closed Specialty Diagnoses / Procedures Referred By Garett bain Referred To Contact Diagnoses Encounter for screening mammogram for malignant neoplasm of breast Procedures Screening Mammogram Bilateral W Ita Butts NP Phone: tel: fax: [address] [phone] Referral ID Status Reason Start Date Expiration Date Visits Re quested Visits Authorized [id number] Closed 11/10/2018 05/21/2020 1 1 Encounter Details Date Type Department Care Team (Latest Contact Info) Description 11/20/2018 4:56 PM CDT - 11/20/2018 11:59 PM CDT Hospital Encounter [facility] [address] [place] [address] Bindu Delaney MD [address] [place] [address] Ita Mcgill, SPECIAL PROGRAMS DIRECTOR [address] [place] [address] Encounter for screening mammogram for malignant neoplasm of breast Discharge Disposition: Discharge to home or self care Social History Tobacco Use Types Packs/Day Years Used Date Smoking Tobacco: Never Alcohol Use Standard Drinks/Week Comments Yes 0 (1 standard drink = 0.6 oz pur e alcohol) Comments No Sex and Gender Information Value Date Recorded Sex Assigned at Not on file 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 Gender Identity Not on file Sexual Orientation Not on file documented as of this encounter Last Filed Vital Signs Vital Sign Reading Time Taken Comments Blood Pressure - - Pulse - - Temperature - - Respiratory Rate - - Oxygen Saturation - - Inhaled Oxygen Concentration - - Weight 98.9 kg (218 lb) 11/20/2018 5:00 PM CDT Height 162.6 cm (5' 4 ) 11/20/2018 5:00 PM CDT Body Mass Index 37.42 11/20/2018 5:00 PM CDT documented in this encounter Medications [...] by mouth once daily 30 0 09/16/2014 ymrthhrb-idid-ys n-folic acid (ONE DAILY FOR WOMEN) 18-0.4 [...] Procedure Name Priority Date/Time Associated Diagnosis Comments SCREENING MAMMOGRAM BILATERAL W DELIO Schedule Routine, Read Routine (OP Routine) 11/20/2018 5:04 PM CDT Encounter for screening mammogram for malignant neoplasm of breast documented in this encounter Results * Screening Mammogram Bilateral W Delio (11/20/2018 5:04 PM CDT) Anatomical Region Laterality Modality Breast Bilateral Mammography 11/21/2018 7:25 AM CDT Impressions 11/21/2018 7:27 AM CDT 1. ??BENIGN FINDINGS. 2. ??ANNUAL FOLLOW-UP RECOMMENDED. BI-RADS 2 Electronically signed by: Jose G Baugh 11/21/2018 7:27 AM CDT SCREENING MAMMOGRAM BILATERAL W DELIO HISTORY: Encounter for screening mammogram for malignant neoplasm of breast. TECHNIQUE: 2 views of each breast were obtained with bilateral breast tomosynthesis. COMPARISON: 11/15/2017. FINDINGS: Scattered parenchymal densities bilaterally. No suspicious mass or calcification is seen to suggest mammographic evidence of malignancy. ??2 nodular opacities upper outer right breast, as previously. Digital technology was employed plus computer aided detection software (R2) was utilized in interpretation of these images. ??This facility utilizes a reminder system to notify patient's of yearly mammograms. Ita Mcgill NP IMG MAMMO PROCEDURES Final Res ult documented in this encounter Visit Diagnoses Diagnosis Encounter for screening mammogram for malignant neoplasm of breast documented in this encounter Care Teams Head Of Merchandise Buying Relationship Specialty Start Date End Date Alejandro Lema MD [address] [facility] [address] [place] [address] PCP - General 10/19/17 01/19/22 documented as of this encounter
--- OUTSIDE RECORDS SUMMARY | 2024-08-12 23:44 | XMS_ITS | Encounter Summary ---
Author Organization [facility] Address [address] [place] [address] Phone Care Team Providers Care Coordinator Volunteer Services Name Role Phone Alejandro Lema MD Primary Care Provider Heath Montano MD Unavailable [phone] Reason for Visit * Consultation (Routine) - Closed Specialty Diagnoses / Procedures Referred By Garett bain Referred To Contact Surgery / Breast Surgery Diagnoses Abnormal mammogram Bindu Delaney MD Phone: tel: fax: [facility] (All Locations) Referral ID Status Reason Start Date Expiration Date V isits Requested Visits Authorized [id number] Closed Specialty Services Required 06/16/2021 07/16/2022 3 3 Encounter Details Date Type Department Care Team (Late st Contact Info) Description 01/20/2022 9:15 AM CDT Office Visit [facility] Surgery [address] [facility] Advanced Medicine 5th [place] [address] [place] [id number] Dyana Elliott, MARKETING OPERATIONS MANAGER [address] [place] [address] Abnormal mammogram (Primary Dx) Social History Tobacco Use Types Packs/Day Years Used Date Smoking Tobacco: Never Alcohol Use Standard Drinks/Week Comments Yes 0 (1 standard drink = 0.6 oz pur e alcohol) Comments No Sex and Gender Information Value Date Recorded Sex Assigned at Not on file Legal Sex Female 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 VISUAL Gender Identity Not on file Sexual Orientation Not on file documented as of this encounter Last Filed Vital Signs Vital Sign Reading Time Taken Comments Blood Pressure - - Pulse - - Temperature - - Respiratory Rate - - Oxygen Saturation - - Inhaled Oxygen Concentration - - Weight 104.3 kg (230 lb) 01/20/2022 9:02 AM CDT Height 162.6 cm (5' 4 ) 01/20/2022 9:02 AM CDT Body Mass Index 39.48 01/20/2022 9:02 AM CDT documented in this encounter Progress Notes * Dyana Elliott, CHRIS - 01/20/2022 9:15 AM CDT NAME: Kia Hernández : 1960 DATE: 01/20/2022 REFERRING MD: Bindu Delaney MD CHIEF COMPLAINT: Follow-up left abnormal mammogram. HISTORY OF PRESENT ILLNESS: Kia Hernández is a 61 y.o. woman who I initially saw in July 2021 for evaluation of her left abnormal mammogram. The patient was undergoing her routine mammogram when she was alerted to an abnormality. She underwent additional imaging [facility] with repeat left breast diagnostic imaging 6 months later. She presented for a second opinion regarding this. Our radiologist reviewed her imaging and we performed some additional imaging at her visit. She was again assigned a BI-RADS category three, probably benign, with recommendation for short interval follow-up six months later. The area of concern in the leftbreast was felt to most likely represent an intramammary lymph node verses a cluster of cysts. She returns today for this follow-up. The patient states that she herself had not noticed any abnormal masses in either breast. She denies any change in the appearance of her breasts or the skin of her breasts. She denies bilateral nipple discharge. She has no other systemic complaints and otherwise feels well today. Past Medical History: Diagnosis Date ??? HX OTHER MEDICAL 1995 cyst on wrist ??? HX OTHER MEDICAL 2001 cyst on wrist ??? HX OTHER MEDICAL 2004 sinus surgery ??? HX OTHER MEDICAL 2010 sinus surgery ??? HX OTHER MEDICAL diziness; Outcome: improved ??? HX OTHER MEDICAL elbow pain ??? Sinusitis sinusitis; Comments: gave augmentin 875 and nasal douche and will see in two weeks; Outcome: improved Past Surgical History: Procedure Laterality Date ??? CARPAL TUNNEL RELEASE 2007 Carpal tunnel release ??? CHOLECYSTECTOMY 2000 Cholecystectomy HOME MEDICATIONS : amoxicillin (amoxicillin) 500 mg tablet/capsule b complex vitamins (B COMPLEX-VITAMIN B12) tablet ciprofloxacin (CIPRO) 250 mg tablet diclofenac sodium (VOLTAREN) 1 % gel dicyclomine (BENTYL) 10 mg capsule fexofenadine (TRACI) 180 mg tablet hydroCHLOROthiazide (HYDRODIURIL) 25 mg tablet hydroCHLOROthiazide (HYDRODIURIL) 25 mg tablet montelukast (SINGULAIR) 10 mg tablet zxvthtaa-htwx-vji-folic acid (ONE DAILY FOR WOMEN) 18-0.4 mg tablet predniSONE (DELTASONE) [address] (ACIPHEX) 20 mg EC tablet traMADol (ULTRAM) 50 mg tablet No Known Allergies Social History Socioeconomic History ??? Marital status: Spouse name: Not on file ??? Number of children: Not on file ??? Years of education: Not on file ??? Highest education level: Not on file Occupational History ??? Not on file Tobacco Use ??? Smoking status: Never Smoker ??? Smokeless tobacco: Not on file Substance and Sexual Activity ??? Alcohol use: Yes ??? Drug use: Not on file ??? Sexual activity: Not on file Other Topics Concern ??? Not on file Social History Narrative ??? Not on file Social Determinants of Health Financial Resource Strain: Not on file Food Insecurity: Not on file Transportation Needs: Not on file Physical Activity: Not on file Stress: Not on file Social Connections: Not on file Intimate Partner Violence: Not on file Housing Stability: Not on file Family History Problem Relation Age of Onset ??? Other Mother Alive and well; /hyperthyrodism; ??? Other Father Alive and well; ??? Diabetes Father Diabetes mellitus; ??? Hypertension Father Hypertension; ??? COPD Other Family history of copd; ??? Allergies Other Family history of Allergies; ??? Breast cancer Father's Sister The patient's review of systems were reviewed as per the chart today and no other findings were noted. The patient's past medical history, social history, and family history are listed on their questionnaire and has been reviewed and can be found in the chart. PHYSICAL EXAMINATION: GENERAL: She is a well-developed, well-nourished woman in no acute distress. HEENT: Within normal limits. NECK: Neck is supple without lymphadenopathy or thyromegaly. LUNGS: Clear. HEART: Regular. ABDOMEN: Soft without organomegaly. EXTREMITIES: Warm without edema. NEUROLOGICAL: She is alert and oriented x 3. BREAST EXAMINATION: Bilateral breast examination reveals normal ptotic breasts bilaterally. Both breasts are without any dominant masses, skin changes, nipple discharge, or axillary adenopathy. IMAGING: Today she underwent a left breast ultrasound which I personally reviewed. She is given a BI-RADS category 3, probably benign: EXAMINATION: LEFT BREAST ULTRASOUND ?? HISTORY: The patient is a 61-year-old female here for six-month follow-up evaluation of a probably benign cystic appearing mass in the LEFT breast identified on outside mammogram dated 06/02/2021. She has no current breast complaints. ?? COMPARISON: Left breast ultrasound on 06/02/2021 and 07/22/2021. Multiple prior mammograms, most recently an outside mammogram on 06/02/2021 and dating back to 11/15/2017. ?? TECHNIQUE: Directed ultrasound evaluation of the LEFT breast was performed. ?? ULTRASOUND FINDINGS: Targeted high-resolution sonography was performed in the LEFT breast, centered in the 3 o'clock position. In 3 o'clock position, 4 cm from the nipple, a 4 x 4 x 3 mm hypoechoic circumscribed mass that may represent a cluster of microcysts is reidentified. This remains probably benign. No suspicious solid mass or distortion is seen. ?? IMPRESSION: Stable probably benign cystic mass in the LEFT breast, likely a cluster of microcysts. ?? OVERALL FINAL ASSESSMENT: BI-RADS Category 3: Probably Benign. ?? RECOMMENDATION: Recommend follow-up diagnostic breast imaging in 3 months when the patient is due for BILATERAL diagnostic mammography and targeted LEFT breast ultrasound. ?? Electronically signed by: Latisha Kelly M.D. IMPRESSION/RECOMMENDATION: Kia Hernández is a 61 y.o. woman who presents today for follow up of a category 3 finding in the left breast. I reviewed the clinical and imaging findings with her today. I reassured her that based on my clinical examination and review of her diagnostic imaging, there are no abnormalities that require biopsy at this time. The area of concern in the left breast is very likely benign, and could represent a cluster of cysts. I would recommend that she return in for a repeat left breast ultrasound, at which time she will be due for bilateral mammograms.I encouraged her to resume breast self examinations on a monthly basis and alert me of any changes.I answered all of her questions thoroughly and she does seem pleased with this plan of approach. I encouraged her to contact me in the interim if any new questions or concerns arise. Dyana Elliott NP Portions of this note were dictated using [employer] Direct speech recognition software. Please excuse any capacity planning manager errors. documented in this encounter Plan of Treatment Not on file documented as of this encounter Visit Diagnoses Diagnosis Abnormal mammogram- Primary Abnormal mammogram, unspecified documented in this encounter Discontinued Medications Medication Sig Discontinue Reason Start Date End Da te hydroCHLOROthiazide (HYDRODIURIL) 25 mg tablet TAKE ONE TABLET BY MOUTH ONE TIME DAILY 05/17/2017 01/20/2022 documented as of this encounter Care Teams Coordinator Volunteer Services Relationship Specialty Start Date End Date Alejandro Lema MD [address] [facility] [address] [place] [address] PCP - General Family Medicine 01/20/22 07/11/23 Heath Montano MD [address] [facility] [address] [place] [address] Referring Physician Obstetrics and Gynecology 01/20/22 documented as of this encounter
--- OUTSIDE RECORDS SUMMARY | 2024-08-12 23:44 | XMS_ITS | Encounter Summary ---
Author Organization [facility] Healthcare Address [address] [place] [address] Care Team Providers Care Director Case Name Role Phone Alejandro Lema MD Primary Care Provider Reason for Visit * Diagnostic Imaging (Routine) - Closed Specialty Diagnoses / Procedures Referred By Contac t Referred To Contact Diagnoses Encounter for screening mammogram for malignant neoplasm of breast Procedures Screening Mammogram Bilateral W Delio Screening Mammogram Bilateral W Delio Screening Mammogram, Self [address] [address] Referral ID Status Reason Start Date Expiration Date Visits Re quested Visits Authorized [id number] Closed 12/27/2019 07/07/2021 1 1 Encounter Details Date Type Department Care Team (Latest Contact Info) Description 04/29/2020 3:07 PM CDT - 04/29/2020 11:59 PM CDT Hospital Encounter [facility] [address] [place] [id number] Screening Mammogram, Self Bindu Delaney MD [address] [place] [id number] Encounter for screening mammogram for malignant neoplasm [...] on file Legal Sex Female 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 Gender Identity Not on file Sexual Orientation Not on file documented as of this encounter Last Filed Vital Signs Vital Sign Reading Time Taken Comments Blood Pressure - - Pulse - - Temperature - - Respiratory Rate - - Oxygen Saturation - - Inhaled Oxygen Concentration - - Weight 99.8 kg (220 lb) 04/29/2020 3:28 PM CDT Height 163.8 cm (5' 4.5 ) 04/29/2020 3:28 PM CDT Body Mass Index 37.18 04/29/2020 3:28 PM CDT documented in this encounter Medications [...] by mouth once daily 30 0 09/16/2014 xaqavucn-javb-md n-folic acid (ONE DAILY FOR WOMEN) 18-0.4 [...] Associated Diagnosis Comments SCREENING MAMMOGRAM BILATERAL W DEILO Schedule Routine, Read Routine (OP Routine) 04/29/2020 3:36 PM CDT Encounter for screening mammogram for malignant neoplasm of breast documented in this encounter Results * Screening Mammogram Bilateral W Delio (04/29/2020 3:36 PM CDT) Anatomical Region Laterality Modality Breast Bilateral Mammography 04/30/2020 2:12 PM CDT Impressions 04/30/2020 2:18 PM CDT There is no mammographic evidence of malignancy. A 1 year screening mammogram is recommended. BI-RADS: 1 - Negative. The patient will be entered into a reminder system with a target due date of 1 year for her next mammogram. Electronically signed by: Kurt Marques M.D. Narrative 04/30/2020 2:18 PM CDT EXAMINATION: SCREENING MAMMOGRAM BILATERAL W DELIO ORDERING HEALTHCARE PROVIDER: SELF SCREENING MAMMOGRAM HISTORY: Routine screening mammography. COMPARISON: ??11/20/2018, 11/15/2017, 11/09/2016, 11/03/2015. TECHNIQUE: CC and MLO views of the bilateral breasts were obtained with digital technique using breast tomosynthesis with C view. Computer aided detection was utilized. FINDINGS: DENSITY: There are scattered fibroglandular elements in the bilateral breasts. BREASTS: There are no suspicious masses, suspicious calcifications, or other suspicious findings in either breast. There has been no suspicious interval change. us Self Screening Mammogram IMG MAMMO PROCEDURES Fi nal Result documented in this encounter Visit Diagnoses Diagnosis Encounter for screening mammogram for malignant neoplasm of breast documented in this encounter Care Teams Director Case Relationship Specialty Start Date End Date Alejandro Lema MD [address] [facility] [address] [place] [address] PCP - General 10/19/17 01/19/22 documented as of this encounter
--- OUTSIDE RECORDS SUMMARY | 2024-08-12 23:44 | XMS_ITS | Encounter Summary ---
Author Organization [facility] Address [address] [place] [address] Phone Care Team Providers Care Boat Canvas Maker Installer Name Role Phone Alejandro Lema MD Primary Care Provider Reason for Visit * Reason Comments Initial Consult * Consultation (Routine) - Closed Specialty Diagnoses / Procedures Referred By Garett bain Referred To Contact Surgery / Breast Surgery Diagnoses Abnormal mammogram Bindu Delaney MD Phone: tel: fax: [facility] (All Locations) Referral ID Status Reason Start Date Expiration Date V isits Requested Visits Authorized [id number] Closed Specialty Services Required 06/16/2021 07/16/2022 3 3 Encounter Details Date Type Department Care Team (Late st Contact Info) Description 07/22/2021 9:00 AM TELEPHONE EXCHANGE OPERATOR Office Visit [facility] Surgery [address] [facility] 5th [place] [address] [place] [address] Dyana Elliott NP [address] [place] [address] Abnormal mammogram Social History Tobacco Use Types Packs/Day Years Used Date Smoking Tobacco: Never Alcohol Use Standard Drinks/Week Comments Yes 0 (1 standard drink = 0.6 oz pur e alcohol) Comments No Sex and Gender Information Value Date Recorded Sex Assigned at Not on file Legal Sex Female 12:25 AM TELEPHONE EXCHANGE OPERATOR Gender Identity Not on file Sexual Orientation Not on file documented as of this encounter Last Filed Vital Signs Vital Sign Reading Time Taken Comments Blood Pressure - - Pulse - - Temperature - - Respiratory Rate - - Oxygen Saturation - - Inhaled Oxygen Concentration - - Weight 104.3 kg (230 lb) 07/22/2021 8:45 AM TELEPHONE EXCHANGE OPERATOR Height 162.6 cm (5' 4 ) 07/22/2021 8:45 AM TELEPHONE EXCHANGE OPERATOR Body Mass Index 39.48 07/22/2021 8:45 AM TELEPHONE EXCHANGE OPERATOR documented in this encounter Progress Notes * Dyana Elliott, SENIOR PRICING ANALYST - 07/22/2021 9:00 AM CST NAME: Allen Hernández : 1960 DATE: 07/22/2021 REFERRING MD: Bindu Delaney MD CHIEF COMPLAINT: Evaluation of left abnormal mammogram. HISTORY OF PRESENT ILLNESS: Allen Hernández is a 60 y.o. woman referred by Bindu Delaney MD who requested that I evaluate her for her left abnormal mammogram. The patient states that she was undergoing her routine mammogram when she was alerted to an abnormality. She underwent additional imaging and ultimately was recommended to undergo short interval follow-up with repeat left breast diagnostic imaging 6 months later. She presents today for a second opinion regarding this. The patient states that she herself had not noticed any abnormal masses in either breast. She denies any change inthe appearance of her breasts or the skin of her breasts. She denies bilateral nipple discharge. She has no other systemic complaints and otherwise feels well today. This is a pleasant 60 y.o. woman who underwent menarche at 16 years of age. She has been twice resulting in 2 children the first at age 19. She did breastfeed her children. She underwent natural menopause at age 55. She has not taken hormone replacement therapy. She did use oral contraception for approximately 4 years in the past. She has not undergone any breast surgeries or breast biopsies. Her family history is significant in that she has 2 paternal aunts who were diagnosed with breast cancer. Past Medical History: Diagnosis Date ??? HX [...] mg tablet montelukast (SINGULAIR) 10 mg tablet ffrcvfnd-xswy-ose-folic acid (ONE DAILY FOR WOMEN) 18-0.4 mg [...] changes, nipple discharge, or axillary adenopathy. IMAGING: I personally reviewed the patient's breast imaging. On 05/04/2021 the patient underwent a bilateral screening mammogram at [facility]. There were no suspicious abnormalities in the right breast. The left breast was notable for a focal asymmetry at the 3 o'clock position, anterior depth. Left diagnostic imaging was recommended. On 06/02/2021 she underwent a left diagnostic mammogram and a left breast ultrasound which was given a BI-RADS category 3, probably benign. This was due to a 5 mm mass at 3 o'clock position which likely represents a complicated cyst and is probably benign. Short interval follow-up with repeat left diagnostic imaging 6 months later was recommended. ?? A formal [facility] Radiology consult was performed with the following review and interpretation of the patient's outside imaging: EXAMINATION: REVIEW AND INTERPRETATION OF OUTSIDE IMAGING ?? FACILITY PERFORMING OUTSIDE IMAGING: [facility] ?? EXAM(S) REVIEWED: 1. BILATERAL SCREENING MAMMOGRAM WITH TOMOSYNTHESIS, 8 images, 05/04/2021 2. LEFT UNILATERAL DIAGNOSTIC MAMMOGRAM WITH TOMOSYNTHESIS, 6 images, 06/02/2021 ?? DATE OF INTERPRETATION: 07/22/2021 ?? PHYSICIAN REQUESTING REVIEW: Dyana Elliott NP, who is seeing the patient in the Breast Surgery Clinic. ?? HISTORY: 60-year-old female patient with screening detected focal asymmetry in the left inner breast at anterior depth at approximately 3:00 there are screening mammogram dated 05/04/2021. Subsequent diagnostic evaluation by report demonstrates a likely complicated cyst in the left breast for which the patient was given a BI-RADS 3 designation. Patient presents for further evaluation. ?? COMPARISON: Multiple prior screening mammograms, most recently 04/29/2020 ?? BREAST PARENCHYMAL COMPOSITION: There are scattered areas of fibroglandular density. ?? FINDINGS: ?? Screening mammogram 05/04/2021: There are no suspicious mammographic findings within the right breast. There is a focal asymmetry in the left breast at 3 o'clock position anterior depth. ?? Diagnostic mammogram 06/02/2021: There is a well-circumscribed, oval 5 mm mass within the left outer breast at the 3 o'clock position anterior depth. ?? By report, this corresponds to a well-circumscribed [...] diagnostic left breast ultrasound for further evaluation. ?? RECOMMENDATION: Additional imaging - ultrasound evaluation. ?? NOTE: The findings, conclusions and recommendations within this report do not replace the initial findings, conclusions and recommendations made at the facility where the study was performed based upon the imaging and clinical condition at that time. Review of the prior report and correlation with the clinical history are necessary. The provided images may or may not represent the [place] source data set and thus may contain changes which may lower the sensitivity of the second opinion interpretation. ? Dictated by: Teddy Cohn ?? The radiology attending physician has personally reviewed this study, and had reviewed and/or edited this written report and agrees with it. ?? Electronically signed by: Lily Galaviz M.D. Today the patient underwent a left breast ultrasound, which I personally reviewed. She was assigneda BI-RADS category 3, probably benign: EXAMINATION: LEFT BREAST ULTRASOUND ?? HISTORY: 60-year-old with question left outer breast mass from outside imaging was given a BI-RADS 3 examination. Repeat sonogram was recommended. ?? COMPARISON: Outside hospital sonogram 06/02/2021, mammogram 06/02/2021, 05/04/2020, 04/29/2020 ?? TECHNIQUE: Directed ultrasound evaluation of the LEFT breast was performed. ?? ULTRASOUND FINDINGS: In the LEFT breast at 3 o'clock position, 4 cm from the nipple, there is an oval, microlobulated hypoechoic mass that measures 5 x 4 x 3 mm. This could represent a cluster of cysts or intramammary lymph node. This correlates with the mammographic abnormality and is probably benign. IMPRESSION: LEFT breast 3 o'clock position oval probably benign mass, could represent an intramammary lymph node or a cluster of cysts. Recommend follow-up left breast ultrasound in 6 months. ?? OVERALL FINAL ASSESSMENT: BI-RADS Category 3: Probably Benign. ?? RECOMMENDATION: Recommend follow-up diagnostic breast imaging in 6 months with LEFT breast sonogram. ?? Dictated by: Darnell Sutherland M.D. ?? The radiology attending physician has personally reviewed this study, and had reviewed and/or edited this written report and agrees with it. ?? Electronically signed by: Lily Galaviz M.D. IMPRESSION/RECOMMENDATION: Allen Hernández is a 60 y.o. woman who presents today for a consultation regarding her left abnormal mammogram. I reviewed the clinical and imaging findings with her today. I reassured her that based on my clinical examination and review of her diagnostic imaging, there are no abnormalities that require biopsy at this time. The area of concern in the left breast is very likely benign, and could represent an intramammary lymph node or a cluster of cysts. I would recommendthat she return in 6 months for a repeat left breast ultrasound. I encouraged her to resume breast self examinations on a monthly basis and alert me of any changes. I answered all of her questions tho roughly and she does seem pleased with this plan of approach. I encouraged her to contact me in theinterim if any new questions or concerns arise. Dyana Elliott NP Portions of this note were dictated using Bright[employer] Direct speech recognition software. Please excuse any computing systems mechanic errors. PHONE EXCHANGE OPERATOR documented in this encounter Plan of Treatment Not on file documented as of this encounter Visit Diagnoses Diagnosis Abnormal mammogram Abnormal mammogram, unspecified documented in this encounter Historical Medications * This list may reflect changes made after this encounter. Medication Sig Dispense Quantity Refills Last Filled Start D ate End Date montelukast (SINGULAIR) 10 mg tablet 05/26/2021 added in this encounter Orders Outpatient Referral Count Last Ordered Date Fir st Ordered Date AMB REFERRAL TO SURGICAL ONCOLOGY 1 021 documented in this encounter Care Teams Boat Canvas Maker Installer Relationship Specialty Start Date End Date Alejandro Lema MD [address] [place] [address] PCP - General 10/19/17 01/19/22 documented as of this encounter
--- OUTSIDE RECORDS SUMMARY | 2024-08-12 23:44 | XMS_ITS | Encounter Summary ---
Author Organization [facility] Healthcare Address [address] [place] [address] Care Team Providers Care Consolidator Name Role Phone Gallito Edwards Primary Care Provider Unavailabl e Encounter Details Date Type Department Care Team (Latest Contact Info) Description 02/18/2017 10:38 AM CDT - 02/18/2017 11:59 PM T Hospital Encounter [facility] OP INTERIM [phone] Victor Manuel Stacy MD [address] [facility] [address] [place] [address] Discharge Disposition: Discharge to home or self care Social History Tobacco Use Types Packs/Day Years Used Date Smoking Tobacco: Never Alcohol Use Standard Drinks/Week Comments Yes 0 (1 standard drink = 0.6 oz pur e alcohol) Comments Unknown Sex and Gender Information Value Date Recorded Sex Assigned at Not on file Legal Sex Female 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
--- OUTSIDE RECORDS SUMMARY | 2024-08-12 23:44 | XMS_ITS | Encounter Summary ---
Author Organization [facility] Healthcare Address [address] [place] [address] Care Team Providers Care Cashier Receptionist Name Role Phone Gallito Edwards Primary Care Provider Unavailabl e Encounter Details Date Type Department Care Team (Latest Contact Info) Description 11/09/2016 4:09 PM CDT - 11/09/2016 11:59 PM CDT Hospital Encounter [facility] OP INTERIM Bindu Fernandes MD [address] [facility] [address] [place] [address] Discharge Disposition: Discharge to home or self care Social History Tobacco Use Types Packs/Day Years Used Date Smoking Tobacco: Never Alcohol Use Standard Drinks/Week Comments Yes 0 (1 standard drink = 0.6 oz pur e alcohol) Comments Unknown Sex and Gender Information Value Date Recorded Sex Assigned at Not on file 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 Gender Identity Not on file Sexual Orientation [...] by mouth once daily 30 0 09/16/2014 nctvpyul-esit-xy n-folic acid (ONE DAILY FOR WOMEN) 18-0.4 mg tablet once dailyt 0 12/06/2011 traMADol (ULTRAM) 50 mg tablet take 1 tablet by ORAL route every 4 - 6 hours as needed 0 0 10/24/2014 cephalexin (KEFLEX) 250 mg capsule take 1 capsule (250MG) by ORAL route 4 times every day 40 0 06/02/2012 7 ciprofloxacin (CIPRO) 250 mg tablet take 1 [...] BY MOUTH TWO TIMES A DAY 60 1 06/16/2010 7 documented as of this encounter Discharge Disposition Disposition Code Departure Means Destination Discharge to home or self care documented in this encounter Plan of Treatment Not on file documented as of this encounter Procedures Procedure Name Priority Date/Time Associated Diagnosis Comments DIAGNOSTIC MAMMOGRAM BILATERAL W DELIO Routine 11/09/2016 9:27 PM CDT documented in this encounter Results * Diagnostic Mammogram Bilateral W Delio (11/09/2016 9:27 PM CDT) Anatomical Region Laterality Modality Breast Bilateral Mammography 11/09/2016 9:27 PM CDT Narrative 11/09/2016 9:27 PM CDT MR SCREENING MAMM W DELIO BI ??Acc#: ??[id number] DATE OF EXAM: ??Nov 09 2016 Performed by: [place] CLINICAL HISTORY: Routine screening, no current complaints. RESULT: Four view screening mammogram is compared to a prior exam dated 11/03/15. There has been no interval change. ??The breasts are composed of scattered fibroglandular densities. ??There are no new masses or suspicious microcalcifications. ??Tomographic images demonstrate no additional findings. Digital technology was employed plus computer-aided detection software (R2) was utilized in interpretation of these images. ??This facility utilizes a reminder system to notify patients of yearly mammograms. IMPRESSION: BI-RADS CATEGORY 1 - NEGATIVE EXAM. ??RECOMMEND ROUTINE FOLLOW-UP. Interpreting Physician: ??DR JV ABDULLAHI M.D. ??Read on: ??Nov 10 2016 7:47A Transcribed by: ??mrr ??On: Nov 10 2016 11:31A Approved Electronically by: ??BRADLY Boykin, DR CARIAS ??on: ??Nov 10 2016 3:18P Attending: ??BINDU FERNANDES Requesting: ??SELF, REFERRAL Requesting Fax: ??-- Attending Fax: ??-- Attending ID: ??[id number] Requesting ID: ??[id number] Report To 1 ID: ??[id number] Report To 1 Name: ??BINDU FERNANDES Report To 1 FAX: ??-- NextGen Order #: ?? Procedure Note Miscellaneous, Notinfile / Provider, MD Alban - 01/05/2017 MR SCREENING MAMM W DELIO BI Acc#: [id number] DATE OF EXAM: Nov 09 2016 Performed by: [place] CLINICAL HISTORY: Routine screening, no current complaints. RESULT: Four view screening mammogram is compared to a prior exam dated 11/03/15.There has been no interval change. The breasts are composed of scatteredfibroglandular densities. There are no new masses or suspiciousmicrocalcifications. Tomographic images demonstrate no additionalfindings. Digital technology was employed plus computer-aided detectionsoftware (R2) was utilized in interpretation of these images. [facility] system to notify patients of yearlymammograms. IMPRESSION: BI-RADS CATEGORY 1 - NEGATIVE EXAM. RECOMMEND ROUTINE FOLLOW-UP. Interpreting Physician: DR JV ABDULLAHI M.D. Read on: Nov 10 20167:[id number] Transcribed by: mrr On: Nov 10 2016 11:31A Approved Electronically by: BRADLY Boykin, DR CARIAS on: Nov 10 20163:[id number] Attending: BINDU FERNANDES Requesting: SELF, REFERRAL Requesting Fax: -- Attending Fax: -- Attending ID: [id number] Requesting ID: [id number] Report To 1 ID: [id number] Report To 1 Name: BINDU FERNANDES Report To 1 FAX: -- NextGen Order #: us Not In File Miscellaneous IMG MAMMO PROCEDURES F inal Result documented in this encounter Visit Diagnoses Not on filedocumented in this encounter Care Teams Cashier Receptionist Relationship Specialty Start Date End Date Gallito Edwards PCP - General 10/01/16 11/11/16 documented as of this encounter
--- OUTSIDE RECORDS SUMMARY | 2024-08-12 23:44 | XMS_ITS | Encounter Summary ---
Author Organization [facility] Address [address] [place] [address] Care Team Providers Care Credit Clerk Name Role Phone Gallito Edwards Primary Care Provider Alejandro Damon MD Primary Care Provider Encounter Details Date Type Department Care Team (Late st Contact Info) Description 04/21/2017 Orders Only [facility] [facility] Information Management [address] [place] [address] Scanning, Provider Social History Tobacco Use Types Packs/Day Years Used Date Smoking Tobacco: Never Alcohol Use Standard Drinks/Week Comments Yes 0 (1 standard drink = 0.6 oz pur e alcohol) Comments Unknown Sex and Gender Information Value Date Recorded Sex Assigned at Not on file 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 Gender Identity Not on file Sexual Orientation Not on file documented as of this encounter Plan of Treatment Not on file documented as of this encounter Procedures Procedure Name Priority Date/Time Associated Diagnosis Comments SCAN - RADIOLOGY/IMAGING 04/21/2017 9:23 AM CDT documented in this encounter Results * SCAN - RADIOLOGY/IMAGING (04/21/2017 9:23 AM CDT) Anatomical Region Laterality Modality Other us Provider Scanning Final Result documented in this encounter Visit Diagnoses Not on filedocumented in this encounter Care Teams Credit Clerk Relationship Specialty Start Date End Date Gallito Edwards PCP - General 11/12/16 10/18/17 Alejandro Lema MD [address] [place] [address] PCP - General 10/19/17 01/19/22 documented as of this encounter
--- OUTSIDE RECORDS SUMMARY | 2024-08-12 23:44 | XMS_ITS | Encounter Summary ---
Author Organization [facility] Healthcare Address [address] [place] [address] Care Team Providers Care Fusion Analyst Name Role Phone Alejandro Lema MD Primary Care Provider Reason for Referral * Diagnostic Imaging (Routine) - Closed Specialty Diagnoses / Procedures Referred By Danielac taya Referred To Contact Radiology Diagnoses Acute recurrent pansinusitis Procedures CT Sinus WO Contrast Rodolfo Sheikh MD Phone: tel: fax: [address] [phone] Referral ID Status Reason Start Date Expiration Date Visits Re quested Visits Authorized [id number] Closed 10/04/2018 04/14/2020 1 1 ESS SAFETY MANAGEMENT ENGINEER Reason for Visit * Diagnostic Imaging (Routine) - Closed Specialty Diagnoses / Procedures Referred By Contac taya Referred To Contact Radiology Diagnoses Acute recurrent pansinusitis Procedures CT Sinus WO Contrast Rodolfo Sheikh MD Phone: tel: fax: [address] [phone] Referral ID Status Reason Start Date Expiration Date Visits Re quested Visits Authorized [id number] Closed 10/04/2018 04/14/2020 1 1 Encounter Details Date Type Department Care Team (Latest Contact Info) Description 10/09/2018 5:28 PM PROCESS SAFETY MANAGEMENT ENGINEER - 10/09/2018 11:59 PM PROCESS SAFETY MANAGEMENT ENGINEER Hospital Encounter [facility] [address] [place] [id number] Rodolfo Sheikh MD [address] [place] [address] Acute recurrent pansinusitis Discharge Disposition: Discharge to home or self care Social History Tobacco Use Types Packs/Day Years Used Date Smoking Tobacco: Never Alcohol Use Standard Drinks/Week Comments Yes 0 (1 standard drink = 0.6 oz pur e alcohol) Comments No Sex and Gender Information Value Date Recorded Sex Assigned at Not on file Legal Sex Female 12:25 AM PROCESS SAFETY MANAGEMENT ENGINEER Gender Identity Not on file Sexual Orientation [...] by mouth once daily 30 0 09/16/2014 kjeriymf-gjtx-vv n-folic acid (ONE DAILY FOR WOMEN) 18-0.4 [...] Procedure Name Priority Date/Time Associated Diagnosis Comments CT SINUS WO CONTRAST Schedule Routine, Read Routine (OP Routine) 10/09/2018 5:44 PM PROCESS SAFETY MANAGEMENT ENGINEER Acute recurrent pansinusitis documented in this encounter Results * CT Sinus WO Contrast (10/09/2018 5:44 PM PROCESS SAFETY MANAGEMENT ENGINEER) Anatomical Region Laterality Modality Head and Neck N/A Computed Tomogra phy 10/09/2018 5:49 PM PROCESS SAFETY MANAGEMENT ENGINEER Impressions 10/09/2018 5:50 PM PROCESS SAFETY MANAGEMENT ENGINEER 1. ??PRIOR LEFT MAXILLARY ANTRECTOMY. 2. ??MINIMAL DEPENDENT DISEASE WITHIN THE RIGHT MAXILLARY SINUS. Electronically signed by: Jose De Leon M.D. Narrative 10/09/2018 5:50 PM PROCESS SAFETY MANAGEMENT ENGINEER CT SINUS WO CONTRAST HISTORY: Acute recurrent pansinusitis. CORRELATE IMAGIN08/10/2012 TECHNIQUE: Helically acquired axial images were obtained through the paranasal sinuses and displayed using coronal reformations. FINDINGS: The patient is status post left maxillary antrectomy. ??Mild dependent debris or mucosal retention polyp is seen in the anterior right maxillary sinus. ??The right ostiomeatal unit is patent. ??The nasal septum is midline. ??The osseous structures appear normal. Procedure Note Jose De Leon MD - 10/09/2018 CT SINUS WO CONTRAST HISTORY: Acute recurrent pansinusitis. CORRELATE IMAGIN08/10/2012 TECHNIQUE: Helically acquired axial images were obtained through the paranasal sinuses and displayed using coronal reformations. FINDINGS: The patient is status post left maxillary antrectomy. Mild dependent debris or mucosal retention polyp is seen in the anterior right maxillary sinus. The right ostiomeatal unit is patent. The nasal septum is midline. The osseous structures appear normal. IMPRESSION: 1. PRIOR LEFT MAXILLARY ANTRECTOMY. 2. MINIMAL DEPENDENT DISEASE WITHIN THE RIGHT MAXILLARY SINUS. Electronically signed by: Jose De Leon M.D. Rodolfo Sheikh MD IMG CT PROCEDURES Final R esult documented in this encounter Visit Diagnoses Diagnosis Acute recurrent pansinusitis documented in this encounter Care Teams Fusion Analyst Relationship Specialty Start Date End Date Alejandro Lema MD [address] [facility] [address] [place] [address] PCP - General 10/19/17 01/19/22 documented as of this encounter
--- OUTSIDE RECORDS SUMMARY | 2024-08-12 23:44 | XMS_ITS | Referral Summary ---
Author Organization [facility] Address [address] [place] [address] Care Team Providers Care Legal Billing Specialist Name Role Phone Heath Montano MD Unavailable [phone] Heath Montano MD Unavailable [phone] Heath Montano MD Primary Care Provider [phone] Encounters Date Type Department Care Team Description 07/16/2024 Telephone [facility] Floor [address] [place] [address] Roseanne Foster NP from Last 3 Months Allergies No known active allergies Medications fexofenadine (TRACI) 180 mg tablet take 1 tablet (180MG) by ORAL route every day 60 1 0 Active b complex vitamins (B COMPLEX-VITAMIN B12) tablet once daily 0 2 Active hrnpvmti-rkdh-o in-folic acid (ONE DAILY FOR WOMEN) 18-0.4 mg tablet once dailyt 0 2 Active traMADol (ULTRAM) 50 mg tablet take 1 tablet by ORAL route every 4 - 6 hours as needed 0 0 5 Active dicyclomine (BENTYL) 10 mg capsule TAKE ONE CAPSULE BY MOUTH FOUR TIMES A DAY NEEDED 60 1 3 Active diclofenac sodium (VOLTAREN) 1 % gel apply (2G) by topical route 4 times every day to bilateral knees as needed. 1 Tube 5 6 Active hydroCHLOROthia zide (HYDRODIURIL) 25 mg tablet take 1 tablet by mouth once daily [address] (ACIPHEX) 20 mg EC tablet take 1 tablet by mouth two times a day 60 tablet 7 Active montelukast (SINGULAIR) 10 mg tablet Active Active Problems Problem Noted Date Diagnosed Date Abnormal mammogram 07/22/2021 Obesity with body mass index 30 or greater 02/18 Immunizations Name Administration Dates Next Due Influenza, Quadrivalent, Spl it, Intramuscular 05/13/2016 Influenza, Split 05/27/2010 Influenza, Trivalent, IM (MDV) 05/29/2014,2011,05/18/2011 ZOSTER LIVE 04/18/2013 Social History Tobacco Use Types Packs/Day Years Used Date Smoking Tobacco: Never Tobacco Cessation:Counseling Given: Not Answered Alcohol Use Standard Drinks/Week Comments Yes 0 (1 standard drink = 0.6 oz pur e alcohol) Comments No Sex and Gender Information Value Date Recorded Sex Assigned at Not on file Legal Sex 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 Gender Identity Not on file Sexual Orientation Not on file Last Filed Vital Signs Vital Sign Reading Time Taken Comments Blood Pressure 110/64 03/02/2017 3:00 PM CDT Pulse 61 03/02/2017 3:00 PM CDT Temperature - - Respiratory Rate - - Oxygen Saturation 99% 02/18/2017 8:03 AM CDT Inhaled Oxygen Concentration - - Weight 104.3 kg (230 lb) 07/12/2023 7:34 AM CLINICAL PHARMACIST Height 162.6 cm (5' 4 ) 07/12/2023 7:34 AM CLINICAL PHARMACIST Body Mass Index 39.48 07/12/2023 7:34 AM CLINICAL PHARMACIST Plan of Treatment Not on file Procedures Procedure Name Priority Date/Time Associated Diagnosis Comments DIAGNOSTIC MAMMOGRAM BILATERAL W DELIO Schedule Routine, Read Routine (OP Routine) 07/12/2023 8:41 AM CLINICAL PHARMACIST Abnormal mammogram COLONOSCOPY 08/06/2011 12:00 AM CLINICAL PHARMACIST from Last 3 Months or Most Recently Relevant to Health Maintenance Results * Diagnostic Mammogram Bilateral W Delio (07/12/2023 8:41 AM CLINICAL PHARMACIST) Anatomical Region Laterality Modality Breast Bilateral Mammography 07/12/2023 9:25 AM CLINICAL PHARMACIST Impressions 07/12/2023 10:15 AM CLINICAL PHARMACIST No significant interval change in a probably [...] Lily Galaviz M.D. Narrative 07/12/2023 10:15 AM CLINICAL PHARMACIST EXAMINATION: BILATERAL DIGITAL DIAGNOSTIC MAMMOGRAM INCLUDING CAD [...] signed by: Lily Galaviz M.D. Dyana Elliott NP IMG MAMMO PROCEDURES Fin al Result * COLONOSCOPY (08/06/2011 12:00 AM CLINICAL PHARMACIST) Anatomical Region Laterality Modality Other Narrative 08/06/2011 12:00 AM CLINICAL PHARMACIST Ordered by an unspecified provider. Procedure Note Provider, MD Alban - 08/06/2011 12:00 AM CST PROCEDURE REPORT Patient: KIA HERNÁNDEZ Account: [id number] Room No: [id number] : 1960 Patient Type: IP Attend.: Nataly Villa M.D. Admit Date: 08/05/2011 Dict.: Ha Dent M.D. Disch. Date: NAME OF PROCEDURE: Colonoscopy HISTORY A 50-year-old female with unexplained anemia. PHYSICAL EXAMINATION Well developed female, lungs are clear. Cardiovascular exam wasunremarkable. PROCEDURE Colonoscopy was performed with the TechnoVax video endoscope. On digital,no abnormalities were palpable. We inserted the endoscope and advanced it tothe cecum. We entered the terminal ileum. We carefully searched thecolonic mucosa. The prep as adequate. I could find no evidence of inflammationor neoplasia anywhere through the length of the bowel. The patient toleratedthe procedure without difficulty. POSTOPERATIVE DIAGNOSIS Normal colon and terminal ileum. Ha Dent M.D. /carmen TD: 08/06/2011 10:30 Authenticated by Ha Dent MD On 08/10/2011 09:08:36 AM us Historical Provider MD ENDOSCOPY PROCEDURES Maria Eugenia l Result from Last 3 Months or Most Recently Relevant to Health Maintenance Insurance [employer] [facility] CHOICE PLUS [employer] OPEN ACCESS CIGNA CIGNA IBEW Member Subscriber Plan / Payer (Ef fective 2017-Present) Name:Kia Hernández Relation to Subscriber:Self Name:Kia Hernández Payer ID:[id number] ([facility]) Group ID:[id number] Type:CIGNA HMO/PPO Address: [address] [place] [address] CIGNA Care Teams Legal Billing Specialist Relationship Specialty Start Date End Date Heath Montano MD [address] [place] [address] PCP - General Obstetrics and Gynecology 07/12/23 Heath Montano MD [address] [place] [address] Referring Physician Obstetrics and Gynecology 01/20/22 Heath Montano MD [address] [place] [address] Referring Physician Obstetrics and Gynecology 05/17/22
--- OUTSIDE RECORDS SUMMARY | 2024-08-12 23:44 | XMS_ITS | Encounter Summary ---
Author Organization [facility] Healthcare Address [address] [place] [address] Care Team Providers Care Singing Telegram Performer Name Role Phone Alejandro Lema MD Primary Care Provider Heath Montano MD Unavailable [phone] Heath Montano MD Unavailable [phone] Reason for Visit * Diagnostic Imaging (Routine) - Closed Specialty Diagnoses / Procedures Referred By Garett bain Referred To Contact Diagnoses Abnormal mammogram Procedures US Breast Left Limited US Breast Left Complete Dyana Elliott NP Phone: tel: fax: [address] [address] Referral ID Status Reason Start Date Expiration Date Visits Re quested Visits Authorized [id number] Closed 01/20/2022 02/19/2023 1 1 Encounter Details Date Type Department Care Team (Latest Contact Info) Description 05/17/2022 9:58 AM CDT - 05/17/2022 11:59 PM CDT Hospital [facility] [address] [place] [address] Abnormal mammogram Discharge Disposition: Discharge to home or self care Social History Tobacco Use Types Packs/Day Years Used Date Smoking Tobacco: Never Alcohol Use Standard Drinks/Week Comments Yes 0 (1 standard drink = 0.6 oz pur e alcohol) Comments No Sex and Gender Information Value Date Recorded Sex Assigned at Not on file 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 Gender Identity Not on file Sexual Orientation [...] 09/16/2014 montelukast (SINGULAIR) 10 mg tablet 05/26/2021 oyitksuj-ewkc-hy n-folic acid (ONE DAILY FOR WOMEN) 18-0.4 [...] LIMITED Schedule Routine, Read Routine (OP Routine) 05/17/2022 11:40 AM CDT Abnormal mammogram documented in this encounter Results * US Breast Left Limited (05/17/2022 11:40 AM CDT) Anatomical Region Laterality Modality Breast Left Ultrasound 05/17/2022 1:12 PM CDT Impressions 05/17/2022 1:31 [...] signed by: LOLITA WASHINGTON MD Dyana Elliott SANITARY [place] MACHINE TENDER IMG MAMMO PROCEDURES Fin al Result documented in this encounter Visit Diagnoses Diagnosis Abnormal mammogram Abnormal mammogram, unspecified documented in this encounter Care Teams Singing Telegram Performer Relationship Specialty Start Date End Date Alejandro Lema MD [address] [facility] [address] [address] PCP - General Family Medicine 01/20/22 07/11/23 Heath Montano MD [address] [facility] [address] [place] [address] Referring Physician Obstetrics and Gynecology 01/20/22 Heath Montano MD [address] [facility] [address] [address] Referring Physician Obstetrics and Gynecology 05/17/22 documented as of this encounter
--- OUTSIDE RECORDS SUMMARY | 2024-08-12 23:44 | XMS_ITS | Clinical Summary ---
Author Organization [facility] Address [address] [place] [address] Care Team Providers Care Merchant Patroller Name Role Phone Heath Montano MD Unavailable [phone] Heath Montano MD Unavailable [phone] Heath Montano MD Primary Care Provider [phone] Allergies No known active allergies Medications fexofenadine (TRACI) 180 mg tablet take 1 tablet (180MG) by ORAL route every day 60 1 0 Active b complex vitamins (B COMPLEX-VITAMIN B12) tablet once daily 0 2 Active sttptpvu-gfyu-b in-folic acid (ONE DAILY FOR WOMEN) 18-0.4 [...] 7 Active montelukast (SINGULAIR) 10 mg tablet 1 Active Active Problems Problem Noted Date Diagnosed Date Abnormal mammogram 07/22/2021 Obesity with body mass index 30 or greater 02/18 Encounters Date Type Department Care Team Description 07/16/2024 Telephone [facility] Floor [address] [place] [address] Roseanne Foster NP from Last 3 Months Immunizations Name Administration Dates Next Due Influenza, Quadrivalent, Spl it, Intramuscular 05/13/2016 Influenza, Split 05/27/2010 Influenza, Trivalent, IM (MDV) 05/29/2014,2011,05/18/2011 ZOSTER LIVE 04/18/2013 Surgical History Surgery Date Site/Laterality Comments CHOLECYSTECTOMY 08/15/1999 - 08/14/2000 Cholecystectomy CARPAL TUNNEL RELEASE 08/15/2006 - 08/14/2007 Carpal tunnel release Medical History Medical History Date Comments Hx Other Medical 1995 cyst on wrist Hx Other Medical 2001 cyst on wrist Hx Other Medical 2004 sinus surgery Hx Other Medical 2010 sinus surgery Sinusitis sinusitis; Comme nts: gave augmentin 875 and nasal douche and will see in two weeks; Outcome: improved Hx Other Medical diziness; Outco me: improved Hx Other Medical elbow pain Family History Medical History Relation Name Comments Diabetes Father Diabetes mellit us; Hypertension Father Hypertension; Other Father Alive and well; Breast cancer Father's Sister Other Mother Alive and well; /hyperthyrodism; COPD Other 1 Family history of copd; Allergies Other 2 Family history of Allergies; Relation Name Status Comments Father Alive Father's Sister Mother Alive Other 1 Other 2 Social History Tobacco Use Types Packs/Day Years Used Date Smoking Tobacco: Never Tobacco Cessation:Counseling Given: Not Answered Alcohol Use Standard Drinks/Week Comments Yes 0 (1 standard drink = 0.6 oz pur e alcohol) Comments No Sex and Gender Information Value Date Recorded Sex Assigned at Not on file Legal Sex Female 12:25 AM SHOP TECHNICIAN Gender Identity Not on file Sexual Orientation Not on file Obstetrics History Para Term AB IAB SAB Ectopic Multiple Livin g Live Births 2 2 2 Date Outcome GA Total Labor Labor/2nd/3rd Weight Sex Type Anes PTL Leilani A1 A5 Name Clin Term Term Last Filed Vital Signs Vital Sign Reading Time Taken Comments Blood Pressure 110/64 03/02/2017 3:00 PM CDT Pulse 61 03/02/2017 3:00 PM CDT Temperature - - Respiratory Rate - - Oxygen Saturation 99% 02/18/2017 8:03 AM CDT Inhaled Oxygen Concentration - - Weight 104.3 kg (230 lb) 07/12/2023 7:34 AM SHOP TECHNICIAN Height 162.6 cm (5' 4 ) 07/12/2023 7:34 AM SHOP TECHNICIAN Body Mass Index 39.48 07/12/2023 7:34 AM SHOP TECHNICIAN Plan of Treatment Health Maintenance Due Date Last Done Comments Cervical Cancer Screening 1960 Depression Screening 1960 Hepatitis C Screening 1960 DTaP/Tdap/Td Vaccine (1 - Tdap) 1973 Hepatitis B Screening 1980 Regular Well Visit/Exam 18-64 1980 Zoster Vaccine (2 of 3) 02/07/2018 12/13/2017, 04/18 Colon Cancer Screening-Colonoscopy 08/06/2021 08/06/2011 Influenza Vaccine (#1) 2024 6, 05/29/2014, 05/15/2012, Additional history exists Breast Cancer Screening-Mammogram 07/12/2024 07/12/2023, 05/17/2022, 05/04/2021, Additional history exists Colon Cancer Screening-CT Colonography Discontinued 08/06/2011 Colon Cancer Screening-DNA Stool Discontinued 08/06/2011 Colon Cancer Screening-FIT Discontinued 08/06/2011 Colon Cancer Screening-Sigmoidoscopy Discontinued 08/06/2011 Pneumococcal vaccine <65 Aged Out No longer eligible based on patient's age to complete this topic Procedures Procedure Name Priority Date/Time Associated Diagnosis Comments DIAGNOSTIC MAMMOGRAM BILATERAL W DELIO Schedule Routine, Read Routine (OP Routine) 07/12/2023 8:41 AM SHOP TECHNICIAN Abnormal mammogram COLONOSCOPY 08/06/2011 12:00 AM SHOP TECHNICIAN from Last 3 Months or Most Recently Relevant to Health Maintenance Results * Diagnostic Mammogram Bilateral W Delio (07/12/2023 8:41 AM SHOP TECHNICIAN) Anatomical Region Laterality Modality Breast Bilateral Mammography 07/12/2023 9:25 AM SHOP TECHNICIAN Impressions 07/12/2023 10:15 AM SHOP TECHNICIAN No significant interval change in a probably [...] Lily Galaviz M.D. Narrative 07/12/2023 10:15 AM SHOP TECHNICIAN EXAMINATION: BILATERAL DIGITAL DIAGNOSTIC MAMMOGRAM INCLUDING CAD [...] it. Electronically signed by: Lily Galaviz M.D. us Dyana Elliott NP IMG MAMMO PROCEDURES Fin al Result * COLONOSCOPY (08/06/2011 12:00 AM SHOP TECHNICIAN) Anatomical Region Laterality Modality Other Narrative 08/06/2011 12:00 AM SHOP TECHNICIAN Ordered by an unspecified provider. Procedure Note Provider, MD Alban - 08/06/2011 12:00 AM CST PROCEDURE REPORT Patient: KIA HERNÁNDEZ Account: [id number] Room No: G603-01 : 1960 Patient Type: IP Attend.: Nataly Villa M.D. Admit Date: 08/05/2011 Dict.: Ha Dent M.D. Disch. Date: NAME OF PROCEDURE: Colonoscopy HISTORY A 50-year-old female with unexplained anemia. PHYSICAL EXAMINATION Well developed female, lungs are clear. Cardiovascular exam wasunremarkable. PROCEDURE Colonoscopy was performed with the Yu Rong video endoscope. On digital,no abnormalities were palpable. We inserted the endoscope and advanced it tothe cecum. We entered the terminal ileum. We carefully searched thecolonic mucosa. The prep as adequate. I could find no evidence of inflammationor neoplasia anywhere through the length of the bowel. The patient toleratedthe procedure without difficulty. POSTOPERATIVE DIAGNOSIS Normal colon and terminal ileum. Ha Dent M.D. Lo TD: 08/06/2011 10:30 Authenticated by Ha Dent MD On 08/10/2011 09:08:36 AM us Historical Provider ENDOSCOPY PROCEDURES Maria Eugenia l Result from Last 3 Months or Most Recently Relevant to Health Maintenance [facility] C[facility]NA CIGNA IBEW Member Subscriber Plan / Payer (Ef fective 2017-Present) Name:Kia Hernández Relation to Subscriber:Self Name:Kia Hernández Payer ID:[id number] ([facility]) Group ID:[id number] Type:CIGNA HMO/PPO Address: [address] [place] [address] [employer]IG[employer] Care Teams Merchant Patroller Relationship Specialty Start Date End Date Heath Montano MD [address] [facility] [address] [facility] [address] [place], [place] [id number] PCP - General Obstetrics and Gynecology 07/12/23 Heath Montano MD [address] [facility] [address] [address] Referring Physician Obstetrics and Gynecology 01/20/22 Heath Montano MD [address] [facility] [address] [address] Referring Physician Obstetrics and Gynecology 05/17/22
--- OUTSIDE RECORDS SUMMARY | 2024-08-12 23:44 | XMS_ITS | Encounter Summary ---
Author Organization [facility] Healthcare Address [address] [place] [address] Care Team Providers Care Structural Iron Erector Name Role Phone Alejandro Lema MD Primary Care Provider Reason for Referral * Diagnostic Imaging (Routine) - Closed Specialty Diagnoses / Procedures Referred By Garett bain Referred To Contact Diagnoses Abnormal mammogram Procedures US Breast Left Limited Dyana Elliott NP Phone: tel: fax: [address] [address] Referral ID Status Reason Start Date Expiration Date Visits Re quested Visits Authorized [id number] Closed 06/24/2021 07/24/2022 1 1 ACE MINER Reason for Visit * Diagnostic Imaging (Routine) - Closed Specialty Diagnoses / Procedures Referred By Garett bain Referred To Contact Diagnoses Abnormal mammogram Procedures US Breast Left Limited Dyana Elliott NP Phone: tel: fax: [address] [address] Referral ID Status Reason Start Date Expiration Date Visits Re quested Visits Authorized [id number] Closed 06/24/2021 07/24/2022 1 1 Encounter Details Date Type Department Care Team (Late st Contact Info) Description 07/22/2021 10:00 AM SURFACE MINER - 07/22/2021 10:21 AM SURFACE MINER Hospital Encounter [facility] [address] [place] [address] Dyana Elliott NP [address] [place] [address] Abnormal mammogram Discharge Disposition: Discharge to home or self care Social History Tobacco Use Types Packs/Day Years Used Date Smoking Tobacco: Never Alcohol Use Standard Drinks/Week Comments Yes 0 (1 standard drink = 0.6 oz pur e alcohol) Comments No Sex and Gender Information Value Date Recorded Sex Assigned at Not on file Legal Sex Female 12:25 AM SURFACE MINER Gender Identity Not on file Sexual Orientation [...] 09/16/2014 montelukast (SINGULAIR) 10 mg tablet 05/26/2021 wuqkyzoi-hkxg-tm n-folic acid (ONE DAILY FOR WOMEN) 18-0.4 [...] LIMITED Schedule Routine, Read Routine (OP Routine) 07/22/2021 11:35 AM SURFACE MINER Abnormal mammogram documented in this encounter Results * US Breast Left Limited (07/22/2021 11:35 AM SURFACE MINER) Anatomical Region Laterality Modality Breast Left Ultrasound 07/22/2021 11:5 3 AM SURFACE MINER Impressions 07/22/2021 12:17 PM SURFACE MINER LEFT breast 3 o'clock position oval probably benign mass, could represent an intramammary lymph node or a cluster of cysts. Recommend follow-up left breast ultrasound in 6 months. OVERALL FINAL ASSESSMENT: BI-RADS Category 3: Probably Benign. RECOMMENDATION: Recommend follow-up diagnostic breast imaging in 6 months with LEFT breast sonogram. ?? Dictated by: Darnell Sutherland M.D. The radiology attending physician has personally reviewed this study, and had reviewed and/or edited this written report and agrees with it. Electronically signed by: Lily Galaviz M.D. Narrative 07/22/2021 12:17 PM SURFACE MINER EXAMINATION: LEFT BREAST ULTRASOUND HISTORY: 60-year-old with question left outer breast mass from outside imaging was given a BI-RADS 3 examination. ??Repeat sonogram was recommended. COMPARISON: Outside hospital sonogram 06/02/2021, mammogram 06/02/2021, 05/04/2020, 04/29/2020 TECHNIQUE: Directed ultrasound evaluation of the LEFT breast was performed. ULTRASOUND FINDINGS: In the LEFT breast at 3 o'clock position, 4 cm from the nipple, there is an oval, microlobulated hypoechoic mass that measures 5 x 4 x 3 mm. ??This could represent a cluster of cysts or intramammary lymph node. ??This correlates with the mammographic abnormality and is probably benign. ?? Procedure Note Lily Galaviz MD - 07/22/2021 EXAMINATION: LEFT BREAST ULTRASOUND HISTORY: 60-year-old with question left outer breast mass from outside imaging was given a BI-RADS 3 examination. Repeat sonogram was recommended. COMPARISON: Outside hospital sonogram 06/02/2021, mammogram 06/02/2021, 05/04/2020, 04/29/2020 TECHNIQUE: Directed ultrasound evaluation of the LEFT breast was performed. ULTRASOUND FINDINGS: In the LEFT breast at [...] follow-up left breast ultrasound in 6 months. OVERALL FINAL ASSESSMENT: BI-RADS Category 3: Probably Benign. RECOMMENDATION: Recommend follow-up diagnostic breast imaging in 6 months with LEFT breast sonogram. Dictated by: Darnell Sutherland M.D. The radiology attending physician has personally reviewed this study, and had reviewed and/or edited this written report and agrees with it. Electronically signed by: Lily Galaviz M.D. Dyana Elliott NP IMG MAMMO PROCEDURES Fin al Result documented in this encounter Visit Diagnoses Diagnosis Abnormal mammogram Abnormal mammogram, unspecified documented in this encounter Care Teams Structural Iron Erector Relationship Specialty Start Date End Date Alejandro Lema MD [address] [facility] [address] [place] [address] PCP - General 10/19/17 01/19/22 documented as of this encounter
--- OUTSIDE RECORDS SUMMARY | 2024-08-12 23:44 | XMS_ITS | Encounter Summary ---
Author Organization [facility] Healthcare Address [address] [place] [address] Care Team Providers Care Yard Coupler Name Role Phone Heath Montano MD Unavailable [phone] Heath Montano MD Unavailable [phone] Heath Montano MD Primary Care Provider [phone] Reason for Referral * Diagnostic Imaging (Routine) - Closed Specialty Diagnoses / Procedures Referred By Garett bain Referred To Contact Diagnoses Abnormal mammogram Procedures US Breast Left Limited Dyana Elliott NP Phone: tel: fax: [address] [address] Referral ID Status Reason Start Date Expiration Date Visits Re quested Visits Authorized [id number] Closed 05/24/2022 06/23/2023 1 1 ASOUND TECH Reason for Visit * Diagnostic Imaging (Routine) - Closed Specialty Diagnoses / Procedures Referred By Garett bain Referred To Contact Diagnoses Abnormal mammogram Procedures US Breast Left Limited Dyana Elliott NP Phone: tel: fax: [address] [address] Referral ID Status Reason Start Date Expiration Date Visits Re quested Visits Authorized [id number] Closed 05/24/2022 06/23/2023 1 1 Encounter Details Date Type Department Care Team (Latest Contact Info) Description 07/12/2023 7:53 AM ULTRASOUND TECH - 07/12/2023 11:59 PM ULTRASOUND TECH Hospital Encounter [facility] [address] [place] [address] Abnormal mammogram Discharge Disposition: Discharge to home or self care Social History Tobacco Use Types Packs/Day Years Used Date Smoking Tobacco: Never Alcohol Use Standard Drinks/Week Comments Yes 0 (1 standard drink = 0.6 oz pur e alcohol) Comments No Sex and Gender Information Value Date Recorded Sex Assigned at Not on file Legal Sex Female 12:25 AM ULTRASOUND TECH Gender Identity Not on file Sexual Orientation [...] 09/16/2014 montelukast (SINGULAIR) 10 mg tablet 05/26/2021 dpnqslol-uykv-og n-folic acid (ONE DAILY FOR WOMEN) 18-0.4 [...] LIMITED Schedule Routine, Read Routine (OP Routine) 07/12/2023 9:11 AM ULTRASOUND TECH Abnormal mammogram documented in this encounter Results * US Breast Left Limited (07/12/2023 9:11 AM ULTRASOUND TECH) Anatomical Region Laterality Modality Breast Left Ultrasound 07/12/2023 9:25 AM ULTRASOUND TECH Impressions 07/12/2023 10:15 AM ULTRASOUND TECH No significant interval change in a probably [...] Lily Galaviz M.D. Narrative 07/12/2023 10:15 AM ULTRASOUND TECH EXAMINATION: BILATERAL DIGITAL DIAGNOSTIC MAMMOGRAM INCLUDING CAD [...] unspecified documented in this encounter Care Teams Yard Coupler Relationship Specialty Start Date End Date Heath Montano MD [address] [address] PCP - General Obstetrics and Gynecology 07/12/23 Heath Montano MD [address] [address] Referring Physician Obstetrics and Gynecology 01/20/22 Heath Mnotano MD [address] [facility] [address] [address] Referring Physician Obstetrics and Gynecology 05/17/22 documented as of this encounter
--- OUTSIDE RECORDS SUMMARY | 2024-08-12 23:44 | XMS_ITS | Encounter Summary ---
Author Organization [facility] Healthcare Address [address] [place] [address] Care Team Providers Care Senior Graduate Advisor Name Role Phone Alejandro Lema MD Primary Care Provider Encounter Details Date Type Department Care Team (Latest Contact Info) Description 11/15/2017 4:08 PM CDT - 11/15/2017 11:59 PM CDT Hospital Encounter [facility] [address] [place] [address] Bindu Delaney MD [address] [place] [id number] Encounter for screening mammogram for malignant [...] on file Legal Sex Female 12:25 AM SUPERINTENDENT OF SCHOOLS Gender Identity Not on file Sexual Orientation [...] by mouth once daily 30 0 09/16/2014 lefhggqu-bjmg-ih n-folic acid (ONE DAILY FOR WOMEN) 18-0.4 [...] DELIO Schedule Routine, Read Routine (OP Routine) 11/15/2017 4:37 PM CDT Encounter for screening mammogram for malignant neoplasm of breast documented in this encounter Results * Screening Mammogram Bilateral W Delio (11/15/2017 4:37 PM CDT) Anatomical Region Laterality Modality Breast Bilateral Mammography Impressions 11/16/2017 7:26 AM CDT 1. ??BENIGN FINDINGS. 2. ??ANNUAL FOLLOW-UP RECOMMENDED. BI-RADS 2 Electronically signed by: Jose G Baugh 11/16/2017 7:26 AM CDT SCREENING MAMMOGRAM BILATERAL W DELIO HISTORY: Encounter for screening mammogram for malignant neoplasm of breast. TECHNIQUE: 2 views of each breast were obtained with bilateral breast tomosynthesis. COMPARISON: 11/01/2016. FINDINGS: Scattered parenchymal densities bilaterally. ??2 small nodular opacities at the posterior aspect the upper outer right breast likely represent intramammary lymph nodes. ??These are unchanged from previously. No suspicious mass or calcification is seen to suggest mammographic evidence of malignancy. Digital technology was employed plus computer aided detection software (R2) was utilized in interpretation of these images. ??This facility utilizes a reminder system to notify patient's of yearly mammograms. us Bindu Delaney MD IMG MAMMO PROCEDURES Fin al Result documented in this encounter Visit Diagnoses Diagnosis Encounter for screening mammogram for malignant neoplasm of breast documented in this encounter Care Teams Senior Graduate Advisor Relationship Specialty Start Date End Date Alejandro Lema MD [address] [facility] [address] [place] [address] PCP - General 10/19/17 01/19/22 documented as of this encounter
--- OUTSIDE RECORDS SUMMARY | 2024-08-12 23:44 | XMS_ITS | Encounter Summary ---
Author Organization [facility] Address [address] [place] [address] Phone Care Team Providers Care Workers Compensation Adjuster Name Role Phone Alejandro Lema MD Primary Care Provider Alejandro Lema MD Primary Care Provider Heath Montano MD Unavailable [phone] Encounter Details Date Type Department Care Team (Late st Contact Info) Description 01/19/2022 Orders Only [facility] Surgery [address] [facility] Advanced Medicine 5th [place] [address] [place] [address] Dyana Elliott NP [address] [place], [place] [id number] Abnormal mammogram (Primary Dx) Social History Tobacco Use Types Packs/Day Years Used Date Smoking Tobacco: Never Alcohol Use Standard Drinks/Week Comments Yes 0 (1 standard drink = 0.6 oz pur e alcohol) Comments No Sex and Gender Information Value Date Recorded Sex Assigned at Not on file Legal Sex Female 12:25 AM DIRECTOR OF MARKETING OPERATIONS Gender Identity Not on file Sexual Orientation Not on file documented as of this encounter Plan of Treatment Not on file documented as of this encounter Visit Diagnoses Diagnosis Abnormal mammogram- Primary Abnormal mammogram, unspecified documented in this encounter Care Teams Workers Compensation Adjuster Relationship Specialty Start Date End Date Alejandro Lema MD [address] [place] [address] PCP - General 10/19/17 01/19/22 Alejandro Lema MD [address] [place] [address] PCP - General Family Medicine 01/20/22 07/11/23 Heath Montano MD [address] [facility] [address] [place] [address] Referring Physician Obstetrics and Gynecology 01/20/22 documented as of this encounter
--- OUTSIDE RECORDS SUMMARY | 2024-08-12 23:44 | XMS_ITS | Encounter Summary ---
Author Organization [facility] Address [address] [place] [address] Phone Care Team Providers Care People Manager Name Role Phone Heath Montano MD Unavailable [phone] Heath Montano MD Unavailable [phone] Heath Montano MD Primary Care Provider [phone] Reason for Visit * Reason Comments Follow-up Encounter Details Date Type Department Care Team (Late st Contact Info) Description 07/12/2023 7:45 AM BUCCARO Office Visit [facility] Surgery [address] [facility] 5th [place] [address] [place] [id number] Dyana Elliott, CHRIS [address] [place] [address] Abnormal mammogram (Primary Dx) Social History Tobacco Use Types Packs/Day Years Used Date Smoking Tobacco: Never Tobacco Cessation:Counseling Given: Not Answered Alcohol Use Standard Drinks/Week Comments Yes 0 (1 standard drink = 0.6 oz pur e alcohol) Comments No Sex and Gender Information Value Date Recorded Sex Assigned at Not on file Legal Sex Female 12:25 AM BUCCARO Gender Identity Not on file Sexual Orientation Not on file documented as of this encounter Last Filed Vital Signs Vital Sign Reading Time Taken Comments Blood Pressure - - Pulse - - Temperature - - Respiratory Rate - - Oxygen Saturation - - Inhaled Oxygen Concentration - - Weight 104.3 kg (230 lb) 07/12/2023 7:34 AM BUCCARO Height 162.6 cm (5' 4 ) 07/12/2023 7:34 AM BUCCARO Body Mass Index 39.48 07/12/2023 7:34 AM BUCCARO documented in this encounter Progress Notes * Dyana Elliott NP - 07/12/2023 7:45 AM CST NAME: Allen Hernández : 1960 DATE: 07/12/2023 REFERRING MD: Bindu Delaney MD CHIEF COMPLAINT: Follow-up left abnormal mammogram. HISTORY OF PRESENT ILLNESS: Allen Hernández is a 62 y.o. woman who I initially saw in July 2021 for evaluation of her left abnormal mammogram. The patient was undergoing her routine mammogram whenshe was alerted to an abnormality. She underwent additional imaging and ultimately was recommended to undergo short interval follow-up with repeat left breast diagnostic imaging 6 months later. She presented for a second opinion regarding this. Our radiologist reviewed her imaging and we performed some additional imaging at her visit. She was again assigned a BI-RADS category three, probably benign, and has continued short interval follow up for a likely cluster of microcysts in the left breastwhich have remained stable. She presents today for follow up and states that she has been well since last seen in our office. She denies any palpable masses in either breast. She denies any change tothe appearance of her breasts or the skin of her breasts. She denies nipple discharge bilaterally. She has no other systemic complaints and reports that she is feeling well today. Please note that her past medical history, surgical history, medications, allergies, review of systems, family history, and social history were all reviewed with her again today. Past Medical History: Diagnosis Date HX OTHER MEDICAL 1995 cyst on wrist HX OTHER MEDICAL 2001 cyst on wrist HX OTHER MEDICAL 2004 sinus surgery HX OTHER MEDICAL 2010 sinus surgery HX OTHER MEDICAL diziness; Outcome: improved HX OTHER MEDICAL elbow pain Sinusitis sinusitis; Comments: gave augmentin 875 and nasal douche and will see in two weeks; Outcome: improved Past Surgical History: Procedure Laterality Date CARPAL TUNNEL RELEASE 2007 Carpal tunnel release CHOLECYSTECTOMY 1999 Cholecystectomy HOME MEDICATIONS : b complex vitamins (B COMPLEX-VITAMIN B12) tablet diclofenac sodium (VOLTAREN) 1 % gel dicyclomine (BENTYL) 10 mg capsule fexofenadine (TRACI) 180 mg tablet hydroCHLOROthiazide (HYDRODIURIL) 25 mg tablet montelukast (SINGULAIR) 10 mg tablet vejqhxdd-kvai-hoh-folic acid (ONE DAILY FOR WOMEN) 18-0.[address] (ACIPHEX) 20 mg EC tablet traMADol (ULTRAM) 50 mg tablet amoxicillin (amoxicillin) 500 mg tablet/capsule ciprofloxacin (CIPRO) 250 mg tablet hydroCHLOROthiazide (HYDRODIURIL) 25 mg tablet predniSONE (DELTASONE) 20 mg tablet No Known Allergies Social History Socioeconomic History Marital status: Spouse name: Not on file Number of children: Not on file Years of education: Not on file Highest education level: Not on file Occupational History Not on file Tobacco Use Smoking status: Never Smoker Smokeless tobacco: Not on file Substance and Sexual Activity Alcohol use: Yes Drug use: Not on file Sexual activity: Not on file Other Topics Concern Not on file Social History Narrative Not on file Social Determinants of Health Financial Resource Strain: Not on file Food Insecurity: Not on file Transportation Needs: Not on file Physical Activity: Not on file Stress: Not on file Social Connections: Not on file Intimate Partner Violence: Not on file Housing Stability: Not on file Family History Problem Relation Age of Onset Other Mother Alive and well; /hyperthyrodism; Other Father Alive and well; Diabetes Father Diabetes mellitus; Hypertension Father Hypertension; COPD Other Family history of copd; Allergies Other Family history of Allergies; Breast cancer Father's Sister REVIEW OF SYSTEMS: Please see HPI. PHYSICAL EXAMINATION: GENERAL: She is a well-developed, well-nourished woman in no acute distress. HEENT: Within normal limits. NECK: Neck is supple without lymphadenopathy or thyromegaly. LUNGS: Non-labored. HEART: Regular. ABDOMEN: Soft without organomegaly. EXTREMITIES: Warm without edema. NEUROLOGICAL: She is alert and oriented x 3. BREAST EXAMINATION: Bilateral breast examination reveals normal ptotic breasts bilaterally. Both breasts are without any dominant masses, skin changes, nipple discharge, or axillary adenopathy. IMAGING: Today she underwent a bilateral diagnostic mammogram and left breast ultrasound which I personally reviewed. She is given BI-RADS category 3, probably benign: EXAMINATION: BILATERAL DIGITAL DIAGNOSTIC MAMMOGRAM INCLUDING CAD [...] it. Electronically signed by: Lily Galaviz M.D. IMPRESSION/RECOMMENDATION: Allen Hernández is a 62 y.o. woman who presents today for follow up for acategory 3 finding in the left breast. I reassured her that based upon her clinical examination andreview of today's diagnostic imaging, there are no abnormalities that require biopsy or further intervention at this time. The cystic mass in the left breast has remained stable. I would recommend that she return in 12 months for repeat clinical examination, bilateral diagnostic mammogram, and leftbreast ultrasound. Encouraged her resume self examinations on a monthly basis and alert me of any changes or concerns in the interim. I answered her questions today and she is in agreement with the plan. I encouraged her to contact me if any new questions or concerns arise. Dyana Elliott NP Portions of this note were dictated using M*Modal Fluency Direct speech recognition software. Please excuse any bellows charger assembler errors. ARO documented in this encounter Plan of Treatment Not on file documented as of this encounter Visit Diagnoses Diagnosis Abnormal mammogram- Primary Abnormal mammogram, unspecified documented in this encounter Discontinued Medications Medication Sig Discontinue Reason Start Date End Da te amoxicillin (amoxicillin) 500 mg tablet/capsule take 1 capsule by oral route every 12 hours 12/27/2016 07/12/2023 predniSONE (DELTASONE) 20 mg tablet take 1 tablet by ORAL route 2 times every day 10/24/2014 07/12/2023 ciprofloxacin (CIPRO) 250 mg tablet take 1 tablet by oral route every 12 hours 10/08/2016 07/12/2023 hydroCHLOROthiazide (HYDRODIURIL) 25 mg tablet take 1 tablet by mouth once daily 09/16/2014 07/12/2023 documented as of this encounter Care Teams People Manager Relationship Specialty Start Date End Date Heath Montano MD [address] [facility] [address] [address] PCP - General Obstetrics and Gynecology 07/12/23 Heath Montano MD [address] [facility] [address] [address] Referring Physician Obstetrics and Gynecology 01/20/22 Heath Montano MD [address] [facility] [address] [address] Referring Physician Obstetrics and Gynecology 05/17/22 documented as of this encounter
--- OUTSIDE RECORDS SUMMARY | 2024-08-12 23:44 | XMS_ITS | Encounter Summary ---
Author Organization [facility] Address [address] [place] [address] Phone Care Team Providers Care Touch Up Painter Hand Name Role Phone Alejandro Lema MD Primary Care Provider Encounter Details Date Type Department Care Team (Late st Contact Info) Description 07/22/2021 Orders Only [facility] Surgery [address] [facility] Advanced Medicine 5th [place] [address] [place] [address] Dyana Elliott MANUFACTURING TECHNOLOGY ANALYST [address] [place] [address] Social History Tobacco Use Types Packs/Day Years Used Date Smoking Tobacco: Never Alcohol Use Standard Drinks/Week Comments Yes 0 (1 standard drink = 0.6 oz pur e alcohol) Comments No Sex and Gender Information Value Date Recorded Sex Assigned at Not on file Legal Sex Female 12:25 AM STILL RUNNER Gender Identity Not on file Sexual Orientation Not on file documented as of this encounter Plan of Treatment Not on file documented as of this encounter Results * Breast Imaging Outside Consult (07/22/2021 10:22 AM STILL RUNNER) Anatomical Region Laterality Modality Breast N/A Mammography 07/22/2021 10:5 3 AM STILL RUNNER Impressions 07/22/2021 11:04 AM STILL RUNNER 1. ??No suspicious mammographic findings within the [...] images may or may not represent the [place] source data set and thus may contain changes which may lower the sensitivity of the second opinion interpretation. Dictated by: Teddy Cohn The radiology attending physician has personally reviewed this study, and had reviewed and/or edited this written report and agrees with it. Electronically signed by: Lily Galaviz M.D. Narrative 07/22/2021 11:04 AM STILL RUNNER EXAMINATION: REVIEW AND INTERPRETATION OF OUTSIDE IMAGING FACILITY PERFORMING OUTSIDE IMAGING: [facility] EXAM(S) REVIEWED: 1. ??BILATERAL SCREENING MAMMOGRAM [...] OF OUTSIDE IMAGING FACILITY PERFORMING OUTSIDE IMAGING: [facility] EXAM(S) REVIEWED: 1. BILATERAL SCREENING MAMMOGRAM [...] images may or may not represent the [place] source data set and thus may contain changes which may lower the sensitivity of the second opinion interpretation. Dictated by: Teddy Cohn The radiology attending physician has personally reviewed this study, and had reviewed and/or edited this written report and agrees with it. Electronically signed by: Lily Galaviz M.D. Dyana Elliott MANUFACTURING TECHNOLOGY ANALYST IMG MAMMO PROCEDURES Fin al Result documented in this encounter Visit Diagnoses Not on filedocumented in this encounter Care Teams Touch Up Painter Hand Relationship Specialty Start Date End Date Alejandro Lema MD [address] [facility] [address] [place] [address] PCP - General 10/19/17 01/19/22 documented as of this encounter
--- OUTSIDE RECORDS SUMMARY | 2024-08-12 23:44 | XMS_ITS | Encounter Summary ---
Author Organization [facility] Address [address] [place] [address] Phone Care Team Providers Care Master Fisher Name Role Phone Alejandro Lema MD Primary Care Provider Heath Montano MD Unavailable [phone] Heath Montano MD Unavailable [phone] Encounter Details Date Type Department Care Team (Late st Contact Info) Description 05/30/2023 Telephone [facility] Surgery [address] [facility] Advanced Medicine 5th [place] [address] [place] [address] Velma Velazco Social History Tobacco Use Types Packs/Day Years Used Date Smoking Tobacco: Never Alcohol Use Standard Drinks/Week Comments Yes 0 (1 standard drink = 0.6 oz pur e alcohol) Comments No Sex and Gender Information Value Date Recorded Sex Assigned at Not on file Legal Sex Female 12:25 AM MECHATRONICS TECHNICIAN Gender Identity Not on file Sexual Orientation Not on file documented as of this encounter Miscellaneous Notes * Telephone Encounter - Velma Velazco - 05/30/2023 8:25 AM CDT Patient called the hub to reschedule her appt due she's not feeling well documented in this encounter Plan of Treatment Not on file documented as of this encounter Visit Diagnoses Not on filedocumented in this encounter Care Teams Master Fisher Relationship Specialty Start Date End Date Alejandro Lema MD [address] [place] [address] PCP - General Family Medicine 01/20/22 07/11/23 Heath Montano MD [address] [place] [address] Referring Physician Obstetrics and Gynecology 01/20/22 Heath Montano MD [address] [place] [address] Referring Physician Obstetrics and Gynecology 05/17/22 documented as of this encounter
--- OUTSIDE RECORDS SUMMARY | 2024-08-12 23:44 | XMS_ITS | Encounter Summary ---
Author Organization [facility] Address [address] [place] [address] Phone Care Team Providers Care Coal Briquette Machine Operator Name Role Phone Alejandro Lema MD Primary Care Provider Heath Montano MD Unavailable [phone] Heath Montano MD Unavailable [phone] Reason for Referral * Diagnostic Imaging (Routine) - Closed Specialty Diagnoses / Procedures Referred By Garett bain Referred To Contact Diagnoses Abnormal mammogram Procedures US Breast Left Limited Dyana Elliott NP Phone: tel: fax: [address] [address] Referral ID Status Reason Start Date Expiration Date Visits Re quested Visits Authorized [id number] Closed 05/24/2022 06/23/2023 1 1 * Diagnostic Imaging (Routine) - Closed Specialty Diagnoses / Procedures Referred By Garett bain Referred To Contact Diagnoses Abnormal mammogram Procedures Diagnostic Mammogram Bilateral W Delio Dyana Elliott NP Phone: tel: fax: [address] [address] Referral ID Status Reason Start Date Expiration Date Visits Re quested Visits Authorized [id number] Closed 05/24/2022 06/23/2023 1 1 Encounter Details Date Type Department Care Team (Late st Contact Info) Description 05/24/2022 Orders Only [facility] Surgery [address] [facility] 5th [place] [address] [place] [address] Dyana Elliott NP [address] [place] [address] Abnormal mammogram (Primary Dx) Social History Tobacco Use Types Packs/Day Years Used Date Smoking Tobacco: Never Alcohol Use Standard Drinks/Week Comments Yes 0 (1 standard drink = 0.6 oz pur e alcohol) Comments No Sex and Gender Information Value Date Recorded Sex Assigned at Not on file Legal Sex Female 12:25 AM CONTOUR BAND SAW OPERATOR VERTICAL Gender Identity Not on file Sexual Orientation Not on file documented as of this encounter Plan of Treatment Not on file documented as of this encounter Results * US Breast Left Limited (07/12/2023 9:11 AM CONTOUR BAND SAW OPERATOR VERTICAL) Anatomical Region Laterality Modality Breast Left Ultrasound 07/12/2023 9:25 AM CONTOUR BAND SAW OPERATOR VERTICAL Impressions 07/12/2023 10:15 AM CONTOUR BAND SAW OPERATOR VERTICAL No significant interval change in a probably [...] agrees with it. Electronically signed by: Lily aGlaviz M.D. Narrative 07/12/2023 10:15 AM CONTOUR BAND SAW OPERATOR VERTICAL EXAMINATION: BILATERAL DIGITAL DIAGNOSTIC MAMMOGRAM INCLUDING CAD [...] by: Lily Galaviz M.D. us Dyana Elliott CORRUGATOR IMG MAMMO PROCEDURES Fin al Result * Diagnostic Mammogram Bilateral W Delio (07/12/2023 8:41 AM CONTOUR BAND SAW OPERATOR VERTICAL) Anatomical Region Laterality Modality Breast Bilateral Mammography 07/12/2023 9:25 AM CONTOUR BAND SAW OPERATOR VERTICAL Impressions 07/12/2023 10:15 AM CONTOUR BAND SAW OPERATOR VERTICAL No significant interval change in a probably [...] Lily Galaviz M.D. Narrative 07/12/2023 10:15 AM CONTOUR BAND SAW OPERATOR VERTICAL EXAMINATION: BILATERAL DIGITAL DIAGNOSTIC MAMMOGRAM INCLUDING CAD [...] mammogram, unspecified Abnormal mammogram Abnormal mammogram, unspecified Abnormal mammogram Abnormal mammogram, unspecified documented in this encounter Care Teams Coal Briquette Machine Operator Relationship Specialty Start Date End Date Alejandro Lema MD [address] [place] [address] PCP - General Family Medicine 01/20/22 07/11/23 Heath Montano MD [address] [place] [address] Referring Physician Obstetrics and Gynecology 01/20/22 Heath Montano MD [address] [place] [address] Referring Physician Obstetrics and Gynecology 05/17/22 documented as of this encounter
--- OUTSIDE RECORDS SUMMARY | 2024-08-12 23:44 | XMS_ITS | Encounter Summary ---
Author Organization [facility] Healthcare Address [address] [place] [address] Care Team Providers Care Milieu Counselor Name Role Phone Alejandro Lema MD Primary Care Provider Reason for Referral * Diagnostic Imaging (Routine) - Closed Specialty Diagnoses / Procedures Referred By Garett bain Referred To Contact Diagnoses Encounter for screening mammogram for malignant neoplasm of breast Procedures Screening Mammogram Bilateral W Delio Screening Mammogram, Self Bindu Delaney MD Phone: tel: fax: Referral ID Status Reason Start Date Expiration Date Visits Re quested Visits Authorized [id number] Closed 04/21/2021 05/21/2022 1 1 Reason for Visit * Diagnostic Imaging (Routine) - Closed Specialty Diagnoses / Procedures Referred By Garett bain Referred To Contact Diagnoses Encounter for screening mammogram for malignant neoplasm of breast Procedures Screening Mammogram Bilateral W Delio Screening Mammogram, Self Bindu Delaney MD Phone: tel: fax: Referral ID Status Reason Start Date Expiration Date Visits Re quested Visits Authorized [id number] Closed 04/21/2021 05/21/2022 1 1 Encounter Details Date Type Department Care Team (Latest Contact Info) Description 05/04/2021 10:43 AM CDT - 05/04/2021 11:59 PM CDT Hospital Encounter [facility] [address] [place] [address] Screening Mammogram, Self Fadi Prince MD [address] [facility] [place] [place] [address] Bindu Delaney MD [address] [place] [address] Encounter for screening mammogram for malignant neoplasm [...] on file Legal Sex Female 12:25 AM CUSTOMER SUPPORT ADVISOR Gender Identity Not on file Sexual Orientation Not on file documented as of this encounter Last Filed Vital Signs Vital Sign Reading Time Taken Comments Blood Pressure - - Pulse - - Temperature - - Respiratory Rate - - Oxygen Saturation - - Inhaled Oxygen Concentration - - Weight 102.1 kg (225 lb) 05/04/2021 10:51 AM CDT Height 162.6 cm (5' 4 ) 05/04/2021 10:51 AM CDT Body Mass Index 38.62 05/04/2021 10:51 AM CDT documented in this encounter Medications at [...] by mouth once daily 30 0 09/16/2014 rauzcnnq-epmm-ew n-folic acid (ONE DAILY FOR WOMEN) 18-0.4 [...] DELIO Schedule Routine, Read Routine (OP Routine) 05/04/2021 10:57 AM CDT Encounter for screening mammogram for malignant neoplasm of breast documented in this encounter Results * (ABNORMAL) Screening Mammogram Bilateral W Delio (05/04/2021 10:57 AM CDT) Anatomical Region Laterality Modality Breast Bilateral Mammography 05/04/2021 11:3 4 AM CDT Impressions 05/04/2021 11:34 AM CDT 1. ??Indeterminate focal asymmetry in the left breast. ??Further evaluation with diagnostic left mammography and possible diagnostic left breast ultrasound is recommended. 2. ??No mammographic evidence of malignancy in the right breast. Routine screening mammography of the right breast is recommended in 1 year. BI-RADS: 0 - Additional imaging evaluation is necessary. Electronically signed by: Kurt Marques M.D. Narrative 05/04/2021 11:34 AM CDT EXAMINATION: SCREENING MAMMOGRAM BILATERAL W DELIO ORDERING HEALTHCARE PROVIDER: SELF SCREENING MAMMOGRAM HISTORY: Routine screening mammography. COMPARISON: ??04/29/2020, 11/20/2018, 11/15/2017, 11/09/2016. TECHNIQUE: CC and MLO views of the bilateral breasts were obtained with digital technique using breast tomosynthesis with C view. Computer aided detection was utilized. FINDINGS: DENSITY: There are scattered fibroglandular elements in the bilateral breasts. BREASTS: There is a focal asymmetry in the left breast at the approximate 3 o'clock position, anterior depth. ??There are no other suspicious findings in either breast. us Self Screening Mammogram IMG MAMMO PROCEDURES Fi nal Result documented in this encounter Visit Diagnoses Diagnosis Encounter for screening mammogram for malignant neoplasm of breast documented in this encounter Care Teams Milieu Counselor Relationship Specialty Start Date End Date Alejandro Lema MD [address] [facility] [address] [place] [address] PCP - General 10/19/17 01/19/22 documented as of this encounter
--- OUTSIDE RECORDS SUMMARY | 2024-08-12 23:44 | XMS_ITS | Encounter Summary ---
Author Organization [facility] Address [address] [place] [address] Phone Care Team Providers Care Analytical Engineer Name Role Phone Alejandro Lema MD Primary Care Provider Reason for Referral * Diagnostic Imaging (Routine) - Closed Specialty Diagnoses / Procedures Referred By Garett bain Referred To Contact Diagnoses Abnormal mammogram Procedures US Breast Left Limited Dyana Elliott NP Phone: tel: fax: [address] [phone] Referral ID Status Reason Start Date Expiration Date Visits Re quested Visits Authorized [id number] Closed 06/24/2021 07/24/2022 1 1 ING MACHINE OPERATOR Encounter Details Date Type Department Care Team (Late st Contact Info) Description 06/24/2021 Orders Only [facility] Surgery [address] [facility] 5th [place] [address] [place] [address] Dyana Elliott NP [address] [place] [address] Abnormal mammogram (Primary Dx) Social History Tobacco Use Types Packs/Day Years Used Date Smoking Tobacco: Never Alcohol Use Standard Drinks/Week Comments Yes 0 (1 standard drink = 0.6 oz pur e alcohol) Comments No Sex and Gender Information Value Date Recorded Sex Assigned at Not on file Legal Sex Female 12:25 AM FOAMING MACHINE OPERATOR Gender Identity Not on file Sexual Orientation Not on file documented as of this encounter Plan of Treatment Not on file documented as of this encounter Results * US Breast Left Limited (07/22/2021 11:35 AM FOAMING MACHINE OPERATOR) Anatomical Region Laterality Modality Breast Left Ultrasound 07/22/2021 11:5 3 AM FOAMING MACHINE OPERATOR Impressions 07/22/2021 12:17 PM FOAMING MACHINE OPERATOR LEFT breast 3 o'clock position oval probably [...] Lily Galaviz M.D. Narrative 07/22/2021 12:17 PM FOAMING MACHINE OPERATOR EXAMINATION: LEFT BREAST ULTRASOUND HISTORY: 60-year-old with [...] signed by: Lily Galaviz M.D. Dyana Elliott SENIOR SOFTWARE ARCHITECT IMG MAMMO PROCEDURES Fin al Result documented in this encounter Visit Diagnoses Diagnosis Abnormal mammogram- Primary Abnormal mammogram, unspecified Abnormal mammogram Abnormal mammogram, unspecified documented in this encounter Care Teams Analytical Engineer Relationship Specialty Start Date End Date Alejandro Lema MD [address] [address] PCP - General 10/19/17 01/19/22 documented as of this encounter
--- OUTSIDE RECORDS SUMMARY | 2024-08-12 23:44 | XMS_ITS | Encounter Summary ---
Author Organization [facility] Healthcare Address [address] [place] [address] Care Team Providers Care Bandage Maker Name Role Phone Alejandro Lema MD Primary Care Provider Heath Montano MD Unavailable [phone] Reason for Visit * Diagnostic Imaging (Routine) - Closed Specialty Diagnoses / Procedures Referred By Garett bain Referred To Contact Diagnoses Abnormal mammogram Procedures US Breast Left Limited US Breast Left Complete Dyana Elliott NP Phone: tel: fax: [address] [address] Referral ID Status Reason Start Date Expiration Date Visits Re quested Visits Authorized [id number] Closed 01/19/2022 02/18/2023 1 1 Encounter Details Date Type Department Care Team (Latest Contact Info) Description 01/20/2022 9:21 AM CDT - 01/20/2022 11:59 PM CDT Hospital Encounter [facility] [address] [place] [address] Abnormal mammogram Discharge Disposition: Discharge to home or self care Social History Tobacco Use Types Packs/Day Years Used Date Smoking Tobacco: Never Alcohol Use Standard Drinks/Week Comments Yes 0 (1 standard drink = 0.6 oz pur e alcohol) Comments No Sex and Gender Information Value Date Recorded Sex Assigned at Not on file 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 OVERALL FINAL ASSESSMENT: BI-RADS Category 3: Probably Benign. RECOMMENDATION: Recommend follow-up diagnostic breast imaging in ??3 months when the patient is due for BILATERAL diagnostic mammography and targeted LEFT breast ultrasound. Electronically signed by: Latisha Kelly M.D. Narrative 01/20/2022 10:02 AM CDT EXAMINATION: LEFT BREAST ULTRASOUND HISTORY: The patient is a 61-year-old female here for six-month follow-up evaluation of a probably benign cystic appearing mass in the LEFT breast identified on outside mammogram dated 06/02/2021. She has no current breast complaints. COMPARISON: Left breast ultrasound on 06/02/2021 and 07/22/2021. Multiple prior mammograms, most recently an outside mammogram on 06/02/2021 and dating back to 11/15/2017. TECHNIQUE: Directed ultrasound evaluation of the LEFT breast was performed. ULTRASOUND FINDINGS: Targeted high-resolution sonography was performed in the LEFT breast, centered in the 3 o'clock position. ??In 3 o'clock position, 4 cm from the nipple, a 4 x 4 x 3 mm hypoechoic circumscribed mass that may represent a cluster of microcysts is reidentified. ??This remains probably benign. ??No suspicious solid mass or distortion is seen. Procedure Note Latisha Kelly MD - 01/20/2022 EXAMINATION: LEFT BREAST ULTRASOUND HISTORY: The patient is a 61-year-old female here for six-month follow-up evaluation of a probably benign cystic appearing mass in the LEFT breast identified on outside mammogram dated 06/02/2021. She has no current breast complaints. COMPARISON: Left breast ultrasound on 06/02/2021 and 07/22/2021. Multiple prior mammograms, most recently an outside mammogram on 06/02/2021 and dating back to 11/15/2017. TECHNIQUE: Directed ultrasound evaluation of the LEFT breast was performed. ULTRASOUND FINDINGS: Targeted high-resolution sonography was performed in the LEFT breast, centered in the 3 o'clock position. In 3 o'clock position, 4 cm from the nipple, a 4 x 4 x 3 mm hypoechoic circumscribed mass that may represent a cluster of microcysts is reidentified. This remains probably benign. No suspicious solid mass or distortion is seen. IMPRESSION: Stable probably benign cystic mass in the LEFT breast, likely a cluster of microcysts. OVERALL FINAL ASSESSMENT: BI-RADS Category 3: Probably Benign. RECOMMENDATION: Recommend follow-up diagnostic breast imaging in 3 months when the patient is due for BILATERAL diagnostic mammography and targeted LEFT breast ultrasound. Electronically signed by: Latisha Kelly M.D. us Dyana Elliott DAIRY FEED SALES CONSULTANT IMG MAMMO PROCEDURES Fin al Result documented in this encounter Visit Diagnoses Diagnosis Abnormal mammogram Abnormal mammogram, unspecified documented in this encounter Care Teams Bandage Maker Relationship Specialty Start Date End Date Alejandro Lema MD [address] [place] [address] PCP - General Family Medicine 01/20/22 07/11/23 Heath Montano MD [address] [place] [address] Referring Physician Obstetrics and Gynecology 01/20/22 documented as of this encounter
--- OUTSIDE RECORDS SUMMARY | 2024-08-12 23:45 | XMS_ITS | Encounter Summary ---
Author Organization [facility] Healthcare Address [address] [place] [address] Care Team Providers Care Cutting Supervisor Name Role Phone Unavailable Primary Care Provider Unavailabl e Encounter Details Date Type Department Care Team (Late st Contact Info) Description 11/24/2006 12:01 AM CDT - 11/24/2006 11:59 PM CDT Hospital Encounter [facility] Jeremiah Smith MD [address] [place] [address] [facility] [address] [place] [address] Social History Tobacco Use Types Packs/Day Years Used Date Smoking Tobacco: Never Assessed Comments Unknown Sex and Gender Information Value Date Recorded Sex Assigned at Not on file 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
--- OUTSIDE RECORDS SUMMARY | 2024-08-12 23:45 | XMS_ITS | Encounter Summary ---
Author Organization [facility] Healthcare Address [address] [place] [address] Care Team Providers Care Harpooner Name Role Phone Gallito Edwards Primary Care Provider Unavailabl e Encounter Details Date Type Department Care Team (Late st Contact Info) Description 06/24/2010 12:01 AM CIVIL PREPAREDNESS OFFICER - 06/24/2010 11:59 PM CIVIL PREPAREDNESS OFFICER Hospital Encounter [facility] Bindu Delaney MD [address] [address] Other screening mammogram Social History Tobacco Use Types Packs/Day Years Used Date Smoking Tobacco: Never Assessed Comments Unknown Sex and Gender Information Value Date Recorded Sex Assigned at Not on file 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 Gender Identity Not on file Sexual Orientation Not on file documented as of this encounter Medications at Time of Discharge fexofenadine (TRACI) 180 mg tablet take 1 tablet (180MG) by ORAL route every day 60 1 06/16/[address] (ACIPHEX) 20 mg EC tablet TAKE ONE TABLET BY MOUTH TWO TIMES A DAY 60 1 06/16/2010 02/17/2017 documented as of this encounter Plan of Treatment Not on file documented as of this encounter Visit Diagnoses Diagnosis Other screening mammogram documented in this encounter Care Teams Harpooner Relationship Specialty Start Date End Date Gallito Edwards PCP - General 06/16/10 02/16/16 documented as of this encounter
--- OUTSIDE RECORDS SUMMARY | 2024-08-12 23:45 | XMS_ITS | Encounter Summary ---
Author Organization [facility] Healthcare Address [address] [place] [address] Care Team Providers Care Pace Analyst Name Role Phone Gallito Edwards Primary Care Provider Unavailabl e Encounter Details Date Type Department Care Team (Latest Contact Info) Description 08/05/2011 8:30 AM HEAD OF QUALITY - 08/06/2011 4:30 PM HEAD OF QUALITY Hospital Encounter [facility] Nataly Peñaloza MD [address] [place] [address] [address] Acute posthemorrhagic anemia; Chest pain; Shortness of breath; Benign neoplasm of stomach; Esophageal reflux Social History Tobacco Use Types Packs/Day Years Used Date Smoking Tobacco: Never Assessed Comments Unknown Sex and Gender Information Value Date Recorded Sex Assigned at Not on file Legal Sex Female 12:25 AM HEAD OF QUALITY Gender Identity Not on file Sexual Orientation Not on file documented as of this encounter Medications at Time of Discharge fexofenadine (TRACI) 180 mg tablet take 1 tablet (180MG) by ORAL route every day 60 1 06/16/[address] (ACIPHEX) 20 mg EC tablet TAKE ONE TABLET BY MOUTH TWO TIMES A DAY 60 1 06/16/2010 02/17/2017 documented as of this encounter Procedure Notes * ProviderAlban MD - 08/06/2011 12:00 AM CSTAssociated Order(s): COLONOSCOPY PROCEDURE REPORT Patient: JULIETA HERNÁNDEZDede Account: [id number] Room No: G603-01 : 1960 Patient Type: IP Attend.: Nataly Villa M.D. Admit Date: 08/05/2011 Dict.: Ha Dent M.D. Disch. Date: NAME OF PROCEDURE: Colonoscopy HISTORY A 50-year-old female with unexplained anemia. PHYSICAL EXAMINATION Well developed female, lungs are clear. Cardiovascular exam was unremarkable. PROCEDURE Colonoscopy was performed with the Brndstr video endoscope. On digital, no abnormalities were palpable. We inserted the endoscope and advanced it to the cecum. We entered the terminal ileum. We carefully searched the colonic mucosa. The prep as adequate. I could find no evidence of inflammation or neoplasia anywhere through the length of the bowel. The patient tolerated the procedure without difficulty. POSTOPERATIVE DIAGNOSIS Normal colon and terminal ileum. Ashutosh Sears TD: 08/06/2011 10:30 Authenticated by Ha Dent MD On 08/10/2011 09:08:36 AM documented in this encounter Plan of Treatment Not on file documented as of this encounter Procedures Procedure Name Priority Date/Time Associated Diagnosis Comments COLONOSCOPY 08/06/2011 12:00 AM HEAD OF QUALITY documented in this encounter Results * COLONOSCOPY (08/06/2011 12:00 AM HEAD OF QUALITY) Anatomical Region Laterality Modality Other Narrative 08/06/2011 12:00 AM HEAD OF QUALITY Ordered by an unspecified provider. Procedure Note Provider, MD Alban - 08/06/2011 12:00 AM CST PROCEDURE REPORT Patient: JULIETA HERNÁNDEZ Account: [id number] Room No: G603-01 : 1960 Patient Type: IP Attend.: Nataly Villa M.D. Admit Date: 08/05/2011 Dict.: Ha Dent M.D. Disch. Date: NAME OF PROCEDURE: Colonoscopy HISTORY A 50-year-old female with unexplained anemia. PHYSICAL EXAMINATION Well developed female, lungs are clear. Cardiovascular exam wasunremarkable. PROCEDURE Colonoscopy was performed with the Fujinon video endoscope. On digital,no abnormalities were palpable. [...] Provider ENDOSCOPY PROCEDURES Maria Eugenia l Result documented in this encounter Visit Diagnoses Diagnosis Acute posthemorrhagic anemia Chest pain Unspecified chest pain Shortness of breath Benign neoplasm of stomach Esophageal reflux documented in this encounter Care Teams Pace Analyst Relationship Specialty Start Date End Date Gallito Edwards PCP - General 06/16/10 02/16/16 documented as of this encounter
--- OUTSIDE RECORDS SUMMARY | 2024-08-12 23:45 | XMS_ITS | Encounter Summary ---
Author Organization [facility] Healthcare Address [address] [place] [address] Care Team Providers Care Licensed Therapist Name Role Phone Gallito Yusuf Primary Care Provider Unavailabl e Encounter Details Date Type Department Care Team (Late st Contact Info) Description 11/03/2015 4:18 PM CDT - 11/03/2015 11:59 PM CDT Hospital Encounter [facility] Bindu Fernandes MD [address] [facility] [address] [place] [address] Encounter for screening mammogram for malignant neoplasm of breast Social History Tobacco Use Types Packs/Day Years Used Date Smoking Tobacco: Never Alcohol Use Standard Drinks/Week Comments Yes 0 (1 standard drink = 0.6 oz pur e alcohol) Comments Unknown Sex and Gender Information Value Date Recorded Sex Assigned at Not on file 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 Gender Identity Not on file Sexual Orientation Not on file documented as of this encounter Medications at Time of Discharge b complex vitamins (B COMPLEX-VITAMIN B12) tablet once daily 0 12/06/2011 dicyclomine (BENTYL) 10 mg capsule TAKE ONE CAPSULE BY MOUTH FOUR TIMES A DAY NEEDED 60 1 09/08/2012 fexofenadine (TRACI) 180 mg tablet take 1 tablet (180MG) by ORAL route every day 60 1 06/16/2010 hydroCHLOROthiazi de (HYDRODIURIL) 25 mg tablet take 1 tablet by mouth once daily 30 0 09/16/2014 bmqafzbu-thgq-mbv -folic acid (ONE DAILY FOR WOMEN) 18-0.4 mg tablet once dailyt 0 12/06/2011 traMADol (ULTRAM) 50 mg tablet take 1 tablet by ORAL route every 4 - 6 hours as needed 0 0 10/24/2014 cephalexin (KEFLEX) 250 mg capsule take 1 capsule (250MG) by ORAL route 4 times every day 40 0 06/02/2012 01/19/2017 hydroCHLOROthiazi de (HYDRODIURIL) 25 mg tablet take 1 tablet by mouth once daily 30 0 09/16/2014 07/12/2023 predniSONE (DELTASONE) 20 mg tablet take 1 tablet by ORAL route 2 times every day 0 0 10/24/2014 07/12/[address] (ACIPHEX) 20 mg EC tablet TAKE ONE TABLET BY MOUTH TWO TIMES A DAY 60 1 06/16/2010 02/17/2017 documented as of this encounter Plan of Treatment Not on file documented as of this encounter Procedures Procedure Name Priority Date/Time Associated Diagnosis Comments DIAGNOSTIC MAMMOGRAM BILATERAL W JULEE Routine 11/03/2015 4:42 PM CDT documented in this encounter Results * DIAGNOSTIC MAMMOGRAM BILATERAL W JULEE (11/03/2015 4:42 PM CDT) Anatomical Region Laterality Modality Breast Bilateral Mammography 11/03/2015 4:42 PM CDT Narrative 11/04/2015 11:31 AM CDT CC: DR Macario YUSUF SCREENING MAMM W JULEE BI ??Acc#: ??[id number] DATE OF EXAM: ??Nov 03 2015 CLINICAL HISTORY: Breast cancer screening. Performed by: poppy RESULT: A screening mammogram with tomosynthesis was performed and compared with prior studies from 10/28/14 and 09/17/13. ?? The breast tissue is composed of scattered fibroglandular densities. ??Nodular densities in both breasts remain stable. No new dominant mass, architectural distortion, or suspicious calcifications are seen. Digital technology was employed plus computer-aided detection software (R2) was utilized in interpretation of these images. ??This facility utilizes a reminder system to notify patients of yearly mammograms. IMPRESSION: 1. ??NO SUSPICIOUS FINDINGS TO INDICATE MALIGNANCY. BI-RADS CATEGORY 2 - BENIGN FINDINGS Interpreting Physician: ??NOEMI ANGEL M.D. ??Read on: ??Nov 04 2015 6:53A Transcribed by: ??jael ??On: Nov 04 2015 11:06A Approved Electronically by: ??NOEMI ANGEL M.D. ??on: ??Nov 04 2015 11:31A Attending: ??BINDU FERNANDES Requesting: ??HERMINIA TONG Requesting Fax: ??[phone] Attending Fax: ??-- Attending ID: ??[id number] Requesting ID: ??[id number] Report To 1 ID: ??[id number] Report To 1 Name: ??BINDU FERNANDES Report To 1 FAX: ??-- NextGen Order #: Procedure Note Provider, MD Alban - 12/08/2016 CC: DR Macario YUSUF SCREENING MAMM W JULEE BI Acc#: [id number] DATE OF EXAM: Nov 03 2015 CLINICAL HISTORY: Breast cancer screening. Performed by: poppy RESULT: A screening mammogram with tomosynthesis was performed and compared withprior studies from 10/28/14 and 09/17/13. The breast tissue is composed ofscattered fibroglandular densities. Nodular densities in both breastsremain stable. No new dominant mass, architectural distortion, orsuspicious calcifications are seen. Digital technology was employed pluscomputer-aided detection software (R2) was utilized in interpretation ofthese images. This facility utilizes a reminder system to notify patientsof yearly mammograms. IMPRESSION: 1. NO SUSPICIOUS FINDINGS TO INDICATE MALIGNANCY. BI-RADS CATEGORY 2 -BENIGN FINDINGS Interpreting Physician: NOEMI ANGEL M.D. Read on: Nov 04 20156:53A Transcribed by: justen On: Nov 04 2015 11:06A Approved Electronically by: NOEMI ANGEL M.D. on: Nov 04 201511:31A Attending: BINDU FERNANDES Requesting: HERMINIA TONG Requesting Attending Fax: -- Attending ID: [id number] Requesting ID: [id number] Report To 1 ID: [id number] Report To 1 Name: BINDU FERNANDES Report To 1 FAX: -- NextGen Order #: us Historical Provider MD [facility] MAMMO PROCEDURES Maria Eugenia l Result documented in this encounter Visit Diagnoses Diagnosis Encounter for screening mammogram for malignant neoplasm of breast documented in this encounter Care Teams Licensed Therapist Relationship Specialty Start Date End Date Gallito Yusuf PCP - General 06/16/10 02/16/16 documented as of this encounter
--- OUTSIDE RECORDS SUMMARY | 2024-08-12 23:45 | XMS_ITS | Encounter Summary ---
Author Organization [facility] Healthcare Address [address] [place] [address] Care Team Providers Care Professional Services Manager Name Role Phone Gallito Edwards Primary Care Provider Unavailabl e Encounter Details Date Type Department Care Team (Late st Contact Info) Description 10/21/2013 4:13 PM CDT - 10/21/2013 7:05 PM CDT Hospital Encounter [facility] Jesús Kong MD [address] [facility] [address] [place] [address] Chronic sinusitis; Essential hypertension Social History Tobacco Use Types Packs/Day Years Used Date Smoking Tobacco: Never Assessed Comments Unknown Sex and Gender Information Value Date Recorded Sex Assigned at Not on file Legal Sex Female 12:25 AM ARMHOLE BASTER HAND Gender Identity Not on file Sexual Orientation [...] ORAL route every day 60 1 06/16/2010 semohikt-sfhq-usx -folic acid (ONE DAILY FOR WOMEN) 18-0.4 mg tablet once dailyt 0 12/06/2011 cephalexin (KEFLEX) 250 mg capsule take 1 capsule (250MG) by ORAL route 4 times every day 40 0 06/02/2012 01/19/[address] (ACIPHEX) 20 mg EC tablet TAKE ONE TABLET BY MOUTH TWO TIMES A DAY 60 1 06/16/2010 02/17/2017 documented as of this encounter Plan of Treatment Not on file documented as of this encounter Procedures Procedure Name Priority Date/Time Associated Diagnosis Comments CT HEAD WO CONTRAST Routine 10/21/2013 5 :26 PM CDT URINALYSIS Routine 10/21/2013 5:15 PM CDT SERUM COMPREHENSIVE METABOLIC PANEL Routine 10/21/2013 5:07 PM CDT SERUM CHORIONIC GONADOTROPIN (HCG) IDENTIFICATION Routine 10/21/2013 5:07 PM CDT BLOOD WBC CELL MORPHOLOGIC EXAM, AUTO Routine 10/21/2013 5:07 PM CDT BLOOD ERYTHROCYTE SEDIMENTATION RATE (ESR) Routine 10/21/2013 5:07 PM CDT BLOOD CELL COUNT (CBC) Routine 4 5:07 PM CDT ELECTROCARDIOGRAPHY (ECG) 10/21/2013 DISCHARGE LABORATORY CUMULATIVE REPORT Routine 10/21/2013 12:00 AM ARMHOLE BASTER HAND documented in this encounter Results * CT Head WO Contrast (10/21/2013 5:26 PM CDT) Anatomical Region Laterality Modality Head and Neck N/A Computed Tomogra phy 10/21/2013 5:26 PM CDT Narrative 10/22/2013 5:[address] [place] ?[id number] ??Acc#: ??[id number] DATE OF EXAM: ??Oct ??2013 CLINICAL HISTORY: Headache. ??High blood pressure. ??History of sinus surgery. RESULT: Contiguous noncontrast axial scans were obtained from base of skull to vertex. ??Comparison is made to exam on 25 March 2009. Ventricles, basal cisterns and cortical sulci are normal. [place] and white matter density are normal. ??No mass, hemorrhage, edema or midline shift is seen. ??No abnormal intraaxial or extraaxial fluid collection is identified. ??Arteriosclerotic internal carotid artery calcification is present bilaterally at the base of the skull. ??Calvarium and base of skull appear intact. ??Mastoid air cells are well developed and aerated bilaterally. ??Post surgical defect is present in medial wall of left maxillary sinus. ??Bilateral maxillary and ethmoid sinus mucosal thickening is again seen. ??There is a small air-fluid level in the left maxillary sinus. IMPRESSION: 1. CEREBROVASCULAR ARTERIOSCLEROSIS. 2. NO INTRACRANIAL ABNORMALITY OTHERWISE SEEN. 3. BILATERAL MAXILLARY AND ETHMOID SINUS INFLAMMATORY CHANGES TO INCLUDE A SMALL AIR-FLUID LEVEL IN LEFT MAXILLARY SINUS. ??POST SURGICAL DEFECT MEDIAL WALL LEFT MAXILLARY SINUS. Report called to Dr. Kong in Emergency Department on 21 October 2013 at 1735 hours. Interpreting Physician: ??DR GABRIELLA KOENIG M.D. ??Read on: ??Oct ??2013 10:29P Transcribed by: ??VLR ??On: Oct 22 2013 10:04A Approved Electronically by: ??LIBERTY Boykin, DR QUIROZ ??on: ??Oct 22 2013 5:39P Ordering DR: DR JESÚS KONG Attending DR: DR JESÚS KONG Procedure Note Provider, MD Alban - 12/08/[place] [id number] Acc#: [id number] DATE OF EXAM: Oct 21 2013 CLINICAL HISTORY: Headache. High blood pressure. History of sinus surgery. RESULT: Contiguous noncontrast axial scans were obtained from base of skull tovertex. Comparison is made to exam on 25 March 2009. Ventricles, basalcisterns and cortical sulci are normal. [place] and white matter density arenormal. No mass, hemorrhage, edema or midline shift is seen. No abnormalintraaxial or extraaxial fluid collection is identified. Arterioscleroticinternal carotid artery calcification is present bilaterally at the baseof the skull. Calvarium and base of skull appear intact. Mastoid aircells are well developed and aerated bilaterally. Post surgical defect ispresent in medial wall of left maxillary sinus. Bilateral maxillary andethmoid sinus mucosal thickening is again seen. There is a smallair-fluid level in the left maxillary sinus. IMPRESSION: 1. CEREBROVASCULAR ARTERIOSCLEROSIS. 2. NO INTRACRANIAL ABNORMALITY OTHERWISE SEEN. 3. BILATERAL MAXILLARY AND ETHMOID SINUS INFLAMMATORY CHANGES TO INCLUDE ASMALL AIR-FLUID LEVEL IN LEFT MAXILLARY SINUS. POST SURGICAL DEFECTMEDIAL WALL LEFT MAXILLARY SINUS. [facility] at 1735 hours. Interpreting Physician: DR GABRIELLA KOENIG M.D. Read on: Oct 21 201310:29P Transcribed by: VLR On: Oct 22 2013 10:04A Approved Electronically by: LIBERTY Boykin, DR QUIROZ on: Oct 22 20135:39P Ordering DR: DR JESÚS KONG Attending DR: DR JESÚS KONG Historical Provider MD IMG CT PROCEDURES Final R esult * Urinalysis (10/21/2013 5:15 PM CDT) Color, ur YELLOW YELLOW HISTORICAL RESULTS Clarity, ur CLEAR CLEAR HISTORIC AL RESULTS Specific gravity, ur 1.017 1.000 - 1.030 gu HISTORICAL RESULTS Leukocyte esterase, ur Negative NEGATIVE HISTORICAL RESULTS Nitrites, ur Negative NEGATIVE HISTORI ALL RESULTS pH, ur 5.5 6.0 HISTORICAL RESULTS Protein, ur Negative NEGATIVE HISTORIC AL RESULTS Glucose, ur Negative NEGATIVE HISTORIC AL RESULTS Ketones, ur Negative NEGATIVE HISTORIC AL RESULTS Urobilinogen, quant, ur 0.2 0.2 - 1.0 mg/dl HISTORICAL RESULTS Bilirubin, ur Negative NEGATIVE HISTOR ICAL RESULTS U Blood Negative NEGATIVE HISTORICAL RESULTS Urine 10/21/2013 5:15 PM CDT Jesús Kong MD LAB BLOOD ORDERABLES Final Result Performing Organization Address City/[facility] de Phone Number HISTORICAL RESULTS * Blood erythrocyte sedimentation rate (ESR) (10/21/2013 5:07 PM CDT) Erythrocyte sedimentation rate 19.0 0.0 - 30.0 mm/hr HISTORICAL RESULTS Blood specimen (specimen) 10/21/2013 5:07 PM CDT Jesús Kong MD LAB BLOOD ORDERABLES Final Result Performing Organization Address City/[facility] Co de Phone Number HISTORICAL RESULTS * Serum chorionic gonadotropin (HCG) identification (10/21/2013 5:07 PM CDT) Pathologist [facility] HCG, qual Negative NEGATIVE HISTORICAL RESULTS Serum 10/21/2013 5:07 PM CDT Jesús Kong MD LAB BLOOD ORDERABLES Final Result Performing Organization Address [facility] Co de Phone Number HISTORICAL RESULTS * Blood cell count (CBC) (10/21/2013 5:07 PM CDT) Pathologist [facility] WBC 7.5 4.0 - 10.5 K/cumm HISTORICAL RESULTS RBC 5.13 4.20 - 5.40 M/cumm HISTORICAL RESULTS Hgb 13.6 12.0 - 16.0 g/dl HISTORICAL RESULTS Hct 41.0 37.0 - 47.0 % HISTORICAL RESULTS MCV 79.9 77.0 - 97.0 fl HISTORICAL RESULTS MCH 26.5 23.0 - 34.0 pg HISTORICAL RESULTS MCHC 33.2 32.0 - 36.0 g/dl HISTORICAL RESULTS Rdw 13.6 11.5 - 14.5 % HISTORICAL RESULTS Platelets 265 150 - 450 K/cumm HISTORICAL RESULTS MPV 9.8 7.4 - 10.4 fl HISTORICAL RESULTS Blood specimen (specimen) 10/21/2013 5:07 PM CDT Jesús Kong MD LAB BLOOD ORDERABLES Final Result Performing Organization Address City/[facility] de Phone Number HISTORICAL RESULTS * (ABNORMAL) Blood WBC cell morphologic exam, auto (10/21/2013 5:07 PM CDT) Pathologist [facility] Lymphocytes 16.5(L) 25.0 - 33.0 % HISTORICAL RESULTS Monos 7.3 1.0 - 13.0 % HISTORICAL RESULTS Neutrophils 74.2(H) 54.0 - 69.0 % HISTORICAL RESULTS Eosinophils 1.5 0.0 - 10.0 % HISTORICAL RESULTS Basophils 0.4 0.0 - 1.0 % HISTORICAL RESULTS Immature granulocytes 0.1 0.0 - 1.0 % HISTORICAL RESULTS Lymphocytes, abs 1.2 1.2 - 3.4 K/cumm HISTORICAL RESULTS Monocytes, absolute 0.6(L) 1.1 - 1.9 K/cumm HISTORICAL RESULTS Neutrophils, abs 5.6 1.4 - 6.5 K/cumm HISTORICAL RESULTS Eosinophils, abs 0.1 0.0 - 0.7 cells/cum m HISTORICAL RESULTS Basophils, abs 0.0 0.0 - 0.2 K/cumm HISTORICAL RESULTS Immature granulocyte, abs 0.0 0.0 - 0.0 K/cumm HISTORICAL RESULTS Blood specimen (specimen) 10/21/2013 5:07 PM CDT Jesús Kong MD LAB BLOOD ORDERABLES Final Result HISTORICAL RESULTS * (ABNORMAL) Serum comprehensive metabolic panel (10/21/2013 5:07 PM CDT) BUN 16.0 6.0 - 23.0 mg/dl HISTORICAL RESULTS Sodium 135 134 - 143 mmol/L HISTORICAL RESULTS Potassium, sr 3.8 3.4 - 5.0 mmol/L HISTORICAL RESULTS Comment:HEMOLYSIS PRESENT PO TASSIUM MAY BE AFFECTED Chloride 103 99 - 108 mmol/L HISTORICAL RESULTS CO2 27 23 - 32 mmol/L HISTORICAL RESULTS Glucose 103 70 - 199 mg/dl HISTORICAL RESULTS Comment: Note:The glucose is assumed non fasting Fastin-99 mg/dl Random: 70-199 mg/dl Either a fasting glucose > 126 mg/dL or a random glucose > 200 mg/dL plus symptoms is diagnostic of diabetes when confirmed on another day. Fasting values > 100 mg/dl but < 125 mg/dL are diagnostic of impaired fasting glucose. New reference ranges implemented 06/25/2013. Creatinine 0.92 0.60 - 1.30 mg/dl HISTORICAL RESULTS Comment: eGFR:68 ml/min/1.73sq.m if non -Bahamian. eGFR: >70 ml/min/1.73sq.m if -Bahamian. AVE GFR for 50-59 yr. age group: ??93 ml/min/1.73sq.m Calculated using MDRD Equation BUN/creat ratio 17 10 - 20 HIST ORICAL RESULTS A. gap 9 7 - 14 mmol/L HISTORICAL RESULTS Protein, sr 7.6 6.4 - 8.0 g/dl HISTORICAL RESULTS Alb 3.4 3.3 - 4.5 g/dl HISTORICAL RESULTS Alb/glob ratio 0.8(L) 1.1 - 1.8 HISTO RICAL RESULTS Calcium 8.8 8.6 - 9.8 mg/dl HISTORICAL RESULTS Bilirubin 0.2 0.0 - 1.1 mg/dl HISTORICAL RESULTS Alk phos 129(H) 44 - 125 Units/L HISTORICAL RESULTS AST 21 5 - 40 Units/L HISTORICAL RESULTS Comment: HEMOLYSIS PRESENT AST(SGOT) MAY BE FALSELY ELEVATED AST ??- NOTE REFERENCE RANGE CHANGE ALT 25 15 - 70 Units/L HISTORICAL RESULTS Serum 10/21/2013 5:07 PM CDT Jesús Kong MD LAB BLOOD ORDERABLES Final Result HISTORICAL RESULTS * Discharge Laboratory Cumulative Report (10/21/2013 12:00 AM ARMHOLE BASTER HAND) 10/21/2013 Narrative HISTORICAL RESULTS - 10/22/2013 12:26 AM CDT Patient No: [id number] ? [facility] Patient Name: KIA PERDOMO ?[facility] Healthcare Age: 53 YRS ?: 1960 ?Sex:F ?[address] )[phone] ?? Adm Dt: 10/21/2013 ?[place], [place] ??[address] Created: 10/22/2013 ??0026 ?? Pt. Type: E ? Discharge Dt: 10/21/2013 ? Pathologists: Marisabel Denny MD Admit DrDede Attend Dr: JESÚS KONG MD ? BLOOD CELL COUNTS ?Collection Date: ?10/21/13 ?Collection Time: ?1707 ? Ref Range: ?? Units: [4.00-10.50] /CMM ? WBC X 10^3 ?7.50 [4.20-5.40] ??/CMM ? RBC X 10^6 ?5.13 [12.0-16.0] ??G/DL ? HGB ? 13.6 [37.0-47.0] ??% ?HCT ? 41.0 [77.0-97.0] ??FL ? MCV ? 79.9 [23.0-34.0] ??PG ? MCH ? 26.5 [32.0-36.0] ??% ?MCHC ?33.2 [11.5-14.5] ??% ?RDW ? 13.6 [150-450] ?? /CMM ? PLT X 10^3 ? 265 ?BLOOD CELL DIFFERENTIAL ?Collection Date: ?10/21/13 ?Collection Time: ?1707 ? Ref Range: ?? Units: [54.0-69.0] ??% ?NEUTROPHILS ? 74.2 H [25.0-33.0] ??% ?LYMPHOCYTES ? 16.5 L [1.0-13.0] ??% ?MONOCYTES ?7.3 [0.0-10.0] ??% ?EOSINOPHILS ?1.5 [0.0-1.0] ?? % ?BASOPHILS ?0.4 ? /CMM ? A LYMPHOCYTE ? 1.2 [0.0-1.0] ?? % ?IMM GRAN % ? 0.1 [0.00-0.02] ??/CMM ? A IMM GRAN ?0.01 [1.1-1.9] ?? /CMM ? A MONOCYTE ? 0.6 L [1.4-6.5] ?? /CMM ? A NEUTROPHIL ? 5.6 [0.0-0.7] ?? /CMM ? A EOSINOPHIL ? 0.1 [0.0-0.2] ?? /CMM ? A BASOPHIL ? 0.0 Footnotes and Symbols: L = Low, H = High ?? CONTINUED ?Page: ?? 1 Patient No: [id number] ? [facility] Patient Name: KIA PERDOMO ?[facility] Healthcare Age: 53 YRS ?: 1960 ?Sex:F ?[address] )[phone] ?? Adm Dt: 10/21/2013 ?[place], [place] ??[address] Created: 10/22/2013 ??0026 ?? Pt. Type: E ? Discharge Dt: 10/21/2013 ? Pathologists: Marisabel Denny MD Admit Attend Dr: JESÚS KONG MD ?SPECIAL HEMATOLOGY ?Collection Date: ?10/21/13 ?Collection Time: ?1707 ? Ref Range: ?? Units: ?? [0-30] ?MM/HR ?SED RATE ?19 ? GENERAL CHEMISTRY ?Collection Date: ?10/21/13 ?Collection Time: ?1707 ? Ref Range: ?? Units: [134-143] ?? MMOL/L ? SODIUM ? 135 [3.4-5.0] ?? MMOL/L ? POTASSIUM ?3.8 f ?10/21/13 1707 HEMOLYSIS PRESENT POTASSIUM MAY BE AFFECTED FOOTNOTE ADDED ON ?? 10/21/13 ?? AT 1744 BY 999 [99.0-108.0] MMOL/L ? CHLORIDE ? 103.0 [23.0-32.0] ??MMOL/L ? TOTAL CO2 ? 26.9 ?? [7-14] ?MMOL/L ? ANION GAP ?9 ??[70-199] ?? MG/DL ?GLUCOSE ?103 f [6.4-8.0] ?? G/DL ? TOTAL PROTEIN ?7.6 [3.3-4.5] ?? G/DL ? ALBUMIN ?3.4 [1.1-1.8] ?A/G RATIO ?0.8 L [8.6-9.8] ?? MG/DL ?CALCIUM ?8.8 [0.0-1.1] ?? MG/DL ?BILI TOTAL ? 0.2 Footnotes and Symbols: L = Low, f = Footnote GLUCOSE (07/17/13 -- Current) Note:The glucose is assumed non fasting Fastin-99 mg/dl Random: 70-199 mg/dl Either a fasting glucose > 126 mg/dL or a random glucose > 200 mg/dL plus symptoms is diagnostic of diabetes when confirmed on another day. Fasting values > 100 mg/dl but < 125 mg/dL are diagnostic of impaired fasting glucose. New reference ranges implemented 06/25/2013. ?? CONTINUED ?Page: ?? 2 Patient No: [id number] ? [facility] Patient Name: KIA PERDOMO ?[facility] Age: 53 YRS ?: 1960 ?Sex:F ?[address] )[phone] ?? Adm Dt: 10/21/2013 ?[place], [place] ??[address] Created: 10/22/2013 ??0026 ?? Pt. Type: E ? Discharge Dt: 10/21/2013 ? Pathologists: Marisabel Denny MD Admit Attend Dr: JESÚS KONG MD ? GENERAL CHEMISTRY ?Collection Date: ?10/21/13 ?Collection Time: ?1707 ? Ref Range: ?? Units: ??[44-125] ?? U/L ?ALK PHOS ? 129 H ?? [5-40] ?U/L ?AST(SGOT) ? 21 f ?10/21/13 1707 HEMOLYSIS PRESENT AST(SGOT) MAY BE FALSELY ELEVATED FOOTNOTE ADDED ON ?? 10/21/13 ?? AT 1744 BY 999 ??[15-70] ?U/L ?ALT(SGPT) ? 25 f [6.0-23.0] ??MG/DL ?BUN ? 16.0 ??[10-20] ? B/C RATIO ? 17 [0.60-1.30] ??MG/DL ?CREATININE ?0.92 f ?10/21/13 1707 eGFR:68 ml/min/1.73sq.m if non -Bahamian. eGFR: >70 ml/min/1.73sq.m if -Bahamian. AVE GFR for 50-59 yr. age group: ??93 ml/min/1.73sq.m Calculated using MDRD Equation FOOTNOTE ADDED ON ?? 10/21/13 ?? AT 1744 BY 999 Footnotes and Symbols: H = High, f = Footnote AST(SGOT) (01/24/13 -- Current) AST ??- NOTE REFERENCE RANGE CHANGE ALT(SGPT) (03/06/13 -- Current) ?? CONTINUED ?Page: ?? 3 Patient No: [id number] ? [facility] Patient Name: KIA PERDOMO ?[facility] Healthcare Age: 53 YRS ?: 1960 ?Sex:F ?[address] )[phone] ?? Adm Dt: 10/21/2013 ?[place], [place] ??[address] Created: 10/22/2013 ??0026 ?? Pt. Type: E ? Discharge Dt: 10/21/2013 ? Pathologists: Marisabel Denny MD Admit Attend Dr: JESÚS KONG MD ? HORMONES ?Collection Date: ?10/21/13 ?Collection Time: ?1707 ? Ref Range: ?? Units: [NEGATIVE] ?HCG QUALITATIVE ? NEGATIVE ?URINALYSIS ?Collection Date: ?10/21/13 ?Collection Time: ?1715 ? Ref Range: ?? Units: [YELLOW] ? U COLOR ? YELLOW ??[CLEAR] ? U APPEARANCE ? CLEAR [1.000-1.030] ? U SPEC GRAVITY ? 1.017 [NEGATIVE] ?U LEUKO ESTRASE ? NEGATIVE [NEGATIVE] ?U NITRITE ? NEGATIVE ?? [6.0] ?U PH ? 5.5 [NEGATIVE] ?U PROTEIN ? NEGATIVE [NEGATIVE] ?U GLUCOSE ? NEGATIVE [NEGATIVE] ?U KETONES ? NEGATIVE [0.2- 1.0] ?UROBILINOGEN ? 0.2 [NEGATIVE] ?U BILIRUBIN ? NEGATIVE [NEGATIVE] ?U BLOOD ? NEGATIVE ?? END OF CHART ? Page: ?? 4 us Historical Provider LAB BLOOD ORDERABLES Maria Eugenia l Result HISTORICAL RESULTS * ELECTROCARDIOGRAPHY (ECG) (10/21/2013) Narrative 10/21/2013 Ordered by an unspecified provider. us Historical Provider MD ECG ORDERABLES Final Res ult documented in this encounter Visit Diagnoses Diagnosis Chronic sinusitis Unspecified sinusitis (chronic) Essential hypertension Unspecified essential hypertension documented in this encounter Care Teams Professional Services Manager Relationship Specialty Start Date End Date Gallito Edwards PCP - General 06/16/10 02/16/16 documented as of this encounter
--- OUTSIDE RECORDS SUMMARY | 2024-08-12 23:45 | XMS_ITS | Encounter Summary ---
Author Organization [facility] Healthcare Address [address] [place] [address] Care Team Providers Care Manager Relocation Name Role Phone Gallito Edwards Primary Care Provider Unavailabl e Encounter Details Date Type Department Care Team (Late st Contact Info) Description 07/15/2011 10:45 AM SKEIN YARD DRIER - 07/15/2011 11:59 PM SKEIN YARD DRIER Hospital Encounter [facility] Bindu Jimenez MD [address] [address] Social History Tobacco Use Types Packs/Day Years Used Date Smoking Tobacco: Never Assessed Comments Unknown Sex and Gender Information Value Date Recorded Sex Assigned at Not on file Legal Sex Female 12:25 AM SKEIN YARD DRIER Gender Identity Not on file Sexual Orientation [...] on filedocumented in this encounter Care Teams Manager Relocation Relationship Specialty Start Date End Date Gallito Edwards PCP - General 06/16/10 02/16/16 documented as of this encounter
--- OUTSIDE RECORDS SUMMARY | 2024-08-12 23:45 | XMS_ITS | Encounter Summary ---
Author Organization [facility] Healthcare Address [address] [place] [address] Care Team Providers Care Concrete Hopper Operator Name Role Phone Gallito Edwards Primary Care Provider Unavailabl e Encounter Details Date Type Department Care Team (Late st Contact Info) Description 10/01/2016 4:14 PM INSOLE ROUNDER - 10/01/2016 11:59 PM INSOLE ROUNDER Hospital Encounter [facility] OP INTERIM Aleks Xiong MD [address] [place] [address] DR DE [place] ROSA [address] [address] Discharge Disposition: Discharge to home or self care Social History Tobacco Use Types Packs/Day Years Used Date Smoking Tobacco: Never Alcohol Use Standard Drinks/Week Comments Yes 0 (1 standard drink = 0.6 oz pur e alcohol) Comments Unknown Sex and Gender Information Value Date Recorded Sex Assigned at Not on file Legal Sex Female 12:25 AM INSOLE ROUNDER Gender Identity Not on file Sexual Orientation [...] by mouth once daily 30 0 09/16/2014 pcaxoghv-dsdk-kw n-folic acid (ONE DAILY FOR WOMEN) 18-0.4 mg tablet once dailyt 0 12/06/2011 traMADol (ULTRAM) 50 mg tablet take 1 tablet by ORAL route every 4 - 6 hours as needed 0 0 10/24/2014 cephalexin (KEFLEX) 250 mg capsule take 1 capsule (250MG) by ORAL route 4 times every day 40 0 06/02/2012 7 hydroCHLOROthiaz wing (HYDRODIURIL) 25 mg tablet take [...] on filedocumented in this encounter Care Teams Concrete Hopper Operator Relationship Specialty Start Date End Date Gallito Edwards PCP - General 10/01/16 11/11/16 documented as of this encounter
--- OUTSIDE RECORDS SUMMARY | 2024-08-12 23:45 | XMS_ITS | Encounter Summary ---
Author Organization [facility] Healthcare Address [address] [place] [address] Care Team Providers Care Digital Advertising Analyst Name Role Phone Unavailable Primary Care Provider Unavailabl e Encounter Details Date Type Department Care Team (Late st Contact Info) Description 12/14/2007 10:15 AM CDT - 12/14/2007 2:34 PM CDT Hospital Encounter [facility] [place] [address] Social History Tobacco Use Types Packs/Day Years Used Date Smoking Tobacco: Never Assessed Comments Unknown Sex and Gender Information Value Date Recorded Sex Assigned at Not on file Legal Sex Female 12:25 AM HOME APPLIANCES MECHANIC Gender Identity Not on file Sexual Orientation Not on file documented as of this encounter Plan of Treatment Not on file documented as of this encounter Visit Diagnoses Not on filedocumented in this encounter
--- OUTSIDE RECORDS SUMMARY | 2024-08-12 23:45 | XMS_ITS | Encounter Summary ---
Author Organization [facility] Healthcare Address [address] [place] [address] Care Team Providers Care Data Management Specialist Name Role Phone Gallito Edwards Primary Care Provider Unavailabl e Encounter Details Date Type Department Care Team (Late st Contact Info) Description 02/06/2016 2:32 PM CDT - 02/06/2016 4:14 PM CDT Hospital Encounter [facility] Jose Enrique Luis MD [address] [facility] [address] [place] [address] Chronic sinusitis; Essential (primary) hypertension; Gastro-esophageal reflux disease without esophagitis; Other terminal manager (current) drug therapy; 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 Social History Tobacco Use Types Packs/Day Years Used Date Smoking Tobacco: Never Alcohol Use Standard Drinks/Week Comments Yes 0 (1 standard drink = 0.6 oz pur e alcohol) Comments Unknown Sex and Gender Information Value Date Recorded Sex Assigned at Not on file 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 Gender Identity Not on file Sexual [...] by mouth once daily 30 0 09/16/2014 [id number]-idcf-jdi -folic acid (ONE DAILY FOR WOMEN) 18-0.4 [...] Diagnosis Comments CT HEAD WO CONTRAST Routine 02/06/2016 3 :22 PM CDT SERUM ESTIMATED GLOMERULAR FILTRATION RATE Routine 02/06/2016 3:07 PM CDT PLASMA BASIC METABOLIC PANEL Routine 02/06/2016 3:07 PM CDT BLOOD CELL COUNT (CBC) Routine 6 3:07 PM CDT BLOOD CELL MORPHOLOGIC EXAM Routine 02/06/2016 3:07 PM CDT ELECTROCARDIOGRAPHY (ECG) 02/06/2016 DISCHARGE LABORATORY CUMULATIVE REPORT 02/06/2016 documented in this encounter Results * CT Head WO Contrast (02/06/2016 3:22 PM CDT) Anatomical Region Laterality Modality Head and Neck N/A Computed Tomogra phy 02/06/2016 3:22 PM CDT Narrative 02/09/2016 7:[address] [place] ?[id number] ??Acc#: ??[id number] DATE OF EXAM: ??Feb 06 2016 CLINICAL HISTORY: Dizziness. RESULT: Axial images of the head were obtained from the skull base to the vertex without contrast. Comparison to the prior study of 10/21/13 is made. No acute intracranial mass effect, hemorrhage or hydrocephalus is seen. The ventricles are normal in size and are symmetric. No midline shift or extraaxial fluid collections are noted. The posterior fossa contents are unremarkable. The bony calvarium is intact. An air fluid level is seen in the right maxillary sinus. The remaining visualized paranasal sinuses and mastoid air cells are not opacified. A surgical defect in the left medial maxillary sinus wall is also noted. IMPRESSION: 1. ??NO ACUTE INTRACRANIAL PROCESS. 2. ??RIGHT MAXILLARY SINUS DISEASE AND EVIDENCE OF LEFT MAXILLARY SINUS SURGERY. RESULTS REPORTED TO DR. BRYANT IN THE ER AT 1525 HOURS ON 02/06/16. Interpreting Physician: ??NOEMI ANGEL M.D. ??Read on: ??Feb 06 2016 5:20P Transcribed by: ??TXD ??On: Feb 06 2016 ??5:20P Approved Electronically by: ??NOEMI ANGEL M.D. ??on: ??Feb 09 2016 7:57A Attending: ??JOSE ENRIQUE BRYANT Requesting: ??JOSE ENRIQUE BRYANT Requesting Fax: ??-- Attending Fax: ??[phone] Attending ID: ??[id number] Requesting ID: ??[id number] Report To 1 ID: ??[id number] Report To 1 Name: ??JSOE ENRIQUE BRYANT Report To 1 FAX: ??-- NextGen Order #: Procedure Note Provider, MD Alban - 12/08/[place] [id number] Acc#: [id number] DATE OF EXAM: Feb 06 2016 CLINICAL HISTORY: Dizziness. RESULT: Axial images of the head were obtained from the skull base to the vertexwithout contrast. Comparison to the prior study of 10/21/13 is made. Noacute intracranial mass effect, hemorrhage or hydrocephalus is seen. Theventricles are normal in size and are symmetric. No midline shift orextraaxial fluid collections are noted. The posterior fossa contents areunremarkable. The bony calvarium is intact. An air fluid level is seen inthe right maxillary sinus. The remaining visualized paranasal sinuses andmastoid air cells are not opacified. A surgical defect in the left medialmaxillary sinus wall is also noted. IMPRESSION: 1. NO ACUTE INTRACRANIAL PROCESS. 2. RIGHT MAXILLARY SINUS DISEASE AND EVIDENCE OF LEFT MAXILLARY SINUSSURGERY. RESULTS REPORTED TO DR. BRYANT IN THE ER AT 1525 HOURS ON02/06/16. Interpreting Physician: NOEMI ANGEL M.D. Read on: Feb 06 [id number] Transcribed by: AMRIT On: Feb 06 2016 5:20P Approved Electronically by: NOEMI ANGEL M.D. on: Feb 09 20167:[id number] Attending: JOSE ENRIQUE BRYANT Requesting: JOSE ENRIQUE BRYANT Requesting Fax: -- Attending Attending ID: [id number] Requesting ID: [id number] Report To 1 ID: [id number] Report To 1 Name: JOSE ENRIQUE BRYANT Report To 1 FAX: -- NextGen Order #: us Historical Provider MD [facility] CT PROCEDURES Final R esult * (ABNORMAL) Plasma basic metabolic panel (02/06/2016 3:07 PM CDT) Sodium 140 135 - 145 mmol/L HISTORICAL RESULTS K, pl 3.5 3.5 - 5.1 mmol/L HISTORICAL RESULTS Chloride 100 97 - 110 mmol/L HISTORICAL RESULTS CO2 29 22 - 32 mmol/L HISTORICAL RESULTS A. gap 14 8 - 16 mmol/L HISTORICAL RESULTS Glucose 82 70 - 199 mg/dl HISTORICAL RESULTS Comment: Interpretive Data Note:The glucose is assumed non fasting Fastin-99 mg/dL Random: ??70-199 mg/dL Either a fasting glucose > 126 mg/dL or a random glucose > 200 mg/dL plus symptoms is diagnostic of diabetes when confirmed on another day. Fasting values > 100 mg/dL but < 125 mg/dL are diagnostic of impaired fasting glucose. Current interpretive data was last revised on 2014. BUN 18.6 8.0 - 25.0 mg/dl HISTORICAL RESULTS Creatinine 0.85 0.60 - 1.10 mg/dl HISTORICAL RESULTS Calcium 9.3 8.6 - 10.2 mg/dl HISTORICAL RESULTS BUN/creat ratio 22(H) 10 - 20 HIST ORICAL RESULTS Plasma 02/06/2016 3:07 PM CDT Result [facility] Historical Provider LAB BLOOD ORDERABLES Maria Eugenia troy Result Performing Organization Address [facility] de Phone Number HISTORICAL RESULTS * (ABNORMAL) Blood cell count (CBC) (02/06/2016 3:07 PM CDT) WBC 7.7 3.8 - 9.8 K/cumm HISTORICAL RESULTS RBC 4.61 3.90 - 5.00 M/cumm HISTORICAL RESULTS Hgb 11.7(L) 12.1 - 15.1 g/dl HISTORICAL RESULTS Hct 36.9 36.1 - 44.3 % HISTORICAL RESULTS MCV 80.0 80.0 - 100.0 fl HISTORICAL RESULTS MCH 25.4(L) 26.7 - 33.7 pg HISTORICAL RESULTS MCHC 31.7(L) 32.7 - 36.0 g/dl HISTORICAL RESULTS Rdw 15.0(H) 11.5 - 14.6 % HISTORICAL RESULTS Platelets 258 140 - 440 K/cumm HISTORICAL RESULTS MPV 9.6 8.0 - 12.0 fl HISTORICAL RESULTS NRBC 0.0 0.0 - 0.0 % HISTORIC AL RESULTS NRBC, abs 0.00 0.00 - 0.00 K/cumm HISTORICAL RESULTS Blood specimen (specimen) 02/06/2016 3:07 PM CDT Result [facility] Historical Provider LAB BLOOD ORDERABLES Maria Eugenia simmons Result Performing Organization Address [facility] de Phone Number HISTORICAL RESULTS * Blood cell morphologic exam (02/06/2016 3:07 PM CDT) Neutrophils 71.8 44.0 - 80.0 % HISTORICAL RESULTS Immature granulocytes 0.3 0.0 - 1.0 % HISTORICAL RESULTS Lymphocytes 19.0 13.0 - 44.0 % HISTORICAL RESULTS Monos 6.9 2.0 - 11.0 % HISTORICAL RESULTS Eosinophils 1.6 0.0 - 6.0 % HISTORICAL RESULTS Basophils 0.4 0.0 - 3.0 % HISTORICAL RESULTS Neutrophils, abs 5.5 1.6 - 7.0 K/cumm HISTORICAL RESULTS Immature granulocyte, abs 0.0 0.0 - 0.2 K/cumm HISTORICAL RESULTS Lymphocytes, abs 1.5 0.5 - 4.3 K/cumm HISTORICAL RESULTS Monocytes, absolute 0.5 0.1 - 1.0 K/cumm HISTORICAL RESULTS Eosinophils, abs 0.1 0.0 - 0.6 K/cumm HISTORICAL RESULTS Basophils, abs 0.0 0.0 - 0.3 K/cumm HISTORICAL RESULTS Blood specimen (specimen) 02/06/2016 3:07 PM CDT Historical Provider LAB BLOOD ORDERABLES Maria Eugenia l Result Performing Organization Address [facility] de Phone Number HISTORICAL RESULTS * Serum estimated glomerular filtration rate (02/06/2016 3:07 PM CDT) eGFR >60 ml/min/1.7 3 m2 HISTORICAL RESULTS Comment: Interpretation of Estimated GFR (eGFR): Normal ?>/= 60 mL/min/1.73m2 Possible Chronic Kidney Disease ??15 - 59 mL/min/1.73m2 Possible Kidney Failure ?< 15 ??mL/min/1.73m2 If -French multiply value by 1.16. ??Estimated glomerular filtration rate is determined by the CKD-EPI equation recommended by the National Kidney Foundation (KDIGO 2012 Clinical Practice Guideline for the Evaluation and Management of Chronic Kidney Disease. ??Kidney Intnl Suppl Aug 2012;3:1). ??The CKD-EPI equation should not be used in acute renal failure or acute kidney injury and is not valid in children. Serum 02/06/2016 3:07 PM CDT Historical Provider LAB BLOOD ORDERABLES Maria Eugenia l Result Performing Organization Address [facility] Co de Phone Number HISTORICAL RESULTS * DISCHARGE LABORATORY CUMULATIVE REPORT (02/06/2016) Narrative 02/06/2016 Ordered by an unspecified provider. us Historical Provider LAB BLOOD ORDERABLES Maria Eugenia l Result * ELECTROCARDIOGRAPHY (ECG) (02/06/2016) Narrative 02/06/2016 Ordered by an unspecified provider. 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
--- OUTSIDE RECORDS SUMMARY | 2024-08-12 23:45 | XMS_ITS | Encounter Summary ---
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
--- OUTSIDE RECORDS SUMMARY | 2024-08-12 23:45 | XMS_ITS | Encounter Summary ---
Author Organization [facility] Healthcare Address [address] [place] [address] Care Team Providers Care Oyster Shucker Name Role Phone Gallito Edwards Primary Care Provider Unavailabl e Encounter Details Date Type Department Care Team (Late st Contact Info) Description 08/20/2011 3:42 PM BILINGUAL MEDICAL ASSISTANT - 01/14/2012 11:59 PM CDT Hospital Encounter [facility] Gallito Edwards Iron deficiency anemia; Benign neoplasm of stomach Social History Tobacco Use Types Packs/Day Years Used Date Smoking Tobacco: Never Assessed Comments Unknown Sex and Gender Information Value Date Recorded Sex Assigned at Not on file 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 Gender Identity Not on file Sexual Orientation Not on file documented as of this encounter Medications at Time of Discharge b complex vitamins (B COMPLEX-VITAMIN B12) tablet once daily 0 12/06/2011 fexofenadine (TRACI) 180 mg tablet take 1 tablet (180MG) by ORAL route every day 60 1 06/16/2010 knlrjaxb-qorq-kat -folic acid (ONE DAILY FOR WOMEN) 18-0.4 mg tablet once dailyt 0 12/06/[address] (ACIPHEX) 20 mg EC tablet TAKE ONE TABLET BY MOUTH TWO TIMES A DAY 60 1 06/16/2010 02/17/2017 documented as of this encounter Plan of Treatment Not on file documented as of this encounter Visit Diagnoses Diagnosis Iron deficiency anemia Unspecified iron deficiency anemia Benign neoplasm of stomach documented in this encounter Care Teams Oyster Shucker Relationship Specialty Start Date End Date Gallito Edwards PCP - General 06/16/10 02/16/16 documented as of this encounter
--- OUTSIDE RECORDS SUMMARY | 2024-08-12 23:45 | XMS_ITS | Encounter Summary ---
Author Organization [facility] Healthcare Address [address] [place] [address] Care Team Providers Care Diesel Engine Erector Name Role Phone Unavailable Primary Care Provider Unavailabl e Encounter Details Date Type Department Care Team (Late st Contact Info) Description 12/02/2006 2:47 PM CDT - 12/02/2006 5:00 PM CDT Hospital Encounter [facility] Mehdi Lozano MD [address] [place] [address] Gallito Edwards Social History Tobacco Use Types Packs/Day Years Used Date Smoking Tobacco: Never Assessed Comments Unknown Sex and Gender Information Value Date Recorded Sex Assigned at Not on file 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
--- OUTSIDE RECORDS SUMMARY | 2024-08-12 23:45 | XMS_ITS | Encounter Summary ---
Author Organization [facility] Healthcare Address [address] [place] [address] Care Team Providers Care Rand Cementer Name Role Phone Gallito Edwards Primary Care Provider Unavailabl e Encounter Details Date Type Department Care Team (Late st Contact Info) Description 06/16/2011 10:14 AM CDT - 06/16/2011 11:59 PM CDT Hospital Encounter [facility] Darrin Spangler Chronic rhinitis; Chronic sinusitis; Other diseases of nasal cavity and sinuses Social History Tobacco Use Types Packs/Day Years Used Date Smoking Tobacco: Never Assessed Comments Unknown Sex and Gender Information Value Date Recorded Sex Assigned at Not on file 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
--- OUTSIDE RECORDS SUMMARY | 2024-08-12 23:45 | XMS_ITS | Encounter Summary ---
Author Organization [facility] Healthcare Address [address] [place] [address] Care Team Providers Care Power Generation Plant Operator Name Role Phone Gallito Edwards Primary Care Provider Unavailabl e Encounter Details Date Type Department Care Team (Late st Contact Info) Description 08/29/2014 6:21 PM WRITING CENTER DIRECTOR - 08/29/2014 8:30 PM WRITING CENTER DIRECTOR Hospital Encounter [facility] Brigitte Pinedo MD [address] [place] [address] [id number] Chest pain; Irritable colon; Esophageal reflux; Iron deficiency anemia Social History Tobacco Use Types Packs/Day Years Used Date Smoking Tobacco: Never Assessed Comments Unknown Sex and Gender Information Value Date Recorded Sex Assigned at Not on file Legal Sex Female 12:25 AM WRITING CENTER DIRECTOR Gender Identity Not on file [...] ORAL route every day 60 1 06/16/2010 [id number] -folic acid (ONE DAILY FOR WOMEN) 18-0.4 [...] Procedure Name Priority Date/Time Associated Diagnosis Comments URINALYSIS Routine 08/29/2014 7:15 PM WRITING CENTER DIRECTOR SERUM THYROID-STIMULATING HORMONE (TSH) Routine 08/29/2014 6:54 PM WRITING CENTER DIRECTOR SERUM COMPREHENSIVE METABOLIC PANEL Routine 08/29/2014 6:54 PM WRITING CENTER DIRECTOR PLASMA PROTHROMBIN TIME (PT) Routine 08/29/2014 6:54 PM WRITING CENTER DIRECTOR PLASMA PARTIAL THROMBOPLASTIN TIME (PTT) Routine 08/29/2014 6:54 PM WRITING CENTER DIRECTOR BLOOD WBC CELL MORPHOLOGIC EXAM, AUTO Routine 08/29/2014 6:54 PM WRITING CENTER DIRECTOR BLOOD CELL COUNT (CBC) Routine 5 6:54 PM WRITING CENTER DIRECTOR XR CHEST PORTABLE Routine 08/29/2014 6:5 3 PM WRITING CENTER DIRECTOR SERUM TROPONIN I Routine 08/29/2014 12:5 4 PM WRITING CENTER DIRECTOR BLOOD D-DIMER Routine 08/29/2014 12:54 PM WRITING CENTER DIRECTOR ELECTROCARDIOGRAPHY (ECG) 08/29/2014 DISCHARGE LABORATORY CUMULATIVE REPORT Routine 08/29/2014 12:00 AM WRITING CENTER DIRECTOR documented in this encounter Results * Urinalysis (08/29/2014 7:15 PM WRITING CENTER DIRECTOR) Color, ur YELLOW YELLOW HISTORICAL RESULTS Clarity, ur CLEAR CLEAR HISTORIC AL RESULTS Specific gravity, ur 1.006 1.003 - 1.030 gu HISTORICAL RESULTS Leukocyte esterase, ur Negative NEGATIVE HISTORICAL RESULTS Nitrites, ur Negative NEGATIVE HISTORI ALL RESULTS pH, ur 6.5 6.0 HISTORICAL RESULTS Protein, ur Negative NEGATIVE HISTORIC AL RESULTS Glucose, ur Negative NEGATIVE HISTORIC AL RESULTS Ketones, ur Negative NEGATIVE HISTORIC AL RESULTS Urobilinogen, quant, ur 0.2 0.2 - 1.0 mg/dl HISTORICAL RESULTS Bilirubin, ur Negative NEGATIVE HISTOR ICAL RESULTS U Blood Negative NEGATIVE HISTORICAL RESULTS Urine 08/29/2014 7:15 PM WRITING CENTER DIRECTOR Result [facility] Brigitte Moreno MD LAB BLOOD ORDERABLES Final Result Performing Organization Address [facility] de Phone Number HISTORICAL RESULTS * Serum thyroid-stimulating hormone (TSH) (08/29/2014 6:54 PM WRITING CENTER DIRECTOR) TSH 2.92 0.35 - 4.80 mcIUnits/ml HISTORICAL RESULTS Serum 08/29/2014 6:54 PM WRITING CENTER DIRECTOR Brigitte Moreno MD LAB BLOOD ORDERABLES Final Result Performing Organization Address [facility] de Phone Number HISTORICAL RESULTS * Plasma partial thromboplastin time (PTT) (08/29/2014 6:54 PM WRITING CENTER DIRECTOR) APTT 29.0 -<36. seconds HISTOR ICAL RESULTS Plasma 08/29/2014 6:54 PM WRITING CENTER DIRECTOR Result [facility] Brigitte Moreno MD LAB BLOOD ORDERABLES Final Result Performing Organization Address [facility] de Phone Number HISTORICAL RESULTS * Plasma prothrombin time (PT) (08/29/2014 6:54 PM WRITING CENTER DIRECTOR) Prothrombin time (PT) 11.8 10.9 - 14.8 seconds HISTORICAL RESULTS INR 0.90 HISTORICAL RESULTS Comment: RECOMMENDED RANGES FOR PROTIME INR: NOTE: THE INR HAS BEEN VALIDATED ONLY FOR PATIENTS ON STABLE ORAL ?ANTICOAGULANT THERAPY. ?2.0 - 3.0 ??PROPHYLAXIS OF VENOUS THROMBOSIS (HIGH RISK SURGERY) ?2.0 - 3.0 ??TREATMENT OF VENOUS THROMBOSIS ?2.0 - 3.0 ??TREATMENT OF PULMONARY EMBOLISM ?2.0 - 3.0 ??PREVENTION OF SYSTEMIC EMBOLISM ? TISSUE HEART VALVES ? AMI (TO PREVENT SYSTEMIC EMBOLISM)* ? VALVULAR HEART DISEASE ? ATRIAL FIBRILLATION ?2.5 - 3.5 ??MECHANICAL PROSTHETIC VALVES (HIGH RISK) ?2.0 - 3.0 ??BILEAFLET MECHANICAL VALVE IN AORTIC POSITION *If oral anticoagulant therapy is elected to prevent recurrent myocardial infarction, an INR of 2.5 to 3.5 is recommended, consistent with Food and Drug Administration recommendations. Plasma 08/29/2014 6:54 PM WRITING CENTER DIRECTOR Brigitte Moreno MD LAB BLOOD ORDERABLES Final Result Performing Organization Address City/State/[facility] Co de Phone Number HISTORICAL RESULTS * (ABNORMAL) Blood cell count (CBC) (08/29/2014 6:54 PM WRITING CENTER DIRECTOR) WBC 8.2 4.0 - 10.5 K/cumm HISTORICAL RESULTS RBC 4.90 4.20 - 5.40 M/cumm HISTORICAL RESULTS Hgb 12.5 12.0 - 16.0 g/dl HISTORICAL RESULTS Hct 38.3 37.0 - 47.0 % HISTORICAL RESULTS MCV 78.2 77.0 - 97.0 fl HISTORICAL RESULTS MCH 25.5 23.0 - 34.0 pg HISTORICAL RESULTS MCHC 32.6 32.0 - 36.0 g/dl HISTORICAL RESULTS Rdw 14.8(H) 11.5 - 14.5 % HISTORICAL RESULTS Platelets 275 150 - 400 K/cumm HISTORICAL RESULTS MPV 9.7 7.4 - 10.4 fl HISTORICAL RESULTS Blood specimen (specimen) 08/29/2014 6:54 PM WRITING CENTER DIRECTOR Brigitte Moreno MD LAB BLOOD ORDERABLES Final Result HISTORICAL RESULTS * (ABNORMAL) Blood WBC cell morphologic exam, auto (08/29/2014 6:54 PM WRITING CENTER DIRECTOR) Pathologist [facility] Lymphocytes 15.0(L) 25.0 - 33.0 % HISTORICAL RESULTS Monos 7.2 0.0 - 13.0 % HISTORICAL RESULTS Neutrophils 77.0(H) 54.0 - 69.0 % HISTORICAL RESULTS Eosinophils 0.5 0.0 - 10.0 % HISTORICAL RESULTS Basophils 0.2 0.0 - 1.0 % HISTORICAL RESULTS Immature granulocytes 0.1 0.0 - 1.0 % HISTORICAL RESULTS Lymphocytes, abs 1.2 1.2 - 3.4 K/cumm HISTORICAL RESULTS Monocytes, absolute 0.6(L) 1.1 - 1.9 K/cumm HISTORICAL RESULTS Neutrophils, abs 6.4 1.4 - 6.5 K/cumm HISTORICAL RESULTS Eosinophils, abs 0.0 0.0 - 0.7 cells/cum m HISTORICAL RESULTS Basophils, abs 0.0 0.0 - 0.2 K/cumm HISTORICAL RESULTS Immature granulocyte, abs 0.0 0.0 - 0.0 K/cumm HISTORICAL RESULTS Blood specimen (specimen) 08/29/2014 6:54 PM WRITING CENTER DIRECTOR Brigitte Moreno MD LAB BLOOD ORDERABLES Final Result HISTORICAL RESULTS * (ABNORMAL) Serum comprehensive metabolic panel (08/29/2014 6:54 PM WRITING CENTER DIRECTOR) Pathologist [facility] BUN 18.0 6.0 - 23.0 mg/dl HISTORICAL RESULTS Sodium 136 134 - 143 mmol/L HISTORICAL RESULTS Potassium, sr 3.7 3.4 - 5.0 mmol/L HISTORICAL RESULTS Chloride 103 99 - 108 mmol/L HISTORICAL [...] glucose. New reference ranges implemented 06/25/2013. Creatinine 1.03 0.60 - 1.30 mg/dl HISTORICAL RESULTS Comment: eGFR:60 ml/min/1.73sq.m if non -Citizen Of [place]. eGFR: >70 ml/min/1.73sq.m if -Citizen Of [place]. AVE GFR for 50-59 yr. age group: ??93 ml/min/1.73sq.m Calculated using MDRD Equation BUN/creat ratio 17 10 - 20 HIST ORICAL RESULTS A. gap 10 7 - 14 mmol/L HISTORICAL RESULTS Protein, sr 7.7 6.4 - 8.0 g/dl HISTORICAL RESULTS Alb 3.5 3.3 - 4.5 g/dl HISTORICAL RESULTS Alb/glob ratio 0.8(L) 1.1 - 1.8 HISTO RICAL RESULTS Calcium 9.0 8.6 - 9.8 mg/dl HISTORICAL RESULTS Bilirubin 0.3 0.0 - 1.1 mg/dl HISTORICAL RESULTS Alk phos 140(H) 44 - 125 Units/L HISTORICAL RESULTS AST 21 5 - 40 Units/L HISTORICAL RESULTS ALT 26 15 - 70 Units/L HISTORICAL RESULTS Serum 08/29/2014 6:54 PM WRITING CENTER DIRECTOR us Brigitte Moreno MD LAB BLOOD ORDERABLES Final Result HISTORICAL RESULTS * XR CHEST PORTABLE (08/29/2014 6:53 PM WRITING CENTER DIRECTOR) Anatomical Region Laterality Modality Body N/A Radiographic Kourtney ging 08/29/2014 6:53 PM WRITING CENTER DIRECTOR Narrative 08/30/2014 4:37 PM WRITING CENTER DIRECTOR XR Chest Portable ? [id number] ??Acc#: ??[id number] DATE OF EXAM: ??Aug 29 2014 CLINICAL HISTORY: Chest pain, shortness of breath and chest tightness. RESULT: PORTABLE CHEST (29 AUGUST 2014, 1850 HOURS) Erect AP portable chest is compared to PA and lateral chest on 04 August 2011. Heart size is near upper limits of normal for technique. ??Pulmonary vascularity is normal. ??Small calcified granuloma is present in the aorticopulmonic window region and another at the left hilum; old. ??No other mass, infiltrate or pleural effusion is seen. ??product safety consultant wires overlie the chest. ??Bony structures appear normal. IMPRESSION: 1. MINIMAL OLD GRANULOMATOUS DISEASE. 2. NO ACTIVE DISEASE SEEN. 3. ALLOWING FOR TECHNICAL DIFFERENCE, NO SIGNIFICANT CHANGE COMPARED TO 04 AUGUST 2011. Interpreting Physician: ??DR GABRIELLA KOENIG M.D. ??Read on: ??Aug 29 2014 10:50P Transcribed by: ??mrr ??On: Aug 30 2014 ??9:22A Approved Electronically by: ??LIBERTY Boykin, DR QUIROZ ??on: ??Aug 30 2014 4:36P Attending: ??DR BRIGITTE MORENO Requesting: ??DR BRIGITTE MORENO Requesting Fax: ??-- Attending Fax: ??-- Attending ID: ??[id number] Requesting ID: ??[id number] Report To 1 ID: ??[id number] Report To 1 Name: ??DR BRIGITTE MORENO Report To 1 FAX: ??-- NextGen Order #: Procedure Note Provider, MD Alban - 12/08/2016 XR Chest Portable [id number] Acc#: [id number] DATE OF EXAM: Aug 29 2014 CLINICAL HISTORY: Chest pain, shortness of breath and chest tightness. RESULT: PORTABLE CHEST (29 AUGUST 2014, 1850 HOURS) Erect AP portable chest iscompared to PA and lateral chest on 04 August 2011. Heart size is nearupper limits of normal for technique. Pulmonary vascularity is normal.Small calcified granuloma is present in the aorticopulmonic window regionand another at the left hilum; old. No other mass, infiltrate or pleuraleffusion is seen. product safety consultant wires overlie the chest. Bonystructures appear normal. IMPRESSION: 1. MINIMAL OLD GRANULOMATOUS DISEASE. 2. NO ACTIVE DISEASE SEEN. 3. ALLOWING FOR TECHNICAL DIFFERENCE, NO SIGNIFICANT CHANGE COMPARED TO 2010. Interpreting Physician: DR GABRIELLA KOENIG M.D. Read on: Aug 29 201410:50P Transcribed by: mrr On: Aug 30 2014 9:22A Approved Electronically by: DR GABRIELLA KOENIG M.D. on: Aug 30 20144:36P Attending: DR BRIGITTE MORENO Requesting: DR BRIGITTE MORENO Requesting Fax: -- Attending Fax: -- Attending ID: [id number] Requesting ID: [id number] Report To 1 ID: [id number] Report To 1 Name: DR BRIGITTE MORENO Report To 1 FAX: -- NextGen Order #: Historical Provider [id number] XR PROCEDURES Final R esult * (ABNORMAL) Blood D-dimer (08/29/2014 12:54 PM WRITING CENTER DIRECTOR) Pathologist [facility] D-dimer 0.53(H) 0.00 - 0.50 mcg/ml HISTORICAL RESULTS Blood specimen (specimen) 08/29/2014 12:54 PM WRITING CENTER DIRECTOR Narrative HISTORICAL RESULTS - 08/29/2014 1:15 PM WRITING CENTER DIRECTOR Units of Measure = ug/ml FEU The D-Dimer result should not be used as the sole indicator to rule in or exclude a diagnosis of Pulmonary Embolism or Deep Vein Thrombosis. Brigitte Moreno MD LAB BLOOD ORDERABLES Final Result Performing Organization Address City/State/[facility] Co de Phone Number HISTORICAL RESULTS * Serum troponin I (08/29/2014 12:54 PM WRITING CENTER DIRECTOR) [facility] Troponin I <0.04 0.00 - 0.10 ng/ml HISTORICAL RESULTS Serum 08/29/2014 12:5 4 PM WRITING CENTER DIRECTOR Narrative HISTORICAL RESULTS - 08/29/2014 1:38 PM WRITING CENTER DIRECTOR NEGATIVE: ??0.00 - 0.10 NG/ML INDETERMINATE: ??0.11 - 0.50 NG/ML POSITIVE: ??GREATER THAN 0.50 NG/ML Brigitte Moreno MD LAB BLOOD ORDERABLES Final Result HISTORICAL RESULTS * Discharge Laboratory Cumulative Report (08/29/2014 12:00 AM WRITING CENTER DIRECTOR) 08/29/2014 Narrative HISTORICAL RESULTS - 08/30/2014 12:38 AM WRITING CENTER DIRECTOR Patient No: [id number] ? [facility] Patient Name: KIA HERNÁNDEZ ?[facility] Age: 53 YRS ?: 1960 ?Sex:F ?[address] )[id number] ?? Adm Dt: 08/29/2014 ?[place], [place] ??[address] Created: 08/30/2014 ??0038 ?? Pt. Type: E ? Discharge Dt: 08/29/2014 ? Pathologists: Marisabel Denny MD Admit Attend Dr: BRIGITTE MORENO MD ? BLOOD CELL COUNTS ?Collection Date: ?01/15/15 ?Collection Time: ?1854 ? Ref Range: ?? Units: [4.00-10.50] /CMM ? WBC X 10^3 ?8.25 [4.20-5.40] ??/CMM ? RBC X 10^6 ?4.90 [12.0-16.0] ??G/DL ? HGB ? 12.5 [37.0-47.0] ??% ?HCT ? 38.3 [77.0-97.0] ??FL ? MCV ? 78.2 [23.0-34.0] ??PG ? MCH ? 25.5 [32.0-36.0] ??% ?MCHC ?32.6 [11.5-14.5] ??% ?RDW ? 14.8 H [150-400] ?? /CMM ? PLT X 10^3 ? 275 ?BLOOD CELL DIFFERENTIAL ?Collection Date: ?08/29/14 ?Collection Time: ?1854 ? Ref Range: ?? Units: [54.0-69.0] ??% ?NEUTROPHILS ? 77.0 H [25.0-33.0] ??% ?LYMPHOCYTES ? 15.0 L [0.0-13.0] ??% ?MONOCYTES ?7.2 [0.0-10.0] ??% ?EOSINOPHILS ?0.5 [0.0-1.0] ?? % ?BASOPHILS ?0.2 ? /CMM ? A LYMPHOCYTE ? 1.2 [0.0-1.0] ?? % ?IMM GRAN % ? 0.1 [0.00-0.02] ??/CMM ? A IMM GRAN ?0.01 [1.1-1.9] ?? /CMM ? A MONOCYTE ? 0.6 L [1.4-6.5] ?? /CMM ? A NEUTROPHIL ? 6.4 [0.0-0.7] ?? /CMM ? A EOSINOPHIL ? 0.0 [0.0-0.2] ?? /CMM ? A BASOPHIL ? 0.0 Footnotes and Symbols: L = Low, H = High ?? CONTINUED ?Page: ?? 1 Patient No: [id number] ? [facility] Patient Name: KIA HERNÁNDEZ ?[facility] Age: 53 YRS ?: 1960 ?Sex:F ?[address] )[phone] ?? Adm Dt: 08/29/2014 ?[place], [place] ??[address] Created: 08/30/2014 ??0038 ?? Pt. Type: E ? Discharge Dt: 08/29/2014 ? Pathologists: Marisabel Denny MD Admit Attend Dr: BRIGITTE MORENO MD ? GENERAL CHEMISTRY ?Collection Date: ?/15/15 ?Collection Time: ?1854 ? Ref Range: ?? Units: [134-143] ?? MMOL/L ? SODIUM ? 136 [3.4-5.0] ?? MMOL/L ? POTASSIUM ?3.7 [99.0-108.0] MMOL/L ? CHLORIDE ? 103.0 [23.0-32.0] ??MMOL/L ? TOTAL CO2 ? 26.7 ?? [7-14] ?MMOL/L ? ANION GAP ? 10 ??[70-199] ?? MG/DL ?GLUCOSE ?103 f [6.4-8.0] ?? G/DL ? TOTAL PROTEIN ?7.7 [3.3-4.5] ?? G/DL ? ALBUMIN ?3.5 [1.1-1.8] ?A/G RATIO ?0.8 L [8.6-9.8] ?? MG/DL ?CALCIUM ?9.0 [0.0-1.1] ?? MG/DL ?BILI TOTAL ? 0.3 ??[44-125] ?? U/L ?ALK PHOS ? 140 H ?? [5-40] ?U/L ?AST(SGOT) ? 21 f ??[15-70] ?U/L ?ALT(SGPT) ? 26 f [6.0-23.0] ??MG/DL ?BUN ? 18.0 ??[10-20] ? B/C RATIO ? 17 Footnotes and Symbols: L = Low, H = High, f = Footnote GLUCOSE (07/17/13 -- Current) Note:The glucose is assumed non fasting Fastin-99 mg/dl Random: 70-199 mg/dl Either a fasting glucose > 126 mg/dL or a random glucose > 200 mg/dL plus symptoms is diagnostic of diabetes when confirmed on another day. Fasting values > 100 mg/dl but < 125 mg/dL are diagnostic of impaired fasting glucose. New reference ranges implemented 06/25/2013. AST(SGOT) (12/27/13 -- Current) ALT(SGPT) (03/06/13 -- Current) ?? CONTINUED ?Page: ?? 2 Patient No: [id number] ? [facility] Patient Name: KIA HERNÁNDEZ ?[facility] Healthcare Age: 53 YRS ?: 1960 ?Sex:F ?[address] )[id number] ?? Adm Dt: 08/29/2014 ?[place], [place] ??[address] Created: 08/30/2014 ??0038 ?? Pt. Type: E ? Discharge Dt: 08/29/2014 ? Pathologists: Marisabel Denny MD Admit Attend Dr: BRIGITTE MORENO MD ? GENERAL CHEMISTRY ?Collection Date: ?08/29/14 ?Collection Time: ?1854 ? Ref Range: ?? Units: [0.60-1.30] ??MG/DL ?CREATININE ?1.03 f ?08/29/14 1854 eGFR:60 ml/min/1.73sq.m if non -Citizen Of [place]. eGFR: >70 ml/min/1.73sq.m if -Citizen Of [place]. AVE GFR for 50-59 yr. age group: ??93 ml/min/1.73sq.m Calculated using MDRD Equation FOOTNOTE ADDED ON ?? 08/29/14 ?? AT 1920 BY 999 ? CARDIAC CHEMISTRY ?Collection Date: ?08/29/14 ?Collection Time: ?1854 ? Ref Range: ?? Units: [0.00-0.10] ??NG/ML ?TROPONIN I ? <0.04 f Footnotes and Symbols: f = Footnote TROPONIN I (06/10/11 -- Current) NEGATIVE: ??0.00 - 0.10 NG/ML INDETERMINATE: ??0.11 - 0.50 NG/ML POSITIVE: ??GREATER THAN 0.50 NG/ML ?? CONTINUED ?Page: ?? 3 Patient No: [id number] ? [facility] Patient Name: KIA HERNÁNDEZ ?[facility] Age: 53 YRS ?: 1960 ?Sex:F ?[address] )[id number] ?? Adm Dt: 08/29/2014 ?[place], [place] ??[address] Created: 08/30/2014 ??0038 ?? Pt. Type: E ? Discharge Dt: 08/29/2014 ? Pathologists: Marisabel Denny MD Admit Attend Dr: BRIGITTE MORENO MD ?THYROID FUNCTION TESTS ?Collection Date: ?08/29/14 ?Collection Time: ?1854 ? Ref Range: ?? Units: [0.35-4.80] ??uIU/ML ? TSH ? 2.92 ?? CONTINUED ?Page: ?? 4 Patient No: [id number] ? [facility] Patient Name: KIA HERNÁNDEZ ?[facility] Age: 53 YRS ?: 1960 ?Sex:F ?[address] )[phone] ?? Adm Dt: 08/29/2014 ?[place], [place] ??[address] Created: 08/30/2014 ??0038 ?? Pt. Type: E ? Discharge Dt: 08/29/2014 ? Pathologists: Marisabel Denny MD Admit Attend Dr: BRIGITTE MORENO MD ?COAGULATION ? Units: ?? PROTIME ?INR ?D-DIMER ?APTT PAT ? Low: ??[10.9-14.8] ? [0.00-0.50] ??[< ?? 36.0] ? Ref Range: ? SECS ? UG/ML ? SECS ? 08/29/141853 ?11.8 ? 0.90 f ? 0.53 Hf ?29.0 Footnotes and Symbols: H = High, f = Footnote INR (03/03/00 -- Current) RECOMMENDED RANGES FOR PROTIME INR: NOTE: THE INR HAS BEEN VALIDATED ONLY FOR PATIENTS ON STABLE ORAL ?ANTICOAGULANT THERAPY. ?2.0 - 3.0 ??PROPHYLAXIS OF VENOUS THROMBOSIS (HIGH RISK SURGERY) ?2.0 - 3.0 ??TREATMENT OF VENOUS THROMBOSIS ?2.0 - 3.0 ??TREATMENT OF PULMONARY EMBOLISM ?2.0 - 3.0 ??PREVENTION OF SYSTEMIC EMBOLISM ? TISSUE HEART VALVES ? AMI (TO PREVENT SYSTEMIC EMBOLISM)* ? VALVULAR HEART DISEASE ? ATRIAL FIBRILLATION ?2.5 - 3.5 ??MECHANICAL PROSTHETIC VALVES (HIGH RISK) ?2.0 - 3.0 ??BILEAFLET MECHANICAL VALVE IN AORTIC POSITION *If oral anticoagulant therapy is elected to prevent recurrent myocardial infarction, an INR of 2.5 to 3.5 is recommended, consistent with Food and Drug Administration recommendations. D-DIMER (08/27/10 -- Current) Units of Measure = ug/ml FEU The D-Dimer result should not be used as the sole indicator to rule in or exclude a diagnosis of Pulmonary Embolism or Deep Vein Thrombosis. ?? CONTINUED ?Page: ?? 5 Patient No: [id number] ? [facility] Patient Name: KIA HERNÁNDEZ ?[facility] Age: 53 YRS ?: 1960 ?Sex:F ?[address] ?? Adm Dt: 08/29/2014 ?[place] ??[address] Created: 08/30/2014 ??0038 ?? Pt. Type: E ? Discharge Dt: 08/29/2014 ? Pathologists: Marisabel Denny MD Admit Attend Dr: BRIGITTE MORENO MD ?URINALYSIS ?Collection Date: ?08/29/14 ?Collection Time: ?1914 ? Ref Range: ?? Units: [YELLOW] ? U COLOR ? YELLOW ??[CLEAR] ? U APPEARANCE ? CLEAR [1.003-1.030] ? U SPEC GRAVITY ? 1.006 [NEGATIVE] ?U LEUKO ESTRASE ? NEGATIVE [NEGATIVE] ?U NITRITE ? NEGATIVE ?? [6.0] ?U PH ? 6.5 [NEGATIVE] ?U PROTEIN ? NEGATIVE [NEGATIVE] ?U GLUCOSE ? NEGATIVE [NEGATIVE] ?U KETONES ? NEGATIVE [0.2- 1.0] ?UROBILINOGEN ? 0.2 [NEGATIVE] ?U BILIRUBIN ? NEGATIVE [NEGATIVE] ?U BLOOD ? NEGATIVE ?? END OF CHART ? Page: ?? 6 us Historical Provider LAB BLOOD ORDERABLES Maria Eugenia l Result HISTORICAL RESULTS * ELECTROCARDIOGRAPHY (ECG) (08/29/2014) Narrative 08/29/2014 Ordered by an unspecified provider. us Historical Provider ECG ORDERABLES Final Res ult documented in this encounter Visit Diagnoses Diagnosis Chest pain Unspecified chest pain Irritable colon Esophageal reflux Iron deficiency anemia Unspecified iron deficiency anemia documented in this encounter Care Teams Power Generation Plant Operator Relationship Specialty Start Date End Date Gallito Edwards PCP - General 06/16/10 02/16/16 documented as of this encounter
--- OUTSIDE RECORDS SUMMARY | 2024-08-12 23:45 | XMS_ITS | Encounter Summary ---
Author Organization [facility] Healthcare Address [address] [place] [address] Care Team Providers Care Retort Operator Name Role Phone Seble Yusuf Primary Care Provider Unavailabl e Encounter Details Date Type Department Care Team (Late st Contact Info) Description 09/14/2013 11:45 AM CARD PLACER - 09/14/2013 11:59 PM CARD PLACER Hospital Encounter [facility]INCONV Seble Yusuf Pain in joint, forearm; Osteoarthrosis, forearm Social History Tobacco Use Types Packs/Day Years Used Date Smoking Tobacco: Never Assessed Comments Unknown Sex and Gender Information Value Date Recorded Sex Assigned at Not on file Legal Sex Female 12:25 AM CARD PLACER Gender Identity Not on file Sexual Orientation [...] ORAL route every day 60 1 06/16/2010 [id number] -folic acid (ONE DAILY FOR WOMEN) 18-0.4 [...] Name Priority Date/Time Associated Diagnosis Comments XR WRIST 3+ VW Routine 09/14/2013 12:09 PM CARD PLACER documented in this encounter Results * XR Wrist 3+ VW (09/14/2013 12:09 PM CARD PLACER) Anatomical Region Laterality Modality N/A Radiographic Kourtney ging 09/14/2013 12:0 9 PM CARD PLACER Narrative 09/15/2013 8:34 AM CARD PLACER XR Wrist Min 3 Views L ?[id number] ??Acc#: ??[id number] DATE OF EXAM: ??Sep 14 2013 CLINICAL HISTORY: Ulnar sided wrist pain status post fall. RESULT: Three views of the left wrist demonstrate no evidence of fracture or dislocation. ??A degenerative cystic lucency is seen in the midportion of the scaphoid. ??Early radiocarpal osteoarthritis is noted. ??The soft tissues are normal. IMPRESSION: 1. 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 2. NO EVIDENCE OF LEFT WRIST FRACTURE. Interpreting Physician: ??DR JV ABDULLAHI M.D. ??Read on: ??Sep 14 2013 3:30P Transcribed by: ??VLR ??On: Sep 14 2013 ??7:02P Approved Electronically by: ??BRADLY Boykin, DR CARIAS ??on: ??Sep ??1 2013 8:34A Ordering DR: DR SEBLE YUSUF Attending DR: DR SEBLE YUSUF Procedure Note Provider, MD Alban - 12/08/2016 XR Wrist Min 3 Views L [id number] Acc#: [id number] DATE OF EXAM: Sep 14 2013 CLINICAL HISTORY: Ulnar sided wrist pain status post fall. RESULT: Three views of the left wrist demonstrate no evidence of fracture ordislocation. A degenerative cystic lucency is seen in the midportion ofthe scaphoid. Early radiocarpal osteoarthritis is noted. The softtissues are normal. IMPRESSION: 1. EARLY OSTEOARTHRITIS OF THE RADIOCARPAL JOINT WITH DEGENERATIVE CYSTICLUCENCY WITHIN THE MIDPORTION OF THE SCAPHOID. 2. NO EVIDENCE OF LEFT WRIST FRACTURE. Interpreting Physician: DR JV ABDULLAHI M.D. Read on: Sep 14 20133:30P Transcribed by: DALIA On: Sep 14 2013 7:02P Approved Electronically by: BRADLY Boykin, DR CARIAS on: Sep 15 20138:34A Ordering DR: DR SEBLE YUSUF Attending DR: DR SEBLE YUSUF us Historical Provider IMG XR PROCEDURES Final R esult documented in this encounter Visit Diagnoses Diagnosis Pain in joint, forearm Osteoarthrosis, forearm Osteoarthrosis, unspecified whether generalized or localized, forearm documented in this encounter Care Teams Retort Operator Relationship Specialty Start Date End Date Seble Yusuf PCP - General 06/16/10 02/16/16 documented as of this encounter
--- OUTSIDE RECORDS SUMMARY | 2024-08-12 23:45 | XMS_ITS | Encounter Summary ---
Author Organization [facility] Healthcare Address [address] [place] [address] Care Team Providers Care Brim Edge Trimmer Name Role Phone Unavailable Primary Care Provider Unavailabl e Encounter Details Date Type Department Care Team (Late st Contact Info) Description 03/25/2009 8:21 PM CDT - 03/26/2009 12:24 AM CDT Hospital Encounter [facility] Ruff Guy W. Syncope and collapse Social History Tobacco Use Types Packs/Day Years Used Date Smoking Tobacco: Never Assessed Comments Unknown Sex and Gender Information Value Date Recorded Sex Assigned at Not on file Legal Sex Female 12:25 AM CORE BLOWER OPERATOR Gender Identity Not on file Sexual Orientation Not on file documented as of this encounter Plan of Treatment Not on file documented as of this encounter Visit Diagnoses Diagnosis Syncope and collapse documented in this encounter
--- OUTSIDE RECORDS SUMMARY | 2024-08-12 23:45 | XMS_ITS | Encounter Summary ---
Author Organization [facility] Healthcare Address [address] [place] [address] Care Team Providers Care Telecom Billing Analyst Name Role Phone Gallito Edwards Primary Care Provider Unavailabl e Encounter Details Date Type Department Care Team (Late st Contact Info) Description 08/10/2012 8:12 AM NEWS DEPARTMENT INTERN - 08/10/2012 11:59 PM NEWS DEPARTMENT INTERN Hospital Encounter [facility] CLINCONV Gallito Edwards Acute sinusitis; Anemia; Headache Social History Tobacco Use Types Packs/Day Years Used Date Smoking Tobacco: Never Assessed Comments Unknown Sex and Gender Information Value Date Recorded Sex Assigned at Not on file Legal Sex Female 12:25 AM NEWS DEPARTMENT INTERN Gender Identity Not on file Sexual Orientation Not on file documented as of this encounter Medications at Time of Discharge b complex vitamins (B COMPLEX-VITAMIN B12) tablet once daily 0 12/06/2011 fexofenadine (TRACI) 180 mg tablet take 1 tablet (180MG) by ORAL route every day 60 1 06/16/2010 ccodcgdr-fhgr-msu -folic acid (ONE DAILY FOR WOMEN) 18-0.4 [...] as of this encounter Visit Diagnoses Diagnosis Acute sinusitis Acute sinusitis, unspecified Anemia Unspecified anemia Headache documented in this encounter Care Teams Telecom Billing Analyst Relationship Specialty Start Date End Date Gallito Edwards PCP - General 06/16/10 02/16/16 documented as of this encounter
--- OUTSIDE RECORDS SUMMARY | 2024-08-12 23:45 | XMS_ITS | Encounter Summary ---
Author Organization [facility] Healthcare Address [address] [place] [address] Care Team Providers Care Instructional Support Services Director Name Role Phone Gallito Edwards Primary Care Provider Unavailabl e Encounter Details Date Type Department Care Team (Late st Contact Info) Description 07/15/2011 7:47 AM MANAGER DENTAL - 07/15/2011 12:55 PM MANAGER DENTAL Hospital Encounter [facility] CLINCONV Austin Patrick Epistaxis Social History Tobacco Use Types Packs/Day Years Used Date Smoking Tobacco: Never Assessed Comments Unknown Sex and Gender Information Value Date Recorded Sex Assigned at Not on file Legal Sex Female 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 DENTAL Gender Identity Not on file Sexual Orientation [...] as of this encounter Visit Diagnoses Diagnosis Epistaxis documented in this encounter Care Teams Instructional Support Services Director Relationship Specialty Start Date End Date Gallito Edwards PCP - General 06/16/10 02/16/16 documented as of this encounter
--- OUTSIDE RECORDS SUMMARY | 2024-08-12 23:45 | XMS_ITS | Encounter Summary ---
Author Organization [facility] Healthcare Address [address] [place] [address] Care Team Providers Care Credit Risk Modeler Name Role Phone Unavailable Primary Care Provider Unavailabl e Encounter Details Date Type Department Care Team (Late st Contact Info) Description 06/14/2008 12:01 AM CDT - 06/14/2008 11:59 PM CDT Hospital Encounter [facility] CLINCONV Bindu Delaney MD [address] [address] Social History Tobacco Use Types Packs/Day Years Used Date Smoking Tobacco: Never Assessed Comments Unknown Sex and Gender Information Value Date Recorded Sex Assigned at Not on file Legal Sex Female 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
--- OUTSIDE RECORDS SUMMARY | 2024-08-12 23:45 | XMS_ITS | Encounter Summary ---
Author Organization [facility] Healthcare Address [address] [place] [address] Care Team Providers Care Executive Account Manager Name Role Phone Gallito Edwards Primary Care Provider Unavailabl e Encounter Details Date Type Department Care Team (Late st Contact Info) Description 09/17/2013 3:42 PM NEUROLOGY PROFESSOR - 09/17/2013 11:59 PM NEUROLOGY PROFESSOR Hospital Encounter [facility] CLINCONV Bindu Fernandes MD [address] [facility] [address] [place] [id number] Other screening mammogram Social History Tobacco Use Types Packs/Day Years Used Date Smoking Tobacco: Never Assessed Comments Unknown Sex and Gender Information Value Date Recorded Sex Assigned at Not on file Legal Sex Female 12:25 AM NEUROLOGY PROFESSOR Gender Identity Not on file Sexual Orientation [...] ORAL route every day 60 1 06/16/2010 txavduch-hrvh-phs -folic acid (ONE DAILY FOR WOMEN) 18-0.4 [...] Procedure Name Priority Date/Time Associated Diagnosis Comments DIGITAL MAMMOGRAPHY Routine 09/17/2013 4:03 PM NEUROLOGY PROFESSOR documented in this encounter Results * DIGITAL MAMMOGRAPHY (09/17/2013 4:03 PM NEUROLOGY PROFESSOR) Anatomical Region Laterality Modality Breast Mammography 09/17/2013 4:03 PM NEUROLOGY PROFESSOR Narrative 09/18/2013 3:12 PM NEUROLOGY PROFESSOR Mr Screening Mamm Bi ??Acc#: ??[id number] DATE OF EXAM: ??Feb ??2013 Performed by: amol CLINICAL HISTORY: Routine screening. ??No current complaints. RESULT: Four view screening mammogram is compared to a prior exam dated 09/12/12. There has been no significant interval change. ??The breasts are heterogeneously dense. ??Small nodular densities remain present in the upper outer quadrants bilaterally. ??There are no new masses or suspicious microcalcifications. Digital technology was employed plus computer-aided detection software (R2) was utilized in interpretation of these images. ??This facility utilizes a reminder system to notify patients of yearly mammograms. IMPRESSION: BI-RADS CATEGORY 2 ??BENIGN FINDINGS. ??RECOMMEND ROUTINE FOLLOW-UP. Interpreting Physician: ??DR JV ABDULLAHI M.D. ??Read on: ??Feb ??4 2013 7:10A Transcribed by: ??mrr ??On: Sep ??4 2013 10:56A Approved Electronically by: ??BRADLY [place], DR CARIAS ??on: ??Sep ??4 2013 3:12P Ordering DR: DR BINDU FERNANDES Attending DR: DR BINDU FERNANDES Procedure Note Provider, MD Alban - 12/08/2016 Mr Screening Mamm Bi Acc#: [id number] DATE OF EXAM: Sep 17 2013 Performed by: amol CLINICAL HISTORY: Routine screening. No current complaints. RESULT: Four view screening mammogram is compared to a prior exam dated 09/12/12.There has been no significant interval change. The breasts areheterogeneously dense. Small nodular densities remain present in theupper outer quadrants bilaterally. There are no new masses or suspiciousmicrocalcifications. Digital technology was employed plus computer-aideddetection software (R2) was utilized in interpretation of these images.This facility utilizes a reminder system to notify patients of yearlymammograms. IMPRESSION: BI-RADS CATEGORY 2 BENIGN FINDINGS. RECOMMEND ROUTINE FOLLOW-UP. Interpreting Physician: DR JV ABDULLAHI M.D. Read on: Sep 18 20137:10A Transcribed by: alfa On: Sep 18 2013 10:56A Approved Electronically by: BRADLY Boykin, DR CARIAS on: Sep 18 20133:12P Ordering DR: DR BINDU FERNANDES Attending DR: DR BINDU FERNANDES us Historical Provider MD [facility]AL[facility] MAMMO PROCEDURES Maria Eugenia l Result documented in this encounter Visit Diagnoses Diagnosis Other screening mammogram documented in this encounter Care Teams Executive Account Manager Relationship Specialty Start Date End Date Gallito Edwards PCP - General 06/16/10 02/16/16 documented as of this encounter
--- OUTSIDE RECORDS SUMMARY | 2024-08-12 23:45 | XMS_ITS | Encounter Summary ---
Author Organization [facility] Healthcare Address [address] [place] [address] Care Team Providers Care Hadoop Software Engineer Name Role Phone Unavailable Primary Care Provider Unavailabl e Encounter Details Date Type Department Care Team (Late st Contact Info) Description 04/23/2009 12:01 AM CDT - 04/23/2009 11:59 PM CDT Hospital Encounter [facility] CLINGallito Malloy Syncope and collapse Social History Tobacco Use Types Packs/Day Years Used Date Smoking Tobacco: Never Assessed Comments Unknown Sex and Gender Information Value Date Recorded Sex Assigned at Not on file Legal Sex Female 12:25 AM CUT IN WORKER Gender Identity Not on file Sexual Orientation Not on file documented as of this encounter Plan of Treatment Not on file documented as of this encounter Visit Diagnoses Diagnosis Syncope and collapse documented in this encounter
--- OUTSIDE RECORDS SUMMARY | 2024-08-12 23:45 | XMS_ITS | Encounter Summary ---
Author Organization [facility] Healthcare Address [address] [place] [address] Care Team Providers Care Freight Car Cleaner Delta System Name Role Phone Gallito Edwards Primary Care Provider Unavailabl e Encounter Details Date Type Department Care Team (Late st Contact Info) Description 08/29/2014 5:50 PM MARKETING EXECUTIVE - 08/29/2014 11:59 PM MARKETING EXECUTIVE Hospital Encounter [facility] CLINCONV Other dyspnea and respiratory abnormality Social History Tobacco Use Types Packs/Day Years Used Date Smoking Tobacco: Never Assessed Comments Unknown Sex and Gender Information Value Date Recorded Sex Assigned at Not on file Legal Sex Female 12:25 AM MARKETING EXECUTIVE Gender Identity Not on file Sexual Orientation [...] ORAL route every day 60 1 06/16/2010 dgvfdfai-vipn-one -folic acid (ONE DAILY FOR WOMEN) 18-0.4 [...] of this encounter Visit Diagnoses Diagnosis Other dyspnea and respiratory abnormality documented in this encounter Care Teams Freight Car Cleaner [employer] System Relationship Specialty Start Date End Date Gallito Edwards PCP - General 06/16/10 02/16/16 documented as of this encounter
--- OUTSIDE RECORDS SUMMARY | 2024-08-12 23:45 | XMS_ITS | Encounter Summary ---
Author Organization [facility] Healthcare Address [address] [place] [address] Care Team Providers Care Emergency Room Clinician Name Role Phone Seble Yusuf Primary Care Provider Unavailabl e Encounter Details Date Type Department Care Team (Late st Contact Info) Description 10/23/2013 6:14 AM CDT - 10/23/2013 11:59 PM CDT Hospital Encounter [facility] CLINCONV Seble Yusuf Iron deficiency anemia Social History Tobacco Use Types Packs/Day Years Used Date Smoking Tobacco: Never Assessed Comments Unknown Sex and Gender Information Value Date Recorded Sex Assigned at Not on file Legal Sex Female 12:25 AM PEDIATRIC NP Gender Identity Not on file Sexual Orientation [...] ORAL route every day 60 1 06/16/2010 qjlvybjg-rhcj-qua -folic acid (ONE DAILY FOR WOMEN) 18-0.4 [...] Procedure Name Priority Date/Time Associated Diagnosis Comments SERUM THYROXINE (T4), FREE Routine 10/23/2013 6:21 AM CDT SERUM THYROID-STIMULATING HORMONE (TSH) Routine 10/23/2013 6:21 AM CDT SERUM HEPATIC FUNCTION PANEL Routine 10/23/2013 6:21 AM CDT SERUM BASIC METABOLIC PANEL Routine 10/23/2013 6:21 AM CDT BLOOD WBC CELL MORPHOLOGIC EXAM, AUTO Routine 10/23/2013 6:21 AM CDT BLOOD CELL COUNT (CBC) Routine 10/23/2013 6:21 AM CDT DISCHARGE LABORATORY CUMULATIVE REPORT Routine 10/23/2013 12:00 AM CDT documented in this encounter Results * Serum thyroid-stimulating hormone (TSH) (10/23/2013 6:21 AM CDT) TSH 4.62 0.35 - 4.80 mcIUnits/ml HISTORICAL RESULTS Serum 10/23/2013 6:21 AM CDT Seble Yusuf LAB BLOOD ORDERABLES Final Resul t HISTORICAL RESULTS * (ABNORMAL) Serum basic metabolic panel (10/23/2013 6:21 AM CDT) BUN 16.0 6.0 - 23.0 mg/dl HISTORICAL RESULTS Sodium 136 134 - 143 mmol/L HISTORICAL RESULTS Potassium, sr 3.5 3.4 - 5.0 mmol/L HISTORICAL RESULTS Chloride 102 99 - 108 mmol/L HISTORICAL RESULTS CO2 27 23 - 32 mmol/L HISTORICAL RESULTS Glucose 100 70 - 199 mg/dl HISTORICAL RESULTS Comment: [...] glucose. New reference ranges implemented 06/25/2013. Creatinine 0.99 0.60 - 1.30 mg/dl HISTORICAL RESULTS Comment: eGFR:63 ml/min/1.73sq.m if non -Swiss. eGFR: >70 ml/min/1.73sq.m if -Swiss. AVE GFR for 50-59 yr. age group: ??93 ml/min/1.73sq.m Calculated using MDRD Equation BUN/creat ratio 16 10 - 20 HIST ORICAL RESULTS A. gap 11 7 - 14 mmol/L HISTORICAL RESULTS Osmo, calc 273(L) 275 - 295 mOsm/kg HISTORICAL RESULTS Calcium 8.1(L) 8.6 - 9.8 mg/dl HISTORICAL RESULTS Serum 10/23/2013 6:[address] [facility] LAB BLOOD ORDERABLES Final Resul t Performing Organization Address [facility] de Phone Number HISTORICAL RESULTS * Serum thyroxine (T4), free (10/23/2013 6:21 AM CDT) Free T4 0.9 0.7 - 1.3 ng/dl HISTORICAL RESULTS Serum 10/23/2013 6:21 AM CDT [facility] [employer] LAB BLOOD ORDERABLES Final Resul t Performing Organization Address [facility] de Phone Number HISTORICAL RESULTS * Blood cell count (CBC) (10/23/2013 6:21 AM CDT) WBC 7.0 4.0 - 10.5 K/cumm HISTORICAL RESULTS RBC 5.12 4.20 - 5.40 M/cumm HISTORICAL RESULTS Hgb 13.5 12.0 - 16.0 g/dl HISTORICAL RESULTS Hct 41.2 37.0 - 47.0 % HISTORICAL RESULTS MCV 80.5 77.0 - 97.0 fl HISTORICAL RESULTS MCH 26.4 23.0 - 34.0 pg HISTORICAL RESULTS MCHC 32.8 32.0 - 36.0 g/dl HISTORICAL RESULTS Rdw 13.6 11.5 - 14.5 % HISTORICAL RESULTS Platelets 255 150 - 450 K/cumm HISTORICAL RESULTS MPV 9.5 7.4 - 10.4 fl HISTORICAL RESULTS Blood specimen (specimen) 10/23/2013 6:21 AM CDT Seble Yusuf LAB BLOOD ORDERABLES Final Resul t Performing Organization Address [facility] Co de Phone Number HISTORICAL RESULTS * (ABNORMAL) Blood WBC cell morphologic exam, auto (10/23/2013 6:21 AM CDT) Lymphocytes 19.3(L) 25.0 - 33.0 % HISTORICAL RESULTS Monos 9.4 1.0 - 13.0 % HISTORICAL RESULTS Neutrophils 68.6 54.0 - 69.0 % HISTORICAL RESULTS Eosinophils 2.3 0.0 - 10.0 % HISTORICAL RESULTS Basophils 0.3 0.0 - 1.0 % HISTORICAL RESULTS Immature granulocytes 0.1 0.0 - 1.0 % HISTORICAL RESULTS Lymphocytes, abs 1.3 1.2 - 3.4 K/cumm HISTORICAL RESULTS Monocytes, absolute 0.7(L) 1.1 - 1.9 K/cumm HISTORICAL RESULTS Neutrophils, abs 4.8 1.4 - 6.5 K/cumm HISTORICAL RESULTS Eosinophils, abs 0.2 0.0 - 0.7 cells/cum m HISTORICAL RESULTS Basophils, abs 0.0 0.0 - 0.2 K/cumm HISTORICAL RESULTS Immature granulocyte, abs 0.0 0.0 - 0.0 K/cumm HISTORICAL RESULTS Blood specimen (specimen) 10/23/2013 6:21 AM CDT Seble Yusuf LAB BLOOD ORDERABLES Final Resul t HISTORICAL RESULTS * (ABNORMAL) Serum hepatic function panel (10/23/2013 6:21 AM CDT) AST 19 5 - 40 Units/L HISTORICAL RESULTS Comment:AST - NOTE REFERENCE RANGE CHANGE ALT 25 15 - 70 Units/L HISTORICAL RESULTS Alk phos 135(H) 44 - 125 Units/L HISTORICAL RESULTS Bilirubin 0.4 0.0 - 1.1 mg/dl HISTORICAL RESULTS Bilirubin, direct 0.1 0.0 - 0.3 mg/dl HISTORICAL RESULTS Alb 3.5 3.3 - 4.5 g/dl HISTORICAL RESULTS Protein, sr 7.7 6.4 - 8.0 g/dl HISTORICAL RESULTS Serum 10/23/2013 6:21 AM CDT us Seble Yusuf LAB BLOOD ORDERABLES Final Resul t HISTORICAL RESULTS * Discharge Laboratory Cumulative Report (10/23/2013 12:00 AM CDT) 10/23/2013 Narrative HISTORICAL RESULTS - 10/25/2013 12:35 AM CDT Patient No: [id number] ? [facility] Patient Name: JULIETA HERNÁNDEZ ?[facility] Healthcare Age: 53 YRS ?: 1960 ?Sex:F ?[address] )[phone] ?? Adm Dt: 10/23/2013 ?[place], [place] ??[address] Created: 10/25/2013 ??0035 ?? Pt. Type: R ? Discharge Dt: 10/23/2013 ? Pathologists: Marisabel Denny MD Admit Attend SEBLE Sherman MD ? BLOOD CELL COUNTS ?Collection Date: ?10/23/13 ?Collection Time: ?620 ? Ref Range: ?? Units: [4.00-10.50] /CMM ? WBC X 10^3 ?6.95 [4.20-5.40] ??/CMM ? RBC X 10^6 ?5.12 [12.0-16.0] ??G/DL ? HGB ? 13.5 [37.0-47.0] ??% ?HCT ? 41.2 [77.0-97.0] ??FL ? MCV ? 80.5 [23.0-34.0] ??PG ? MCH ? 26.4 [32.0-36.0] ??% ?MCHC ?32.8 [11.5-14.5] ??% ?RDW ? 13.6 [150-450] ?? /CMM ? PLT X 10^3 ? 255 ?BLOOD CELL DIFFERENTIAL ?Collection Date: ?03/11/14 ?Collection Time: ?0621 ? Ref Range: ?? Units: [54.0-69.0] ??% ?NEUTROPHILS ? 68.6 [25.0-33.0] ??% ?LYMPHOCYTES ? 19.3 L [1.0-13.0] ??% ?MONOCYTES ?9.4 [0.0-10.0] ??% ?EOSINOPHILS ?2.3 [0.0-1.0] ?? % ?BASOPHILS ?0.3 ? /CMM ? A LYMPHOCYTE ? 1.3 [0.0-1.0] ?? % ?IMM GRAN % ? 0.1 [0.00-0.02] ??/CMM ? A IMM GRAN ?0.01 [1.1-1.9] ?? /CMM ? A MONOCYTE ? 0.7 L [1.4-6.5] ?? /CMM ? A NEUTROPHIL ? 4.8 [0.0-0.7] ?? /CMM ? A EOSINOPHIL ? 0.2 [0.0-0.2] ?? /CMM ? A BASOPHIL ? 0.0 Footnotes and Symbols: L = Low ?? CONTINUED ?Page: ?? 1 Patient No: [id number] ? [facility] Patient Name: JULIETA HERNÁNDEZ ?[facility] Age: 53 YRS ?: 1960 ?Sex:F ?[address] )[phone] ?? Adm Dt: 10/23/2013 ?[place], [place] ??[address] Created: 10/25/2013 ??0035 ?? Pt. Type: R ? Discharge Dt: 10/23/2013 ? Pathologists: Marisabel Denny MD Admit Dr. Maulik Galvan: SEBLE YUSUF MD ? GENERAL CHEMISTRY ?Collection Date: ?10/23/13 ?Collection Time: ?0621 ? Ref Range: ?? Units: [134-143] ?? MMOL/L ? SODIUM ? 136 [3.4-5.0] ?? MMOL/L ? POTASSIUM ?3.5 [99.0-108.0] MMOL/L ? CHLORIDE ? 102.0 [23.0-32.0] ??MMOL/L ? TOTAL CO2 ? 26.9 ?? [7-14] ?MMOL/L ? ANION GAP ? 11 ??[70-199] ?? MG/DL ?GLUCOSE ?100 f [275-295] ?? MOSM/K ? CALCULATED OSMO ?273 L [6.4-8.0] ?? G/DL ? TOTAL PROTEIN ?7.7 [3.3-4.5] ?? G/DL ? ALBUMIN ?3.5 [8.6-9.8] ?? MG/DL ?CALCIUM ?8.1 L [0.0-0.3] ?? MG/DL ?BILI DIRECT ?0.1 [0.0-1.1] ?? MG/DL ?BILI TOTAL ? 0.4 ??[44-125] ?? U/L ?ALK PHOS ? 135 H ?? [5-40] ?U/L ?AST(SGOT) ? 19 f ??[15-70] ?U/L ?ALT(SGPT) ? 25 f [6.0-23.0] ??MG/DL ?BUN ? 16.0 ??[10-20] ? B/C RATIO ? 16 Footnotes and Symbols: L = Low, H [...] glucose. New reference ranges implemented 06/25/2013. AST(SGOT) (01/24/13 -- Current) AST ??- NOTE REFERENCE RANGE CHANGE ALT(SGPT) (03/06/13 -- Current) ?? CONTINUED ?Page: ?? 2 Patient No: [id number] ? [facility] Patient Name: JULIETA HERNÁNDEZ ?[facility] Healthcare Age: 53 YRS ?: 1960 ?Sex:F ?[address] )[phone] ?? Adm Dt: 10/23/2013 ?[place], [place] ??[address] Created: 10/25/2013 ??0035 ?? Pt. Type: R ? Discharge Dt: 10/23/2013 ? Pathologists: Marisabel Denny MD Admit Attend Dr: ATON, SEBLE W MD ? GENERAL CHEMISTRY ?Collection Date: ?10/23/13 ?Collection Time: ?620 ? Ref Range: ?? Units: [0.60-1.30] ??MG/DL ?CREATININE ?0.99 f ?03/11/14 0621 eGFR:63 ml/min/1.73sq.m if non -Swiss. eGFR: >70 ml/min/1.73sq.m if -Swiss. AVE GFR for 50-59 yr. age group: ??93 ml/min/1.73sq.m Calculated using MDRD Equation FOOTNOTE ADDED ON ?? 10/23/13 ?? AT 0718 BY 999 ?THYROID FUNCTION TESTS ?Collection Date: ?10/23/13 ?Collection Time: ?620 ? Ref Range: ?? Units: [0.7-1.3] ?? NG/DL ?FREE T4 ?0.9 [0.35-4.80] ??uIU/ML ? TSH ? 4.62 Footnotes and Symbols: f = Footnote ?? END OF CHART ? Page: ?? 3 us Historical Provider LAB BLOOD ORDERABLES Maria Eugenia l Result HISTORICAL RESULTS documented in this encounter Visit Diagnoses Diagnosis Iron deficiency anemia Unspecified iron deficiency anemia documented in this encounter Care Teams Emergency Room Clinician Relationship Specialty Start Date End Date Seble Yusuf PCP - General 06/16/10 02/16/16 documented as of this encounter
--- OUTSIDE RECORDS SUMMARY | 2024-08-12 23:45 | XMS_ITS | Encounter Summary ---
Author Organization [facility] Healthcare Address [address] [place] [address] Care Team Providers Care Racetrack Steward Name Role Phone Seble Yusuf Primary Care Provider Unavailabl e Encounter Details Date Type Department Care Team (Late st Contact Info) Description 09/12/2012 4:09 PM GORING CUTTER - 09/12/2012 11:59 PM GORING CUTTER Hospital Encounter [facility] CLINCONV Bindu Fernandes MD [address] [facility] [address] [place] [address] Other screening mammogram Social History Tobacco Use Types Packs/Day Years Used Date Smoking Tobacco: Never Assessed Comments Unknown Sex and Gender Information Value Date Recorded Sex Assigned at Not on file Legal Sex Female 12:25 AM GORING CUTTER Gender Identity Not on file Sexual Orientation [...] ORAL route every day 60 1 06/16/2010 kwbymtrr-ziiy-wcp -folic acid (ONE DAILY FOR WOMEN) 18-0.4 [...] Date/Time Associated Diagnosis Comments DIGITAL MAMMOGRAPHY Routine 09/12/2012 4:30 PM GORING CUTTER documented in this encounter Results * DIGITAL MAMMOGRAPHY (09/12/2012 4:30 PM GORING CUTTER) Anatomical Region Laterality Modality Breast Mammography 09/12/2012 4:30 PM GORING CUTTER Narrative 09/13/2012 3:18 PM GORING CUTTER Yc CC: ??DR SEBLE YUSUF Screening Mamm Bi ??Acc#: ??[id number] DATE OF EXAM: ??Sep 12 2012 CLINICAL HISTORY: Routine screening. No current complaints. Performed by: poppy RESULT: Four view screening mammogram is compared to a prior exam dated 09/08/11. There has been no interval change. The breasts are heterogeneously dense. ??There are no new masses or suspicious microcalcifications. Digital technology was employed plus computer-aided detection software (R2) was utilized in interpretation of these images. ??This facility utilizes a reminder system to notify patients of yearly mammograms. IMPRESSION: BI RADS CATEGORY 1 - NEGATIVE EXAM RECOMMEND ROUTINE ??FOLLOWUP. Interpreting Physician: ??DR JV ABDULLAHI M.D. ??Read on: ??Sep 13 2012 7:27A Transcribed by: ??[facility] ??On: Sep 13 2012 10:33A Approved Electronically by: ??BRADLY [place], DR CARIAS ??on: ??Sep 13 2012 3:18P Ordering DR: DR BINDU FERNANDES Attending DR: DR BINDU FERNANDES Procedure Note Provider, MD Alban - 12/08/2016 Yc CC: DR SEBLE YUSUF Screening Mamm Bi Acc#: [id number] DATE OF EXAM: Sep 12 2012 CLINICAL HISTORY: Routine screening. No current complaints. Performed by: poppy RESULT: Four view screening mammogram is compared to a prior exam dated 09/08/11.There has been no interval change. The breasts are heterogeneously dense.There are no new masses or suspicious microcalcifications. Digitaltechnology was employed plus computer-aided detection software (R2) wasutilized in interpretation of these images. This facility utilizes [employer] system to notify patients of yearly mammograms. IMPRESSION: BI RADS CATEGORY 1 - NEGATIVE EXAM RECOMMEND ROUTINE FOLLOWUP. Interpreting Physician: DR JV ABDULLAHI M.D. Read on: Sep 13 20127:27A Transcribed by: [facility] On: Sep 13 2012 10:33A Approved Electronically by: BRADLY [place], DR CARIAS on: Sep 13 20123:18P Ordering DR: DR BINDU FERNANDES Attending DR: DR BINDU FERNANDES us Historical Provider MD WALDROP MAMMO PROCEDURES Maria Eugenia l Result documented in this encounter Visit Diagnoses Diagnosis Other screening mammogram documented in this encounter Care Teams Racetrack Steward Relationship Specialty Start Date End Date Seble Yusuf PCP - General 06/16/10 02/16/16 documented as of this encounter
--- OUTSIDE RECORDS SUMMARY | 2024-08-12 23:45 | XMS_ITS | Encounter Summary ---
Author Organization [facility] Healthcare Address [address] [place] [address] Care Team Providers Care Medical Resident Name Role Phone Seble Yusuf Primary Care Provider Unavailabl e Encounter Details Date Type Department Care Team (Late st Contact Info) Description 02/12/2014 9:24 AM CDT - 02/12/2014 11:59 PM CDT Hospital Encounter [facility]INCONV Seble Yusuf Anemia Social History Tobacco Use Types Packs/Day Years Used Date Smoking Tobacco: Never Assessed Comments Unknown Sex and Gender Information Value Date Recorded Sex Assigned at Not on file Legal Sex Female 12:25 AM COMMUNITY SERVICE OFFICER COORDINATOR Gender Identity Not on file Sexual [...] ORAL route every day 60 1 06/16/2010 wjtnotmd-vqdx-mqy -folic acid (ONE DAILY FOR WOMEN) 18-0.4 [...] Name Priority Date/Time Associated Diagnosis Comments SERUM HEPATIC FUNCTION PANEL Routine 02/12/2014 9:36 AM CDT DISCHARGE LABORATORY CUMULATIVE REPORT Routine 02/12/2014 12:00 AM CDT documented in this encounter Results * (ABNORMAL) Serum hepatic function panel (02/12/2014 9:36 AM CDT) AST 22 5 - 40 Units/L HISTORICAL RESULTS ALT 30 15 - 70 Units/L HISTORICAL RESULTS Alk phos 141(H) 44 - 125 Units/L HISTORICAL RESULTS Bilirubin 0.3 0.0 - 1.1 mg/dl HISTORICAL RESULTS Bilirubin, direct 0.1 0.0 - 0.3 mg/dl HISTORICAL RESULTS Alb 3.2(L) 3.3 - 4.5 g/dl HISTORICAL RESULTS Protein, sr 7.6 6.4 - 8.0 g/dl HISTORICAL RESULTS Serum 02/12/2014 9:36 AM CDT us Seble Yusuf LAB BLOOD ORDERABLES Final Resul t HISTORICAL RESULTS * Discharge Laboratory Cumulative Report (02/12/2014 12:00 AM CDT) 02/12/2014 Narrative HISTORICAL RESULTS - 02/14/2014 12:36 AM CDT Patient No: [id number] ? [facility] Patient Name: JULIETA HERNÁNDEZ ?[facility] Age: 53 YRS ?: 1960 ?Sex:F ?[address] ?? Adm Dt: 02/12/2014 ?[place] ??[id number] Created: 02/14/2014 ??0036 ?? Pt. Type: R ? Discharge Dt: 02/12/2014 ? Pathologists: Marisabel Denny MD Admit Attend Dr: SEBLE YUSUF MD ? GENERAL CHEMISTRY ?Collection Date: ?02/12/14 ?Collection Time: ?0936 ? Ref Range: ?? Units: [6.4-8.0] ?? G/DL ? TOTAL PROTEIN ?7.6 [3.3-4.5] ?? G/DL ? ALBUMIN ?3.2 L [0.0-0.3] ?? MG/DL ?BILI DIRECT ?0.1 [0.0-1.1] ?? MG/DL ?BILI TOTAL ? 0.3 ??[44-125] ?? U/L ?ALK PHOS ? 141 H ?? [5-40] ?U/L ?AST(SGOT) ? 22 f ??[15-70] ?U/L ?ALT(SGPT) ? 30 f Footnotes and Symbols: L = Low, H = High, f = Footnote AST(SGOT) (12/27/13 -- Current) ALT(SGPT) (03/06/13 -- Current) ?? END OF CHART ? Page: ?? 1 us Historical Provider MD LAB BLOOD ORDERABLES Maria Eugenia simmons Result HISTORICAL RESULTS documented in this encounter Visit Diagnoses Diagnosis Anemia Unspecified anemia documented in this encounter Care Teams Medical Resident Relationship Specialty Start Date End Date Seble Yusuf PCP - General 06/16/10 02/16/16 documented as of this encounter
--- OUTSIDE RECORDS SUMMARY | 2024-08-12 23:45 | XMS_ITS | Encounter Summary ---
Author Organization [facility] Healthcare Address [address] [place] [address] Care Team Providers Care Loans Officer Name Role Phone Seble Yusuf Primary Care Provider Unavailabl e Encounter Details Date Type Department Care Team (Late st Contact Info) Description 10/02/2014 6:14 AM FILTER ASSEMBLER - 10/02/2014 11:59 PM FILTER ASSEMBLER Hospital Encounter [facility] CLINCONV Seble Yusuf Other malaise and fatigue Social History Tobacco Use Types Packs/Day Years Used Date Smoking Tobacco: Never Assessed Comments Unknown Sex and Gender Information Value Date Recorded Sex Assigned at Not on file Legal Sex Female 12:25 AM FILTER ASSEMBLER Gender Identity Not on file Sexual Orientation [...] by mouth once daily 30 0 09/16/2014 uwjezcrj-rxnw-olt -folic acid (ONE DAILY FOR WOMEN) 18-0.4 mg tablet once dailyt 0 12/06/2011 cephalexin (KEFLEX) 250 mg capsule take 1 capsule (250MG) by ORAL route 4 times every day 40 0 06/02/2012 01/19/2017 hydroCHLOROthiazi de (HYDRODIURIL) 25 mg tablet take 1 tablet by mouth once daily 30 0 09/16/2014 07/12/[address] (ACIPHEX) 20 mg EC tablet TAKE ONE TABLET BY MOUTH TWO TIMES A DAY 60 1 06/16/2010 02/17/2017 documented as of this encounter Plan of Treatment Not on file documented as of this encounter Procedures Procedure Name Priority Date/Time Associated Diagnosis Comments SERUM THYROXINE (T4), FREE Routine 10/02/2014 6:20 AM FILTER ASSEMBLER SERUM THYROID-STIMULATING HORMONE (TSH) Routine 10/02/2014 6:20 AM FILTER ASSEMBLER SERUM BASIC METABOLIC PANEL Routine 10/02/2014 6:20 AM FILTER ASSEMBLER BLOOD GLYCATED HEMOGLOBIN Routine 10/02/2014 12:20 AM FILTER ASSEMBLER DISCHARGE LABORATORY CUMULATIVE REPORT Routine 10/02/2014 12:00 AM FILTER ASSEMBLER documented in this encounter Results * Serum thyroid-stimulating hormone (TSH) (10/02/2014 6:20 AM FILTER ASSEMBLER) TSH 3.12 0.30 - 5.00 mcIUnits/ml HISTORICAL RESULTS Serum 10/02/2014 6:20 AM FILTER ASSEMBLER Seble Yusuf LAB BLOOD ORDERABLES Final Resul t HISTORICAL RESULTS * Serum basic metabolic panel (10/02/2014 6:20 AM FILTER ASSEMBLER) BUN 13.2 8.0 - 25.0 mg/dl HISTORICAL RESULTS Sodium 140 135 - 145 mmol/L HISTORICAL RESULTS Potassium, sr 3.8 3.5 - 5.1 mmol/L HISTORICAL RESULTS Chloride 101 97 - 110 mmol/L HISTORICAL RESULTS CO2 31 22 - 32 mmol/L HISTORICAL RESULTS Glucose 104 70 - 199 mg/dl HISTORICAL RESULTS Comment: Note:The glucose is assumed non fasting Fastin-99 mg/dl Random: 70-199 mg/dl Either a fasting glucose > 126 mg/dL or a random glucose > 200 mg/dL plus symptoms is diagnostic of diabetes when confirmed on another day. Fasting values > 100 mg/dl but < 125 mg/dL are diagnostic of impaired fasting glucose. Creatinine 0.91 0.60 - 1.10 mg/dl HISTORICAL RESULTS Comment: eGFR:69 ml/min/1.73sq.m if non -Macanese. eGFR: >70 ml/min/1.73sq.m if -Macanese. AVE GFR for 50-59 yr. age group: ??93 ml/min/1.73sq.m Calculated using MDRD Equation BUN/creat ratio 15 10 - 20 HIST ORICAL RESULTS A. gap 12 7 - 14 mmol/L HISTORICAL RESULTS Osmo, calc 280 275 - 295 mOsm/kg HISTORICAL RESULTS Calcium 9.4 8.6 - 10.2 mg/dl HISTORICAL RESULTS Serum 10/02/2014 6:20 AM FILTER ASSEMBLER [facility] [employer] LAB BLOOD ORDERABLES Final Resul t Performing Organization Address [facility] de Phone Number HISTORICAL RESULTS * Serum thyroxine (T4), free (10/02/2014 6:20 AM FILTER ASSEMBLER) Free T4 0.9 0.8 - 1.8 ng/dl HISTORICAL RESULTS Serum 10/02/2014 6:20 AM FILTER ASSEMBLER Seble Rico LAB BLOOD ORDERABLES Final Resul t Performing Organization Address [facility] de Phone Number HISTORICAL RESULTS * Blood glycated hemoglobin (10/02/2014 12:20 AM FILTER ASSEMBLER) Glycated hemoglobin 5.7 4.0 - 6.0 % HISTORICAL RESULTS Blood specimen (specimen) 10/02/2014 12:20 AM FILTER ASSEMBLER Narrative HISTORICAL RESULTS - 10/02/2014 12:50 AM FILTER ASSEMBLER Estimated average Glucose A1C(%) ?? mg/dl ? A1C(%) ?? mg/dl ?? 5.0 ?97 ?9.0 ?212 ?? 5.5 ? 111 ?9.5 ?226 ?? 6.0 ? 126 ? 10.0 ?240 ?? 6.5 ? 140 ? 10.5 ?255 ?? 7.0 ? 154 ? 11.0 ?269 ?? 7.5 ? 169 ? 11.5 ?283 ?? 8.0 ? 183 ? 12.0 ?298 ?? 8.5 ? 197 95% Confidence levels are +/- 20% The ADA recommends reporting an estimated Average Glucose (eAG) with all hemoglobin A1C results using the equation derived from a study of 507 normal adults and diabetic adults (in stable control). Minority populations were underrepresented. Children and women were not included. (Diabetes Care 2008; 31:9428-1991) us Seble Yusuf LAB BLOOD ORDERABLES Final Resul t HISTORICAL RESULTS * Discharge Laboratory Cumulative Report (10/02/2014 12:00 AM FILTER ASSEMBLER) 10/02/2014 Narrative HISTORICAL RESULTS - 10/04/2014 12:40 AM FILTER ASSEMBLER Patient No: [id number] ? [facility] Patient Name: JULIETA HERNÁNDEZ ?[facility] Age: 53 YRS ?: 1960 ?Sex:F ?[address] )[phone] ?? Adm Dt: 10/02/2014 ?[place], [place] ??[address] Created: 10/04/2014 ??0040 ?? Pt. Type: R ? Discharge Dt: 10/02/2014 ? Pathologists: Marisabel Denny MD Admit Attend Dr: SEBLE YUSUF MD ?SPECIAL HEMATOLOGY ?Collection Date: ?10/02/14 ?Collection Time: ?0620 ? Ref Range: ?? Units: [4.0-6.0] ?? % ?HEMOGLOBIN A1C ? 5.7 f Footnotes and Symbols: f = Footnote HEMOGLOBIN A1C (03/31/11 -- Current) Estimated average Glucose A1C(%) ?? mg/dl ? A1C(%) ?? mg/dl ?? 5.0 ?97 ?9.0 ?212 ?? 5.5 ? 111 ?9.5 ?226 ?? 6.0 ? 126 ? 10.0 ?240 ?? 6.5 ? 140 ? 10.5 ?255 ?? 7.0 ? 154 ? 11.0 ?269 ?? 7.5 ? 169 ? 11.5 ?283 ?? 8.0 ? 183 ? 12.0 ?298 ?? 8.5 ? 197 95% Confidence levels are +/- 20% The ADA recommends reporting an estimated Average Glucose (eAG) with all hemoglobin A1C results using the equation derived from a study of 507 normal adults and diabetic adults (in stable control). Minority populations were underrepresented. Children and women were not included. (Diabetes Care 2008; 31:8925-9741) ?? CONTINUED ?Page: ?? 1 Patient No: [id number] ? [facility] Patient Name: JULIETA HERNÁNDEZ ?[facility] Age: 53 YRS ?: 1960 ?Sex:F ?[address] )[phone] ?? Adm Dt: 10/02/2014 ?[place] ??[address] Created: 10/04/2014 ??0040 ?? Pt. Type: R ? Discharge Dt: 10/02/2014 ? Pathologists: Marisabel Denny MD Admit DrDede Attend Dr: SEBLE YUSUF MD ? GENERAL CHEMISTRY ?Collection Date: ?10/02/14 ?Collection Time: ?0620 ? Ref Range: ?? Units: [135-145] ?? MMOL/L ? SODIUM ? 140 [3.5-5.1] ?? MMOL/L ? POTASSIUM ?3.8 [97.0-110.0] MMOL/L ? CHLORIDE ? 101.0 [22.0-32.0] ??MMOL/L ? TOTAL CO2 ? 31.1 ?? [7-14] ?MMOL/L ? ANION GAP ? 12 ??[70-199] ?? MG/DL ?GLUCOSE ?104 f [275-295] ?? MOSM/K ? CALCULATED OSMO ?280 [8.6-10.2] ??MG/DL ?CALCIUM ?9.4 [8.0-25.0] ??MG/DL ?BUN ? 13.2 ??[10-20] ? B/C RATIO ? 15 [0.60-1.10] ??MG/DL ?CREATININE ?0.91 f ?10/02/14 0620 eGFR:69 ml/min/1.73sq.m if non -Macanese. eGFR: >70 ml/min/1.73sq.m if -Macanese. AVE GFR for 50-59 yr. age group: ??93 ml/min/1.73sq.m Calculated using MDRD Equation FOOTNOTE ADDED ON ?? 10/02/14 ?? AT 0650 BY 999 Footnotes and Symbols: f = Footnote GLUCOSE (09/25/14 -- Current) Note:The glucose is assumed non fasting Fastin-99 mg/dl Random: 70-199 mg/dl Either a fasting glucose > 126 mg/dL or a random glucose > 200 mg/dL plus symptoms is diagnostic of diabetes when confirmed on another day. Fasting values > 100 mg/dl but < 125 mg/dL are diagnostic of impaired fasting glucose. ?? CONTINUED ?Page: ?? 2 Patient No: [id number] ? [facility] Patient Name: JULIETA HERNÁNDEZ ?[facility] Age: 53 YRS ?: 1960 ?Sex:F ?[address] )[phone] ?? Adm Dt: 10/02/2014 ?[place] ??[address] Created: 10/04/2014 ??0040 ?? Pt. Type: R ? Discharge Dt: 10/02/2014 ? Pathologists: Marisabel Denny MD Admit Attend Dr: SEBLE YUSUF MD ?THYROID FUNCTION TESTS ?Collection Date: ?10/02/14 ?Collection Time: ?0620 ? Ref Range: ?? Units: [0.8-1.8] ?? NG/DL ?FREE T4 ?0.9 [0.30-5.00] ??uIU/ML ? TSH ? 3.12 ?? END OF CHART ? Page: ?? 3 us Historical Provider LAB BLOOD ORDERABLES Maria Eugenia l Result HISTORICAL RESULTS documented in this encounter Visit Diagnoses Diagnosis Other malaise and fatigue documented in this encounter Care Teams Loans Officer Relationship Specialty Start Date End Date Seble Yusuf PCP - General 06/16/10 02/16/16 documented as of this encounter
--- OUTSIDE RECORDS SUMMARY | 2024-08-12 23:45 | XMS_ITS | Encounter Summary ---
Author Organization [facility] Healthcare Address [address] [place] [address] Care Team Providers Care Mold Stacker Name Role Phone Gallito Edwards Primary Care Provider Unavailabl e Encounter Details Date Type Department Care Team (Late st Contact Info) Description 09/08/2011 8:48 AM PARAOPTOMETRIC - 09/08/2011 11:59 PM PARAOPTOMETRIC Hospital Encounter [facility] DARACONBindu Curtis MD [address] [address] Other screening mammogram Social History Tobacco Use Types Packs/Day Years Used Date Smoking Tobacco: Never Assessed Comments Unknown Sex and Gender Information Value Date Recorded Sex Assigned at Not on file Legal Sex Female 12:25 AM PARAOPTOMETRIC Gender Identity Not on file Sexual Orientation [...] mammogram documented in this encounter Care Teams Mold Stacker Relationship Specialty Start Date End Date Gallito Edwards PCP - General 06/16/10 02/16/16 documented as of this encounter
--- OUTSIDE RECORDS SUMMARY | 2024-08-12 23:45 | XMS_ITS | Encounter Summary ---
Author Organization [facility] Healthcare Address [address] [place] [address] Care Team Providers Care Billet Inspector Name Role Phone Gallito Edwards Primary Care Provider Unavailabl e Encounter Details Date Type Department Care Team (Late st Contact Info) Description 09/02/2011 2:03 PM BOAT OAR MAKER - 09/02/2011 11:59 PM BOAT OAR MAKER Hospital Encounter [facility] CLINCONV Gallito Edwards Iron deficiency anemia Social History Tobacco Use Types Packs/Day Years Used Date Smoking Tobacco: Never Assessed Comments Unknown Sex and Gender Information Value Date Recorded Sex Assigned at Not on file Legal Sex Female 12:25 AM BOAT OAR MAKER Gender Identity Not on file Sexual Orientation [...] anemia documented in this encounter Care Teams Billet Inspector Relationship Specialty Start Date End Date Gallito Edwards PCP - General 06/16/10 02/16/16 documented as of this encounter
--- OUTSIDE RECORDS SUMMARY | 2024-08-12 23:45 | XMS_ITS | Encounter Summary ---
Author Organization [facility] Healthcare Address [address] [place] [address] Care Team Providers Care Technical Clerk Name Role Phone Gallito Yusuf Primary Care Provider Unavailabl e Encounter Details Date Type Department Care Team (Late st Contact Info) Description 10/28/2014 4:17 PM CDT - 10/28/2014 11:59 PM CDT Hospital Encounter [facility] CLINCONV Bindu Fernandes MD [address] [facility] [address] [place] [address] Other screening mammogram Social History Tobacco Use Types Packs/Day Years Used Date Smoking Tobacco: Never Assessed Comments Unknown Sex and Gender Information Value Date Recorded Sex Assigned at Not on file Legal Sex Female 12:25 AM OPS ANALYST Gender Identity Not on file Sexual Orientation [...] by mouth once daily 30 0 09/16/2014 tfcywfdy-eczl-ovl -folic acid (ONE DAILY FOR WOMEN) 18-0.4 [...] Comments DIAGNOSTIC MAMMOGRAM BILATERAL W JULEE Routine 10/28/2014 4:36 PM CDT documented in this encounter Results * DIAGNOSTIC MAMMOGRAM BILATERAL W JULEE (10/28/2014 4:36 PM CDT) Anatomical Region Laterality Modality Breast Bilateral Mammography 10/28/2014 4:36 PM CDT Narrative 10/29/2014 10:27 AM CDT CC: ??DR. YUSUF SCREENING MAMM W JULEE BI ??Acc#: ??[id number] Screening mammogram Bilateral Acc [id number] DATE OF EXAM: ??Oct 28 2014 CLINICAL HISTORY: Screening mammogram. Performed by: ss RESULT: A screening mammogram was performed and is compared with prior studies from 09/17/13 and 09/12/12. ??The breast tissue is composed of scattered fibroglandular densities (25-50% glandular). ??Nodular densities in both breasts are again seen but have decreased in size. ??No new dominant mass, architectural distortion, or suspicious calcifications are seen. Digital technology was employed plus computer-aided detection software (R2) was utilized in interpretation of these images. ??This facility utilizes a reminder system to notify patients of yearly mammograms. IMPRESSION: NO SUSPICIOUS FINDINGS TO INDICATE MALIGNANCY. BI-RADS CATEGORY 2 - BENIGN FINDINGS Interpreting Physician: ??NOEMI ANGEL M.D. ??Read on: ??Oct 29 2014 6:55A Transcribed by: ??jael ??On: Oct 29 2014 10:24A Approved Electronically by: ??NOEMI ANGEL M.D. ??on: ??Oct 29 2014 10:27A Attending: ??DR BINDU FERNANDES Requesting: ??DR BINDU FERNANDES Requesting Fax: ??-- Attending Fax: ??-- Attending ID: ??[id number] Requesting ID: ??[id number] Report To 1 ID: ??[id number] Report To 1 Name: ??DR BINDU FERNANDES Report To 1 FAX: ??-- NextGen Order #: Procedure Note Provider, MD Alban - 12/08/2016 CC: DR. YUSUF SCREENING MAMM W JULEE BI Acc#: [id number] Screening mammogram Bilateral [id number] DATE OF EXAM: Oct 28 2014 CLINICAL HISTORY: Screening mammogram. Performed by: ss RESULT: A screening mammogram was performed and is compared with prior studiesfrom 09/17/13 and 09/12/12. The breast tissue is composed of scatteredfibroglandular densities (25- 50% glandular). Nodular densities in bothbreasts are again seen but have decreased in size. No new dominant mass,architectural distortion, or suspicious calcifications are seen. Digitaltechnology was employed plus computer-aided detection software (R2) wasutilized in interpretation of these images. This facility utilizes [employer] system to notify patients of yearly mammograms. IMPRESSION: NO SUSPICIOUS FINDINGS TO INDICATE MALIGNANCY. BI-RADS CATEGORY 2 -BENIGN FINDINGS Interpreting Physician: NOEMI ANGEL M.D. Read on: Oct 29 20146:55A Transcribed by: justen On: Oct 29 2014 10:24A Approved Electronically by: NOEMI ANGEL M.D. on: Oct 29 201410:27A Attending: DR BINDU FERNANDES Requesting: DR BINDU FERNANDES Requesting Fax: -- Attending Fax: -- Attending ID: [id number] Requesting ID: [id number] Report To 1 ID: [id number] Report To 1 Name: DR BINDU FERNANDES Report To 1 FAX: -- NextGen Order #: Historical Provider MD WALDROP MAMMO PROCEDURES Maria Eugenia l Result documented in this encounter Visit Diagnoses Diagnosis Other screening mammogram documented in this encounter Care Teams Technical Clerk Relationship Specialty Start Date End Date Gallito Yusuf PCP - General 06/16/10 02/16/16 documented as of this encounter
--- OUTSIDE RECORDS SUMMARY | 2024-08-12 23:45 | XMS_ITS | Encounter Summary ---
Author Organization [facility] Healthcare Address [address] [place] [address] Care Team Providers Care Audio Video Technician Name Role Phone Gallito Edwards Primary Care Provider Unavailabl e Encounter Details Date Type Department Care Team (Late st Contact Info) Description 10/18/2014 9:50 AM GYRO COMPASS TESTER - 10/18/2014 10:30 AM GYRO COMPASS TESTER Hospital Encounter [facility] CLINCONV Ivon Michel Other synovitis and tenosynovitis; Essential hypertension; Irritable colon; Encounter for long-term (current) use of other medications Social History Tobacco Use Types Packs/Day Years Used Date Smoking Tobacco: Never Assessed Comments Unknown Sex and Gender Information Value Date Recorded Sex Assigned at Not on file Legal Sex Female 12:25 AM GYRO COMPASS TESTER Gender Identity Not on file Sexual Orientation [...] by mouth once daily 30 0 09/16/2014 xfmdymos-jwco-ksz -folic acid (ONE DAILY FOR WOMEN) 18-0.4 [...] Name Priority Date/Time Associated Diagnosis Comments XR ELBOW 3+ VW Routine 10/18/2014 10:20 AM GYRO COMPASS TESTER documented in this encounter Results * XR Elbow 3+ Vw (10/18/2014 10:20 AM GYRO COMPASS TESTER) Anatomical Region Laterality Modality N/A Radiographic Kourtney ging 10/18/2014 10:2 0 AM GYRO COMPASS TESTER Narrative 10/18/2014 3:06 PM GYRO COMPASS TESTER XR Elbow Min 3 Views L ??[id number] ??Acc#: ??[id number] DATE OF EXAM: ??Oct ??2014 CLINICAL HISTORY: Pain without injury. RESULT: AP, lateral, and oblique views of the left elbow were obtained. ??No acute fracture or dislocation is seen. ??The bone density and texture are normal. ??No lytic or blastic lesions are noted. ??No joint effusion is seen. IMPRESSION: NO ACUTE OSSEOUS ABNORMALITY. Interpreting Physician: ??NOEMI ANGEL M.D. ??Read on: ??Mar ??2014 10:30A Transcribed by: ??[facility] ??On: Oct ??2014 ??2:51P Approved Electronically by: ??NOEMI ANGEL M.D. ??on: ??Mar ??2014 3:06P Attending: ??IVON MICHEL Requesting: ??Norm, Requesting Fax: ??-- Attending Fax: ??-- Attending ID: ?? Requesting ID: ?? Report To 1 ID: ??[id number] Report To 1 Name: ??IVON MICHEL Report To 1 FAX: ??-- NextGen Order #: Procedure Note Provider, MD Alban - 12/08/2016 XR Elbow Min 3 Views L [id number] Acc#: [id number] DATE OF EXAM: Oct 18 2014 CLINICAL HISTORY: Pain without injury. RESULT: AP, lateral, and oblique views of the left elbow were obtained. No acutefracture or dislocation is seen. The bone density and texture are normal.No lytic or blastic lesions are noted. No joint effusion is seen. IMPRESSION: NO ACUTE OSSEOUS ABNORMALITY. Interpreting Physician: NOEMI AGNEL M.D. Read on: Oct 18 201410:30A Transcribed by: [facility] On: Oct 18 2014 2:51P Approved Electronically by: NOEMI ANGEL M.D. on: Oct 18 20143:06P Attending: IVON MICHEL Requesting: Roselyn Saenz Fax: -- Attending Fax: -- Attending ID: Requesting ID: Report To 1 ID: [id number] Report To 1 Name: IVON MICHEL Report To 1 FAX: -- NextGen Order #: us Historical Provider MD WALDROP XR PROCEDURES Final R esult documented in this encounter Visit Diagnoses Diagnosis Other synovitis and tenosynovitis Essential hypertension Unspecified essential hypertension Irritable colon Encounter for long-term (current) use of other medications documented in this encounter Care Teams Audio Video Technician Relationship Specialty Start Date End Date Gallito Edwards PCP - General 06/16/10 02/16/16 documented as of this encounter
--- OUTSIDE RECORDS SUMMARY | 2024-08-12 23:45 | XMS_ITS | Encounter Summary ---
Author Organization [facility] Healthcare Address [address] [place] [address] Care Team Providers Care Director Report Name Role Phone Unavailable Primary Care Provider Unavailabl e Encounter Details Date Type Department Care Team (Late st Contact Info) Description 06/23/2009 12:01 AM VENEER REDRIER - 06/23/2009 11:59 PM VENEER REDRIER Hospital Encounter [facility] CLINCONV Bindu Delaney MD [address] [address] Other screening mammogram Social History Tobacco Use Types Packs/Day Years Used Date Smoking Tobacco: Never Assessed Comments Unknown Sex and Gender Information Value Date Recorded Sex Assigned at Not on file Legal Sex Female 12:25 AM VENEER REDRIER Gender Identity Not on file Sexual Orientation Not on file documented as of this encounter Plan of Treatment Not on file documented as of this encounter Visit Diagnoses Diagnosis Other screening mammogram documented in this encounter
--- OUTSIDE RECORDS SUMMARY | 2024-08-12 23:45 | XMS_ITS | Encounter Summary ---
Author Organization [facility] Healthcare Address [address] [place] [address] Care Team Providers Care Wig Stylist Name Role Phone Gallito Edwards Primary Care Provider Unavailabl e Encounter Details Date Type Department Care Team (Late st Contact Info) Description 07/21/2011 12:06 PM HARBOR ENGINEER - 07/21/2011 2:17 PM HARBOR ENGINEER Hospital Encounter [facility] Jose Enrique Luis MD [address] [facility] [address] [place] [address] Epistaxis; Irritable colon Social History Tobacco Use Types Packs/Day Years Used Date Smoking Tobacco: Never Assessed Comments Unknown Sex and Gender Information Value Date Recorded Sex Assigned at Not on file Legal Sex Female 12:25 AM HARBOR ENGINEER Gender Identity Not on file Sexual [...] of this encounter Visit Diagnoses Diagnosis Epistaxis Irritable colon documented in this encounter Care Teams Wig Stylist Relationship Specialty Start Date End Date Gallito Edwards PCP - General 06/16/10 02/16/16 documented as of this encounter
== END 2024-08-05 15:53 | disposition home or self-care (01) ==
PROVIDERS: Emergency Provider Nurse Practitioner Family; PCP Family Medicine
DX: B34.9 Viral infection, unspecified (principal); J01.90 Acute sinusitis, unspecified; I10 Essential (primary) hypertension; K21.9 Gastro-esophageal reflux disease without esophagitis; J45.909 Unspecified asthma, uncomplicated; M19.90 Unspecified osteoarthritis, unspecified site; M17.0 Bilateral primary osteoarthritis of knee
CPT/HCPCS: 87081; 87880; 99213; G0463

== ENCOUNTER 2024-12-30 18:56 | Emergency (ER) | payer OTHER, SELFPAY ==
--- NOTE | 2024-12-30 19:25 | ED_ITS ---
HPI - Skin/Abscess/Foreign Bdy General Chief complaint: Skin/Abscess/Foreign Body Stated complaint: RED SPOT ON L ARM Related Data Home Medications Medication Instructions Recorded Confirmed Last Taken Type Lactobacillus no.46-B. 1 cap PO DAILY 10/03/20 12/30/24 05/19/24 History animalis-inulin 10 billion cell-100 mg capsule (Probiotic-10 (with inulin)) calcium 600 mg (as 2 tablet PO DAILY 10/03/20 12/30/24 05/19/24 History carbonate)-vitamin D3 10 mcg (400 unit) tablet (Calcium with Vitamin D) glucosamine sulf dipot 1 cap PO DAILY 05/03/21 11/05/24 05/19/24 History chlr,msm,chond 550 mg-C 30 mg-mirela 1 mg capsule (Glucosamine Chondroitin) cholecalciferol (vitamin D3) 25 25 mcg PO DAILY 05/12/21 12/30/24 05/19/24 History mcg (1,000 unit) capsule [id number] 8 mg-folic 400 1 tablet PO DAILY 10/13/23 12/30/24 05/19/24 History mcg-K 50 mcg-lutein 300 mcg tablet (Centrum Silver Women) acetaminophen 650 mg 1,300 mg PO Q12H PRN Pain 05/10/24 12/30/24 05/21/24 History tablet,extended release omega-3 fatty acids 1,000 mg PO DAILY 05/10/24 12/30/24 05/19/24 History Allergies Allergy/AdvReac Type Severity Reaction Status Date / Time No Known Allergies Allergy Verified 12/30/24 19:22 Review of Systems Review of Systems: CONSTITUTIONAL: Denies body aches, fever, chills, or sweats. EYES: Denies visual changes, redness, or discharge. ENT: Denies rhinorrhea, congestion CARDIOVASCULAR: Denies chest pain, palpitations, or edema. RESPIRATORY: Denies cough or dyspnea. GASTROINTESTINAL: Denies abdominal pain, nausea, vomiting, or diarrhea. SKIN: MUSCULOSKELETAL: Denies back pain, joint pain, or myalgia. NEUROLOGIC: Denies headache, numbness, tingling, or weakness. PMFSH Past Medical History Medical History Insomnia BMI greater than 40 Degenerative joint disease of knee Left knee DJD Seasonal asthma IBS (irritable bowel syndrome) Vaginal delivery x2 Normal colonoscopy 2005, 2010 History of blood transfusion 2011 History of nephrolithotomy with removal of calculi 02/28 Chronic rhinosinusitis Essential hypertension Primary osteoarthritis of right knee Erythrocytosis Elevated liver enzymes Allergic rhinitis Osteoarthritis HTN (hypertension) GERD (gastroesophageal reflux disease) Surgical History Surgical History S/P total knee arthroplasty RT TKA 05/23/24- Dr. Sam History of endoscopy 2005, 2011, 2020 History of surgical removal of ganglion cyst x2, right hand History of cholecystectomy 2003 History of carpal tunnel surgery 2005 lt hand History of sinus surgery 06/2012; 07/26, cauterized sinus; 2001; 10/2018 Family History Family History Father Diabetes mellitus Hypertension Mother Diabetes mellitus Hypertension Sibling Diabetes mellitus Grandparent History of blood clots grandfather Diabetes mellitus grandmother Other Breast cancer aunt Social History Social History Social History: Smoking status: Never smoker Second hand tobacco smoke exposure: No Additional smoking assessment comments: DENIES ANY FORM OF TOBACCO USE Alcohol intake: current Drinks per week: 1 Substance use: never Substance use type: does not use Do You Feel Safe in your Home?: Yes Lack of Transportation: No Lack of Food: Never True Current Housing: I Have Housing Concerned About Future Housing: No Difficulty Paying Gas/Electric Bills: No Difficulty Paying for Meds: No Currently Unemployed: No Education: Associate Degree Difficulty w/ Childcare or Family Care: No Living arrangements: alone Occupation/Education: retired Gender identity (if verbalized by the patient): Female Sexual Orientation (if Verbalized by the Patient): Straight or Heterosexual Spiritual care concerns: No Comments At time of signature, I have reviewed and agree with nursing past medical, surgical, social and family history unless otherwise noted. Please see nursing chart for further information. There is no relevant family history pertinent to the presenting complaint. Exam Narrative: GENERAL: Well-appearing HEAD: Normocephalic, atraumatic. EYES: conjunctivae clear, and EOMI. ENT: Mucous membranes moist. Oropharynx without edema, erythema or lesions. NECK: Supple. No lymphadenopathy CHEST: Clear to auscultation. HEART: Regular rate and rhythm. SKIN: Warm, dry. NEURO: Alert and oriented x3. Course Course Level of Care: Express Care Visit Vital Signs Vital signs: Reviewed MDM - Skin/Abscess/Foreign Bdy MDM Narrative Medical decision making narrative: Discussed physical exam findings (and xray). Advised supportive measures and signs/symptoms to go to the ER. Pt is appropriate for outpatient treatment and follow up. Critical Care Time Critical Care Time Critical Care Time: No Discharge Plan Discharge Patient Language: Bermudian Prescriptions: No Action Glucosamine Chondroitin 550-30-1 mg Capsule 1 cap PO DAILY Centrum Silver Women 8 mg iron-400 mcg-50 mcg Tablet 1 tablet PO DAILY meclizine 25 mg tablet,chewable 12.5 mg PO TID PRN (Reason: motion sickness) Qty: 30 0RF terbinafine HCl 250 mg tablet 250 mg PO DAILY Qty: 30 2RF Patient Comments: WILL START AFTER RTKA cholecalciferol (vitamin D3) 25 mcg (1,000 unit) capsule 25 mcg PO DAILY Patient Comments: actual dose unknown calcium carbonate-vitamin D3 [Calcium with Vitamin D] 600 mg(1,500mg) -400 unit Tablet 2 tablet PO DAILY Probiotic-10 (with inulin) 10 billion cell -100 mg Capsule 1 cap PO DAILY acetaminophen 650 mg Tablet Extended Release 1,300 mg PO Q12H PRN (Reason: Pain) omega-3 fatty acids Capsule 1,000 mg PO DAILY aspirin 325 mg Tablet,Delayed Release (Dr/Ec) 325 mg PO Q12HR 28 Days Qty: 56 0RF albuterol sulfate 90 mcg/actuation HFA aerosol inhaler See Rx Instructions .ROUTE .COMPLEX Qty: 8.5 2RF Dose Instruction: INHALE 1 PUFF BY MOUTH EVERY 4 HOURS NEEDED FOR SHORTNESS OF BREATH Rx Instructions: INHALE 1 PUFF BY MOUTH EVERY 4 HOURS NEEDED FOR SHORTNESS OF BREATH oxycodone-acetaminophen [Percocet] 5-325 mg tablet 1 tablet PO Q8H PRN (Reason: pain) Qty: 40 0RF trazodone 50 mg tablet See Rx Instructions .ROUTE .COMPLEX Qty: 90 2RF Dose Instruction: 1 TABLET ORALLY EVERY DAY AT BEDTIME NEEDED FOR INSOMNIA Rx Instructions: 1 TABLET ORALLY EVERY DAY AT BEDTIME NEEDED FOR INSOMNIA montelukast 10 mg tablet 10 mg PO DAILY Qty: 90 2RF hydrochlorothiazide 25 mg tablet 25 mg PO DAILY Qty: 90 2RF rabeprazole 20 mg tablet,delayed release (DR/EC) 20 mg PO BID Qty: 180 2RF Rx Instructions: TAKE ONE TABLET BY MOUTH TWICE A DAY Follow-up/Referrals: Alejandro Lema MD [Primary Care Provider] -
--- NOTE | 2024-12-30 19:31 | ED_ITS ---
HPI - Skin/Abscess/Foreign Bdy General Chief complaint: Skin/Abscess/Foreign Body Stated complaint: RED SPOT ON L ARM Time Seen by Provider: 12/30/24 19:31 Source: patient Mode of arrival: ambulatory Limitations: no limitations History of Present Illness HPI narrative: 64-year-old female presented for complaint of a reddened area to the left upper arm. First noticed last night. Endorses mild tenderness to the site. No drainage. She states she received pneumonia injection in the area about 1 week ago. Denies associated nausea vomiting, diarrhea, fevers or chills. Related Data Home Medications Medication Instructions Recorded Confirmed Last Taken Type Lactobacillus no.46-B. 1 cap PO DAILY 10/03/20 12/30/24 05/19/24 History animalis-inulin 10 billion cell-100 mg capsule (Probiotic-10 (with inulin)) calcium 600 mg (as 2 tablet PO DAILY 10/03/20 12/30/24 05/19/24 History carbonate)-vitamin D3 10 mcg (400 unit) tablet (Calcium with Vitamin D) glucosamine sulf dipot 1 cap PO DAILY 05/03/21 11/05/24 05/19/24 History chlr,msm,chond 550 mg-C 30 mg-mirela 1 mg capsule (Glucosamine Chondroitin) cholecalciferol (vitamin D3) 25 25 mcg PO DAILY 05/12/21 12/30/24 05/19/24 History mcg (1,000 unit) capsule cacilizy-lhmn-dqek 8 mg-folic 400 1 tablet PO DAILY 10/13/23 12/30/24 05/19/24 History mcg-K 50 mcg-lutein 300 mcg tablet (Centrum Silver Women) acetaminophen 650 mg 1,300 mg PO Q12H PRN Pain 05/10/24 12/30/24 05/21/24 History tablet,extended release omega-3 fatty acids 1,000 mg PO DAILY 05/10/24 12/30/24 05/19/24 History Allergies Allergy/AdvReac Type Severity Reaction Status Date / Time No Known Allergies Allergy Verified 12/30/24 19:22 Review of Systems Review of Systems: CONSTITUTIONAL: Denies body aches, fever, chills, or sweats. EYES: Denies visual changes, redness, or discharge. ENT: Denies rhinorrhea, congestion CARDIOVASCULAR: Denies chest pain, palpitations, or edema. RESPIRATORY: Denies cough or dyspnea. GASTROINTESTINAL: Denies abdominal pain, nausea, vomiting, or diarrhea. SKIN: per HPI MUSCULOSKELETAL: Denies back pain, joint pain, or myalgia. NEUROLOGIC: Denies headache, numbness, tingling, or weakness. [facility] Past Medical History Medical History Insomnia BMI greater than 40 Degenerative joint disease of knee Left knee DJD Seasonal asthma IBS (irritable bowel syndrome) Vaginal delivery x2 Normal colonoscopy 2005, 2010 History of blood transfusion 2011 History of nephrolithotomy with removal of calculi 02/28 Chronic rhinosinusitis Essential hypertension Primary osteoarthritis of right knee Erythrocytosis Elevated liver enzymes Allergic rhinitis Osteoarthritis HTN (hypertension) GERD (gastroesophageal reflux disease) Surgical History Surgical History S/P total knee arthroplasty RT TKA 05/23/24- Dr. Sam History of endoscopy 2005, 2011, 2020 History of surgical removal of ganglion cyst x2, right hand History of cholecystectomy 2003 History of carpal tunnel surgery 2006 lt hand History of sinus surgery 06/2012; 07/26, cauterized sinus; 2001; 10/2018 Family History Family History Father Diabetes mellitus Hypertension Mother Diabetes mellitus Hypertension Sibling Diabetes mellitus Grandparent History of blood clots grandfather Diabetes mellitus grandmother Other Breast cancer aunt Social History Social History Social History: Smoking status: Never smoker Second hand tobacco smoke exposure: No Additional smoking assessment comments: DENIES ANY FORM OF TOBACCO USE Alcohol intake: current Drinks per week: 1 Substance use: never Substance use type: does not use Do You Feel Safe in your Home?: Yes Lack of Transportation: No Lack of Food: Never True Current Housing: I Have Housing Concerned About Future Housing: No Difficulty Paying Gas/Electric Bills: No Difficulty Paying for Meds: No Currently Unemployed: No Education: Associate Degree Difficulty w/ Childcare or Family Care: No Living arrangements: alone Occupation/Education: retired Gender identity (if verbalized by the patient): Female Sexual Orientation (if Verbalized by the Patient): Straight or Heterosexual Spiritual care concerns: No Comments At time of signature, I have reviewed and agree with nursing past medical, surgical, social and family history unless otherwise noted. Please see nursing chart for further information. There is no relevant family history pertinent to the presenting complaint Exam Narrative: GENERAL: Well-appearing ENT: Mucous membranes moist. Oropharynx without edema, erythema or lesions. NECK: Supple. No lymphadenopathy CHEST: Clear to auscultation. HEART: Regular rate and rhythm. SKIN: Warm, dry. Left upper arm with 12x7cm irregular area of erythema, warm, mildly elevated, nontender, no fluctuance or active drainage. NEURO: Alert and oriented x3. Course Course Emergency Course: Patient is aware of diagnosis, understands and agrees to treatment plan. Anticipatory guidance given. Patient agrees to follow-up as directed and is aware of reasons to seek care at the emergency department. Portions of this record may have been created with voice recognition software Level of Care: Express Care Visit Vital Signs Vital signs: Reviewed MDM - Skin/Abscess/Foreign Bdy MDM Narrative Medical decision making narrative: Discussed physical exam findings and reviewed RX. Advised supportive measures and signs/symptoms to go to the ER. Pt is appropriate for outpt treatment and f/u. Differential Diagnosis Differential diagnosis: Likely abscess of skin or subcutaneous tissue, viral exanthem, dermatophytosis, urticaria, herpes zoster, cellulitis, eczema, insect bites, impetigo and contact dermatitis Discharge Plan Discharge Clinical Impression: Cellulitis Qualifiers: Site of cellulitis: extremity Site of cellulitis of extremity: upper extremity Laterality: left Qualified Code(s): L03.114 - Cellulitis of left upper limb Patient Disposition: Home Condition: Stable Instructions: Antibiotic Form, Cellulitis (ED) Additional Instructions: Keep the area clean and dry - cleanse with warm water and mild soap and allow to fully dry. Take antibiotic as directed Tylenol as needed for pain/fever Warm or cool compresses to the site as needed Watch for worsening symptoms including pain, redness, swelling, streaking, pus/drainage, fever. Go to the ER with any of these symptoms or concerns. Follow up with primary care provider in 1 week as needed. Notify your hostess cashier tomorrow morning before your allergy injection Patient Language: Yoruba Prescriptions: New cephalexin 500 mg capsule 500 mg PO Q8H 7 Days Qty: 21 0RF No Action Glucosamine Chondroitin 550-30-1 mg Capsule 1 cap PO DAILY Centrum Silver Women 8 mg iron-400 mcg-50 mcg Tablet 1 tablet PO DAILY meclizine 25 mg tablet,chewable 12.5 mg PO TID PRN (Reason: motion sickness) Qty: 30 0RF terbinafine HCl 250 mg tablet 250 mg PO DAILY Qty: 30 2RF Patient Comments: WILL START AFTER RTKA cholecalciferol (vitamin D3) 25 mcg (1,000 unit) capsule 25 mcg PO DAILY Patient Comments: actual dose unknown calcium carbonate-vitamin D3 [Calcium with Vitamin D] 600 mg(1,500mg) -400 unit Tablet 2 tablet PO DAILY Probiotic-10 (with inulin) 10 billion cell -100 mg Capsule 1 cap PO DAILY acetaminophen 650 mg Tablet Extended Release 1,300 mg PO Q12H PRN (Reason: Pain) omega-3 fatty acids Capsule 1,000 mg PO DAILY aspirin 325 mg Tablet,Delayed Release (Dr/Ec) 325 mg PO Q12HR 28 Days Qty: 56 0RF albuterol sulfate 90 mcg/actuation HFA aerosol inhaler See Rx Instructions .ROUTE .COMPLEX Qty: 8.5 2RF Dose Instruction: INHALE 1 PUFF BY MOUTH EVERY 4 HOURS NEEDED FOR SHORTNESS OF BREATH Rx Instructions: INHALE 1 PUFF BY MOUTH EVERY 4 HOURS NEEDED FOR SHORTNESS OF BREATH oxycodone-acetaminophen [Percocet] 5-325 mg tablet 1 tablet PO Q8H PRN (Reason: pain) Qty: 40 0RF trazodone 50 mg tablet See Rx Instructions .ROUTE .COMPLEX Qty: 90 2RF Dose Instruction: 1 TABLET ORALLY EVERY DAY AT BEDTIME NEEDED FOR INSOMNIA Rx Instructions: 1 TABLET ORALLY EVERY DAY AT BEDTIME NEEDED FOR INSOMNIA montelukast 10 mg tablet 10 mg PO DAILY Qty: 90 2RF hydrochlorothiazide 25 mg tablet 25 mg PO DAILY Qty: 90 2RF rabeprazole 20 mg tablet,delayed release (DR/EC) 20 mg PO BID Qty: 180 2RF Rx Instructions: TAKE ONE TABLET BY MOUTH TWICE A DAY Follow-up/Referrals: Alejandro Lema MD [Primary Care Provider] -
== END 2024-12-30 19:38 | disposition home or self-care (01) ==
PROVIDERS: Emergency Provider Nurse Practitioner Family; PCP Family Medicine
DX: L03.114 Cellulitis of left upper limb (principal); I10 Essential (primary) hypertension; K21.9 Gastro-esophageal reflux disease without esophagitis; M17.0 Bilateral primary osteoarthritis of knee; Z96.651 Presence of right artificial knee joint
CPT/HCPCS: 99213; G0463